=== PATIENT | male | born 1945 | race Caucasian/White ===

== ENCOUNTER → 2019-04-30 | Outpatient (CLI) | payer MEDICARE, OTHER ==
[~2019-04-30] MED LIST: ASPI-586 PO; DICL50TA6 PO; DIVA250T2 PO; HYDR25TA4 PO; MULT-301 PO; MV-M1TAB38 PO; NF-ESOM40C PO; SIMV20TA3 PO
[2019-04-30 09:45] LABS: BASOPHILS # (AUTO) 0.1 10^3/uL (0.0-0.1); BASOPHILS % (AUTO) 1 % (0-10); EOSINOPHILS # (AUTO) 0.2 10^3/uL (0.0-0.3); EOSINOPHILS % (AUTO) 2 % (0-10); HEMATOCRIT 44 % (40-54); HEMOGLOBIN 14.8 G/DL (13.3-17.7); LYMPHOCYTES # (AUTO) 2.3 X 10^3 (1.0-4.0); LYMPHOCYTES % (AUTO) 27 % (12-44); MEAN CORPUSCULAR HEMOGLOBIN 31 PG (25-34); MEAN CORPUSCULAR HGB CONC 34 G/DL (32-36); MEAN CORPUSCULAR VOLUME 91 FL (80-99); MEAN PLATELET VOLUME 9.7 FL (7.4-10.4); MONOCYTES # (AUTO) 0.9 X 10^3 (0.0-1.0); MONOCYTES % (AUTO) 11 % (0-12); NEUTROPHILS % (AUTO) 59 % (42-75); PLATELET COUNT 200 10^3/uL (130-400); RED CELL DISTRIBUTION WIDTH 13.3 % (10.0-14.5); WHITE BLOOD COUNT 8.5 10^3/uL (4.3-11.0)
[2019-04-30 09:51] LABS: BILIRUBIN,URINE NEGATIVE (NEGATIVE); CLARITY,URINE CLEAR; COLOR,URINE YELLOW; GLUCOSE, URINE (UA) NEGATIVE (NEGATIVE); KETONES,URINE NEGATIVE (NEGATIVE); LEUKOCYTE ESTERASE ,URINE NEGATIVE (NEGATIVE); NITRITE,URINE NEGATIVE (NEGATIVE); PH,URINE 7 (5-9); PROTEIN,URINE NEGATIVE (NEGATIVE); UROBILINOGEN,URINE NORMAL (NORMAL)
[2019-04-30 10:03] LABS: BACTERIA,URINE NEGATIVE /HPF
[2019-04-30 10:05] LABS: ALANINE AMINOTRANSFERASE 13 U/L (0-55); ALBUMIN 4.1 GM/DL (3.2-4.5); ALKALINE PHOSPHATASE 66 U/L (40-136); BILIRUBIN,TOTAL 0.3 MG/DL (0.1-1.0); BUN/CREATININE RATIO 19; CARBON DIOXIDE 25 MMOL/L (21-32); CHLORIDE 104 MMOL/L (98-107); CREATININE SERUM 0.96 MG/DL (0.60-1.30); GFR ESTIMATED > 60; GLUCOSE 92 MG/DL (70-105); SODIUM 138 MMOL/L (135-145); TOTAL PROTEIN 7.4 GM/DL (6.4-8.2)
--- NOTE | 2019-04-30 17:37 | Diagnostic Imaging Report ---
EXAMINATION: PA and lateral chest At 10:17 a.m. INDICATION: Preop, atherosclerosis of [place] arteries. COMPARISON: There are no prior studies available for comparison. FINDINGS: The heart size is within normal limits. The lungs are clear. There is no evidence for failure, pneumonia, or for a pleural effusion. The mediastinum is not widened. The osseous structures are intact. IMPRESSION: There is no evidence for active disease. Dictated by: Dictated on workstation # [id number]
== END ==
LOC: CARD 09:28
PROVIDERS: ATTEND Thoracic Surgery (Cardiothoracic Vascular Surgery)
DX: Z01.810 Encounter for preprocedural cardiovascular examination (principal); Z01.812 Encounter for preprocedural laboratory examination; Z01.811 Encounter for preprocedural respiratory examination; I70.209 Unspecified atherosclerosis of native arteries of extremities, unspecified extremity
CPT/HCPCS: 36415; 71046; 80053; 81000; 85025; 93005

== ENCOUNTER 2021-03-21 12:15 | Inpatient (IN) | payer MEDICARE, OTHER ==
[~2021-03-21] VITALS: Ht 182 cm; Wt 78.8 kg
[~2021-03-21 12:15] MED LIST changes: +SIMV20TA26 PO; -SIMV20TA3 PO
[2021-03-21] MEDS ORDERED: DOCUSATE SODIUM 100 MG (COLACE) CAP PO PRN (12:30)
[2021-03-21] MEDS ORDERED: ALPRAZolam 0.25 MG (XANAX) TAB PO PRN (12:30)
[2021-03-21] MEDS ORDERED: diphenhydrAMINE 25 MG TAB (BENADRYL) PO PRN (12:30)
[2021-03-21] MEDS ORDERED: guaiFENesin/CODEINE (ROBITUSSIN AC) 10ML UDC PO PRN (12:30)
[2021-03-21] MEDS ORDERED: HYDROcodone/APAP 5 MG/325 MG (LORTAB) TAB PO PRN (12:30)
[2021-03-21] MEDS ORDERED: LOPERAMIDE 2 MG (IMODIUM) TABLET PO PRN (12:30)
[2021-03-21] MEDS ORDERED: ONDANSETRON 4 MG (ZOFRAN) ORAL DISSOLVE TAB PO PRN (12:30)
[2021-03-21] MEDS ORDERED: BISACODYL 10 MG SUPP (DULCOLAX) PR PRN (12:30)
[2021-03-21] MEDS ORDERED: FLEET ENEMA ADULT 1 EA BTL PR PRN (12:30)
[2021-03-21] MEDS ORDERED: TOLT4CAP13 PO (12:36)
[2021-03-21] MEDS ORDERED: DIVA500T PO (12:36)
[2021-03-21] MEDS ORDERED: CLOP75TA28 PO (12:36)
[2021-03-21] MEDS ORDERED: PANT40TA52 PO (12:36)
[2021-03-21] MEDS ORDERED: SIMV20TA26 PO (12:36)
[2021-03-21] MEDS ORDERED: ASPI-999 PO (12:36)
[2021-03-21] MEDS ORDERED: DICL50TA6 PO (12:36)
[2021-03-21] MEDS ORDERED: MULT-166 PO (12:36)
[2021-03-21] MEDS ORDERED: CARV6.252 PO (12:36)
[2021-03-21] MEDS ORDERED: ACHD5005 PO (12:36)
[2021-03-21] MEDS ORDERED: C,E,1CAP2 PO (12:36)
--- NOTE | 2021-03-21 15:38 | Occupational Therapy Eval ---
OT Evaluation-General/PLF Medical Diagnosis Admission Date Mar 21, 2021 at 14:20 Medical Diagnosis: s/p CABGx4 Onset Date: Mar 15, 2021 Therapy Diagnosis Therapy Diagnosis: Decreased ADL status Height/Weight Height (Feet): 5 Height (Inches): 11.00 Weight (Pounds): 185 Weight (Ounces): 0.0 Precautions Precautions/Isolations: Fall Prevention, Standard Precautions Comments sternal precautions Referral Physician: Roger Referral Reason: Activity Tolerance, Self Care, Evaluation/Treatment, Strengthening/ROM Medical History Pertinent Medical History: Arthritis, CAD, GERD, HTN Additional Medical History HTN, HLD, GERD, arthritis, peripheral neuropathy, CAD, MRSA, lap hiatal hernia repair Current History CABG x4 Reviewed History: Yes Social History Home: Single Level Current Living Status: Children (son) Entry Into Home: Ramp Steps Into Home: 0 ADL-Prior Level of Function SCALE: Activities may be completed with or without assistive devices. 1-Ocziitnmpt-rrpyyhp completes the activity by him/herself with no assistance from a helper. 5-Set-up or Clean-up Assistance-helper sets up or cleans up; patient completes activity. [place] assists only prior to or following the activity. 4-Supervision or Touching Assistance-helper provides verbal cues and/or touching/steadying and/or contact guard assistance as patient completes activity. Assistance may be provided throughout the activity or intermittently. 3-Partial/Moderate Assistance-helper does LESS THAN HALF the effort. [place] lifts, holds or supports trunk or limbs, but provides less than half the effort. 2-Substantial/Maximal Assistance-helper does MORE THAN HALF the effort. [place] lifts or holds trunk or limbs and provides more than half the effort. 6-Vgklrmawn-mtvlke does ALL the effort. Patient does none of the effort to complete the activity. Or, the assistance of 2 or more helpers is required for the patient to complete the activity. If activity was not attempted, code reason: 7-Patient Refused. 9-Not Applicable-not attempted and the patient did not perform the activity before the current illness, exacerbation or injury. 10-Not Attempted due to Environmental Limitations-(lack of equipment, weather restraints, etc.). 88-Not Attempted due to Medical Conditions or Safety Concerns. ADL PLOF Comments Pt expresses IND with use of SPC within/ outside of the home. 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 Drive Self: Yes OT Current Status Subjective Pt states pain in the back, pain in the chest as well. Pt is accompanied by son through most of the start of session. OT individual evaluation: [id number] (10) PT individual evaluation: [id number] (10) not charged by OT. OT/ PT co-treat from [id number] (80) with OT addressing UE strength, ADL status, balance and fx endurance, sternal precautions, etc while PT addresses LE strength, w/c mobility, fx mobility and transfers. Mental Status/Objective Patient Orientation: Person, Place, Situation Current Glasses/Contacts: Yes Hearing Aids: No Dentures/Partials: Yes Hand Dominance: Right Upper Extremity ROM WFL BUE (sternal precautions continued) Upper Extremity Coordination WFL BUE Upper Extremity Sensation WFL BUE Upper Extremity Strength DNT per sternal precautions. Edema: slight pitting LLE ADL-Treatment Eating (QC): 6 Oral Hygiene (QC): 6 (IND in sit per clinical judgment.) Shower/Bathe Self (QC): 7 (desires tomorrow.) Upper Body Dressing (QC): 5 (per clinical judgment. ) Lower Body Dressing (QC): 7 (denies, however, assist to pull down during toileting and CGA to focus puller hips.) On/Off Footwear (QC): 3 (CGA EOB with min A to right while donning slip on shoes.) Toileting Hygiene (QC): 4 (Completes with SBA on toilet.) Other Treatments Pt seen on 1st floor with son, accompanied by OT/ PT to 2nd and is introduced to ARU. Pt completes PT eval/ OT eval. MMT/ ROM screen with precautions maintained. Pt bed mob with CGA into bed, mod A supine to sit to EOB. Completes shoe donning/ doffing with assist for sustained sit (slight leaning back due to pain in back). BP assessed with ~116/58 in supine. Pt educated on sternal precautions. Pt sit to stands with CGA-min A and ambulates with unsteady gait with walker. Pt slightly ATKA and requires increased cues for pronunciation during communication. Pt completes toileting with SBA and CGA sit to stand from standard toilet. Pt expresses slight dizziness/ nausea. Pt's vitals assessed with 115/59. Pt completes stance at // bars, completing higher level balance tasks. Ambulates through halls and back to room with CGA and RB. All needs met, call light in reach, pt remains in bed with bed alarm on. Education OT Patient Education: Correct positioning, Exercise program, Home exercise program, Instructions to caregiver, Modified ADL techniques, Purpose of tx/funct ional activities, Reviewed precautions, Rehab process, Safety issues, Transfer techniques Teaching Recipient: Patient Teaching Methods: Demonstration, Discussion Response to Teaching: Verbalize Understanding, Return Demonstration OT Short Term Goals Short Term Goals Oral hygiene: 6 Toileting hygiene: 6 Shower/bathe self: 3 Upper body dressin Lower body dressin Putting on/taking off footwear: 4 OT Raised Printer Goals Raised Printer Goals Time Frame: Apr 04, 2021 Eating (QC): 6 Oral Hygiene (QC): 6 Toileting Hygiene (QC): 6 Shower/Bathe Self (QC): 6 Upper Body Dressing (QC): 6 Lower Body Dressing (QC): 6 On/Off Footwear (QC): 6 Additional Goals: 1-Demonstrate ADL Tasks, 2-Verbalize Understanding, 3-Imp roveStrength/Myah 1=Demonstrate adherence to instructed precautions during ADL tasks. 2=Patient will verbalize/demonstrate understanding of assistive devices/modifications for ADL. 3=Patient will improve strength/tolerance for activity to enable patient to perform ADL's. OT Education/Plan Problem List/Assessment Assessment: Decreased Activ Tolerance, Decreased Safety Aware, Decreased UE Strength, Dependent Transfers, Edema, Impaired Bed Mobility, Impaired Cognition, Impaired Funct Balance, Impaired I ADL's, Impaired Self-Care Skills Discharge Recommendations Plan/Recommendations: Continue POC Therapy Discharge Recommendati: Home & Family, Post Acute OT Treatment Plan/Plan of Care Treatment,Training & Education: Yes Patient would benefit from OT for education, treatment and training to promote independence in ADL's, mobility, safety and/or upper extremity function for ADL's. Plan of Care: ADL Retraining, Caregiver Training, Functional Mobility, Group Exercise/Act as Ind, UE Funct Exercise/Act, W/C Management Training Treatment Duration: Apr 04, 2021 Frequency: At least 5 of 7 days/Wk (IRF) Estimated Hrs Per Day: 1.5 hours per day Agreement: Yes Rehab Potential: Fair Time/GCodes Start Time: 14:30 Stop Time: 16:00 Total Time Billed (hr/min): 90 Billed Treatment Time OT individual evaluation: [id number] (10) PT individual evaluation: [id number] (10) not charged by OT. OT/ PT co-treat from [id number] (80) with OT addressing UE strength, ADL status, balance and fx endurance, sternal precautions, etc while PT addresses LE strength, w/c mobility, fx mobility and transfers. 1, EVM (10), ADL (20), EX 4 (60)= (90 total) FELIPA LEBRON OTR Mar 21, 2021 15:38
--- NOTE | 2021-03-21 15:47 | Physical Therapy Evaluation ---
PT Evaluation-General Medical Diagnosis Admission Date Mar 21, 2021 at 14:20 Medical Diagnosis: s/p CABGx4 Onset Date: Mar 15, 2021 Therapy Diagnosis Therapy Diagnosis: weakness; abn gait Height/Weight Height (Feet): 5 Height (Inches): 11.00 Weight (Pounds): 185 Weight (Ounces): 0.0 Precautions Precautions/Isolations: Fall Prevention, Standard Precautions Weight Bear Status Sternal precautions Referral Physician: Roger Reason for Referral: Evaluation/Treatment Medical History Pertinent Medical History: CABG (x4), CAD, HTN, PVD Additional Medical History anemia, hypoxemia Current History Post acute hospital stay with a CABG x 4 on 03/14/21. Admitted to this unit for continued medical management and skilled therapy services. Reviewed History: Yes Social History Home: Single Level Current Living Status: Children (son) Entry Into Home: Ramp PT Steps Into Home: 0 Prior Prior Level of Function SCALE: Activities may be completed with or without assistive devices. 4-Fldjvzqdsn-mudnwog completes the activity by him/herself with no assistance from a helper. 5-Set-up or Clean-up Assistance-helper sets up or cleans up; patient completes activity. [place] assists only prior to or following the activity. 4-Supervision or Touching Assistance-helper provides verbal cues and/or touching/steadying and/or contact guard assistance as patient completes activity. Assistance may be provided throughout the activity or intermittently. 3-Partial/Moderate Assistance-helper does LESS THAN HALF the effort. [place] lifts, holds or supports trunk or limbs, but provides less than half the effort. 2-Substantial/Maximal Assistance-helper does MORE THAN HALF the effort. [place] lifts or holds trunk or limbs and provides more than half the effort. 7-Bdrbfdeaf-irkngn does ALL the effort. Patient does none of the effort to complete the activity. Or, the assistance of 2 or more helpers is required for the patient to complete the activity. If activity was not attempted, code reason: 7-Patient Refused. 9-Not Applicable-not attempted and the patient did not perform the activity before the current illness, exacerbation or injury. 10-Not Attempted due to Environmental Limitations-(lack of equipment, weather restraints, etc.). 88-Not Attempted due to Medical Conditions or Safety Concerns. Bed Mobility: 6 Transfers (B,C,W/C): 6 Gait: 6 (uses a cane as needed) Stairs: 6 Wheelchair Mobility: 10 Indoor Mobility (Ambulation): Independent Stairs: Independent Prior Devices Use: None Prior Device Use: Pt has a cane and FWW at home (walker was his mother's) PT Evaluation-Current Subjective Pt agreeable to PT. Reports he has access to a walker but has recently been using a cane for ambulation. Reports he tires easily. Reports he is not supposed to push or pull with his upper extremities. Pain Numeric Pain Scale: 0-No Pain Objective Patient Orientation: Person, Place, Time, Situation ROM/Strength ROM Lower Extremities WNL Strength Lower Extremities B LE strength is grossly 4-/5 throughout Integumentary/Posture Integumentary Refer to nursing notes for full assessment. Bowel Incontinence: No Bladder Incontinence: No Posture Shoulders are symmetrical; shoulders slightly rounded with head slightly forward. Neuromuscular (Tone, Coordination, Reflexes) Intact and without noted functional deficit. Sensory Vision: Wears Glasses Hearing: Functional Hand Dominance: Right Sensation Right Lower Extremit: Intact Sensation Left Lower Extremity: Intact Transfers Roll Left & Right (QC): 4 (skilled cues to initiate and maintain precautions. ) Sit to Lying (QC): 4 Lying to Sitting/Side of Bed(Q: 4 Sit to Stand (QC): 4 Chair/Oep-bc-Bamhe Xfer(QC): 4 Toilet Transfer (QC): 3 (min assist to lower to the toilet) Car Transfer (QC): 3 (min assist with legs; skilled cues to sequence) Cues for task initiation and maintain sternal precautions. Gait Does the Patient Walk?: Yes Mode of Locomotion: Walk Anticipated Mode of Locomotion: Walk Walk 10 feet (QC): 3 Walk 50 ft with 2 Turns(QC): 3 Walk 150 ft (QC): 3 Walking 10ft/uneven surface-QC: 3 Distance: 50 ft x 2; 150 ft x 1 Gait Assistive Device: FWW Comments/Gait Description Decreased step length and decreased step through; with impaired DF and heel strike. Slow gait and tends to lean back at times. Wheelchair Training Does the Pt Use a Wheelchair?: No Wheel 50 ft with 2 turns (QC): 9 Wheel 150 ft (QC): 9 Stairs 1 Step (curb) (QC): 3 (min assist and skilled cues for sequencing. ) 4 Steps (QC): 88 12 Steps (QC): 88 Balance Sitting Static: Fair (retropulsive sitting EOB.) Sitting Dynamic: Fair (retropulsive sitting EOB) Standing Static: Fair Standing Dynamic: Normal Picking up an Object (QC): 3 Treatment functional transfer training with cues to initiate and safety with transfers. Co treat with OT due to the need for heavy cues for task completion. Skill of 2 clinicians indicated for safe completion and effective completion of tasks. Pt performed transfers, bed mobility and toilet transfer; OT addressed use and placement of UE as PT addressed gross motor tasks. Skilled cues provided by each discipline. Assessment/Needs Post CABG x 4 with residual functional weakness, balance impairment and impaired functional activity tolerance; sternal precautions as wll. He is requiring assist with all functional mobility and unable to safely or effectively care for himself. He requires cues and assist with transfers, bed mobility and gait. He will benefit from skilled PT services to progress to a mod indep level of mobility to decrease caregiver burden and increase patient particiaption in self care and environment interaction. Rehab Potential: Good PT Short Term Goals Short Term Goals Time Frame: Mar 28, 2021 Roll Left & Right: 5 Sit to lyin Lying to sitting on side of be: 5 Sit to stand: 5 Chair/fvm-ke-fgafj transfer: 5 Toilet transfer: 4 Walk 10 feet: 4 Walk 50 feet with two turns: 4 Walk 150 feet: 4 PT Stagecraft Teacher Goals Snf Goals PT Snf Goals Time Frame: Apr 06, 2021 Roll Left & Right (QC): 6 Sit to Lying (QC): 6 Lying-Sitting on Side/Bed(QC): 6 Sit to Stand (QC): 6 Chair/Jvk-py-Wwoyz Xfer(QC): 6 Toilet Transfer (QC): 6 Car Transfer (QC): 6 Does the Patient Walk: Yes Walk 10 feet (QC): 6 Walk 50ft with 2 Turns (QC): 6 Walk 150 ft (QC): 6 Walking 10ft on Uneven Surface: 6 1 Step (curb) (QC): 6 4 Steps (QC): 6 12 Steps (QC): 4 Picking up an Object (QC): 5 Does the Pt use WC or Scooter?: No Wheel 50 feet with 2 turns (QC: 9 Wheel 150 feet: 9 PT Plan Problem List Problem List: Activity Tolerance, Functional Strength, Safety, Balance, Gait, Transfer, Bed Mobility Treatment/Plan Treatment Plan: Continue Plan of Care Treatment Plan: Bed Mobility, Education, Functional Activity Myah, Functional Strength, Group Therapy, Gait, Safety, Therapeutic Exercise, Transfers Treatment Duration: Apr 06, 2021 Frequency: At least 5 of 7 days/Wk (IRF) Estimated Hrs Per Day: 1.5 hours per day Patient and/or Family Agrees t: Yes Safety Risks/Education Patient Education: Transfer Techniques, Safety Issues Teaching Recipient: Patient Teaching Methods: Demonstration, Discussion Response to Teaching: Reinforcement Needed Time/GCodes Time In: 1420 Time Out: 1430 ([id number]) Total Billed Treatment Time: 30 Total Billed Treatment visit EVM 10 FA 20 (co treat with OT) ANDRAE SWARTZ PT Mar 21, 2021 15:47
[2021-03-21] MEDS: HYDROcodone/APAP 5 MG/325 MG (LORTAB) TAB PO PRN ×2 (16:02→21:17)
--- NOTE | 2021-03-21 16:09 | Physical Therapy Daily Note ---
PT Daily Note-Current Subjective Patient in room pre tx, agrees to PT, has unrated back and chest pain, will be co-treating with OT due to poor patient mobility, strength, endurance, coordinate UE and LE with activity, safety and reduce risk of falls. Appearance Patient in bed post tx with nurse call, phone, tray, all needs met, bed alarm on. Mental Status Patient Orientation: Person, Confused, Place, Situation Transfers SCALE: Activities may be completed with or without assistive devices. 9-Xgeojthzmx-kvbrkha completes the activity by him/herself with no assistance from a helper. 5-Set-up or Clean-up Assistance-helper sets up or cleans up; patient completes activity. [place] assists only prior to or following the activity. 4-Supervision or Touching Assistance-helper provides verbal cues and/or touching/steadying and/or contact guard assistance as patient completes activity. Assistance may be provided throughout the activity or intermittently. 3-Partial/Moderate Assistance-helper does LESS THAN HALF the effort. [place] lifts, holds or supports trunk or limbs, but provides less than half the effort. 2-Substantial/Maximal Assistance-helper does MORE THAN HALF the effort. [place] lifts or holds trunk or limbs and provides more than half the effort. 5-Rvnlgglwz-kqjzvp does ALL the effort. Patient does none of the effort to complete the activity. Or, the assistance of 2 or more helpers is required for the patient to complete the activity. If activity was not attempted, code reason: 7-Patient Refused. 9-Not Applicable-not attempted and the patient did not perform the activity before the current illness, exacerbation or injury. 10-Not Attempted due to Environmental Limitations-(lack of equipment, weather restraints, etc.). 88-Not Attempted due to Medical Conditions or Safety Concerns. Roll Left & Right (QC): 6 Sit to Lying (QC): 6 Sit to Stand (QC): 4 Chair/Rdi-rt-Vczkg Xfer(QC): 4 occasional reminding to not violate sternal precautions Gait Training Distance: 150'x2 Walk 10 feet (QC): 4 Walk 50 ft with 2 Turns(QC): 4 Walk 150 ft (QC): 4 Gait Assistive Device: FWW WC follow, patient has a shuffling gait, stops every few steps to talk or rest, needs cues for direction, poor foot clearance Exercises standing in parallel bars x2 with cone reaching activity to work on balance and endurance Treatments PT performed bed mobility and transfers, ambulation, standing and balance during cone reaching activity, OT performed UE positioning and safety during activity, cone activity Assessment Current Status: Fair Progress patient needs cues to stay on task, CGA for sit to stand and transfers PT Account Supervisor Goals Alf Goals PT Account Supervisor Goals Time Frame: Apr 06, 2021 Roll Left & Right (QC): 6 Sit to Lying (QC): 6 Lying-Sitting on Side/Bed(QC): 6 Sit to Stand (QC): 6 Chair/Vvn-un-Ckfbb Xfer(QC): 6 Toilet Transfer (QC): 6 Car Transfer (QC): 6 Does the Patient Walk: Yes Walk 10 feet (QC): 6 Walk 50ft with 2 Turns (QC): 6 Walk 150 ft (QC): 6 Walking 10ft on Uneven Surface: 6 1 Step (curb) (QC): 6 4 Steps (QC): 6 12 Steps (QC): 4 Picking up an Object (QC): 5 Wheel 50 feet with 2 turns (QC: 9 Wheel 150 feet: 9 PT Plan Problem List Problem List: Activity Tolerance, Functional Strength, Safety, Balance, Gait, Transfer, Bed Mobility, ROM Treatment/Plan Treatment Plan: Continue Plan of Care Treatment Plan: Bed Mobility, Education, Functional Activity Myah, Functional Strength, Group Therapy, Gait, Safety, Therapeutic Exercise, Transfers Treatment Duration: Apr 06, 2021 Frequency: At least 5 of 7 days/Wk (IRF) Estimated Hrs Per Day: 1.5 hours per day Patient and/or Family Agrees t: Yes Safety Risks/Education Patient Education: Gait Training, Transfer Techniques, Correct Positioning, Safety Issues Teaching Recipient: Patient Teaching Methods: Demonstration, Discussion Response to Teaching: Reinforcement Needed Time/GCodes Time In: 1500 Time Out: 1600 Total Billed Treatment Time: 60 Total Billed Treatment 1 visit EX 30' FA 30' MUSA MADRIGAL PT Mar 21, 2021 16:09
[2021-03-21] MEDS: MULTIVIT W/MINERALS TAB (THERAGRAN M) PO SCH (18:51)
[2021-03-21] MEDS: ETODOLAC 200 MG (LODINE) CAP PO SCH (19:57)
[2021-03-21 20:00] VITALS: BP 124/58
[2021-03-21] MEDS ORDERED: NON-FORMULARY MEDICATION 1 EA EA (Diclofenac Sodium 50 MG) PO SCH (21:00)
[2021-03-21] MEDS: TOLTERODINE LA 4 MG (DETROL) CAP PO SCH (21:16)
[2021-03-21] MEDS: DIVALPROEX 500 MG DELAYED RELEASE (DEPAKOTE) TAB PO SCH (21:16)
[2021-03-21] MEDS: SIMvastatin 20 MG (ZOCOR) TAB PO SCH (21:17)
[2021-03-21] MEDS: SENNA W/DOCUSATE (SENOKOT S) TABLET PO SCH (21:17)
[2021-03-21] MEDS: MELATONIN 3 MG TABLET PO PRN (21:17)
[2021-03-21] MEDS: DOCUSATE SODIUM 100 MG (COLACE) CAP PO SCH (21:17)
[2021-03-21] MEDS: polyethylene glycoL POWDER 17 GM (MIRALAX) PACK PO SCH (21:19)
[2021-03-22 05:58] LABS: BASOPHILS % (AUTO) 0 % (0-10); EOSINOPHILS % (AUTO) 8 % (0-10); HEMATOCRIT 24 % (40-54); HEMOGLOBIN 7.9 g/dL (13.3-17.7); LYMPHOCYTES # (AUTO) 1.6 10^3/uL (1.0-4.0); LYMPHOCYTES % (AUTO) 14 % (12-44); MEAN CORPUSCULAR HEMOGLOBIN 31 pg (25-34); MEAN CORPUSCULAR HGB CONC 33 g/dL (32-36); MEAN CORPUSCULAR VOLUME 95 fL (80-99); MEAN PLATELET VOLUME 9.3 fL (9.0-12.2); MONOCYTES # (AUTO) 1.2 10^3/uL (0.0-1.0); MONOCYTES % (AUTO) 11 % (0-12); NEUTROPHILS # (AUTO) 7.3 10^3/uL (1.8-7.8); NEUTROPHILS % (AUTO) 63 % (42-75); PLATELET COUNT 281 10^3/uL (130-400); WHITE BLOOD COUNT 11.5 10^3/uL (4.3-11.0)
[2021-03-22 06:16] LABS: POTASSIUM 4.1 MMOL/L (3.6-5.0)
[2021-03-22 06:17] LABS: CALCIUM 8.4 MG/DL (8.5-10.1)
[2021-03-22 06:19] LABS: TOTAL PROTEIN 5.7 GM/DL (6.4-8.2)
[2021-03-22 06:20] LABS: BILIRUBIN,TOTAL 0.4 MG/DL (0.1-1.0)
[2021-03-22 06:22] LABS: CREATININE SERUM 1.26 MG/DL (0.60-1.30)
[2021-03-22 07:40] VITALS: BP 154/69
[2021-03-22] MEDS: ETODOLAC 200 MG (LODINE) CAP PO SCH ×2 (08:22→17:38)
[2021-03-22] MEDS: ASPIRIN 81 MG CHEW (CHILDREN'S ASA) PO SCH (08:22)
[2021-03-22] MEDS: HYDROcodone/APAP 5 MG/325 MG (LORTAB) TAB PO PRN ×2 (08:23→17:48)
[2021-03-22] MEDS: SENNA W/DOCUSATE (SENOKOT S) TABLET PO SCH ×2 (08:23→20:40)
[2021-03-22] MEDS: CLOPIDOGREL 75 MG (PLAVIX) TABLET PO SCH (08:23)
[2021-03-22] MEDS: DIVALPROEX 500 MG DELAYED RELEASE (DEPAKOTE) TAB PO SCH ×2 (08:23→20:40)
[2021-03-22] MEDS: PANTOPRAZOLE 40 MG (PROTONIX) TAB PO SCH (08:23)
[2021-03-22] MEDS: DOCUSATE SODIUM 100 MG (COLACE) CAP PO SCH ×2 (08:23→20:40)
[2021-03-22] MEDS: polyethylene glycoL POWDER 17 GM (MIRALAX) PACK PO SCH ×2 (08:24→20:50)
[2021-03-22] MEDS ORDERED: [UNRECOGNIZED DRUG - OTHER] PO SCH (09:00)
--- NOTE | 2021-03-22 09:53 | Physical Therapy Daily Note ---
PT Daily Note-Current Subjective Patient in recliner pre tx, agrees to PT, has 7/10 pain in back and chest (incision pain), nurse notified of pain. Patient has a button up shirt and he needs to button it up, very slow, takes about 10 minutes to do that. Appearance Patient in recliner post tx with nurse call, phone, tray, all needs met, chair alarm on. Mental Status Patient Orientation: Person, Place, Situation Transfers SCALE: Activities may be completed with or without assistive devices. 1-Ldyfmtwuvj-ltwiydi completes the activity by him/herself with no assistance from a helper. 5-Set-up or Clean-up Assistance-helper sets up or cleans up; patient completes activity. [place] assists only prior to or following the activity. 4-Supervision or Touching Assistance-helper provides verbal cues and/or touching/steadying and/or contact guard assistance as patient completes activity. Assistance may be provided throughout the activity or intermittently. 3-Partial/Moderate Assistance-helper does LESS THAN HALF the effort. [place] lifts, holds or supports trunk or limbs, but provides less than half the effort. 2-Substantial/Maximal Assistance-helper does MORE THAN HALF the effort. [place] lifts or holds trunk or limbs and provides more than half the effort. 2-Rtrenvgbl-uafflz does ALL the effort. Patient does none of the effort to complete the activity. Or, the assistance of 2 or more helpers is required for the patient to complete the activity. If activity was not attempted, code reason: 7-Patient Refused. 9-Not Applicable-not attempted and the patient did not perform the activity before the current illness, exacerbation or injury. 10-Not Attempted due to Environmental Limitations-(lack of equipment, weather restraints, etc.). 88-Not Attempted due to Medical Conditions or Safety Concerns. Sit to Stand (QC): 4 Chair/Cmu-xu-Mtxax Xfer(QC): 4 occasional cues for hand placement and sternal precautions Weight Bearing Sternal precautions Gait Training Distance: 200'x2, 120'x2 Walk 10 feet (QC): 4 Walk 50 ft with 2 Turns(QC): 4 Walk 150 ft (QC): 4 Gait Persons Needed: 1 Gait Assistive Device: FWW Patient ambulates very slowly, shuffles, has left hip pain during ambulation, frequently stops for standing rest breaks Exercises NuStep Minutes: 10 NuStep Workload: 4 (patient instructed to not use arms) Treatments transfers, dressing, ambulation, LE strengthening Assessment Current Status: Fair Progress Patient needs frequent cues for direction, shuffles with ambulation, drifts to the left with ambulation and needs cues to come back from the wall PT Short Term Goals Short Term Goals Time Frame: Mar 28, 2021 Roll Left & Right: 5 Sit to lyin Lying to sitting on side of be: 5 Sit to stand: 5 Chair/czm-sa-iuyny transfer: 5 Toilet transfer: 4 Walk 10 feet: 4 Walk 50 feet with two turns: 4 Walk 150 feet: 4 PT Senior Living Goals Senior Living Goals PT Senior Living Goals Time Frame: Apr 06, 2021 Roll Left & Right (QC): 6 Sit to Lying (QC): 6 Lying-Sitting on Side/Bed(QC): 6 Sit to Stand (QC): 6 Chair/Cqq-yn-Hsxwt Xfer(QC): 6 Toilet Transfer (QC): 6 Car Transfer (QC): 6 Does the Patient Walk: Yes Walk 10 feet (QC): 6 Walk 50ft with 2 Turns (QC): 6 Walk 150 ft (QC): 6 Walking 10ft on Uneven Surface: 6 1 Step (curb) (QC): 6 4 Steps (QC): 6 12 Steps (QC): 4 Picking up an Object (QC): 5 Does the Pt use WC or Scooter?: No Wheel 50 feet with 2 turns (QC: 9 Wheel 150 feet: 9 PT Plan Problem List Problem List: Activity Tolerance, Functional Strength, Safety, Balance, Gait, Transfer, Bed Mobility, ROM Treatment/Plan Treatment Plan: Continue Plan of Care Treatment Plan: Bed Mobility, Education, Functional Activity Myah, Functional Strength, Group Therapy, Gait, Safety, Therapeutic Exercise, Transfers Treatment Duration: Apr 06, 2021 Frequency: At least 5 of 7 days/Wk (IRF) Estimated Hrs Per Day: 1.5 hours per day Patient and/or Family Agrees t: Yes Safety Risks/Education Patient Education: Gait Training, Transfer Techniques, Correct Positioning, Safety Issues Teaching Recipient: Patient Teaching Methods: Demonstration, Discussion Response to Teaching: Reinforcement Needed Time/GCodes Time In: 0900 Time Out: 1000 Total Billed Treatment Time: 60 Total Billed Treatment 1 visit EX 10' FA 20' GT 30' MUSA MADRIGAL PT Mar 22, 2021 09:53
--- NOTE | 2021-03-22 10:01 | PM&R Post Admission Assessment ---
GUSTAVO MCKENZIE MD 03/22/21 1001: PM&R HP Date of Visit: Mar 22, 2021 Time of Visit: 09:56 History of Present Illness Pt is a 75yoCM with a PMH of CAD, atrial fibrillation, HTN, PVD who is being admitted to rehab following a 4 vessel CABG at [place] on 03/14/21. He did well postoperative with just minor complications of postoperative anemia and hypoxemia which resolved with IV Lasix and pulmonary toileting. He reports he is feeling much better. He was just scooting around at [place] which is markedly decreased from him baseline functional status. He was sitting up in his chair talking on the phone when I entered the room and had no complaints. He has just finished with PT and was feeling well. He actually asking to go do more with physical therapy. He reports he still has incisional pain but that it is well controlled. Per RN his hemoglobin this morning was 7.9 down from 8.5 2 days ago. Past Ljubpfp-Ufhltf-Buyhrf Hx Past Med/Social Hx: Reviewed Nursing Past Med/Soc Hx Patient Social History Smoking Status: Former Smoker Immunizations Up To Date Date of Pneumonia Vaccine: Mar 20, 2016 Past Medical History Surgeries: CABG Cardiac: Coronary Artery Disease, Hypertension, Peripheral Vascular Family History Reviewed Nursing Family Hx No Pertinent Family Hx Prior Level of Function Bed Mobility: 6 Transfers: 6 Gait: 6 (uses a cane as needed) Stairs: 6 Wheelchair Mobility: 10 Indoor Mobility (Ambulation): Independent Stairs: Independent Prior Devices Use: None Pt has a cane and FWW at home (walker was his mother's) Self Care: Independent Functional Cognition: Independent 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 Drive Self: Yes Current Level of Fuctioning Roll Left to Right: 6 Sit to Lyin Lying to Sitting/Side of Bed: 4 Sit to Stand: 4 Chair/Zkk-xd-Uqjab Xfer: 4 Car Transfer: 3 (min assist with legs; skilled cues to sequence) Does the Patient Walk: Yes Mode of Locomotion: Walk Anticipated Mode of Locomotion: Walk Walk 10 feet: 4 Walk 50 ft with 2 Turns: 4 Walk 150 ft: 4 Walking 10ft on uneven surface: 3 Gait Assistive Device: FWW Does the Pt Use a Wheelchair: No Wheel 50 ft with 2 turns: 9 Wheel 150 ft: 9 1 Step (curb): 3 (min assist and skilled cues for sequencing. ) 4 Steps: 88 12 Steps: 88 Picking up an Object: 3 Eatin Oral Hygiene: 6 (IND in sit per clinical judgment.) Shower/Bathe Self: 7 (desires tomorrow.) Upper Body Dressin (per clinical judgment. ) Lower Body Dressin (denies, however, assist to pull down during toileting and CGA to machine tack puller hips.) On/Off Footwear: 3 (CGA EOB with min A to right while donning slip on shoes.) Toileting Hygiene: 4 (Completes with SBA on toilet.) PM&R Allergy/Meds/Data Review Allergies Coded Allergies: No Known Drug Allergies (Unverified , 04/15/16) Home Medications Scheduled Aspirin (Aspirin), 81 MG PO DAILY, (Reported) C,E,Zinc,Copper 24/Om3/Lut/Jordan (Ocuvite Adult 50 Plus Softgel), 1 EACH PO DAILY, (Reported) Carvedilol (Carvedilol), 6.25 MG PO BID WITH MEALS, (Reported) Clopidogrel Bisulfate (Clopidogrel), 75 MG PO DAILY, (Reported) Diclofenac Sodium (Diclofenac Sodium), 50 MG PO BID, (Reported) Divalproex Sodium (Depakote), 500 MG PO BID, (Reported) Multivitamin with Minerals (Multivitamins with Minerals), 1 EACH PO HS, (Reported) Pantoprazole Sodium (Pantoprazole Sodium), 40 MG PO DAILY, (Reported) Simvastatin (Simvastatin), 20 MG PO HS, (Reported) Tolterodine Tartrate (Tolterodine Tartrate ER), 4 MG PO HS, (Reported) Scheduled PRN Hydrocodone/Acetaminophen (Hydrocodone-Acetamin 5-325 mg), 1 TAB PO Q4H PRN for PAIN-MODERATE (5-7), (Reported) Discontinued Medications Aspirin (Aspir 81), 81 MG PO DAILY, (Reported) Discontinued Reason: No Longer Taking Diclofenac Sodium (Diclofenac Sodium), 100 MG PO DAILY, (Reported) Discontinued Reason: No Longer Taking Divalproex Sodium (Depakote), 250 MG PO BID, (Reported) Discontinued Reason: No Longer Taking Esomeprazole Magnesium (Nexium), 40 MG PO DAILY, (Reported) Discontinued Reason: No Longer Taking Hydrochlorothiazide (Hydrochlorothiazide), 25 MG PO DAILY, (Reported) Discontinued Reason: No Longer Taking Multivitamin (Multi-Day Vitamins), 1 EACH PO DAILY, (Reported) Discontinued Reason: No Longer Taking Mv-Mn/FA/Vit K/Lycop/Lut/Zeaxa (Ocuvite Eye + Multi Tablet), 1 EACH PO DAILY, (Reported) Discontinued Reason: No Longer Taking Simvastatin (Simvastatin), 20 MG PO DAILY, (Reported) Discontinued Reason: No Longer Taking Laboratory Data Laboratory Tests 03/22/21 05:48: White Blood Count 11.5H, Red Blood Count 2.57L, Hemoglobin 7.9L, Hematocrit 24L, Mean Corpuscular Volume 95, Mean Corpuscular Hemoglobin 31, Mean Corpuscular Hemoglobin Concent 33, Red Cell Distribution Width 14.3, Platelet Count 281, Mean Platelet Volume 9.3, Immature Granulocyte % (Auto) 3, Neutrophils (%) (Auto) 63, Lymphocytes (%) (Auto) 14, Monocytes (%) (Auto) 11, Eosinophils (%) (Auto) 8, Basophils (%) (Auto) 0, Neutrophils # (Auto) 7.3, Lymphocytes # (Auto) 1.6, Monocytes # (Auto) 1.2H, Eosinophils # (Auto) 1.0H, Basophils # (Auto) 0.0, Immature Granulocyte # (Auto) 0.4H, Sodium Level 140, Potassium Level 4.1, Chloride Level 105, Carbon Dioxide Level 24, Anion Gap 11, Blood Urea Nitrogen 24H, Creatinine 1.26, Estimat Glomerular Filtration Rate 56, BUN/Creatinine Ratio 19, Glucose Level 114H, Calcium Level 8.4L, Corrected Calcium 9.2, Total Bilirubin 0.4, Aspartate Amino Transf (AST/SGOT) 11, Alanine Aminotransferase (ALT/SGPT) 15, Alkaline Phosphatase 45, Total Protein 5.7L, Albumin 3.0L Review of Systems Constitutional: No chills, No fever Physical Exam Physical Exam Vital Signs Vital Signs - First Documented 03/21/21 03/21/21 15:00 20:00 Temp 36.8 Pulse 75 Resp 20 B/P (MAP) 124/58 (80) Pulse Ox 90 O2 Delivery Room Air Capillary Refill : Height, Weight, BMI Height: 5'11.00" Weight: 185lbs. 0.0oz. 83.794904wq; 24.72 BMI Method: General Appearance: No Apparent Distress, WD/WN, Chronically ill HEENT: PERRL/EOMI, Moist Mucous Membranes; No Scleral Icterus (L), No Scleral Icterus (R) Neck: Normal Inspection, Supple Respiratory: Lungs Clear, No Accessory Muscle Use, No Respiratory Distress Cardiovascular: Regular Rate, Rhythm, No JVD, Systolic Murmur, Other (midline scar, ) Gastrointestinal: Normal Bowel Sounds, Soft Extremity: Normal Inspection, No Pedal Edema Neurologic/Psychiatric: Alert, Oriented x3, Normal Mood/Affect Skin: Normal Color, Warm/Dry PM&R Medical Assessment & Plan REHAB/MEDICAL ASSESSMENT AND PLAN: REHAB IMPAIRMENT GROUP: [ ] ETIOLOGIC DIAGNOSIS: [ (condition that led to rehab admission) ] The comorbidities that impact the patients function and/or functional outcome by: [ ] REHAB PLAN: The patient is being admitted to our comprehensive inpatient rehabilitation facility and can tolerate the intensity of service consisting of at least: 180 minutes of therapy a day, 5 out of 7 days a week Rehab treatment will consist of: [ (write brief focus that includes physician, rehab nursing and therapies/modalitiesIPOC will have more specifics) ] The patient/family has a good understanding of our discharge process and will benefit from an interdisciplinary inpatient rehabilitation program. The patient has potential to make improvement and is in need of at least two of the following multidisciplinary therapies including but not limited to physical, occupational, speech, and prosthetics and orthotics. Additionally the patient will need services from respiratory, nutritional services, wound care, psychology, etc. (Customize this to each patient). Given the patients complex condition and risk of further medical complications, rehabilitation services cannot be safely or effectively provided at a lower level of care such as a alf facility. BARRIERS TO DISCHARGE: [ ] ESTIMATED LOS: [ ] DISPOSITION: [ ] RELEVANT CHANGES SINCE PREADMISSION SCREENING: I have compared the patients medical and functional status at the time of the preadmission screening and there are: [no changes] [changes as follows: (if there is a discrepancy between the IGC/Etiologic stated on the PAS, address/clarify this as well) ] PROGNOSIS: [ ] REHABILITATION GOALS: 1. [ (specific to the patient) ] All the above goals were reviewed with the patient and he/she is in agreement. By signing this document, I acknowledge that I have personally performed a full physical examination on this patient within 24 hours of admission to this inpatient rehabilitation facility and have determined the patient to be able to tolerate the above course of treatment at an intensive level for a reasonable period of time. I will be completing a detailed individualized Plan of Care for this patient by day #4 of the patients stay based upon the Preadmission Screen, the Post-Admission Evaluation, and the therapy evaluations. A/P Critical illness myopathy s/p CABG x4 Postoperative anemia Postoperative hypoxemia and respiratory failure- now resolved pAF HTN Plan Continue with intensive therapies to regain prior level of functional status Continue on CAD meds, resumed yesterday on arrival to the unit BP well controlled Pain controlled Check H&H in AM Admission Dx/Comorbidities: (1) S/P CABG x 4 ICD Codes: Z95.1 - Presence of aortocoronary bypass graft (2) Critical illness myopathy ICD Codes: G72.81 - Critical illness myopathy (3) Atrial fibrillation ICD Codes: I48.91 - Unspecified atrial fibrillation (4) HLD (hyperlipidemia) ICD Codes: E78.5 - Hyperlipidemia, unspecified (5) Essential (primary) hypertension ICD Codes: I10 - Essential (primary) hypertension DAHLIA GAMING DO 03/23/21 1543: PM&R HP Date of Visit: Mar 22, 2021 Time of Visit: 00:00 History of Present Illness See Dr. Mckenzie note Past Amrzrbg-Oksxzg-Ctxhyv Hx Past Med/Social Hx: Reviewed Nursing Past Med/Soc Hx, Reviewed and Corrections made PM&R Allergy/Meds/Data Review Allergies Coded Allergies: No Known Drug Allergies (Unverified , 04/15/16) Home Medications Scheduled Aspirin (Aspirin), 81 MG PO DAILY, (Reported) C,E,Zinc,Copper 24/Om3/Lut/Jordan (Ocuvite Adult 50 Plus Softgel), 1 EACH PO DAILY, (Reported) Carvedilol (Carvedilol), 6.25 MG PO BID WITH MEALS, (Reported) Clopidogrel Bisulfate (Clopidogrel), 75 MG PO DAILY, (Reported) Diclofenac Sodium (Diclofenac Sodium), 50 MG PO BID, (Reported) Divalproex Sodium (Depakote), 500 MG PO BID, (Reported) Multivitamin with Minerals (Multivitamins with Minerals), 1 EACH PO HS, (Reported) Pantoprazole Sodium (Pantoprazole Sodium), 40 MG PO DAILY, (Reported) Simvastatin (Simvastatin), 20 MG PO HS, (Reported) Tolterodine Tartrate (Tolterodine Tartrate ER), 4 MG PO HS, (Reported) Scheduled PRN Hydrocodone/Acetaminophen (Hydrocodone-Acetamin 5-325 mg), 1 TAB PO Q4H PRN for PAIN-MODERATE (5-7), (Reported) Discontinued Medications Aspirin (Aspir 81), 81 MG PO DAILY, (Reported) Discontinued Reason: No Longer Taking Diclofenac Sodium (Diclofenac Sodium), 100 MG PO DAILY, (Reported) Discontinued Reason: No Longer Taking Divalproex Sodium (Depakote), 250 MG PO BID, (Reported) Discontinued Reason: No Longer Taking Esomeprazole Magnesium (Nexium), 40 MG PO DAILY, (Reported) Discontinued Reason: No Longer Taking Hydrochlorothiazide (Hydrochlorothiazide), 25 MG PO DAILY, (Reported) Discontinued Reason: No Longer Taking Multivitamin (Multi-Day Vitamins), 1 EACH PO DAILY, (Reported) Discontinued Reason: No Longer Taking Mv-Mn/FA/Vit K/Lycop/Lut/Zeaxa (Ocuvite Eye + Multi Tablet), 1 EACH PO DAILY, (Reported) Discontinued Reason: No Longer Taking Simvastatin (Simvastatin), 20 MG PO DAILY, (Reported) Discontinued Reason: No Longer Taking Current Medications Current Medications Reviewed Review of Systems Constitutional: see HPI Physical Exam Physical Exam Vital Signs REHAB/MEDICAL ASSESSMENT AND PLAN: REHAB IMPAIRMENT GROUP: Cardiac dysfunction from four-vessel bypass ETIOLOGIC DIAGNOSIS: Cardiac dysfunction from four-vessel bypass The comorbidities that impact the patients function and/or functional outcome by: Advanced age, new subacute strokes confirmed on MRI on 03/23/2021 with visual changes now resolved REHAB PLAN: The patient is being admitted to our comprehensive inpatient rehabilitation facility and can tolerate the intensity of service consisting of at least: 180 minutes of therapy a day, 5 out of 7 days a week Rehab treatment will consist of: PT and OT will focus on regaining strength along with monitoring for any deficits from subacute strokes likely occurred postoperatively but will monitor closely for any recurrence and for stroke deficits The patient/family has a good understanding of our discharge process and will benefit from an interdisciplinary inpatient rehabilitation program. The patient has potential to make improvement and is in need of at least two of the following multidisciplinary therapies including but not limited to physical, occupational, speech, and prosthetics and orthotics. Additionally the patient will need services from respiratory, nutritional services, wound care, psychology, etc. (Customize this to each patient). Given the patients complex condition and risk of further medical complications, rehabilitation services cannot be safely or effectively provided at a lower level of care such as a alf facility. BARRIERS TO DISCHARGE: New strokes on MRI 03/23/2021 ESTIMATED LOS: 7 days DISPOSITION: Home RELEVANT CHANGES SINCE PREADMISSION SCREENING: I have compared the patients medical and functional status at the time of the preadmission screening and there are: no changes PROGNOSIS: Good REHABILITATION GOALS: 1. PT and OT will focus on regaining strength along with monitoring for any deficits from subacute strokes likely occurred postoperatively but will monitor closely for any recurrence and for stroke deficits All the above goals were reviewed with the patient and he/she is in agreement. By signing this document, I acknowledge that I have personally performed a full physical examination on this patient within 24 hours of admission to this inpatient rehabilitation facility and have determined the patient to be able to tolerate the above course of treatment at an intensive level for a reasonable period of time. I will be completing a detailed individualized Plan of Care for this patient by day #4 of the patients stay based upon the Preadmission Screen, the Post-Admission Evaluation, and the therapy evaluations. A/P Critical illness myopathy s/p CABG x4 Postoperative anemia Postoperative hypoxemia and respiratory failure- now resolved pAF HTN Plan Continue with intensive therapies to regain prior level of functional status Continue on CAD meds, resumed yesterday on arrival to the unit BP well controlled Pain controlled Check H&H in AM Admission Dx/Comorbidities: (1) S/P CABG x 4 ICD Codes: Z95.1 - Presence of aortocoronary bypass graft (2) Critical illness myopathy ICD Codes: G72.81 - Critical illness myopathy (3) Atrial fibrillation ICD Codes: I48.91 - Unspecified atrial fibrillation (4) HLD (hyperlipidemia) ICD Codes: E78.5 - Hyperlipidemia, unspecified (5) Essential (primary) hypertension ICD Codes: I10 - Essential (primary) hypertension DAHLIA GAMING DO Mar 23, 2021 15:39 General Appearance: No Apparent Distress, WD/WN, Chronically ill PM&R Medical Assessment & Plan REHAB/MEDICAL ASSESSMENT AND PLAN: REHAB IMPAIRMENT GROUP: Cardiac dysfunction from four-vessel bypass ETIOLOGIC DIAGNOSIS: Cardiac dysfunction from four-vessel bypass The comorbidities that impact the patients function and/or functional outcome by: Advanced age, new subacute strokes confirmed on MRI on 03/23/2021 with visual changes now resolved REHAB PLAN: The patient is being admitted to our comprehensive inpatient rehabilitation facility and can tolerate the intensity of service consisting of at least: 180 minutes of therapy a day, 5 out of 7 days a week Rehab treatment will consist of: PT and OT will focus on regaining strength along with monitoring for any deficits from subacute strokes likely occurred postoperatively but will monitor closely for any recurrence and for stroke deficits The patient/family has a good understanding of our discharge process and will benefit from an interdisciplinary inpatient rehabilitation program. The patient has potential to make improvement and is in need of at least two of the following multidisciplinary therapies including but not limited to physical, occupational, speech, and prosthetics and orthotics. Additionally the patient will need services from respiratory, nutritional services, wound care, psychology, etc. (Customize this to each patient). Given the patients complex condition and risk of further medical complications, rehabilitation services cannot be safely or effectively provided at a lower level of care such as a alf facility. BARRIERS TO DISCHARGE: New strokes on MRI 03/23/2021 ESTIMATED LOS: 7 days DISPOSITION: Home RELEVANT CHANGES SINCE PREADMISSION SCREENING: I have compared the patients medical and functional status at the time of the preadmission screening and there are: no changes PROGNOSIS: Good REHABILITATION GOALS: 1. PT and OT will focus on regaining strength along with monitoring for any deficits from subacute strokes likely occurred postoperatively but will monitor closely for any recurrence and for stroke deficits All the above goals were reviewed with the patient and he/she is in agreement. By signing this document, I acknowledge that I have personally performed a full physical examination on this patient within 24 hours of admission to this inpatient rehabilitation facility and have determined the patient to be able to tolerate the above course of treatment at an intensive level for a reasonable period of time. I will be completing a detailed individualized Plan of Care for this patient by day #4 of the patients stay based upon the Preadmission Screen, the Post-Admission Evaluation, and the therapy evaluations. A/P Critical illness myopathy s/p CABG x4 Postoperative anemia Postoperative hypoxemia and respiratory failure- now resolved pAF HTN Plan Continue with intensive therapies to regain prior level of functional status Continue on CAD meds, resumed yesterday on arrival to the unit BP well controlled Pain controlled Check H&H in AM Admission Dx/Comorbidities: (1) S/P CABG x 4 ICD Codes: Z95.1 - Presence of aortocoronary bypass graft (2) Critical illness myopathy ICD Codes: G72.81 - Critical illness myopathy (3) Atrial fibrillation ICD Codes: I48.91 - Unspecified atrial fibrillation (4) HLD (hyperlipidemia) ICD Codes: E78.5 - Hyperlipidemia, unspecified (5) Essential (primary) hypertension ICD Codes: I10 - Essential (primary) hypertension DAHLIA GAMING DO Mar 23, 2021 15:39 Admission Dx/Comorbidities: (1) Critical illness myopathy ICD Codes: G72.81 - Critical illness myopathy (2) Atrial fibrillation ICD Codes: I48.91 - Unspecified atrial fibrillation (3) Essential (primary) hypertension Assessment & Plan: His blood pressures are intermittently elevated. If this persists, we may need to increase his carvedilol. ICD Codes: I10 - Essential (primary) hypertension (4) HLD (hyperlipidemia) ICD Codes: E78.5 - Hyperlipidemia, unspecified (5) Coronary artery disease without angina pectoris Assessment & Plan: He is now status post coronary artery bypass surgery x4. He is gradually improving. He is on appropriate guideline directed medical therapy with aspirin, beta-cornelio, and statin medication. He has also been taking clopidogrel due to his history of peripheral vascular disease. I recommend continuing the present guideline directed medical therapy. I will request a copy of his cardiac catheterization and echocardiogram reports from [facility]. ICD Codes: I25.10 - Atherosclerotic heart disease of robinson coronary artery without angina pectoris (6) Mixed hyperlipidemia Assessment & Plan: Continue simvastatin. ICD Codes: E78.2 - Mixed hyperlipidemia (7) Atherosclerosis of both carotid arteries Assessment & Plan: He had a previous carotid endarterectomy. If his visual changes persist, he may need a head CT and/or MRI of the brain. In the interim, I recommend he continue the aspirin, clopidogrel, and statin medication. ICD Codes: I65.23 - Occlusion and stenosis of bilateral carotid arteries (8) Peripheral arterial disease Assessment & Plan: He has not been having any claudication. He had previous interventions on the left leg. I recommend he continue on aspirin, clopidogrel, and statin medication. Physical therapy should also help with this condition. ICD Codes: I73.9 - Peripheral vascular disease, unspecified (9) Pleural effusion Assessment & Plan: He has decreased breath sounds at both bases. From his description, it sounds as though he was having a fair amount of fluid that may needed draining but at the last moment, ultrasound did not show any significant fluid. I will obtain a chest x-ray for further evaluation. I suspect this is just a normal postoperative pleural effusion. ICD Codes: J90 - Pleural effusion, not elsewhere classified (10) Cerebrovascular accident (CVA) ICD Codes: I63.9 - Cerebral infarction, unspecified (11) Acute postoperative anemia due to expected blood loss ICD Codes: D62 - Acute posthemorrhagic anemia (12) S/P CABG x 4 ICD Codes: Z95.1 - Presence of aortocoronary bypass graft GUSTAVO MCKENZIE MD Mar 22, 2021 10:01 DAHLIA GAMING DO Mar 23, 2021 15:43
--- NOTE | 2021-03-22 10:14 | Occupational Ther Daily Note ---
OT Current Status-Daily Note Subjective Pt alert/ oriented. Pt agrees to tx. Pt repeats self intermittently. Pt expresses SOB, 02 assessed EOB with 98% 02 reading. Pt expresses desire for shower, orders state cleanse with soap/ water/ pat dry. [id number] (30): OT/ PT co-treat for 15 min to address functional mobility/ safety; OT individual tx from [id number]. OT addresses UE movement, sternal precautions, and safety while PT addresses transfers and ambulation. Pt agrees to tx. Mental Status/Objective Patient Orientation: Person, Place, Situation ADL-Treatment Therapy Code Descriptions/Definitions Functional [place] Measure: 0=Not Assessed/NA 4=Minimal Assistance 1=Total Assistance 5=Supervision or Setup 2=Maximal Assistance 6=Modified [place] 3=Moderate Assistance 7=Complete IndependenceSCALE: Activities may be completed with or without assistive devices. 7-Ssbquwsgge-ckpmyaj completes the activity by him/herself with no assistance from a helper. 5-Set-up or Clean-up Assistance-helper sets up or cleans up; patient completes activity. [place] assists only prior to or following the activity. 4-Supervision or Touching Assistance-helper provides verbal cues and/or touching/steadying and/or contact guard assistance as patient completes activity. Assistance may be provided throughout the activity or intermittently. 3-Partial/Moderate Assistance-helper does LESS THAN HALF the effort. [place] lifts, holds or supports trunk or limbs, but provides less than half the effort. 2-Substantial/Maximal Assistance-helper does MORE THAN HALF the effort. [place] lifts or holds trunk or limbs and provides more than half the effort. 1-Kmysqiuaj-budgsy does ALL the effort. Patient does none of the effort to complete the activity. Or, the assistance of 2 or more helpers is required for the patient to complete the activity. If activity was not attempted, code reason: 7-Patient Refused. 9-Not Applicable-not attempted and the patient did not perform the activity b efore the current illness, exacerbation or injury. 10-Not Attempted due to Environmental Limitations-(lack of equipment, weather restraints, etc.). 88-Not Attempted due to Medical Conditions or Safety Concerns. Eating (QC): 6 Oral Hygiene (QC): 6 (in sit with use of denture pack) Bathing Location: L Arm, R Arm, L Upper Leg, R Upper Leg, L Lower Leg (including foot), R Lower Leg (including foot), Chest, Abdomen, Buttocks, Perineal Area Shower/Bathe Self (QC): 4 (SBA all tasks.) Upper Body Dressing (QC): 3 (education, min A for doffing shirt (completes overhead with 1 UE, then doffing BUEs to complete with sternal precautions), and dons with button up shirt.) Lower Body Dressing (QC): 3 (min A for threading 1 LE, CGA in stance.) On/Off Footwear: 2 (BATSHEVA hose donned max A. Pt dons shoes with min A) Toileting Hygiene (QC): 7 (does not complete BM) Toilet Transfer (QC): 4 (CGA, cues for walker placement and precautions.) Other Treatment Pt completes bed mob SBA and increased time, cues for sternal precautions. Sit to stand SBA, then requires min A for righting while in stance due to slight dizziness/ LOB. Pt regains balance, no dizziness after ~30 sec stance. Ambulates to toilet/ urination. CGA and cues for placement in shower for transfer, CGA throughout. Pt completes showering in sit/ in stance. Dresses as outlined in shower. No SOB noted. Pt ambulates to chair CGA and cues for redirection. Pt requires cream on testicle as pt expresses, "Cut it on my urinal last night," foam tape placed on urinal. Pt remains in sit in recliner, all needs met, call light in reach, and PT present end of session. [id number] (30): OT/ PT co-treat for 15 min to address functional mobility/ safety. OT addresses UE movement, sternal precautions, and safety while PT addresses transfers and ambulation. Pt sit to stands with SBA, ambulates with increased time and cues for attention/ safety. Pt returns to room, no rest break. Sits in chair and expresses need for BM. Pt ambulates and transfers with SBA, use of walker. Pt then completes small BM, wipes self and sit to stand SBA, ambulation SBA. Pt expresses "purple streaks" while ambulating, but no dizziness. Pt sits in chair, chair alarm on, all needs met, call light in reach. States continued "streaks," nursing notified. Educated on continued use of the call light for continued safety and assist in transfers. Pt agrees. Education OT Patient Education: Correct positioning, Modified ADL techniques, Purpose of tx/functional activities, Reviewed precautions, Rehab process, Safety issues, Transfer techniques Teaching Recipient: Patient Teaching Methods: Demonstration, Discussion Response to Teaching: Verbalize Understanding, Return Demonstration, Reinforcement Needed OT Short Term Goals Short Term Goals Oral hygiene: 6 Toileting hygiene: 6 Shower/bathe self: 3 Upper body dressin Lower body dressin Putting on/taking off footwear: 4 OT Usp Goals Record Clerk Goals Time Frame: Apr 04, 2021 Eating (QC): 6 Oral Hygiene (QC): 6 Toileting Hygiene (QC): 6 Shower/Bathe Self (QC): 6 Upper Body Dressing (QC): 6 Lower Body Dressing (QC): 6 On/Off Footwear (QC): 6 Additional Goals: 1-Demonstrate ADL Tasks, 2-Verbalize Understanding, 3- ImproveStrength/Myah 1=Demonstrate adherence to instructed precautions during ADL tasks. 2=Patient will verbalize/demonstrate understanding of assistive devices/modifications for ADL. 3=Patient will improve strength/tolerance for activity to enable patient to perform ADL's. OT Education/Plan Problem List/Assessment Assessment: Decreased Activ Tolerance, Decreased Safety Aware, Decreased UE Strength, Dependent Transfers, Edema, Impaired Bed Mobility, Impaired Cognition, Impaired Funct Balance, Impaired I ADL's, Impaired Self-Care Skills, Restricted Funct UE ROM Discharge Recommendations Plan/Recommendations: Continue POC Therapy Discharge Recommendati: Bath Aide, Home & Family, Post Acute OT Treatment Plan/Plan of Care Treatment,Training & Education: Yes Patient would benefit from OT for education, treatment and training to promote independence in ADL's, mobility, safety and/or upper extremity function for ADL's. Plan of Care: ADL Retraining, Caregiver Training, Functional Mobility, Group Exercise/Act as Ind, UE Funct Exercise/Act, W/C Management Training Treatment Duration: Apr 04, 2021 Frequency: At least 5 of 7 days/Wk (IRF) Estimated Hrs Per Day: 1.5 hours per day Agreement: Yes Rehab Potential: Fair Time/GCodes Start Time: 07:50 (1300) Stop Time: 09:00 (1330) Total Time Billed (hr/min): 100 Billed Treatment Time 1, ADL 5 (70) [id number] (30): OT/ PT co-treat for 15 min to address functional mobility/ safety. OT individual tx from [id number] OT addresses UE movement, sternal precautions, and safety while PT addresses transfers and ambulation. 1, EX, ADL (30) Total: 100 FELIPA LEBRON OTR Mar 22, 2021 10:14
--- NOTE | 2021-03-22 11:21 | ST Cognitive Linguistic Eval ---
Speech Evaluation-General Medical Diagnosis s/p CABGx4 Onset Date: Mar 15, 2021 Therapy Diagnosis Therapy Diagnosis: Cognitive-communication, Oropharyngeal Dysphagia Precautions Precautions: Aspiration Precautions/Isolations: Aspiration, Fall Prevention, Standard Precautions Referral Referring Physician: Dr. Duran Medical History Pertinent Medical History: Arthritis, CAD, GERD, HTN Reviewed History: Yes Social History Current Living Status: Children (son) Speech PLF-Current Status Prior Level of Function Patient lives in his own home with his youngest son. He was independent for most of his daily needs prior to surgery. Subjective Patient was pleasant and cooperative with the cognitive and dysphagia assessments. Language Eval: Auditory Comprehends Simple Yes/No Ques: Functional Indent/Objects Multiple [place]: Functional Ident/Pics in Multiple [place]: Functional Follows 1-Step Commands: Functional Follows Complex Directions: Mild Follows General Conversations: Mild Language Eval: Verbal Language Completes Spontaneous Greeting: Functional Produces Auto, Serial Info: Functional Imitates Simple Words/Phrases: Functional Word Finding: Mild Requests Basic Needs: Functional States Basic Personal Info: Functional Expresses Complex Ideas: Mild Objective Cognitive Domain Attention: WNL Memory: Mild Problem Solving: Functional Executive Functions: Mild Visuospatial Skills: Mild Composite Severity Rating: Mild Objective Formal/Standardized Tests [facility] Mental Status ([facility]), Bedside Dysphagia Evaluation Results 26/30, Mild Neurocognitive Disorder, Mild Oropharyngeal Dysphagia Oral Motor/Speech Production Within Normal Limits Impression Patient is a pleasant 75 y/o male who was admitted to the ARU s/p CABG x4. Patient was given the SLUMS with a score of 26/30 obtained. This score is within the MNCD range of function. Patient was also assessed for dysphagia due to complaint of sore spot on his upper right gum area. Patient also states he tires very easily during mealtimes and isn't able to eat much. Patient is recommended to be downgraded to a Dysphagia II diet level with chopped, moist meats. Patient is agreeable with the change is diet so he can consume more nutrition. Patient will receive skilled ST for cognitive function and safe oral intake. Speech Patient Assess Expression of Ideas/Wants: Exhibits (3) Understanding Verbal Content: Usually Understands (3) Brief Interview-Mental Status: Yes Repetition of Three Words: Three (3) Temporal Orientation: Year: Correct (3) Temporal Orientation: Month: Missed by 6 days-1 month (1) Temporal Orientation: Day: Incorrect or No Answer(0) Recall : Wear to say "Sock": Yes,after cueing (1) Recall : Color: Yes, after cueing (1) Recall : Bed: No, could not recall (0) Memory/Recall Ability: Current season, That he or she is in a hsp/hsp unit Speech Short Term Goals Short Term Goals Short Term Goals 1) Patient will complete word finding tasks at 90% or greater with minimal cues. 2) patient will tolerate least restrictive diet level without s/s of aspiration at 90% or greater. 3) Patient will utilize compensatory strategies for safe oral intake as trained at 90% or greater. Speech Residential Goals Mining Machinery Assembler Goals 1) Patient will maintain adequate nutrition/hydration via safe effective swallow function. 2) Patient will improve cognitive-communication so that he will require less assist to complete daily tasks. Speech-Plan Patient/Family Goals Patient/Family Goals: Patient plans on returning to his home where he lives with his son. Treatment Plan Speech Therapy Treatment Plan: Continue Plan of Care Treatment Duration: Apr 06, 2021 Frequency: 4 times per week (Patient will receive skilled ST 4-5x per week) Estimated Hrs Per Day: .5 hour per day Rehab Potential: Fair Barriers to Learning: Patient's recent heart surgery, decreased cognitive function Pt/Family Agrees to Plan: Yes Safety Risks/Education Teaching Recipient: Patient Teaching Methods: Discussion Response to Teaching: Verbalize Understanding Education Topics Provided: Safety within his room, utilization of call light Time Speech Therapy Time In: 10:30 Speech Therapy Time Out: 11:00 Total Billed Time: 30 Billed Treatment Time 1, DYSEVS, DYST, SPSNDCOMP, SLTS EMILIA Nielsen Mar 22, 2021 11:21
--- NOTE | 2021-03-22 13:45 | Physical Therapy Daily Note ---
PT Daily Note-Current Subjective Patient in recliner pre tx, agrees to PT, has increasing pain in left hip and back with activity. Will be co-treating with OT due to poor patient mobiltiy, strength, endurance, increasing pain with activity, coordinate UE and LE during activity, safety and reduce risk of falls. Appearance Patient in restroom on toilet post tx, OT will continue with him for a bit. Mental Status Patient Orientation: Person, Place, Situation, [place] Transfers SCALE: Activities may be completed with or without assistive devices. 5-Hvvdtmwhjf-ibxtlbe completes the activity by him/herself with no assistance from a helper. 5-Set-up or Clean-up Assistance-helper sets up or cleans up; patient completes activity. [place] assists only prior to or following the activity. 4-Supervision or Touching Assistance-helper provides verbal cues and/or touching/steadying and/or contact guard assistance as patient completes activity. Assistance may be provided throughout the activity or intermittently. 3-Partial/Moderate Assistance-helper does LESS THAN HALF the effort. [place] lifts, holds or supports trunk or limbs, but provides less than half the effort. 2-Substantial/Maximal Assistance-helper does MORE THAN HALF the effort. [place] lifts or holds trunk or limbs and provides more than half the effort. 5-Ptksiamdr-teovmh does ALL the effort. Patient does none of the effort to complete the activity. Or, the assistance of 2 or more helpers is required for the patient to complete the activity. If activity was not attempted, code reason: 7-Patient Refused. 9-Not Applicable-not attempted and the patient did not perform the activity be fore the current illness, exacerbation or injury. 10-Not Attempted due to Environmental Limitations-(lack of equipment, weather restraints, etc.). 88-Not Attempted due to Medical Conditions or Safety Concerns. Sit to Stand (QC): 4 Chair/Fyp-ln-Dkbyu Xfer(QC): 4 Toilet Transfer (QC): 4 Weight Bearing Sternal precautions Gait Training Distance: 300' Walk 10 feet (QC): 4 Walk 50 ft with 2 Turns(QC): 4 Walk 150 ft (QC): 4 Gait Assistive Device: FWW slow, antalgic, shuffles, needs constant cues for direction Treatments transfers, ambulation Assessment Current Status: Poor Progress Patient seemed more confused, needs redirected often, stops every few feet to rest and talk PT Short Term Goals Short Term Goals Time Frame: Mar 28, 2021 Roll Left & Right: 5 Sit to lyin Lying to sitting on side of be: 5 Sit to stand: 5 Chair/kpr-iz-obwup transfer: 5 Toilet transfer: 4 Walk 10 feet: 4 Walk 50 feet with two turns: 4 Walk 150 feet: 4 PT Intermediate Goals Intermediate Goals PT Intermediate Goals Time Frame: Apr 06, 2021 Roll Left & Right (QC): 6 Sit to Lying (QC): 6 Lying-Sitting on Side/Bed(QC): 6 Sit to Stand (QC): 6 Chair/Pyd-qg-Yhaxw Xfer(QC): 6 Toilet Transfer (QC): 6 Car Transfer (QC): 6 Does the Patient Walk: Yes Walk 10 feet (QC): 6 Walk 50ft with 2 Turns (QC): 6 Walk 150 ft (QC): 6 Walking 10ft on Uneven Surface: 6 1 Step (curb) (QC): 6 4 Steps (QC): 6 12 Steps (QC): 4 Picking up an Object (QC): 5 Does the Pt use WC or Scooter?: No Wheel 50 feet with 2 turns (QC: 9 Wheel 150 feet: 9 PT Plan Problem List Problem List: Activity Tolerance, Functional Strength, Safety, Balance, Gait, Transfer, Bed Mobility, ROM Treatment/Plan Treatment Plan: Continue Plan of Care Treatment Plan: Bed Mobility, Education, Functional Activity Myah, Functional Strength, Group Therapy, Gait, Safety, Therapeutic Exercise, Transfers Treatment Duration: Apr 06, 2021 Frequency: At least 5 of 7 days/Wk (IRF) Estimated Hrs Per Day: 1.5 hours per day Patient and/or Family Agrees t: Yes Safety Risks/Education Patient Education: Gait Training, Transfer Techniques, Correct Positioning, Safety Issues Teaching Recipient: Patient Teaching Methods: Demonstration, Discussion Response to Teaching: Reinforcement Needed Time/GCodes Time In: 1300 Time Out: 1317 Total Billed Treatment Time: 17 Total Billed Treatment 1 visit GT 17' JIMMIEAVTAR SENIORIS PT Mar 22, 2021 13:45
[2021-03-22 14:00] VITALS: BP 145/67
--- NOTE | 2021-03-22 14:56 | Consultation-Cardiology ---
HPI-Cardiology Cardiology Consultation: Date of Consultation 03/22/21 Date of Admission Attending Physician Marissa Duran DO Admitting Physician Birgit Bardales MD Consulting Physician GRADY JACQUES JR, MD HPI: Time Seen by a Provider: 14:51 Chief Complaint: Reason for consultation: Status post coronary bypass surgery with a pleural effusion. I had the pleasure of seeing Ovidio on the rehabilitation unit here at [facility] in [place], [place] today. He normally follows with a epic beacon analyst in [place], [place]. Apparently, he underwent a recent cardiac catheterization and was found to have severe three-vessel coronary artery disease. By his description, this was an outpatient elective procedure. He was subsequently seen by cardiothoracic surgery and underwent an elective coronary artery bypass surgery at [facility] in [place], [place] on March 14. Surgery consisted of a left internal mammary artery graft to left anterior descending coronary artery and saphenous vein graft to a diagonal, obtuse marginal and distal right coronary artery. Postoperatively he was treated with amiodarone to prevent atrial fibrillation. I do not find any evidence of him developing any significant prolonged atrial fibrillation in the postoperative course. He progressed as normally expected. He did have a pleural effusion that the surgeon thought might need thoracentesis but on the day of discharge, he had an ultrasound that did not show a significant amount of fluid and therefore, the thoracentesis was canceled. He was admitted to our inpatient rehabilitation unit on March 21, 2021. He has been actively participating in physical therapy today. He did have some shortness of breath during his exercises but denies any significant anginal quality chest discomfort. He denies paroxysmal nocturnal dyspnea, orthopnea, palpitations, lightheadedness, syncope, or lower extremity edema. He did report some unusual visual changes to his nurse after physical therapy. He reported seeing purple lines in his right eye with no change in his left eye. He denies any previous history of stroke. He denies any other neurologic complaints at this time. Because of the pleural effusion, a cardiology consultation was requested. Review of Systems-Cardiology Review of Systems Other comments Review of 10 organ systems is as per the history of present illness, otherwise negative. DRM-Mgiqda-Xtwwjv Hx Patient Social History Employed/Student: retired Smoking Status: Former Smoker Have you traveled recently?: No Alcohol Use?: No Pt feels they are or have been: No Tobacco type used: Cigarettes Immunizations Up To Date Date of Pneumonia Vaccine: Mar 20, 2016 Past Medical History PMH As described under Assessment. Family Medical History Family Medical History: He does not report any family history of premature coronary artery disease. Allergies and Home Medications Allergies Coded Allergies: No Known Drug Allergies (Unverified , 04/15/16) Home Medications Aspirin 81 Mg Tab.chew, 81 MG PO DAILY, (Reported) Last Action: Continued C,E,Zinc,Copper 24/Om3/Lut/Jordan 1 Each Capsule, 1 EACH PO DAILY, (Reported) Last Action: Converted Carvedilol 6.25 Mg Tablet, 6.25 MG PO BID WITH MEALS, (Reported) Last Action: Continued Clopidogrel Bisulfate 75 Mg Tablet, 75 MG PO DAILY, (Reported) Last Action: Continued Diclofenac Sodium 50 Mg Tablet.dr, 50 MG PO BID, (Reported) Last Action: Converted Divalproex Sodium 500 Mg Tablet.dr, 500 MG PO BID, (Reported) Last Action: Continued Hydrocodone/Acetaminophen 1 Each Tablet, 1 TAB PO Q4H PRN for PAIN-MODERATE (5-7), (Reported) Last Action: Continued Multivitamin with Minerals 1 Each Tablet, 1 EACH PO HS, (Reported) Last Action: Continued Pantoprazole Sodium 40 Mg Tablet.dr, 40 MG PO DAILY, (Reported) Last Action: Continued Simvastatin 20 Mg Tablet, 20 MG PO HS, (Reported) Last Action: Continued Tolterodine Tartrate 4 Mg Cap.er.24h, 4 MG PO HS, (Reported) Last Action: Continued Patient Home Medication List Home Medication List Reviewed: Yes Exam Vital Signs Vital Signs Date Time Temp Pulse Resp B/P (MAP) Pulse Ox O2 Delivery O2 Flow Rate FiO2 03/22/21 14:00 76 145/67 (93) 96 Room Air 03/22/21 07:40 36.5 20 Physical Exam General: Alert. No acute distress. Well nourished and appears stated age. Eye: Extraocular movements are intact. Conjunctivae are clear. There are no xanthelasma. HENT: Normocephalic. Atraumatic. Carotid pulsations 2/2 without bruits. Neck: Jugular venous pressure does not appear elevated. No thyromegaly appreciated. Respiratory: Lungs are clear to auscultation but with decreased breath sounds at the bases bilaterally. Respirations are non-labored. Breath sounds are equal. Symmetrical chest wall expansion. Cardiovascular: Normal rate. Regular rhythm. No murmur. No gallop. Point of maximal impulse is not appear displaced. Good pulses equal in all extremities. No edema. Gastrointestinal: Soft. Normal bowel sounds. Skin: Skin turgor is normal. There is no pallor. Sternal incision appears intact. Musculoskeletal: No kyphosis or scoliosis appreciated. Neurologic: Alert and oriented to person, place, time. Cranial nerves 3-12 appear grossly intact. The patient has good motor tone strength in the upper and lower extremities bilaterally. Psychiatric: Cooperative. Appropriate mood & affect. Labs Laboratory Tests Test 03/22/21 05:48 Range/Units White Blood Count 11.5 H 4.3-11.0 10^3/uL Red Blood Count 2.57 L 4.30-5.52 10^6/uL Hemoglobin 7.9 L 13.3-17.7 g/dL Hematocrit 24 L 40-54 % Mean Corpuscular Volume 95 80-99 fL Mean Corpuscular Hemoglobin 31 25-34 pg Mean Corpuscular Hemoglobin Concent 33 32-36 g/dL Red Cell Distribution Width 14.3 10.0-14.5 % Platelet Count 281 130-400 10^3/uL Mean Platelet Volume 9.3 9.0-12.2 fL Immature Granulocyte % (Auto) 3 % Neutrophils (%) (Auto) 63 42-75 % Lymphocytes (%) (Auto) 14 12-44 % Monocytes (%) (Auto) 11 0-12 % Eosinophils (%) (Auto) 8 0-10 % Basophils (%) (Auto) 0 0-10 % Neutrophils # (Auto) 7.3 1.8-7.8 10^3/uL Lymphocytes # (Auto) 1.6 1.0-4.0 10^3/uL Monocytes # (Auto) 1.2 H 0.0-1.0 10^3/uL Eosinophils # (Auto) 1.0 H 0.0-0.3 10^3/uL Basophils # (Auto) 0.0 0.0-0.1 10^3/uL Immature Granulocyte # (Auto) 0.4 H 0.0-0.1 10^3/uL Sodium Level 140 135-145 MMOL/L Potassium Level 4.1 3.6-5.0 MMOL/L Chloride Level 105 98-107 MMOL/L Carbon Dioxide Level 24 21-32 MMOL/L Anion Gap 11 5-14 MMOL/L Blood Urea Nitrogen 24 H 7-18 MG/DL Creatinine 1.26 0.60-1.30 MG/DL Estimat Glomerular Filtration Rate 56 BUN/Creatinine Ratio 19 Glucose Level 114 H 70-105 MG/DL Calcium Level 8.4 L 8.5-10.1 MG/DL Corrected Calcium 9.2 8.5-10.1 MG/DL Total Bilirubin 0.4 0.1-1.0 MG/DL Aspartate Amino Transf (AST/SGOT) 11 5-34 U/L Alanine Aminotransferase (ALT/SGPT) 15 0-55 U/L Alkaline Phosphatase 45 40-136 U/L Total Protein 5.7 L 6.4-8.2 GM/DL Albumin 3.0 L 3.2-4.5 GM/DL Diagnosis/Problems Diagnosis/Problems (1) Coronary artery disease without angina pectoris Assessment & Plan: He is now status post coronary artery bypass surgery x4. He is gradually improving. He is on appropriate guideline directed medical therapy with aspirin, beta-cornelio, and statin medication. He has also been taking clopidogrel due to his history of peripheral vascular disease. I recommend continuing the present guideline directed medical therapy. I will request a copy of [place] cardiac catheter[place] [facility] [place] (2) Pleural effusion Assessment & Plan: He has decreased breath sounds at both bases. From his description, it sounds as though he was having a fair amount of fluid that may needed draining but at the last moment, ultrasound did not show any significant fluid. I will obtain a chest x-ray for further evaluation. I suspect this is just a normal postoperative pleural effusion. (3) Essential (primary) hypertension Assessment & Plan: His blood pressures are intermittently elevated. If this persists, we may need to increase his carvedilol. (4) Mixed hyperlipidemia Assessment & Plan: Continue simvastatin. (5) Atherosclerosis of both carotid arteries Assessment & Plan: He had a previous carotid endarterectomy. If his visual changes persist, he may need a head CT and/or MRI of the brain. In the interim, I recommend he continue the aspirin, clopidogrel, and statin medication. (6) Peripheral arterial disease Assessment & Plan: He has not been having any claudication. He had previous interventions on the left leg. I recommend he continue on aspirin, clopidogrel, and statin medication. Physical therapy should also help with this condition. A/P-Cardiology Assessment/Admission Diagnosis Thank you for the courtesy of this consultation. I will be happy to follow along with you. Copy Copies To 1: MARISSA DURAN DAVID L JR, MD Mar 22, 2021 14:56
--- NOTE | 2021-03-22 16:55 | Diagnostic Imaging Report ---
INDICATION: Pleural effusion, coronary artery disease. COMPARISON: 04/30/2019. FINDINGS: Frontal and lateral views of the chest demonstrate small bilateral pleural effusions, left greater than right. There is dependent atelectasis. The heart is prominent without pulmonary edema. There is no pneumothorax. Sternal wires are midline. Osseous structures are stable. IMPRESSION: Bilateral pleural effusions, left greater than right. Dictated by: Dictated on workstation # [id number]
--- NOTE | 2021-03-22 17:33 | Diagnostic Imaging Report ---
EXAMINATION: CT head without contrast. TECHNIQUE: Multiple contiguous axial images were obtained through the brain without the use of intravenous contrast. All CT scans use one or more of the following dose optimizing techniques: automated exposure control, MA and/or KvP adjustment based on patient size and exam type or iterative reconstruction. HISTORY: Vision loss. COMPARISON: 12/30/2013. FINDINGS: Scattered areas of age-indeterminate ischemia are seen in the bilateral cerebellar hemispheres and bilateral cerebral hemispheres. No associated hemorrhage or mass effect. There is generalized parenchymal volume loss. No acute hydrocephalus. The orbits are normal. Paranasal sinuses are normal. Mastoid air cells are clear. No soft tissue abnormality is seen. No osseous lesions or fractures are seen. IMPRESSION: 1. Multiple areas of age-indeterminate ischemia in the bilateral cerebral and cerebellar hemispheres. If indicated, consider MRI brain to further evaluate. 2. No acute hemorrhage or mass. 3. Mild parenchymal volume loss. Dictated by: Dictated on workstation # [id number]
[2021-03-22] MEDS: MULTIVIT W/MINERALS TAB (THERAGRAN M) PO SCH (17:47)
[2021-03-22 17:51] VITALS: BP 147/68
[2021-03-22 20:00] VITALS: BP 122/59
[2021-03-22] MEDS: SIMvastatin 20 MG (ZOCOR) TAB PO SCH (20:40)
[2021-03-22] MEDS: TOLTERODINE LA 4 MG (DETROL) CAP PO SCH (20:40)
[2021-03-23] MEDS: HYDROcodone/APAP 5 MG/325 MG (LORTAB) TAB PO PRN ×3 (00:13→18:19)
[2021-03-23 05:59] LABS: HEMATOCRIT 25 % (40-54); MEAN CORPUSCULAR HEMOGLOBIN 31 pg (25-34); MEAN CORPUSCULAR HGB CONC 32 g/dL (32-36); MEAN CORPUSCULAR VOLUME 96 fL (80-99); MEAN PLATELET VOLUME 9.2 fL (9.0-12.2); PLATELET COUNT 307 10^3/uL (130-400); WHITE BLOOD COUNT 10.9 10^3/uL (4.3-11.0)
--- NOTE | 2021-03-23 07:47 | PM&R Progress Note ---
Subjective HPI/CC On Admission Date Seen by Provider: Mar 23, 2021 Time Seen by Provider: 12:45 Subjective/Events-last exam 03/23/2021: This visit is via video chat due to Covid related restriction for this provider Extensive review of chart and conferring with Dr. Barnett cardiology and then stroke center neurologist due to MRI findings after CT scan was abnormal yesterday We will obtain carotid ultrasound but it appears that the findings on the brain likely occurred postoperatively and not due to an isolated carotid lesion and if continues will need oral anticoagulants with transesophageal echocardiogram to identify thrombus if it is present. We did review the chart and in cardiac ICU postoperatively he did have an episode of atrial fibrillation but amiodarone has been maintained since that time so we will initiate telemetry and maintain it this weekend. I did update the patient on all of these details and told him if oral anticoagulation was required with aspirin and Plavix it did place him at a bleeding risk and his hemoglobin 8.0 is a concern Very extensive issues requiring extensive research and high complexity medical decision making of [address] Barnett requested n.p.o. after Friday at midnight and may very well need to have transesophageal echocardiogram on Friday morning so I placed that in the orders Patient no longer having visual changes but I did update him on the fact if he does have a recurrence he will notify the nurse and will place him on heparin [facility] agreed no acute issues to prompt TPA or any other aggressive regimen right now Review of Systems General: Fatigue, Malaise HEENT: Visual Changes Neurological: Weakness, Incoordination Objective Exam Vital Signs Vital Signs Date Time Temp Pulse Resp B/P (MAP) Pulse Ox O2 Delivery O2 Flow Rate FiO2 03/23/21 12:42 75 03/23/21 09:00 93 Room Air 03/23/21 07:53 36.4 20 154/71 (98) Capillary Refill : General Appearance: No Apparent Distress, WD/WN, Chronically ill HEENT: PERRL/EOMI, Moist Mucous Membranes; No Scleral Icterus (L), No Scleral Icterus (R) Neck: Normal Inspection, Supple Respiratory: Lungs Clear, No Accessory Muscle Use, No Respiratory Distress Cardiovascular: Regular Rate, Rhythm, No JVD, Systolic Murmur, Other (midline scar, ) Gastrointestinal: Normal Bowel Sounds, Soft Extremity: Normal Inspection, No Pedal Edema Neurologic/Psychiatric: Alert, Oriented x3, Normal Mood/Affect Skin: Normal Color, Warm/Dry Results/Procedures Lab Laboratory Tests 03/23/21 05:50 Patient resulted labs reviewed. FIM Transfers Therapy Code Descriptions/Definitions Functional [place] Measure: 0=Not Assessed/NA 4=Minimal Assistance 1=Total Assistance 5=Supervision or Setup 2=Maximal Assistance 6=Modified [place] 3=Moderate Assistance 7=Complete IndependenceSCALE: Activities may be completed with or without assistive devices. 6-Obklidcdgm-blqwcee completes the activity by him/herself with no assistance from a helper. 5-Set-up or Clean-up Assistance-helper sets up or cleans up; patient completes activity. [place] assists only prior to or following the activity. 4-Supervision or Touching Assistance-helper provides verbal cues and/or touching/steadying and/or contact guard assistance as patient completes activity. Assistance may be provided throughout the activity or intermittently. 3-Partial/Moderate Assistance-helper does LESS THAN HALF the effort. [place] lifts, holds or supports trunk or limbs, but provides less than half the effort. 2-Substantial/Maximal Assistance-helper does MORE THAN HALF the effort. [place] lifts or holds trunk or limbs and provides more than half the effort. 4-Kesiquwgi-guzaxa does ALL the effort. Patient does none of the effort to compl ete the activity. Or, the assistance of 2 or more helpers is required for the patient to complete the activity. If activity was not attempted, code reason: 7-Patient Refused. 9-Not Applicable-not attempted and the patient did not perform the activity before the current illness, exacerbation or injury. 10-Not Attempted due to Environmental Limitations-(lack of equipment, weather restraints, etc.). 88-Not Attempted due to Medical Conditions or Safety Concerns. Roll Left to Right (QC): 6 Sit to Lying (QC): 6 Sit to Stand (QC): 4 Chair/Fnw-mi-Uojks Xfer(QC): 4 Car Transfer (QC): 3 (min assist with legs; skilled cues to sequence) Gait Training Does the Patient Walk?: Yes Distance: 300' Walk 10 feet (QC): 4 Walk 50 ft with 2 Turns(QC): 4 Walk 150 ft (QC): 4 Walking 10ft/uneven surface-QC: 3 Gait Persons Needed: 1 Gait Assistive Device: FWW Wheelchair Training Does the Pt Use a Wheelchair?: No Wheel 50 ft with 2 turns (QC): 9 Wheel 150 ft (QC): 9 Stair Training 1 Step (curb) (QC): 3 (min assist and skilled cues for sequencing. ) 4 Steps (QC): 88 12 Steps (QC): 88 Balance Picking up an Object (QC): 3 ADL-Treatment Eating (QC): 6 Oral Hygiene (QC): 6 (in sit with use of denture pack) Bathing Location: L Arm, R Arm, L Upper Leg, R Upper Leg, L Lower Leg (including foot), R Lower Leg (including foot), Chest, Abdomen, Buttocks, Perineal Area Shower/Bathe Self (QC): 4 (SBA all tasks.) Upper Body Dressing (QC): 3 (education, min A for doffing shirt (completes overhead with 1 UE, then doffing BUEs to complete with sternal precautions), and dons with button up shirt.) Lower Body Dressing (QC): 3 (min A for threading 1 LE, CGA in stance.) On/Off Footwear (QC): 2 (BATSHEVA hose donned max A. 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 He is gradually improving. He is on appropriate guideline directed medical therapy with aspirin, beta-cornelio, and statin medication. He has also been taking clopidogrel due to his history of peripheral vascular disease. I recommend continuing the present guideline directed medical therapy. I will request a copy of his cardiac catheterization and echocardiogram reports from [facility]. (2) Pleural effusion Assessment & Plan: He has decreased breath sounds at both bases. From his description, it sounds as though he was having a fair amount of fluid that may needed draining but at the last moment, ultrasound did not show any significant fluid. I will obtain a chest x-ray for further evaluation. I suspect this is just a normal postoperative pleural effusion. (3) Essential (primary) hypertension Assessment & Plan: His blood pressures are intermittently elevated. If this persists, we may need to increase his carvedilol. (4) Mixed hyperlipidemia Assessment & Plan: Continue simvastatin. (5) Atherosclerosis of both carotid arteries Assessment & Plan: He had a previous carotid endarterectomy. If his visual changes persist, he may need a head CT and/or MRI of the brain. In the interim, I recommend he continue the aspirin, clopidogrel, and statin medication. (6) Peripheral arterial disease Assessment & Plan: He has not been having any claudication. He had previous interventions on the left leg. I recommend he continue on aspirin, clopidogrel, and statin medication. Physical therapy should also help with this condition. DAHLIA GAMING DO Mar 23, 2021 07:47
--- NOTE | 2021-03-23 07:48 | Individualized Plan of Care ---
Individualized Plan of Care Rehab Nursing IPOC Order Admission Date Mar 21, 2021 at 14:20 Current Orders Orders Admission Order(Inpt,Obs,Sdc) (03/21/21 12:16) Vital Signs: Per Unit Policy ( ,00 (03/21/21 12:16) Tony Allison (03/21/21 12:16) Sequential Compression Device .admit (03/21/21 12:16) Field Map Editor-Inpt Rehab Con (03/21/21 12:16) Rehab Nursing Orders-Ipoc (03/21/21 12:16) Physical Therapy Rehab Orders (03/21/21 12:16) Occupational Therapy Rehab Ord (03/21/21 12:16) Speech Therapy Rehab Orders (03/21/21 12:16) Cbc With Automated Diff (03/22/21 06:00) Comprehensive Metabolic Panel (03/22/21 06:00) Precautions (Aru) (03/21/21 12:16) Rehab-Intensity Of Therapy (03/21/21 12:16) Initiate Admission Nursing Pro .admission (03/21/21 12:16) Acetaminophen Tablet/Caplet (Tylenol T (03/21/21 12:30) Alprazolam Tablet (Xanax Tablet) (03/21/21 12:30) Calcium Carbonate Chew Tablet (Antacid C (03/21/21 12:30) Diphenhydramine Tablet (Benadryl Tablet) (03/21/21 12:30) Docusate Sodium Capsule (Colace Capsule) (03/21/21 21:00) Docusate Sodium Capsule (Colace Capsule) (03/21/21 12:30) Bisacodyl Suppository (Dulcolax Supposit (03/21/21 12:30) Lactulose Oral Solution (Enulose Oral So (03/21/21 12:30) Na Phos/Na Biphos Enema (Fleet Enema Edgardo (03/21/21 12:30) Guaifenesin/Codeine Syrup (Robitussin Ac (03/21/21 12:30) Hydrocodone/Apap 5/325 Tablet (Lortab 5 (03/21/21 12:30) Loperamide Tablet (Imodium Tablet) (03/21/21 12:30) Melatonin Tablet (Melatonin Tablet) (03/21/21 12:30) Polyethylene Glycol Powder Pkt (Miralax (03/21/21 21:00) Ondansetron Oral Dissolve Tab (Zofran (03/21/21 12:30) Senna S Tablet (Senokot S Tablet) (03/21/21 21:00) Initiate Admission Nursing Pro .admission (03/21/21 12:16) Admission Arrival Bed Request (03/21/21 14:30) Patient Visit (03/21/21 ) Pt Eval Moderate Complexity (03/21/21 ) Functional Activities, Ea 15 (03/21/21 ) Aspirin Chewable Tablet (Baby Aspirin Ch (03/22/21 09:00) Carvedilol Tablet (Coreg Tablet) (03/21/21 18:00) Clopidogrel Tablet (Plavix Tablet) (03/22/21 09:00) Divalproex Delay Release Tab (Depakote T (03/21/21 21:00) Hydrocodone/Apap 5/325 Tablet (Lortab 5 (03/21/21 16:00) Therapeutic Multivitamin Tab (Vitamins, (03/21/21 17:00) Pantoprazole Tablet (Protonix Tablet) (03/22/21 09:00) Simvastatin Tablet (Zocor Tablet) (03/21/21 21:00) Tolterodine La Capsule (Detrol La Capsul (03/21/21 21:00) (Nf) C,E,Zinc,Copper 24/Om3/Lut/Jordan (Ocu (03/22/21 09:00) (Nf) Diclofenac Sodium (03/21/21 21:00) Etodolac Capsule/Tablet (Lodine Capsule/ (03/21/21 18:00) Patient Visit (03/21/21 ) Exercise Therap, Ea 15 Min (03/21/21 ) Functional Activities, Ea 15 (03/21/21 ) Nursing Communication (Order) DAILY (03/22/21 04:02) Follow-Up Appointment D/C (03/22/21 09:50) Cbc No Diff (03/23/21 06:00) Heart Healthy (03/22/21 Lunch) Patient Visit (03/22/21 ) Speech Sound Lang Comp (03/22/21 ) Treat. Speech/Lang/Voice (03/22/21 ) Dysphagia Evaluation Std (03/22/21 ) Dysphagia Therapy (03/22/21 ) Consult Cardiology (03/22/21 13:07) Incentive Spirometry (Nursing) Q2H (03/22/21 13:15) Patient Visit (03/22/21 ) Exercise Therap, Ea 15 Min (03/22/21 ) Functional Activities, Ea 15 (03/22/21 ) Gait Training, Ea 15 Min (03/22/21 ) Chest Pa/Lat (2 View) (03/22/21 14:47) Ekg Tracing (03/22/21 14:47) Obtain Records From (Order) (03/22/21 14:49) Ct Head Wo (03/22/21 15:24) Iron Test (Fe) (03/23/21 06:59) Ferrous Sulfate Tablet (Feosol Tablet) (03/23/21 09:00) Echo W Doppler/Color Flow (03/23/21 08:23) Telemetry (03/23/21 08:44) Telemetry Nursing Assessment ( (03/23/21 08:44) Patient Visit (03/23/21 ) Self Care/Home Mgmt/Adl 15 Min (03/23/21 ) Exercise Therap, Ea 15 Min (03/23/21 ) Patient Visit (03/23/21 ) Treat. Speech/Lang/Voice (03/23/21 ) Dysphagia Therapy (03/23/21 ) Mri Brain W/O Contrast (03/23/21 08:43) Us Carotid Kwame Complete [id number] (03/23/21 13:44) Patient Visit (03/23/21 ) Therapeutic, Group (03/23/21 ) Npo After Midnight (Nursing Or (03/25/21 00:00) Rehab Nursing Orders: Ongoing Assess. of Cognitive Status, Ongoing Assess. of Function Status, Bladder Management, Bladder Scan, Bladder Training, Bowel Management, Bowel Training, Disease Management & Educaiton, DVT Prophylaxis, Fall Prevention, Fluid/Electrolyte/Nutrition Mgmt, Infection Prevention, Medication Management & Education, Management of Risks & Complications, Manageme nt of Skin Intergrity, Nutrition Management, Pain Management, Patient/Family Support, Safety Management Intensity of Therapy to be met Patient to be seen: Min.3h per day/5 of 7d PT IPOC Problem List: Activity Tolerance, Functional Strength, Safety, Balance, Gait, Transfer, Bed Mobility, ROM Treatment Plan: Continue Plan of Care Bed Mobility, Education, Functional Activity Myah, Functional Strength, Group Therapy, Gait, Safety, Therapeutic Exercise, Transfers Treatment Duration: Apr 06, 2021 Frequency: At least 5 of 7 days/Wk (IRF) Estimated Hrs Per Day: 1.5 hours per day OT IPOC Problems: Decreased Activ Tolerance, Decreased Safety Aware, Decreased UE Strength, Dependent Transfers, Edema, Impaired Bed Mobility, Impaired Cognition, Impaired Funct Balance, Impaired I ADL's, Impaired Self-Care Skills, Restricted Funct UE ROM OT Treatment, Training and Edu: Yes Plan of Care: ADL Retraining, Caregiver Training, Functional Mobility, Group Exercise/Act as Ind, UE Funct Exercise/Act, W/C Management Training Treatment Duration: Apr 04, 2021 Frequency: At least 5 of 7 days/Wk (IRF) Estimated Hrs Per Day: 1.[address] IPOC Speech Therapy Treatment Plan: Continue Plan of Care Treatment Duration: Apr 06, 2021 Frequency: 4 times per week (Patient will receive skilled ST 4-5x per week) Estimated Hrs Per Day: .5 hour per day Field Map Editor/Case Mgmt Field Map Editor/Case Managemen: Discharge Planning Dietitian/Administrative Judge Dietitian/Administrative Judge to monitor nutritional status and make changes and/or recommendations as needed and work with speech pathology on dietary upgrades as the occur. Physician IPOC Medical Issues being managed closely and that require the 24 hour availability of a physician: Patient with recent four-vessel bypass surgery now with subacute strokes bilateral cerebellar hemorrhages will be at high risk for recurrence and given postoperative anemia will be high risk if anticoagulation is required Medical Issues: Bowel/Bladder Function, DVT Prophylaxis, Falls Precautions, Fluid/Electrolyte/Nutrition Balance, Infection Protection, Pain Management Brief Synthesis of Preadmission Screen, Post-Admission Evaluation, and Therapy Evaluations: PT and OT will focus on regaining function with ambulation and ADLs in order to return home to live independently given debility from four-vessel bypass surgery now with subacute strokes with vision changes now resolved Medical Prognosis: Fair Anticipated Length of Stay: 7 days DAHLIA GAMING DO Mar 23, 2021 07:48
[2021-03-23 07:53] VITALS: BP 154/71
[2021-03-23] MEDS: ETODOLAC 200 MG (LODINE) CAP PO SCH ×2 (08:44→17:50)
[2021-03-23] MEDS: PANTOPRAZOLE 40 MG (PROTONIX) TAB PO SCH (08:44)
[2021-03-23] MEDS: ASPIRIN 81 MG CHEW (CHILDREN'S ASA) PO SCH (08:44)
[2021-03-23] MEDS: DIVALPROEX 500 MG DELAYED RELEASE (DEPAKOTE) TAB PO SCH ×2 (08:44→21:28)
[2021-03-23] MEDS: DOCUSATE SODIUM 100 MG (COLACE) CAP PO SCH ×2 (08:44→21:28)
[2021-03-23] MEDS: SENNA W/DOCUSATE (SENOKOT S) TABLET PO SCH ×2 (08:44→21:28)
[2021-03-23] MEDS: CLOPIDOGREL 75 MG (PLAVIX) TABLET PO SCH (08:44)
[2021-03-23] MEDS: polyethylene glycoL POWDER 17 GM (MIRALAX) PACK PO SCH ×2 (08:45→19:37)
--- NOTE | 2021-03-23 08:46 | Cardiology Progress Note ---
Progress Note-Cardiology Events since last exam Date Seen by Provider: Mar 23, 2021 Time Seen by Provider: 08:44 Events since last exam We are seeing him due to recent coronary bypass surgery and pleural effusions. This morning he is up working with physical therapy. He is still having intermittent visual changes in his right eye. He has been seeing purple lines. He denies any other neurologic complaints. His breathing is gradually improving. His postoperative chest pain is under reasonable control. He denies palpitations, syncope, or ankle edema. Vitals Last set of Vitals Signs Vital Signs 03/23/21 07:53 Temp 36.4 Pulse 83 Resp 20 B/P (MAP) 154/71 (98) Pulse Ox 93 O2 Delivery Room Air Labs Labs Laboratory Tests 03/23/21 05:50 Exam Vital Signs Vital Signs Date Time Temp Pulse Resp B/P (MAP) Pulse Ox O2 Delivery O2 Flow Rate FiO2 03/23/21 07:53 36.4 83 20 154/71 (98) 93 Room Air Physical Exam General: Alert. No acute distress. Eye: No xanthelasma. HENT: Normocephalic. Neck: Jugular venous pressure does not appear elevated. Respiratory: Lungs are clear to auscultation. Respirations are non-labored. Breath sounds are equal. Symmetrical chest wall expansion. Cardiovascular: Normal rate. Regular rhythm. No murmur. No gallop. No edema. Gastrointestinal: Soft. Normal bowel sounds. Skin: Warm. Dry. Neurologic: Alert and oriented to person, place, time. Cranial nerves 3-11 grossly intact. Psychiatric: Cooperative. Appropriate mood & affect. Labs Laboratory Tests Test 03/23/21 05:50 Range/Units White Blood Count 10.9 4.3-11.0 10^3/uL Red Blood Count 2.61 L 4.30-5.52 10^6/uL Hemoglobin 8.0 L 13.3-17.7 g/dL Hematocrit 25 L 40-54 % Mean Corpuscular Volume 96 80-99 fL Mean Corpuscular Hemoglobin 31 25-34 pg Mean Corpuscular Hemoglobin Concent 32 32-36 g/dL Red Cell Distribution Width 14.5 10.0-14.5 % Platelet Count 307 130-400 10^3/uL Mean Platelet Volume 9.2 9.0-12.2 fL Radiology 2 VIEW CHEST X-RAY (03/22/2021): 1. Bilateral pleural effusions, left greater than right. HEAD CT WITHOUT CONTRAST (03/22/2021): 1. Multiple areas of age-indeterminate ischemia in the bilateral cerebral and cerebellar hemispheres. If indicated, consider MRI brain to further evaluate. 2. No acute hemorrhage or mass. 3. Mild parenchymal volume loss. Diagnosis/Problems Diagnosis/Problems (1) Coronary artery disease without angina pectoris Assessment & Plan: He is status post recent coronary artery bypass surgery x4 in an outside hospital. He continues to work with physical therapy on our inpatient rehabilitation unit. Continue present guideline directed medical therapy. (2) Pleural effusion Assessment & Plan: The effusions are small and do not require thoracentesis. These should gradually resolve over the next 4-6 weeks. (3) Atherosclerosis of both carotid arteries Assessment & Plan: He had a previous carotid endarterectomy. His head CT shows ischemic changes of unknown age. I have taken the liberty of ordering an MRI. For now, I would continue aspirin and clopidogrel. I will place the patient on telemetry to screen for atrial fibrillation while he is here in the hospital. I did review the records from the outside hospital and he did not have any atrial fibrillation while he was there. Current guidelines do not recommend starting a DOAC unless there is documented atrial fibrillation. (4) Essential (primary) hypertension Assessment & Plan: His blood pressures are intermittently elevated. If this persists, we may need to increase his carvedilol. (5) Mixed hyperlipidemia Assessment & Plan: Continue simvastatin. (6) Peripheral arterial disease Assessment & Plan: He has not been having any claudication. He had previous interventions on the left leg. I recommend he continue on aspirin, clopidogrel, and statin medication. Physical therapy should also help with this condition. GRADY JACQUES JR, MD Mar 23, 2021 08:45
[2021-03-23] MEDS: FERROUS SULF 325 MG (IRON) TAB PO SCH (08:49)
--- NOTE | 2021-03-23 09:00 | Occupational Ther Daily Note ---
OT Current Status-Daily Note Subjective Pt alert, oriented, agrees to tx. Pt expresses pain in the back, intermittently pt expresses pain in the groin (both sharp/ shooting). Upon palpation of L lower back, increased sharp pain. Pt's nurse notified. Pt continues to c/o continuous R eye visual field "purple streaks," DO and nursing aware. This is alleviated by R eye closure, but streaks and blurriness c/o through session. Mental Status/Objective Patient Orientation: Person, Place, Situation ADL-Treatment Therapy Code Descriptions/Definitions Functional [place] Measure: 0=Not Assessed/NA 4=Minimal Assistance 1=Total Assistance 5=Supervision or Setup 2=Maximal Assistance 6=Modified [place] 3=Moderate Assistance 7=Complete IndependenceSCALE: Activities may be completed with or without assistive devices. 2-Wjtbsnswup-mskcbfl completes the activity by him/herself with no assistance from a helper. 5-Set-up or Clean-up Assistance-helper sets up or cleans up; patient completes activity. [place] assists only prior to or following the activity. 4-Supervision or Touching Assistance-helper provides verbal cues and/or touching/steadying and/or contact guard assistance as patient completes activity. Assistance may be provided throughout the activity or intermittently. 3-Partial/Moderate Assistance-helper does LESS THAN HALF the effort. [place] lifts, holds or supports trunk or limbs, but provides less than half the effort. 2-Substantial/Maximal Assistance-helper does MORE THAN HALF the effort. [place] lifts or holds trunk or limbs and provides more than half the effort. 5-Dqrjmaifg-dnsrvn does ALL the effort. Patient does none of the effort to complete the activity. Or, the assistance of 2 or more helpers is required for the patient to complete the activity. If activity was not attempted, code reason: 7-Patient Refused. 9-Not Applicable-not attempted and the patient did not perform the activity before the current illness, exacerbation or injury. 10-Not Attempted due to Environmental Limitations-(lack of equipment, weather restraints, etc.). 88-Not Attempted due to Medical Conditions or Safety Concerns. Eating (QC): 6 Oral Hygiene (QC): 6 (IND at sink) Shower/Bathe Self (QC): 7 Upper Body Dressing (QC): 7 Lower Body Dressing (QC): 7 On/Off Footwear: 7 Toileting Hygiene (QC): 6 Toilet Transfer (QC): 4 Other Treatment Pt ambulates from chair to toilet with CGA. Toilet transfer CGA, good use of walker. Pt sit to stand and sits in front of sink for shaving- fair ability, reaching both sides of face with good ability, decreased lower half shaving. Pt completes ambulation through gunderson, no RB prior to reaching gym. Pt's 02 assessed in sit immediately post activity, with jumping from 82 - 85%. No SOB noted, cold fingers. Pt's finger is warmed with massage. Completes 02 once more at 99%. Continued, no SOB. Pt able to state most precautions within sternal precautions. Pt ambulates 1/2 way to room, continues c/o back/ sharp/ shooting pain, this is palpated with increased pain. Pt's nurse notified. Pt c/o increased blurriness/ dizziness at sit- BP assess with WFL for pt: 156/67, 82 BPM HR. Pt ambulates back to room without LOB. Sits in chair, rests, MHP applied with 6 layers for 10 min prior to PT entry. All needs met, call light in reach, pt left with chair alarm on and nursing present. Education OT Patient Education: Correct positioning, Energy conservation, Modified ADL techniques, Progress toward Goal/Update tx plan, Purpose of tx/functional activities, Reviewed precautions, Safety issues, Transfer techniques Teaching Recipient: Patient Teaching Methods: Demonstration, Discussion Response to Teaching: Verbalize Understanding, Return Demonstration, Reinforcement Needed OT Short Term Goals Short Term Goals Oral hygiene: 6 Toileting hygiene: 6 Shower/bathe self: 3 Upper body dressin Lower body dressin Putting on/taking off footwear: 4 OT Mh Teacher Goals Usp Goals Time Frame: Apr 04, 2021 Eating (QC): 6 Oral Hygiene (QC): 6 Toileting Hygiene (QC): 6 Shower/Bathe Self (QC): 6 Upper Body Dressing (QC): 6 Lower Body Dressing (QC): 6 On/Off Footwear (QC): 6 Additional Goals: 1-Demonstrate ADL Tasks, 2-Verbalize Understanding, 3- ImproveStrength/Myah 1=Demonstrate adherence to instructed precautions during ADL tasks. 2=Patient will verbalize/demonstrate understanding of assistive devices/modifications for ADL. 3=Patient will improve strength/tolerance for activity to enable patient to perform ADL's. OT Education/Plan Problem List/Assessment Assessment: Decreased Activ Tolerance, Decreased Safety Aware, Decreased UE Strength, Dependent Transfers, Impaired Bed Mobility, Impaired Cognition, Impaired Funct Balance, Impaired I ADL's, Impaired Self-Care Skills, Restricted Funct UE ROM Discharge Recommendations Plan/Recommendations: Continue POC Therapy Discharge Recommendati: Home & Family, Post Acute OT Treatment Plan/Plan of Care Treatment,Training & Education: Yes Patient would benefit from OT for education, treatment and training to promote independence in ADL's, mobility, safety and/or upper extremity function for ADL's. Plan of Care: ADL Retraining, Caregiver Training, Functional Mobility, Group Exercise/Act as Ind, UE Funct Exercise/Act, W/C Management Training Treatment Duration: Apr 04, 2021 Frequency: At least 5 of 7 days/Wk (IRF) Estimated Hrs Per Day: 1.5 hours per day Agreement: Yes Rehab Potential: Fair Time/GCodes Start Time: 07:50 Stop Time: 08:55 Total Time Billed (hr/min): 65 Billed Treatment Time 1, ADL 2, EX 2 (65) FELIPA LEBRON OTR Mar 23, 2021 09:00
--- NOTE | 2021-03-23 11:17 | Speech Therapy Daily Note ---
Speech Daily Progress Note Subjective Date Seen by Provider: Mar 23, 2021 Time Seen by Provider: 00:30 Patient resting in his recliner following his PT session. Patient states he is really hurting but reports he had his pain meds approximately 30 minutes prior. Objective Patient completed a series of general information questions at 85% with 10% cues. Patient also trained in safe oral intake strategies at 80% with 20% cues. Assessment Assessment Current Status: Good Progress Treatment Plan Continue Plan of Care Speech Short Term Goals Short Term Goals Short Term Goals 1) Patient will complete word finding tasks at 90% or greater with minimal cues. 2) patient will tolerate least restrictive diet level without s/s of aspiration at 90% or greater. 3) Patient will utilize compensatory strategies for safe oral intake as trained at 90% or greater. Speech Healthcare Facility Administrator Goals Skilled Nursing Goals 1) Patient will maintain adequate nutrition/hydration via safe effective swallow function. 2) Patient will improve cognitive-communication so that he will require less assist to complete daily tasks. Speech-Plan Patient/Family Goals Patient/Family Goals: Patient plans on returning to his home where he lives with his son. Treatment Plan Speech Therapy Treatment Plan: Continue Plan of Care Treatment Duration: Apr 06, 2021 Frequency: 4 times per week (Patient will receive skilled ST 4-5x per week) Estimated Hrs Per Day: .5 hour per day Rehab Potential: Fair Barriers to Learning: Patient's recent CABGx4 and general health decline Pt/Family Agrees to Plan: Yes Safety Risks/Education Teaching Recipient: Patient Teaching Methods: Demonstration, Discussion Response to Teaching: Verbalize Understanding, Return Demonstration Education Topics Provided: Continued safety within his room, chair alarm on and safety of oral intake on modified diet Time Speech Therapy Time In: 10:30 Speech Therapy Time Out: 11:00 Total Billed Time: 30 Billed Treatment Time 1, CORNELL, EMILIA Perrin Mar 23, 2021 11:17
--- NOTE | 2021-03-23 11:54 | Physical Therapy Daily Note ---
PT Daily Note-Current Subjective Patient in recliner pre tx, agrees to PT, has unrated low back pain. Appearance Patient in recliner post tx with nurse call, phone, tray, chair alarm on, MHP to low back. Mental Status Patient Orientation: Person, Place, Situation Transfers SCALE: Activities may be completed with or without assistive devices. 0-Ixhalfzncb-nuypnpx completes the activity by him/herself with no assistance from a helper. 5-Set-up or Clean-up Assistance-helper sets up or cleans up; patient completes a ctivity. [place] assists only prior to or following the activity. 4-Supervision or Touching Assistance-helper provides verbal cues and/or touching/steadying and/or contact guard assistance as patient completes activity. Assistance may be provided throughout the activity or intermittently. 3-Partial/Moderate Assistance-helper does LESS THAN HALF the effort. [place] lifts, holds or supports trunk or limbs, but provides less than half the effort. 2-Substantial/Maximal Assistance-helper does MORE THAN HALF the effort. [place] lifts or holds trunk or limbs and provides more than half the effort. 4-Pfibjjhzg-eaggyi does ALL the effort. Patient does none of the effort to complete the activity. Or, the assistance of 2 or more helpers is required for the patient to complete the activity. If activity was not attempted, code reason: 7-Patient Refused. 9-Not Applicable-not attempted and the patient did not perform the activity before the current illness, exacerbation or injury. 10-Not Attempted due to Environmental Limitations-(lack of equipment, weather restraints, etc.). 88-Not Attempted due to Medical Conditions or Safety Concerns. Sit to Stand (QC): 4 Chair/Ckd-lc-Okbri Xfer(QC): 4 Weight Bearing Sternal precautions Gait Training Distance: 120'x2 Walk 10 feet (QC): 4 Walk 50 ft with 2 Turns(QC): 4 Walk 150 ft (QC): 4 Gait Persons Needed: 1 Gait Assistive Device: FWW very slow ambulation, patient ambulates a few feet and then has to rest, needs cues to stay on task, gets distracted easily Exercises Seated Therapy Exercises: Ankle pumps, Hip flexion, Hip abd/add (with ball and RTB) Seated Reps: 20 LAQ alternating for 5 min NuStep Minutes: 15 NuStep Workload: 4 (use legs only) Treatments transfers, ambulation, LE strengthening Assessment Current Status: Poor Progress Patient has slight stroke-like symptoms. He veers to the left with ambulation and is constantly hitting the wall or other obstacles with his walker unless cued to come back to the right where he has more room. When he sits he never quite turns completely with the chair directly behind him and needs cues to correct this every time. He shuffles with ambulation, seems to be worse on the left side. PT Short Term Goals Short Term Goals Time Frame: Mar 28, 2021 Roll Left & Right: 5 Sit to lyin Lying to sitting on side of be: 5 Sit to stand: 5 Chair/shx-ai-jduot transfer: 5 Toilet transfer: 4 Walk 10 feet: 4 Walk 50 feet with two turns: 4 Walk 150 feet: 4 PT Radio Time Sales Supervisor Goals Detention Goals PT Detention Goals Time Frame: Apr 06, 2021 Roll Left & Right (QC): 6 Sit to Lying (QC): 6 Lying-Sitting on Side/Bed(QC): 6 Sit to Stand (QC): 6 Chair/Itw-lr-Ojisz Xfer(QC): 6 Toilet Transfer (QC): 6 Car Transfer (QC): 6 Does the Patient Walk: Yes Walk 10 feet (QC): 6 Walk 50ft with 2 Turns (QC): 6 Walk 150 ft (QC): 6 Walking 10ft on Uneven Surface: 6 1 Step (curb) (QC): 6 4 Steps (QC): 6 12 Steps (QC): 4 Picking up an Object (QC): 5 Does the Pt use WC or Scooter?: No Wheel 50 feet with 2 turns (QC: 9 Wheel 150 feet: 9 PT Plan Problem List Problem List: Activity Tolerance, Functional Strength, Safety, Balance, Gait, Transfer, Bed Mobility, ROM Treatment/Plan Treatment Plan: Continue Plan of Care Treatment Plan: Bed Mobility, Education, Functional Activity Myah, Functional Strength, Group Therapy, Gait, Safety, Therapeutic Exercise, Transfers Treatment Duration: Apr 06, 2021 Frequency: At least 5 of 7 days/Wk (IRF) Estimated Hrs Per Day: 1.5 hours per day Patient and/or Family Agrees t: Yes Safety Risks/Education Patient Education: Gait Training, Transfer Techniques, Correct Positioning, Safety Issues Teaching Recipient: Patient Teaching Methods: Demonstration, Discussion Response to Teaching: Reinforcement Needed Time/GCodes Time In: 1100 Time Out: 1200 Total Billed Treatment Time: 60 Total Billed Treatment 1 visit GT 30' EX 30' MUSA MADRIGAL PT Mar 23, 2021 11:54
--- NOTE | 2021-03-23 13:44 | Diagnostic Imaging Report ---
PROCEDURE: MR imaging of the brain without contrast. TECHNIQUE: Multiplanar, multisequence MR imaging of the brain was performed without contrast. INDICATION: Recent CABG with right eye issues. COMPARISON: No prior MRI study is available for comparison. FINDINGS: Diffusion-weighted images demonstrate numerous foci of diffusion restriction consistent with acute/subacute infarcts. There are multiple foci of bilateral cerebellar hemispheres. There are also infarcts in bilateral occipital lobes as well as microinfarcts in the right frontal and right posterior parietal lobes. Periventricular white matter changes are noted consistent with chronic microvascular ischemia. There is no midline shift. The normal expected flow-voids within the carotid siphons are seen. Corpus callosum is unremarkable. No acute intra-axial or extra-axial hemorrhage is detected. IMPRESSION: There are numerous acute/subacute infarcts involving bilateral cerebellar hemispheres as well as bilateral occipital lobes with microinfarcts in the right frontal and right parietal lobes. No acute intracranial hemorrhage is detected. Dictated by: Dictated on workstation # [id number]
--- NOTE | 2021-03-23 14:16 | Therapy Group Daily Note ---
Therapy Daily Group Note Patient Education Topic Home Safety, Fall Prevention, Exercises Exercises LE Seated Exercise, ROM, Stretching, UE Exercise Session Ratio (pt:therapist): 4:1 Goal of Session: Education on ARU Expectations, Home Safety Strategies, Memory Strategies, UE/LE Strengthing Goal Met for this Session: Yes Pt Benefit of Group: Contributions to Others, F/U Use of Strategies @Home, Increased Functional Safety, Increased Functional Strength, Improved Cognition, Recognition of Peers, Socialization Other/Notes Patient was transported to the common area of rehab and participated in group therapy with other patients. Each patient had to introduce themselves and answer a question that involved memory and critical thinking. Each patient then participated in home safety bingo and were educated on different home safety topics. Intermittently patients participated in UE and LE exercise and worked on a word finding sheet. Patient was then wheeled back to his room and transferred to a recliner with nurse call, phone, tray accessible, chair alarm on. Start Time: 13:00 Stop Time: 14:00 Total Billed Treatment Time: 60 Total Billed Treatment 1 visit GRP 60MUSA CHAN PT Mar 23, 2021 14:16
--- NOTE | 2021-03-23 15:39 | Progress Note ---
Progress Note REHAB/MEDICAL ASSESSMENT AND PLAN: REHAB IMPAIRMENT GROUP: Cardiac dysfunction from four-vessel bypass ETIOLOGIC DIAGNOSIS: Cardiac dysfunction from four-vessel bypass The comorbidities that impact the patients function and/or functional outcome by: Advanced age, new subacute strokes confirmed on MRI on 03/23/2021 with visual changes now resolved REHAB PLAN: The patient is being admitted to our comprehensive inpatient rehabilitation facility and can tolerate the intensity of service consisting of at least: 180 minutes of therapy a day, 5 out of 7 days a week Rehab treatment will consist of: PT and OT will focus on regaining strength along with monitoring for any deficits from subacute strokes likely occurred postoperatively but will monitor closely for any recurrence and for stroke deficits The patient/family has a good understanding of our discharge process and will benefit from an interdisciplinary inpatient rehabilitation program. The patient has potential to make improvement and is in need of at least two of the following multidisciplinary therapies including but not limited to physical, occupational, speech, and prosthetics and orthotics. Additionally the patient will need services from respiratory, nutritional services, wound care, psychology, etc. (Customize this to each patient). Given the patients complex condition and risk of further medical complications, rehabilitation services cannot be safely or effectively provided at a lower level of care such as a snf facility. BARRIERS TO DISCHARGE: New strokes on MRI 03/23/2021 ESTIMATED LOS: 7 days DISPOSITION: Home RELEVANT CHANGES SINCE PREADMISSION SCREENING: I have compared the patients medical and functional status at the time of the preadmission screening and there are: no changes PROGNOSIS: Good REHABILITATION GOALS: 1. PT and OT will focus on regaining strength along with monitoring for any deficits from subacute strokes likely occurred postoperatively but will monitor closely for any recurrence and for stroke deficits All the above goals were reviewed with the patient and he/she is in agreement. By signing this document, I acknowledge that I have personally performed a full physical examination on this patient within 24 hours of admission to this inpatient rehabilitation facility and have determined the patient to be able to tolerate the above course of treatment at an intensive level for a reasonable period of time. I will be completing a detailed individualized Plan of Care for this patient by day #4 of the patients stay based upon the Preadmission Screen, the Post-Admission Evaluation, and the therapy evaluations. A/P Critical illness myopathy s/p CABG x4 Postoperative anemia Postoperative hypoxemia and respiratory failure- now resolved pAF HTN Plan Continue with intensive therapies to regain prior level of functional status Continue on CAD meds, resumed yesterday on arrival to the unit BP well controlled Pain controlled Check H&H in AM Admission Dx/Comorbidities: (1) S/P CABG x 4 ICD Codes: Z95.1 - Presence of aortocoronary bypass graft (2) Critical illness myopathy ICD Codes: G72.81 - Critical illness myopathy (3) Atrial fibrillation ICD Codes: I48.91 - Unspecified atrial fibrillation (4) HLD (hyperlipidemia) ICD Codes: E78.5 - Hyperlipidemia, unspecified (5) Essential (primary) hypertension ICD Codes: I10 - Essential (primary) hypertension DAHLIA GAMING DO Mar 23, 2021 15:39
--- NOTE | 2021-03-23 16:39 | Diagnostic Imaging Report ---
PROCEDURE: US carotid duplex, bilateral. TECHNIQUE: Multiple real-time grayscale images were obtained over the carotid arteries in various projections, bilaterally. Additional spectral analysis and color Doppler duplex images were also obtained. INDICATION: Stroke. COMPARISON: None available. FINDINGS: Right carotid circulation: There is mild plaque formation in the right carotid bifurcation. Based on grayscale images and flow velocity criteria, there is mild stenosis (<50%) of the right internal carotid artery. Left carotid circulation: There is moderate plaque formation in the left carotid bifurcation. Based on grayscale images and flow velocity criteria, there is moderate stenosis (50-69%) of the left internal carotid artery. Flow in the bilateral vertebral arteries is antegrade. IMPRESSION: 1. Severe (>70% but less than near occlusion) stenosis of the right internal carotid artery. 2. Moderate (50-69%) stenosis of the left internal carotid artery. Society of Radiologist in Ultrasound Consensus: Normal: ICA PSV is <125 cm/sec and no plaque or intimal thickening is visible sonographically ICA/CCA PSV ratio <2.0 ICA EDV <40 cm/sec Mild (<50% ICA stenosis): ICA PSV is <125 cm/sec and plaque or intimal thickening is visible sonographically ICA/CCA PSV ratio <2.0 ICA EDV <40 cm/sec Moderate (50-69% ICA stenosis) ICA PSV is 125-230 cm/sec and plaque is visible sonographically ICA/CCA PSV ratio of 2.0-4.0 ICA EDV of 40-100 cm/sec Severe (?70% ICA stenosis but less than near occlusion): ICA PSV is >230 cm/sec and visible plaque and luminal narrowing are seen at garber-scale and color Doppler ultrasound (the higher the Doppler parameters lie above the threshold of 230 cm/sec, the greater the likelihood of severe disease) ICA/CCA PSV ratio >4 ICA EDV >100 cm/sec Near occlusion of the ICA Velocity parameters may not apply, since velocities may be high, low, or undetectable Markedly narrowed lumen at color or power Doppler ultrasound Total occlusion of the ICA: No detectable patent lumen at garber-scale ultrasound and no flow with spectral, power, and color Doppler ultrasound May be compensatory increased velocity in the contralateral carotid Parameters based on the consensus panel Garber-Scale and Doppler ultrasound criteria published July 2003, Radiology, Volume 229. DOPPLER (peak systolic velocity M/S Right Left CCA 1.06 1.08 ICA Proximal 4.29 1.42 ICA Mid 2.94 1.49 ICA Distal 1.09 0.98 RATIO 4.9 1.1 ECA 2.57 1.49 VERT 0.88 0.82 Dictated by: Dictated on workstation # [id number]
[2021-03-23 17:45] VITALS: BP 163/73
[2021-03-23] MEDS: MULTIVIT W/MINERALS TAB (THERAGRAN M) PO SCH (17:50)
[2021-03-23] MEDS ORDERED: RT-ALBUTEROL/IPRATROPIUM 3 ML (DUONEB) VIAL INH NR (18:45)
[2021-03-23] MEDS: FUROSEMIDE 40 MG/4 ML INJ (LASIX) ONE ×2 (19:02→20:12)
[2021-03-23] MEDS: RT-ALBUTEROL/IPRATROPIUM 3 ML (DUONEB) VIAL INH SCH (19:13)
[2021-03-23 20:00] VITALS: BP 136/63
[2021-03-23] MEDS: TOLTERODINE LA 4 MG (DETROL) CAP PO SCH (21:28)
[2021-03-23] MEDS: MELATONIN 3 MG TABLET PO PRN (21:28)
[2021-03-23] MEDS: SIMvastatin 20 MG (ZOCOR) TAB PO SCH (21:28)
[2021-03-24 06:13] LABS: BASOPHILS # (AUTO) 0.1 10^3/uL (0.0-0.1); BASOPHILS % (AUTO) 1 % (0-10); EOSINOPHILS # (AUTO) 0.9 10^3/uL (0.0-0.3); EOSINOPHILS % (AUTO) 8 % (0-10); HEMATOCRIT 25 % (40-54); HEMOGLOBIN 7.9 g/dL (13.3-17.7); LYMPHOCYTES # (AUTO) 1.5 10^3/uL (1.0-4.0); LYMPHOCYTES % (AUTO) 12 % (12-44); MEAN CORPUSCULAR HEMOGLOBIN 31 pg (25-34); MEAN CORPUSCULAR HGB CONC 32 g/dL (32-36); MEAN CORPUSCULAR VOLUME 97 fL (80-99); MEAN PLATELET VOLUME 9.3 fL (9.0-12.2); MONOCYTES # (AUTO) 1.4 10^3/uL (0.0-1.0); MONOCYTES % (AUTO) 11 % (0-12); NEUTROPHILS # (AUTO) 7.8 10^3/uL (1.8-7.8); NEUTROPHILS % (AUTO) 64 % (42-75); PLATELET COUNT 317 10^3/uL (130-400); WHITE BLOOD COUNT 12.2 10^3/uL (4.3-11.0)
[2021-03-24 06:28] LABS: POTASSIUM 4.3 MMOL/L (3.6-5.0)
[2021-03-24 06:30] LABS: CALCIUM 8.6 MG/DL (8.5-10.1)
[2021-03-24 06:31] LABS: TOTAL PROTEIN 5.8 GM/DL (6.4-8.2)
[2021-03-24 06:32] LABS: BILIRUBIN,TOTAL 0.4 MG/DL (0.1-1.0)
[2021-03-24 06:34] LABS: CREATININE SERUM 1.26 MG/DL (0.60-1.30)
[2021-03-24] MEDS: HYDROcodone/APAP 5 MG/325 MG (LORTAB) TAB PO PRN ×2 (06:46→12:12)
[2021-03-24] MEDS: FUROSEMIDE 40 MG/4 ML INJ (LASIX) IVP SCH ×2 (06:48→17:34)
[2021-03-24] MEDS: RT-ALBUTEROL/IPRATROPIUM 3 ML (DUONEB) VIAL INH SCH ×2 (07:13→20:57)
[2021-03-24 07:21] VITALS: BP 146/63
[2021-03-24] MEDS ORDERED: IRON SUCROSE 200 MG/10 ML (VENOFER) VIAL IV ONE (08:00)
--- NOTE | 2021-03-24 08:01 | PM&R Progress Note ---
Subjective HPI/CC On Admission Date Seen by Provider: Mar 24, 2021 Time Seen by Provider: 12:45 Subjective/Events-last exam 03/24/2021: This visit is via video chat due to Covid related restriction for this provider Patient doing pretty well today IV iron initiated and oral meds given also Lasix 20 mg IV twice daily has been helpful Hemoglobin 7.9 BNP was 924 Former smoker in 2003 after his hernia surgery Left leg pain is chronic Chest x-ray was stable He had a left carotid endarterectomy [place] [address] Smith After he told me yesterday he was no longer having any color or vision problems he reports that it now it really never went away and he was having some blue lines today in his right eye so considering that I will go ahead and start Eliquis 5 mg twice daily hold the aspirin maintain Plavix but he will remain a significant bleeding risk considering his hemoglobin is already low at 7.9 Increasing Protonix to twice a day to protect against gastrointestinal bleeding Patient very complex Patient remained stable and participating in therapy Has had multiple intervention in his legs vascular mcintyre and considering the carotid ultrasound we will monitor patient closely 03/23/2021: This visit is via video chat due to Covid related restriction for this provider Extensive review of chart and conferring with Dr. Barnett cardiology and then stroke center neurologist due to MRI findings after CT scan was abnormal yesterday We will obtain carotid ultrasound but it appears that the findings on the brain likely occurred postoperatively and not due to an isolated carotid lesion and if continues will need oral anticoagulants with transesophageal echocardiogram to identify thrombus if it is present. We did review the chart and in cardiac ICU postoperatively he did have an episode of atrial fibrillation but amiodarone has been maintained since that time so we will initiate telemetry and maintain it this weekend. I did update the patient on all of these details and told him if oral anticoagulation was required with aspirin and Plavix it did place him at a bleeding risk and his hemoglobin 8.0 is a concern Very extensive issues requiring extensive research and high complexity medical decision making of [address] Barnett requested n.p.o. after Friday at midnight and may very well need to have transesophageal echocardiogram on Friday morning so I placed that in the orders Patient no longer having visual changes but I did update him on the fact if he does have a recurrence he will notify the nurse and will place him on heparin [facility] agreed no acute issues to prompt TPA or any other aggressive regimen right now Review of Systems General: Fatigue, Malaise Neurological: Weakness Objective Exam Vital Signs Vital Signs Date Time Temp Pulse Resp B/P (MAP) Pulse Ox O2 Delivery O2 Flow Rate FiO2 03/24/21 12:41 69 03/24/21 09:14 Room Air 03/24/21 07:21 36.6 16 146/63 (90) 90 Capillary Refill : General Appearance: No Apparent Distress, WD/WN, Chronically ill HEENT: PERRL/EOMI, Moist Mucous Membranes; No Scleral Icterus (L), No Scleral Icterus (R) Neck: Normal Inspection, Supple Respiratory: Lungs Clear, No Accessory Muscle Use, No Respiratory Distress Cardiovascular: Regular Rate, Rhythm, No JVD, Systolic Murmur, Other (midline scar, ) Gastrointestinal: Normal Bowel Sounds, Soft Extremity: Normal Inspection, No Pedal Edema Neurologic/Psychiatric: Alert, Oriented x3, Normal Mood/Affect Skin: Normal Color, Warm/Dry Results/Procedures Lab Laboratory Tests 03/24/21 05:17 Patient resulted labs reviewed. FIM Transfers Therapy Code Descriptions/Definitions Functional [place] Measure: 0=Not Assessed/NA 4=Minimal Assistance 1=Total Assistance 5=Supervision or Setup 2=Maximal Assistance 6=Modified [place] 3=Moderate Assistance 7=Complete IndependenceSCALE: Activities may be completed with or without assistive devices. 5-Izxtlijblq-yfcuigx completes the activity by him/herself with no assistance from a helper. 5-Set-up or Clean-up Assistance-helper sets up or cleans up; patient completes activity. [place] assists only prior to or following the activity. 4-Supervision or Touching Assistance-helper provides verbal cues and/or touching/steadying and/or contact guard assistance as patient completes activity. Assistance may be provided throughout the activity or intermittently. 3-Partial/Moderate Assistance-helper does LESS THAN HALF the effort. [place] lifts, holds or supports trunk or limbs, but provides less than half the effort. 2-Substantial/Maximal Assistance-helper does MORE THAN HALF the effort. [place] lifts or holds trunk or limbs and provides more than half the effort. 4-Vmwipjvux-bwsuyl does ALL the effort. Patient does none of the effort to complete the activity. Or, the assistance of 2 or more helpers is required for the patient to complete the activity. If activity was not attempted, code reason: 7-Patient Refused. 9-Not Applicable-not attempted and the patient did not perform the activity before the current illness, exacerbation or injury. 10-Not Attempted due to Environmental Limitations-(lack of equipment, weather restraints, etc.). 88-Not Attempted due to Medical Conditions or Safety Concerns. Roll Left to Right (QC): 6 Sit to Lying (QC): 6 Sit to Stand (QC): 4 Chair/Llx-sr-Bljsn Xfer(QC): 4 Car Transfer (QC): 3 (min assist with legs; skilled cues to sequence) Gait Training Does the Patient Walk?: Yes Distance: 120'x2 Walk 10 feet (QC): 4 Walk 50 ft with 2 Turns(QC): 4 Walk 150 ft (QC): 4 Walking 10ft/uneven surface-QC: 3 Gait Persons Needed: 1 Gait Assistive Device: FWW Wheelchair Training Does the Pt Use a Wheelchair?: No Wheel 50 ft with 2 turns (QC): 9 Wheel 150 ft (QC): 9 Stair Training 1 Step (curb) (QC): 3 (min assist and skilled cues for sequencing. ) 4 Steps (QC): 88 12 Steps (QC): 88 Balance Picking up an Object (QC): 3 ADL-Treatment Eating (QC): 6 Oral Hygiene (QC): 6 (IND at sink) Bathing Location: L Arm, R Arm, L Upper Leg, R Upper Leg, L Lower Leg (including foot), R Lower Leg (including foot), Chest, Abdomen, Buttocks, Per ineal Area Shower/Bathe Self (QC): 7 Upper Body Dressing (QC): 7 Lower Body Dressing (QC): 7 On/Off Footwear (QC): 7 Toileting Hygiene (QC): 6 Toilet Transfer (QC): 4 Assessment/Plan Assessment and Plan Assess & Plan/Chief Complaint Assessment: Debility from CABG of 4 vessels at [facility] [place] Subacute strokes bilateral cerebellar hemispheres consistent with post operative findings with vision changes on 03/22/[address] scan and MRI status post conversation with stroke center neurologist expert and Dr. Matti Barnett cardiology placing on telemetry no indication for OAC or TPA Postoperative anemia asymptomatic recheck today 8.0 placed on oral iron Previous carotid endarterectomy left side in 2014 Episode of atrial fibrillation in cardiac ICU postoperatively now on Coreg after amiodarone discontinued Pleural effusions GERD Overactive bladder Chronic kidney disease stage II Carotid artery endarterectomy history Hypertension Hyperlipidemia Peripheral vascular disease of the leg status post interventions in the past Plan: Plavix and aspirin Cell Feed Department Supervisor for visual changes if that should occur he needs heparin and transesophageal echocardiogram for thrombus Aggressive therapy per protocol 03/24/2021: Hold aspirin and add Eliquis 5 mg twice daily maintain Plavix Increase Protonix to twice a day to minimize gastrointestinal bleeding risk Monitor hemoglobin closely Iron infusion with oral supplement (1) Critical illness myopathy (2) Atrial fibrillation (3) Essential (primary) hypertension Assessment & Plan: His blood pressures are intermittently elevated. If this persists, we may need to increase his carvedilol. (4) HLD (hyperlipidemia) (5) Coronary artery disease without angina pectoris Assessment & Plan: He is now status post coronary artery bypass surgery x4. He is gradually improving. He is on appropriate guideline directed medical therapy with aspirin, beta-cornelio, and statin medication. He has also been taking clopidogrel due to his history of peripheral vascular disease. I recommend continuing the present guideline directed medical therapy. I will request a copy of his cardiac catheterization and echocardiogram reports from [facility]. (6) Mixed hyperlipidemia Assessment & Plan: Continue simvastatin. (7) Atherosclerosis of both carotid arteries Assessment & Plan: He had a previous carotid endarterectomy. If his visual changes persist, he may need a head CT and/or MRI of the brain. In the interim, I recommend he continue the aspirin, clopidogrel, and statin medication. (8) Peripheral arterial disease Assessment & Plan: He has not been having any claudication. He had previous interventions on the left leg. I recommend he continue on aspirin, clopidogrel, and statin medication. Physical therapy should also help with this condition. (9) Pleural effusion Assessment & Plan: He has decreased breath sounds at both bases. From his description, it sounds as though he was having a fair amount of fluid that may needed draining but at the last moment, ultrasound did not show any significant fluid. I will obtain a chest x-ray for further evaluation. I suspect this is just a normal postoperative pleural effusion. (10) Cerebrovascular accident (CVA) (11) Acute postoperative anemia due to expected blood loss (12) S/P CABG x 4 DAHLIA GAMING DO Mar 24, 2021 08:01
--- NOTE | 2021-03-24 08:28 | Diagnostic Imaging Report ---
INDICATION: Shortness of breath Portable chest 8:12 AM There are postoperative changes from a median sternotomy. Heart size and pulmonary vascularity are normal. Lungs are clear. There are no effusions or pneumothoraces. IMPRESSION: Postsurgical changes in the chest. No acute abnormality seen. Dictated by: Dictated on workstation # [id number]
[2021-03-24] MEDS: CLOPIDOGREL 75 MG (PLAVIX) TABLET PO SCH (08:33)
[2021-03-24] MEDS: ASPIRIN 81 MG CHEW (CHILDREN'S ASA) PO SCH (08:33)
[2021-03-24] MEDS: DOCUSATE SODIUM 100 MG (COLACE) CAP PO SCH ×2 (08:34→20:17)
[2021-03-24] MEDS: ETODOLAC 200 MG (LODINE) CAP PO SCH ×2 (08:34→17:33)
[2021-03-24] MEDS: PANTOPRAZOLE 40 MG (PROTONIX) TAB PO SCH ×2 (08:34→20:17)
[2021-03-24] MEDS: DIVALPROEX 500 MG DELAYED RELEASE (DEPAKOTE) TAB PO SCH ×2 (08:34→20:17)
[2021-03-24] MEDS: polyethylene glycoL POWDER 17 GM (MIRALAX) PACK PO SCH ×2 (08:35→20:18)
[2021-03-24] MEDS: SENNA W/DOCUSATE (SENOKOT S) TABLET PO SCH ×2 (08:35→20:17)
--- NOTE | 2021-03-24 10:23 | Physical Therapy Daily Note ---
PT Daily Note-Current Subjective Pt reclined in chair upon arrival. Pt agrees to PT but asks to use BR. Mental Status Patient Orientation: Person, Confused, Place Transfers SCALE: Activities may be completed with or without assistive devices. 0-Bkcgrvunke-kncppew completes the activity by him/herself with no assistance from a helper. 5-Set-up or Clean-up Assistance-helper sets up or cleans up; patient completes activity. [place] assists only prior to or following the activity. 4-Supervision or Touching Assistance-helper provides verbal cues and/or touching/steadying and/or contact guard assistance as patient completes activity. Assistance may be provided throughout the activity or intermittently. 3-Partial/Moderate Assistance-helper does LESS THAN HALF the effort. [place] lifts, holds or supports trunk or limbs, but provides less than half the effort. 2-Substantial/Maximal Assistance-helper does MORE THAN HALF the effort. [place] lifts or holds trunk or limbs and provides more than half the effort. 4-Dodaapmiy-uxalnm does ALL the effort. Patient does none of the effort to complete the activity. Or, the assistance of 2 or more helpers is required for the patient to complete the activity. If activity was not attempted, code reason: 7-Patient Refused. 9-Not Applicable-not attempted and the patient did not perform the activity before the current illness, exacerbation or injury. 10-Not Attempted due to Environmental Limitations-(lack of equipment, weather restraints, etc.). 88-Not Attempted due to Medical Conditions or Safety Concerns. Sit to Stand (QC): 4 Toilet Transfer (QC): 4 Weight Bearing Full Weight Bearing Full Weight Bearing Sternal precautions Gait Training Does the Patient Walk?: Yes Distance: 30' Walk 10 feet (QC): 4 Gait Persons Needed: 1 Gait Assistive Device: FWW Wheelchair Training Does the Pt Use a Wheelchair?: No Exercises Seated Therapy Exercises: Ankle pumps, Long arc quads, Hip flexion, Glut set Seated Reps: 15 Treatments TF to standing and uses BR. MECHANICAL STRIPER assists with changing brief. Pt returns to recliner to rest. Pt completes Seated Ex. Pt orders lunch, dinner & breakfast with MECHANICAL STRIPER assist. Pt has all needs met, call light in hand. Assessment Current Status: Fair Progress Pt needs VC for staying on tasks and needs directions repeated as pt doesn't understand task at times. PT Short Term Goals Short Term Goals Time Frame: Mar 28, 2021 Roll Left & Right: 5 Sit to lyin Lying to sitting on side of be: 5 Sit to stand: 5 Chair/tqn-lx-isvpl transfer: 5 Toilet transfer: 4 Walk 10 feet: 4 Walk 50 feet with two turns: 4 Walk 150 feet: 4 PT Mcfp Goals Mcfp Goals PT Mcfp Goals Time Frame: Apr 06, 2021 Roll Left & Right (QC): 6 Sit to Lying (QC): 6 Lying-Sitting on Side/Bed(QC): 6 Sit to Stand (QC): 6 Chair/Wlj-uf-Piqfn Xfer(QC): 6 Toilet Transfer (QC): 6 Car Transfer (QC): 6 Does the Patient Walk: Yes Walk 10 feet (QC): 6 Walk 50ft with 2 Turns (QC): 6 Walk 150 ft (QC): 6 Walking 10ft on Uneven Surface: 6 1 Step (curb) (QC): 6 4 Steps (QC): 6 12 Steps (QC): 4 Picking up an Object (QC): 5 Does the Pt use WC or Scooter?: No Wheel 50 feet with 2 turns (QC: 9 Wheel 150 feet: 9 PT Plan Problem List Problem List: Activity Tolerance, Safety Treatment/Plan Treatment Plan: Continue Plan of Care Treatment Plan: Bed Mobility, Education, Functional Activity Myah, Functional Strength, Group Therapy, Gait, Safety, Therapeutic Exercise, Transfers Treatment Duration: Apr 06, 2021 Frequency: At least 5 of 7 days/Wk (IRF) Estimated Hrs Per Day: 1.5 hours per day Patient and/or Family Agrees t: Yes Safety Risks/Education Patient Education: Transfer Techniques, Correct Positioning, Safety Issues Teaching Recipient: Patient Teaching Methods: Discussion Response to Teaching: Reinforcement Needed Time/GCodes Time In: 925 Time Out: 1000 Total Billed Treatment Time: 35 Total Billed Treatment 1, FA (20m) & EX (15m) PRASANTH BOLAND PTA Mar 24, 2021 10:23
[2021-03-24] MEDS: CALCIUM CARBONATE 500 MG (TUMS) TAB.CHEW PO PRN (10:50)
[2021-03-24] MEDS: APIXABAN 5 MG (ELIQUIS) TABLET PO SCH ×2 (13:57→20:17)
[2021-03-24] MEDS: MULTIVIT W/MINERALS TAB (THERAGRAN M) PO SCH (17:33)
[2021-03-24 17:37] VITALS: BP 130/60
[2021-03-24 20:00] VITALS: BP 96/52
[2021-03-24] MEDS: SIMvastatin 20 MG (ZOCOR) TAB PO SCH (20:17)
[2021-03-24] MEDS: TOLTERODINE LA 4 MG (DETROL) CAP PO SCH (20:17)
[2021-03-25] MEDS: FUROSEMIDE 40 MG/4 ML INJ (LASIX) IVP SCH ×2 (06:19→17:30)
[2021-03-25 07:18] VITALS: BP 155/71
--- NOTE | 2021-03-25 07:43 | PM&R Progress Note ---
Subjective HPI/CC On Admission Date Seen by Provider: Mar 25, 2021 Time Seen by Provider: 12:45 Subjective/Events-last exam 03/25/2021: This visit is via video chat due to Covid related restriction for this provider Patient doing pretty well Tolerating Eliquis with Plavix IV iron infusions tolerated next dose tomorrow Dr. Lau is his eye doctor seen 1 year ago Oxygen at 88% placed on oxygen and he feels better Has dry eye syndrome Proton pump inhibitor twice a day maintained Bowels moved 3 days ago we will continue giving laxatives 03/24/2021: This visit is via video chat due to Covid related restriction for this provider Patient doing pretty well today IV iron initiated and oral meds given also Lasix 20 mg IV twice daily has been helpful Hemoglobin 7.9 BNP was 924 Former smoker in 2003 after his hernia surgery Left leg pain is chronic Chest x-ray was stable He had a left carotid endarterectomy [place] [address] Smith After he told me yesterday he was no longer having any color or vision problems he reports that it now it really never went away and he was having some blue lines today in his right eye so considering that I will go ahead and start Eliquis 5 mg twice daily hold the aspirin maintain Plavix but he will remain a significant bleeding risk considering his hemoglobin is already low at 7.9 Increasing Protonix to twice a day to protect against gastrointestinal bleeding Patient very complex Patient remained stable and participating in therapy Has had multiple intervention in his legs vascular mcintyre and considering the carotid ultrasound we will monitor patient closely 03/23/2021: This visit is via video chat due to Covid related restriction for this provider Extensive review of chart and conferring with Dr. Barnett cardiology and then stroke center neurologist due to MRI findings after CT scan was abnormal yesterday We will obtain carotid ultrasound but it appears that the findings on the brain likely occurred postoperatively and not due to an isolated carotid lesion and if continues will need oral anticoagulants with transesophageal echocardiogram to identify thrombus if it is present. We did review the chart and in cardiac ICU postoperatively he did have an episode of atrial fibrillation but amiodarone has been maintained since that time so we will initiate telemetry and maintain it this weekend. I did update the patient on all of these details and told him if oral anticoagulation was required with aspirin and Plavix it did place him at a bleeding risk and his hemoglobin 8.0 is a concern Very extensive issues requiring extensive research and high complexity medical decision making of [address] Barnett requested n.p.o. after Friday at midnight and may very well need to have transesophageal echocardiogram on Friday so I placed that in the orders Patient no longer having visual changes but I did update him on the fact if he does have a recurrence he will notify the nurse and will place him on heparin [facility] agreed no acute issues to prompt TPA or any other aggressive regimen right now Review of Systems General: Fatigue, Malaise HEENT: Visual Changes Neurological: Weakness Objective Exam Vital Signs Vital Signs Date Time Temp Pulse Resp B/P (MAP) Pulse Ox O2 Delivery O2 Flow Rate FiO2 03/25/21 20:06 95 Nasal Cannula 2.00 03/25/21 19:00 79 03/25/21 17:29 18 129/60 (83) 03/25/21 07:18 36.2 Capillary Refill : General Appearance: No Apparent Distress, WD/WN, Chronically ill HEENT: PERRL/EOMI, Moist Mucous Membranes; No Scleral Icterus (L), No Scleral Icterus (R) Neck: Normal Inspection, Supple Respiratory: Lungs Clear, No Accessory Muscle Use, No Respiratory Distress Cardiovascular: Regular Rate, Rhythm, No JVD, Systolic Murmur, Other (midline scar, ) Gastrointestinal: Normal Bowel Sounds, Soft Extremity: Normal Inspection, No Pedal Edema Neurologic/Psychiatric: Alert, Oriented x3, Normal Mood/Affect Skin: Normal Color, Warm/Dry Results/Procedures Lab Patient resulted labs reviewed. FIM Transfers Therapy Code Descriptions/Definitions Functional [place] Measure: 0=Not Assessed/NA 4=Minimal Assistance 1=Total Assistance 5=Supervision or Setup 2=Maximal Assistance 6=Modified [place] 3=Moderate Assistance 7=Complete IndependenceSCALE: Activities may be completed with or without assistive devices. 8-Ttymjooflg-hggyfib completes the activity by him/herself with no assistance from a helper. 5-Set-up or Clean-up Assistance-helper sets up or cleans up; patient completes activity. [place] assists only prior to or following the activity. 4-Supervision or Touching Assistance-helper provides verbal cues and/or touching/steadying and/or contact guard assistance as patient completes activity. Assistance may be provided throughout the activity or intermittently. 3-Partial/Moderate Assistance-helper does LESS THAN HALF the effort. [place] lifts, holds or supports trunk or limbs, but provides less than half the effort. 2-Substantial/Maximal Assistance-helper does MORE THAN HALF the effort. [place] lifts or holds trunk or limbs and provides more than half the effort. 2-Gwasdrcfu-qxnaqu does ALL the effort. Patient does none of the effort to complete the activity. Or, the assistance of 2 or more helpers is required for the patient to complete the activity. If activity was not attempted, code reason: 7-Patient Refused. 9-Not Applicable-not attempted and the patient did not perform the activity before the current illness, exacerbation or injury. 10-Not Attempted due to Environmental Limitations-(lack of equipment, weather restraints, etc.). 88-Not Attempted due to Medical Conditions or Safety Concerns. Roll Left to Right (QC): 6 Sit to Lying (QC): 6 Sit to Stand (QC): 4 Chair/Zab-cv-Esixd Xfer(QC): 4 Car Transfer (QC): 3 (min assist with legs; skilled cues to sequence) Gait Training Does the Patient Walk?: Yes Distance: 30' Walk 10 feet (QC): 4 Walk 50 ft with 2 Turns(QC): 4 Walk 150 ft (QC): 4 Walking 10ft/uneven surface-QC: 3 Gait Persons Needed: 1 Gait Assistive Device: FWW Wheelchair Training Does the Pt Use a Wheelchair?: No Wheel 50 ft with 2 turns (QC): 9 Wheel 150 ft (QC): 9 Stair Training 1 Step (curb) (QC): 3 (min assist and skilled cues for sequencing. ) 4 Steps (QC): 88 12 Steps (QC): 88 Balance Picking up an Object (QC): 3 ADL-Treatment Eating (QC): 6 Oral Hygiene (QC): 6 (IND at sink) Bathing Location: L Arm, R Arm, L Upper Leg, R Upper Leg, L Lower Leg (including foot), R Lower Leg (including foot), Chest, Abdomen, Buttocks, Perineal Area Shower/Bathe Self (QC): 7 Upper Body Dressing (QC): 7 Lower Body Dressing (QC): 7 On/Off Footwear (QC): 7 Toileting Hygiene (QC): 6 Toilet Transfer (QC): 4 Assessment/Plan Assessment and Plan Assess & Plan/Chief Complaint Assessment: Debility from CABG of 4 vessels at [facility] Subacute strokes bilateral cerebellar hemispheres consistent with post operative findings with vision changes on 03/22/[address] scan and MRI status post conversation with stroke center neurologist expert and Dr. Matti Barnett cardiology placing on telemetry no indication for OAC or TPA Postoperative anemia asymptomatic recheck today 8.0 placed on oral iron Previous carotid endarterectomy left side in 2013 Episode of atrial fibrillation in cardiac ICU postoperatively now on Coreg after amiodarone discontinued Pleural effusions GERD Overactive bladder Chronic kidney disease stage II Carotid artery endarterectomy history Hypertension Hyperlipidemia Peripheral vascular disease of the leg status post interventions in the past Plan: Plavix and aspirin Clinical Practice Consultant for visual changes if that should occur he needs heparin and transesophageal echocardiogram for thrombus Aggressive therapy per protocol 03/24/2021: Hold aspirin and add Eliquis 5 mg twice daily maintain Plavix Increase Protonix to twice a day to minimize gastrointestinal bleeding risk Monitor hemoglobin closely Iron infusion with oral supplement 03/25/2021: Maintain Eliquis and Plavix Supportive care Continue monitoring vision changes (1) Critical illness myopathy (2) Atrial fibrillation (3) Essential (primary) hypertension Assessment & Plan: His blood pressures are intermittently elevated. If this persists, we may need to increase his carvedilol. (4) HLD (hyperlipidemia) (5) Coronary artery disease without angina pectoris Assessment & Plan: He is now status post coronary artery bypass surgery x4. He is gradually improving. He is on appropriate guideline directed medical therapy with aspirin, beta-cornelio, and statin medication. He has also been taking clopidogrel due to his history of peripheral vascular disease. I recommend continuing the present guideline directed medical therapy. I will request a copy of his cardiac catheterization and echocardiogram reports from [facility]. (6) Mixed hyperlipidemia Assessment & Plan: Continue simvastatin. (7) Atherosclerosis of both carotid arteries Assessment & Plan: He had a previous carotid endarterectomy. If his visual changes persist, he may need a head CT and/or MRI of the brain. In the interim, I recommend he continue the aspirin, clopidogrel, and statin medication. (8) Peripheral arterial disease Assessment & Plan: He has not been having any claudication. He had previous interventions on the left leg. I recommend he continue on aspirin, clopidogrel, and statin medication. Physical therapy should also help with this condition. (9) Pleural effusion Assessment & Plan: He has decreased breath sounds at both bases. From his description, it sounds as though he was having a fair amount of fluid that may needed draining but at the last moment, ultrasound did not show any significant fluid. I will obtain a chest x-ray for further evaluation. I suspect this is just a normal postoperative pleural effusion. (10) Cerebrovascular accident (CVA) (11) Acute postoperative anemia due to expected blood loss (12) S/P CABG x 4 DAHLIA GAMING DO Mar 25, 2021 07:43
[2021-03-25] MEDS: DIVALPROEX 500 MG DELAYED RELEASE (DEPAKOTE) TAB PO SCH ×2 (09:01→21:34)
[2021-03-25] MEDS: SENNA W/DOCUSATE (SENOKOT S) TABLET PO SCH ×2 (09:01→22:13)
[2021-03-25] MEDS: ETODOLAC 200 MG (LODINE) CAP PO SCH ×2 (09:02→17:29)
[2021-03-25] MEDS: APIXABAN 5 MG (ELIQUIS) TABLET PO SCH ×2 (09:02→21:40)
[2021-03-25] MEDS: PANTOPRAZOLE 40 MG (PROTONIX) TAB PO SCH ×2 (09:02→21:35)
[2021-03-25] MEDS: DOCUSATE SODIUM 100 MG (COLACE) CAP PO SCH ×2 (09:02→22:06)
[2021-03-25] MEDS: CLOPIDOGREL 75 MG (PLAVIX) TABLET PO SCH (09:02)
[2021-03-25] MEDS: polyethylene glycoL POWDER 17 GM (MIRALAX) PACK PO SCH ×2 (09:03→22:06)
[2021-03-25] MEDS: FERROUS SULF 325 MG (IRON) TAB PO SCH (09:17)
[2021-03-25] MEDS: HYDROcodone/APAP 5 MG/325 MG (LORTAB) TAB PO PRN ×2 (09:17→21:39)
[2021-03-25] MEDS: RT-ALBUTEROL/IPRATROPIUM 3 ML (DUONEB) VIAL INH SCH ×2 (09:50→20:06)
[2021-03-25 17:29] VITALS: BP 129/60
[2021-03-25] MEDS: MULTIVIT W/MINERALS TAB (THERAGRAN M) PO SCH (17:29)
[2021-03-25] MEDS: LACTULOSE SYRUP 10GM/15ML (ENULOSE) 30ML UDC PO PRN (17:32)
[2021-03-25 20:00] VITALS: BP 128/60
[2021-03-25] MEDS: MELATONIN 3 MG TABLET PO PRN (21:35)
[2021-03-25] MEDS: SIMvastatin 20 MG (ZOCOR) TAB PO SCH (21:39)
[2021-03-25] MEDS: TOLTERODINE LA 4 MG (DETROL) CAP PO SCH (21:39)
[2021-03-26 06:03] LABS: BASOPHILS # (AUTO) 0.1 10^3/uL (0.0-0.1); BASOPHILS % (AUTO) 1 % (0-10); EOSINOPHILS # (AUTO) 0.8 10^3/uL (0.0-0.3); EOSINOPHILS % (AUTO) 6 % (0-10); HEMATOCRIT 27 % (40-54); HEMOGLOBIN 8.5 g/dL (13.3-17.7); LYMPHOCYTES # (AUTO) 2.1 10^3/uL (1.0-4.0); LYMPHOCYTES % (AUTO) 16 % (12-44); MEAN CORPUSCULAR HEMOGLOBIN 30 pg (25-34); MEAN CORPUSCULAR HGB CONC 32 g/dL (32-36); MEAN CORPUSCULAR VOLUME 96 fL (80-99); MEAN PLATELET VOLUME 9.1 fL (9.0-12.2); MONOCYTES # (AUTO) 1.2 10^3/uL (0.0-1.0); MONOCYTES % (AUTO) 10 % (0-12); NEUTROPHILS # (AUTO) 8.4 10^3/uL (1.8-7.8); NEUTROPHILS % (AUTO) 64 % (42-75); PLATELET COUNT 361 10^3/uL (130-400); WHITE BLOOD COUNT 13.1 10^3/uL (4.3-11.0)
[2021-03-26 06:12] LABS: POTASSIUM 4.1 MMOL/L (3.6-5.0)
[2021-03-26 06:13] LABS: CALCIUM 8.4 MG/DL (8.5-10.1)
[2021-03-26 06:16] LABS: BILIRUBIN,TOTAL 0.4 MG/DL (0.1-1.0)
[2021-03-26 06:18] LABS: CREATININE SERUM 1.33 MG/DL (0.60-1.30)
[2021-03-26] MEDS: FUROSEMIDE 40 MG/4 ML INJ (LASIX) IVP SCH ×2 (06:36→17:55)
[2021-03-26] MEDS: RT-ALBUTEROL/IPRATROPIUM 3 ML (DUONEB) VIAL INH SCH ×2 (06:57→21:38)
--- NOTE | 2021-03-26 07:05 | PM&R Progress Note ---
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 Lau is his eye doctor seen 1 year ago Oxygen at 88% placed on oxygen and he feels better Has dry eye syndrome Proton pump inhibitor twice a day maintained Bowels moved 3 days ago we will continue giving laxatives 03/24/2021: This visit is via video chat due to Covid related restriction for this provider Patient doing pretty well today IV iron initiated and oral meds given also Lasix 20 mg IV twice daily has been helpful Hemoglobin 7.9 BNP was 924 Former smoker in 2003 after his hernia surgery Left leg pain is chronic Chest x-ray was stable He had a left carotid endarterectomy [place] [address] Smith After he told me yesterday he was no longer having any color or vision problems he reports that it now it really never went away and he was having some blue li magdy today in his right eye so considering that I will go ahead and start Eliquis 5 mg twice daily hold the aspirin maintain Plavix but he will remain a significant bleeding risk considering his hemoglobin is already low at 7.9 Increasing Protonix to twice a day to protect against gastrointestinal bleeding Patient very complex Patient remained stable and participating in therapy Has had multiple intervention in his legs vascular mcintyre and considering the carotid ultrasound we will monitor patient closely 03/23/2021: This visit is via video chat due to Covid related restriction for this provider Extensive review of chart and conferring with Dr. Barnett cardiology and then stroke center neurologist due to MRI findings after CT scan was abnormal yesterday We will obtain carotid ultrasound but it appears that the findings on the brain likely occurred postoperatively and not due to an isolated carotid lesion and if continues will need oral anticoagulants with transesophageal echocardiogram to identify thrombus if it is present. We did review the chart and in cardiac ICU postoperatively he did have an episode of atrial fibrillation but amiodarone has been maintained since that time so we will initiate telemetry and maintain it this weekend. I did update the patient on all of these details and told him if oral anticoagulation was required with aspirin and Plavix it did place him at a bleeding risk and his hemoglobin 8.0 is a concern Very extensive issues requiring extensive research and high complexity medical decision making of [address] Barnett requested n.p.o. after Friday at midnight and may very well need to have transesophageal echocardiogram on Friday so I placed that in the orders Patient no longer having visual changes but I did update him on the fact if he does have a recurrence he will notify the nurse and will place him on heparin [facility] agreed no acute issues to prompt TPA or any other aggressive regimen right now Review of Systems General: Fatigue, Malaise Neurological: Weakness Objective Exam Vital Signs Vital Signs Date Time Temp Pulse Resp B/P (MAP) Pulse Ox O2 Delivery O2 Flow Rate FiO2 03/26/21 18:58 80 03/26/21 11:07 36.3 20 133/61 (85) 94 Nasal Cannula 2.00 Capillary Refill : General Appearance: No Apparent Distress, WD/WN, Chronically ill HEENT: PERRL/EOMI, Moist Mucous Membranes; No Scleral Icterus (L), No Scleral Icterus (R) Neck: Normal Inspection, Supple Respiratory: Lungs Clear, No Accessory Muscle Use, No Respiratory Distress Cardiovascular: Regular Rate, Rhythm, No JVD, Systolic Murmur, Other (midline scar, ) Gastrointestinal: Normal Bowel Sounds, Soft Extremity: Normal Inspection, No Pedal Edema Neurologic/Psychiatric: Alert, Oriented x3, Normal Mood/Affect Skin: Normal Color, Warm/Dry Results/Procedures Lab Laboratory Tests 03/26/21 05:36 Patient resulted labs reviewed. FIM Transfers Therapy Code Descriptions/Definitions Functional [place] Measure: 0=Not Assessed/NA 4=Minimal Assistance 1=Total Assistance 5=Supervision or Setup 2=Maximal Assistance 6=Modified [place] 3=Moderate Assistance 7=Complete IndependenceSCALE: Activities may be completed with or without assistive devices. 4-Bfxlydilrt-pcoxgen completes the activity by him/herself with no assistance from a helper. 5-Set-up or Clean-up Assistance-helper sets up or cleans up; patient completes activity. [place] assists only prior to or following the activity. 4-Supervision or Touching Assistance-helper provides verbal cues and/or touching/steadying and/or contact guard assistance as patient completes activity. Assistance may be provided throughout the activity or intermittently. 3-Partial/Moderate Assistance-helper does LESS THAN HALF the effort. [place] lifts, holds or supports trunk or limbs, but provides less than half the effort. 2-Substantial/Maximal Assistance-helper does MORE THAN HALF the effort. [place] lifts or holds trunk or limbs and provides more than half the effort. 9-Ovgjqdztp-uzzbkk does ALL the effort. Patient does none of the effort to complete the activity. Or, the assistance of 2 or more helpers is required for the patient to complete the activity. If activity was not attempted, code reason: 7-Patient Refused. 9-Not Applicable-not attempted and the patient did not perform the activity before the current illness, exacerbation or injury. 10-Not Attempted due to Environmental Limitations-(lack of equipment, weather restraints, etc.). 88-Not Attempted due to Medical Conditions or Safety Concerns. Roll Left to Right (QC): 6 Sit to Lying (QC): 6 Sit to Stand (QC): 4 Chair/Mec-ij-Xgyhj Xfer(QC): 4 Car Transfer (QC): 3 (min assist with legs; skilled cues to sequence) Gait Training Does the Patient Walk?: Yes Distance: 30' Walk 10 feet (QC): 4 Walk 50 ft with 2 Turns(QC): 4 Walk 150 ft (QC): 4 Walking 10ft/uneven surface-QC: 3 Gait Persons Needed: 1 Gait Assistive Device: FWW Wheelchair Training Does the Pt Use a Wheelchair?: No Wheel 50 ft with 2 turns (QC): 9 Wheel 150 ft (QC): 9 Stair Training 1 Step (curb) (QC): 3 (min assist and skilled cues for sequencing. ) 4 Steps (QC): 88 12 Steps (QC): 88 Balance Picking up an Object (QC): 3 ADL-Treatment Eating (QC): 6 Oral Hygiene (QC): 6 (IND at sink) Bathing Location: L Arm, R Arm, L Upper Leg, R Upper Leg, L Lower Leg (including foot), R Lower Leg (including foot), Chest, Abdomen, Buttocks, Perineal Area Shower/Bathe Self (QC): 7 Upper Body Dressing (QC): 7 Lower Body Dressing (QC): 7 On/Off Footwear (QC): 7 Toileting Hygiene (QC): 6 Toilet Transfer (QC): 4 Assessment/Plan Assessment and Plan Assess & Plan/Chief Complaint Assessment: Debility from CABG of 4 vessels at [facility] Subacute strokes bilateral cerebellar hemispheres consistent with post operative findings with vision changes on 03/22/[address] scan and MRI status post conversation with stroke center neurologist expert and Dr. Matti Barnett cardiology placing on telemetry no indication for OAC or TPA Postoperative anemia asymptomatic recheck today 8.0 placed on oral iron Previous carotid endarterectomy left side in 2013 Episode of atrial fibrillation in cardiac ICU postoperatively now on Coreg after amiodarone discontinued Pleural effusions GERD Overactive bladder Chronic kidney disease stage II Carotid artery endarterectomy history Hypertension Hyperlipidemia Peripheral vascular disease of the leg status post interventions in the past Plan: Plavix and aspirin Child Care Coordinator for visual changes if that should occur he needs heparin and transesophageal echocardiogram for thrombus Aggressive therapy per protocol 03/24/2021: Hold aspirin and add Eliquis 5 mg twice daily maintain Plavix Increase Protonix to twice a day to minimize gastrointestinal bleeding risk Monitor hemoglobin closely Iron infusion with oral supplement 03/25/2021: Maintain Eliquis and Plavix Supportive care Continue monitoring vision changes 03/26/21: OAC per Dr Barnett Monitor closely Dr Maggie Marie? (1) Critical illness myopathy (2) Essential (primary) hypertension Assessment & Plan: His blood pressures are intermittently elevated. If this persists, we may need to increase his carvedilol. (3) HLD (hyperlipidemia) (4) Coronary artery disease without angina pectoris Assessment & Plan: He is now status post coronary artery bypass surgery x4. He is gradually improving. He is on appropriate guideline directed medical therapy with aspirin, beta-cornelio, and statin medication. He has also been taking clopidogrel due to his history of peripheral vascular disease. I recommend continuing the present guideline directed medical therapy. I will request a copy of his cardiac catheterization and echocardiogram reports from [facility]. (5) Mixed hyperlipidemia Assessment & Plan: Continue simvastatin. (6) Atherosclerosis of both carotid arteries Assessment & Plan: He had a previous carotid endarterectomy. If his visual changes persist, he may need a head CT and/or MRI of the brain. In the interim, I recommend he continue the aspirin, clopidogrel, and statin medication. (7) Peripheral arterial disease Assessment & Plan: He has not been having any claudication. He had previous interventions on the left leg. I recommend he continue on aspirin, clopidogrel, and statin medication. Physical therapy should also help with this condition. (8) Pleural effusion Assessment & Plan: He has decreased breath sounds at both bases. From his ninfa cription, it sounds as though he was having a fair amount of fluid that may needed draining but at the last moment, ultrasound did not show any significant fluid. I will obtain a chest x-ray for further evaluation. I suspect this is just a normal postoperative pleural effusion. (9) Cerebrovascular accident (CVA) (10) Acute postoperative anemia due to expected blood loss (11) S/P CABG x 4 DAHLIA GAMING DO Mar 26, 2021 07:05
[2021-03-26 07:27] VITALS: BP 130/61
--- NOTE | 2021-03-26 08:14 | Cardiology Progress Note ---
Progress Note-Cardiology Events since last exam Date Seen by Provider: Mar 26, 2021 Time Seen by Provider: 08:11 Events since last exam We are seeing him due to coronary artery disease and recent cerebrovascular accident. He continues to have visual changes in his right eye. He denies any recurrent neurologic complaints. His postoperative pain is under good control. His breathing is gradually improving. He denies palpitations, syncope, or ankle edema. Vitals Last set of Vitals Signs Vital Signs 03/26/21 07:27 Temp 36.4 Pulse 83 Resp 16 B/P (MAP) 130/61 (84) Pulse Ox 92 O2 Delivery Nasal Cannula O2 Flow Rate 2.00 Labs Labs Laboratory Tests 03/26/21 05:36 Exam Vital Signs Vital Signs Date Time Temp Pulse Resp B/P (MAP) Pulse Ox O2 Delivery O2 Flow Rate FiO2 03/26/21 07:27 36.4 83 16 130/61 (84) 92 Nasal Cannula 2.00 Physical Exam General: Alert. No acute distress. Eye: No xanthelasma. HENT: Normocephalic. Neck: Jugular venous pressure does not appear elevated. Respiratory: Lungs are clear to auscultationBut with decreased breath sounds at the bases, left greater than right. Respirations are non-labored. Breath sounds are equal. Symmetrical chest wall expansion. Cardiovascular: Normal rate. Regular rhythm. No murmur. No gallop. No edema. Gastrointestinal: Soft. Normal bowel sounds. Skin: Warm. Dry. Neurologic: Alert and oriented to person, place, time. Cranial nerves 3-11 grossly intact. Psychiatric: Cooperative. Appropriate mood & affect. Labs Laboratory Tests Test 03/26/21 05:36 Range/Units White Blood Count 13.1 H 4.3-11.0 10^3/uL Red Blood Count 2.81 L 4.30-5.52 10^6/uL Hemoglobin 8.5 L 13.3-17.7 g/dL Hematocrit 27 L 40-54 % Mean Corpuscular Volume 96 80-99 fL Mean Corpuscular Hemoglobin 30 25-34 pg Mean Corpuscular Hemoglobin Concent 32 32-36 g/dL Red Cell Distribution Width 14.7 H 10.0-14.5 % Platelet Count 361 130-400 10^3/uL Mean Platelet Volume 9.1 9.0-12.2 fL Immature Granulocyte % (Auto) 4 % Neutrophils (%) (Auto) 64 42-75 % Lymphocytes (%) (Auto) 16 12-44 % Monocytes (%) (Auto) 10 0-12 % Eosinophils (%) (Auto) 6 0-10 % Basophils (%) (Auto) 1 0-10 % Neutrophils # (Auto) 8.4 H 1.8-7.8 10^3/uL Lymphocytes # (Auto) 2.1 1.0-4.0 10^3/uL Monocytes # (Auto) 1.2 H 0.0-1.0 10^3/uL Eosinophils # (Auto) 0.8 H 0.0-0.3 10^3/uL Basophils # (Auto) 0.1 0.0-0.1 10^3/uL Immature Granulocyte # (Auto) 0.6 H 0.0-0.1 10^3/uL Sodium Level 138 135-145 MMOL/L Potassium Level 4.1 3.6-5.0 MMOL/L Chloride Level 99 98-107 MMOL/L Carbon Dioxide Level 29 21-32 MMOL/L Anion Gap 10 5-14 MMOL/L Blood Urea Nitrogen 18 7-18 MG/DL Creatinine 1.33 H 0.60-1.30 MG/DL Estimat Glomerular Filtration Rate 53 BUN/Creatinine Ratio 14 Glucose Level 96 70-105 MG/DL Calcium Level 8.4 L 8.5-10.1 MG/DL Corrected Calcium 9.2 8.5-10.1 MG/DL Total Bilirubin 0.4 0.1-1.0 MG/DL Aspartate Amino Transf (AST/SGOT) 18 5-34 U/L Alanine Aminotransferase (ALT/SGPT) 12 0-55 U/L Alkaline Phosphatase 47 40-136 U/L Total Protein 6.0 L 6.4-8.2 GM/DL Albumin 3.0 L 3.2-4.5 GM/DL Diagnosis/Problems Diagnosis/Problems (1) Cerebrovascular accident (CVA) Assessment & Plan: No recurrent neurologic complaints. I reviewed his telemetry and there has been no evidence of atrial fibrillation. I suspect this may have been atheroembolic due to crossclamping the aorta during coronary bypass surgery. He did not have any atrial fibrillation documented at [facility] nor here. As such, at this time, oral anticoagulation is not indicated. I would recommend he continue on aspirin and clopidogrel. I also recommend a transesophageal echocardiogram. If he has any evidence of thrombus in his left atrium, then I would change him over to oral anticoagulation and stop his aspirin and clopidogrel. (2) Coronary artery disease without angina pectoris Assessment & Plan: He is status post recent coronary artery bypass surgery x4 in an outside hospital. He continues to work with physical therapy on our inpatient rehabilitation unit. Continue present guideline directed medical therapy. As above, continue aspirin and clopidogrel for the time being. If we need to change him over to an oral anticoagulant, then I would consider stopping the aspirin and clopidogrel. (3) Pleural effusion Assessment & Plan: The effusions are small and do not require thoracentesis. These should gradually resolve over the next 4-6 weeks. Primary hospitalist placed him on IV Lasix once a day which should help clear the effusions. He has a normal ejection fraction and as such, I suspect he will not need to be discharged with diuretics. (4) Essential (primary) hypertension Assessment & Plan: Blood pressures have been improving. Continue present medication. (5) Atherosclerosis of both carotid arteries Assessment & Plan: He had a previous carotid endarterectomy. I suspect the carotid disease had anything to do with his recent cerebrovascular accident since there were multiple ischemic changes in several vascular territories. (6) Mixed hyperlipidemia Assessment & Plan: Continue simvastatin. (7) Peripheral arterial disease Assessment & Plan: He has not been having any claudication. He had previous interventions on the left leg. I recommend he continue on aspirin, clopidogrel, and statin medication. Physical therapy should also help with this condition. As above, if we decide to place him on oral anticoagulants, we should consider stopping aspirin and clopidogrel. GRADY JACQUES JR, MD Mar 26, 2021 08:14
[2021-03-26] MEDS: HYDROcodone/APAP 5 MG/325 MG (LORTAB) TAB PO PRN ×2 (08:34→21:01)
[2021-03-26] MEDS: IRON SUCROSE 200 MG/10 ML (VENOFER) VIAL IV SCH (08:34)
--- NOTE | 2021-03-26 09:33 | Occupational Ther Daily Note ---
OT Current Status-Daily Note Subjective Pt AxO, upright in chair. Pt expresses has not had anything to eat/ drink since 10pm yesterday. Pt's nurse states pt is NPO at this time pending heart scans. Pt is educated on this, pt agrees to tx. Mental Status/Objective Patient Orientation: Person, Place, Situation Attachments: Oxygen (2L) ADL-Treatment Therapy Code Descriptions/Definitions Functional Cass Measure: 0=Not Assessed/NA 4=Minimal Assistance 1=Total Assistance 5=Supervision or Setup 2=Maximal Assistance 6=Modified Cass 3=Moderate Assistance 7=Complete IndependenceSCALE: Activities may be completed with or without assistive devices. 4-Pgmhsokhfd-wkdmbxw completes the activity by him/herself with no assistance from a helper. 5-Set-up or Clean-up Assistance-helper sets up or cleans up; patient completes activity. [place] assists only prior to or following the activity. 4-Supervision or Touching Assistance-helper provides verbal cues and/or touching/steadying and/or contact guard assistance as patient completes activity. Assistance may be provided throughout the activity or intermittently. 3-Partial/Moderate Assistance-helper does LESS THAN HALF the effort. [place] lifts, holds or supports trunk or limbs, but provides less than half the effort. 2-Substantial/Maximal Assistance-helper does MORE THAN HALF the effort. [place] lifts or holds trunk or limbs and provides more than half the effort. 5-Dxfnhlyhn-kgxjvx does ALL the effort. Patient does none of the effort to complete the activity. Or, the assistance of 2 or more helpers is required for the patient to complete the activity. If activity was not attempted, code reason: 7-Patient Refused. 9-Not Applicable-not attempted and the patient did not perform the activity before the current illness, exacerbation or injury. 10-Not Attempted due to Environmental Limitations-(lack of equipment, weather restraints, etc.). 88-Not Attempted due to Medical Conditions or Safety Concerns. Eating (QC): 6 Oral Hygiene (QC): 7 Bathing Location: L Arm, R Arm, L Upper Leg, R Upper Leg, L Lower Leg (including foot), R Lower Leg (including foot), Chest, Abdomen, Buttocks, Perineal Area Shower/Bathe Self (QC): 4 (SBA in stance, SUP in sit.) Upper Body Dressing (QC): 5 (s/u, completes with good ability with precautions in mind.) Lower Body Dressing (QC): 3 (min A threading RLE due to catching on pants, completes with increased time) On/Off Footwear: 6 (IND, increased time.) Toileting Hygiene (QC): 4 (SBA) Toilet Transfer (QC): 4 (SBA, use of walker) Other Treatment Sit to stands with SBA, ambulates to shower chair. Completes showering/ dressing in shower as outlined. One instance of dizziness and increased cues for sit/ safety. Pt dresses in sit (requiring cues for safety). Pt returns to recliner, all needs met, call light in reach, chair alarm on, nursing present end of session. Education OT Patient Education: Correct positioning, Modified ADL techniques, Progress toward Goal/Update tx plan, Purpose of tx/functional activities, Reviewed precautions, Safety issues, Transfer techniques Teaching Recipient: Patient Teaching Methods: Demonstration, Discussion Response to Teaching: Verbalize Understanding, Return Demonstration, Reinforcement Needed OT Short Term Goals Short Term Goals Oral hygiene: 6 Toileting hygiene: 6 Shower/bathe self: 3 Upper body dressin Lower body dressin Putting on/taking off footwear: 4 OT Printing Press Operator Apprentice Goals Custodial Goals Time Frame: Apr 04, 2021 Eating (QC): 6 Oral Hygiene (QC): 6 Toileting Hygiene (QC): 6 Shower/Bathe Self (QC): 6 Upper Body Dressing (QC): 6 Lower Body Dressing (QC): 6 On/Off Footwear (QC): 6 Additional Goals: 1-Demonstrate ADL Tasks, 2-Verbalize Understanding, 3- ImproveStrength/Myah 1=Demonstrate adherence to instructed precautions during ADL tasks. 2=Patient will verbalize/demonstrate understanding of assistive devices/modifications for ADL. 3=Patient will improve strength/tolerance for activity to enable patient to perform ADL's. OT Education/Plan Problem List/Assessment Assessment: Decreased Activ Tolerance, Decreased Safety Aware, Decreased UE Strength, Dependent Transfers, Impaired Funct Balance, Impaired I ADL's, Impaired Self-Care Skills, Restricted Funct UE ROM Discharge Recommendations Plan/Recommendations: Continue POC Therapy Discharge Recommendati: Home & Family, Post Acute OT Treatment Plan/Plan of Care Treatment,Training & Education: Yes Patient would benefit from OT for education, treatment and training to promote independence in ADL's, mobility, safety and/or upper extremity function for AD L's. Plan of Care: ADL Retraining, Caregiver Training, Functional Mobility, Group Exercise/Act as Ind, UE Funct Exercise/Act, W/C Management Training Treatment Duration: Apr 04, 2021 Frequency: At least 5 of 7 days/Wk (IRF) Estimated Hrs Per Day: 1.5 hours per day Agreement: Yes Rehab Potential: Fair Time/GCodes Start Time: 07:40 Stop Time: 08:40 Total Time Billed (hr/min): 60 Billed Treatment Time 1, ADL 4 (60) FELIPA LEBRON OTR Mar 26, 2021 09:33
--- NOTE | 2021-03-26 10:15 | Physical Therapy Progress Note ---
Therapy Progress Note Pt off unit for procedure upon arrival. Pt has been gone for a while this morning so ADMINISTRATOR OF HOME HEALTH will check back to see pt for tx later. No tx rendered. PRASANTH BOLAND ADMINISTRATOR OF HOME HEALTH Mar 26, 2021 10:15
[2021-03-26 11:07] VITALS: BP 133/61
--- NOTE | 2021-03-26 13:28 | Speech Therapy Daily Note ---
Speech Daily Progress Note Subjective Date Seen by Provider: Mar 26, 2021 Time Seen by Provider: 00:30 Patient resting in his bed, waiting on his lunch following his procedure. He states he is really hungry due to not having anything to eat or drink since last evening. Nursing was asked about his lunch to which she replied "his gag reflex isn't back yet". Nurse did not state how long it had been since she had checked his gag reflex. Objective Patient completed a series of questions related to his current health issues with 95% accuracy. No cues needed. Assessment Assessment Current Status: Good Progress Treatment Plan Continue Plan of Care Speech Short Term Goals Short Term Goals Short Term Goals 1) Patient will complete word finding tasks at 90% or greater with minimal cues. 2) patient will tolerate least restrictive diet level without s/s of aspiration at 90% or greater. 3) Patient will utilize compensatory strategies for safe oral intake as trained at 90% or greater. Speech Monument Setter Goals Monument Setter Goals 1) Patient will maintain adequate nutrition/hydration via safe effective swallow function. 2) Patient will improve cognitive-communication so that he will require less assist to complete daily tasks. Speech-Plan Patient/Family Goals Patient/Family Goals: Patient plans on returning to his home upon discharge. Treatment Plan Speech Therapy Treatment Plan: Continue Plan of Care Treatment Duration: Apr 06, 2021 Frequency: 4 times per week (Patient will receive skilled ST 4-5x per week) Estimated Hrs Per Day: .5 hour per day Rehab Potential: Fair Barriers to Learning: Patient's recent CABG x4 and other health issues Pt/Family Agrees to Plan: Yes Safety Risks/Education Teaching Recipient: Patient Teaching Methods: Demonstration, Discussion Response to Teaching: Verbalize Understanding, Return Demonstration Education Topics Provided: Continued safety and communication, Continued safety of oral intake Time Speech Therapy Time In: 12:20 Speech Therapy Time Out: 12:50 Total Billed Time: 30 Billed Treatment Time 1, BRITTANY, EMILIA Vicente Mar 26, 2021 13:28
[2021-03-26] MEDS: DIVALPROEX 500 MG DELAYED RELEASE (DEPAKOTE) TAB PO SCH ×2 (14:17→20:59)
[2021-03-26] MEDS: ETODOLAC 200 MG (LODINE) CAP PO SCH ×2 (14:17→17:55)
[2021-03-26] MEDS: DOCUSATE SODIUM 100 MG (COLACE) CAP PO SCH ×2 (14:17→21:12)
[2021-03-26] MEDS: SENNA W/DOCUSATE (SENOKOT S) TABLET PO SCH ×2 (14:17→21:12)
[2021-03-26] MEDS: CLOPIDOGREL 75 MG (PLAVIX) TABLET PO SCH (14:17)
[2021-03-26] MEDS: PANTOPRAZOLE 40 MG (PROTONIX) TAB PO SCH ×2 (14:18→20:59)
[2021-03-26] MEDS: polyethylene glycoL POWDER 17 GM (MIRALAX) PACK PO SCH ×2 (14:18→21:12)
--- NOTE | 2021-03-26 14:47 | Therapy Group Daily Note ---
Therapy Daily Group Note Patient Education Topic Other List Below (Transfers, Hospital Bed Education & Mobility) Exercises LE Seated Exercise, UE Exercise Session Ratio (pt:therapist): 4:1 Goal of Session: UE/LE Strengthing, Use of Adaptive Equipment Goal Met for this Session: Yes Pt Benefit of Group: Contributions to Others, F/U Use of Strategies @Home, Increased Functional Safety, Increased Functional Strength, Improved Cognition, Recognition of Peers, Socialization Other/Notes PRESSFITTER assists pt to use restroom before ambulating to Group. Pt ambulated using [facility]/PT group. Group consisted of introductions (name, place born, favorite restaurant), socialization, B LE/UE seated exercises , education on hospital bed and mobility. Pt able to introduce self appropriately and actively listening to peers. Pt acknowledged understanding by verbalizing own experience. Pt was able to complete B LE/UE seated exercises well. After session, pt sitting in recliner with call light/phone in reach. All needs met in room. Start Time: 13:00 Stop Time: 14:00 Total Billed Treatment Time: 60 Total Billed Treatment 1, GRP (60m) PRASANTH BOLAND PRESSFITTER Mar 26, 2021 14:47
--- NOTE | 2021-03-26 15:00 | Physical Therapy Progress Note ---
Therapy Progress Note [employer] OFF[employer] checks back on pt and pt is eating lunch and doesn't want to work with Therapy at this time. Pt had been NPO for morning procedure and missed morning Therapy. Nurse tested for gag reflex again after Group session and pt was allowed to order lunch. Pt sitting in recliner with call light in hand as [employer] OFFIC[employer] departs. No tx rendered PRASANTH BOLAND PTA Mar 26, 2021 15:00
[2021-03-26] MEDS ORDERED: ISOS30TA82 PO (15:27)
[2021-03-26] MEDS ORDERED: CARV3.122 PO (15:27)
[2021-03-26] MEDS ORDERED: LISI20TA26 PO (15:29)
[2021-03-26] MEDS ORDERED: DIVA-74 PO (15:29)
[2021-03-26] MEDS: MULTIVIT W/MINERALS TAB (THERAGRAN M) PO SCH (17:55)
[2021-03-26 20:00] VITALS: BP 135/62
[2021-03-26] MEDS: SIMvastatin 20 MG (ZOCOR) TAB PO SCH (20:59)
[2021-03-26] MEDS: APIXABAN 5 MG (ELIQUIS) TABLET PO SCH (21:00)
[2021-03-26] MEDS: TOLTERODINE LA 4 MG (DETROL) CAP PO SCH (21:00)
[2021-03-26] MEDS: MELATONIN 3 MG TABLET PO PRN (21:00)
[2021-03-27] MEDS: HYDROcodone/APAP 5 MG/325 MG (LORTAB) TAB PO PRN ×4 (05:32→21:06)
[2021-03-27] MEDS: FUROSEMIDE 40 MG/4 ML INJ (LASIX) IVP SCH ×2 (06:51→17:45)
[2021-03-27] MEDS: RT-ALBUTEROL/IPRATROPIUM 3 ML (DUONEB) VIAL INH SCH ×2 (06:55→21:10)
[2021-03-27 07:51] VITALS: BP 138/64
[2021-03-27] MEDS: DOCUSATE SODIUM 100 MG (COLACE) CAP PO SCH ×2 (07:53→21:06)
[2021-03-27] MEDS: SENNA W/DOCUSATE (SENOKOT S) TABLET PO SCH ×2 (07:53→21:05)
[2021-03-27] MEDS: DIVALPROEX 500 MG DELAYED RELEASE (DEPAKOTE) TAB PO SCH ×2 (07:54→21:06)
[2021-03-27] MEDS: APIXABAN 5 MG (ELIQUIS) TABLET PO SCH (07:54)
[2021-03-27] MEDS: polyethylene glycoL POWDER 17 GM (MIRALAX) PACK PO SCH ×2 (07:54→21:13)
[2021-03-27] MEDS: ETODOLAC 200 MG (LODINE) CAP PO SCH ×2 (07:54→17:44)
[2021-03-27] MEDS: PANTOPRAZOLE 40 MG (PROTONIX) TAB PO SCH ×2 (07:54→21:06)
--- NOTE | 2021-03-27 08:34 | Cardiology Progress Note ---
Progress Note-Cardiology Events since last exam Date Seen by Provider: Mar 27, 2021 Time Seen by Provider: 08:29 Events since last exam We are seeing him due to coronary artery disease and recent cerebrovascular accident. His right eye vision continues to improve. He denies any other new neurologic complaints. His breathing is improving with rehab. He denies palpitations, syncope, or ankle edema. Vitals Last set of Vitals Signs Vital Signs 03/27/21 07:51 Temp 36.7 Pulse 84 Resp 14 B/P (MAP) 138/64 (88) Pulse Ox 96 O2 Delivery Nasal Cannula O2 Flow Rate 2.00 Exam Vital Signs Vital Signs Date Time Temp Pulse Resp B/P (MAP) Pulse Ox O2 Delivery O2 Flow Rate FiO2 03/27/21 07:51 36.7 84 14 138/64 (88) 96 Nasal Cannula 2.00 Physical Exam General: Alert. No acute distress. Eye: No xanthelasma. HENT: Normocephalic. Neck: Jugular venous pressure does not appear elevated. Respiratory: Lungs are clear to auscultation but decreased at the bases. Respirations are non-labored. Breath sounds are equal. Symmetrical chest wall expansion. Cardiovascular: Normal rate. Regular rhythm. 2/6 holosystolic murmur. No gallop. No edema. Gastrointestinal: Soft. Normal bowel sounds. Skin: Warm. Dry. Neurologic: Alert and oriented to person, place, time. Cranial nerves 3-11 grossly intact. Psychiatric: Cooperative. Appropriate mood & affect. Diagnosis/Problems Diagnosis/Problems (1) Left atrial mass Assessment & Plan: He underwent a transesophageal echocardiogram on 03/26/2021 that showed an ill-defined mass in the left atrium. This appeared somewhat pedunculated. I spoke to his stress analyst at [facility] and he states that the patient had 2 surface echocardiograms and a transesophageal echocardiogram during surgery and from what he could gather, none of these identified an atrial mass. 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 As such, I have started him on oral anticoagulation. I initially started him on Eliquis. This can be somewhat costly. I will change him over to Xarelto which he can obtain from [facility] for $12 for 90 days through the 430B plan. He had an appointment to see his stress analyst in [place] tomorrow. I will place a nursing order to change this to next week. (2) Cerebrovascular accident (CVA) Assessment & Plan: No recurrent neurologic complaints. I reviewed his telemetry and there has been no evidence of atrial fibrillation. Based upon the findings from the transesophageal echocardiogram, it is quite possible that he had left atrial thrombus that may have caused this embolic appearing stroke. I will change his anticoagulation from aspirin and clopidogrel over to aspirin and rivaroxaban. 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 He continues to work with physical therapy on our inpatient rehabilitation unit. Continue present guideline directed medical therapy. As above, I have changed his aspirin and clopidogrel over to rivaroxa ban and aspirin. (4) Pleural effusion Assessment & Plan: The effusions are small and do not require thoracentesis. These should gradually resolve over the next 4-6 weeks. Primary hospitalist placed him on IV Lasix once a day which should help clear the effusions. He has a normal ejection fraction and as such, I suspect he will not need to be discharged with diuretics. (5) Essential (primary) hypertension Assessment & Plan: Blood pressures have been improving. Continue present medication. (6) Atherosclerosis of both carotid arteries Assessment & Plan: He had a previous carotid endarterectomy. I suspect the carotid disease had anything to do with his recent cerebrovascular accident since there were multiple ischemic changes in several vascular territories. (7) Mixed hyperlipidemia Assessment & Plan: Continue simvastatin. (8) Peripheral arterial disease Assessment & Plan: He has not been having any claudication. He had previous interventions on the left leg. I will be adjusting his antiplatelet/antithrombotic regimen as above. There is actually some good data showing that rivaroxaban can help reduce peripheral vascular events albeit at a lower dose than he will be prescribed. Physical therapy should also help with this condition. GRADY JACQUES JR, MD Mar 27, 2021 08:34
--- NOTE | 2021-03-27 08:59 | Speech Therapy Daily Note ---
Speech Daily Progress Note Subjective Date Seen by Provider: Mar 27, 2021 Time Seen by Provider: 00:30 Patient was sitting up in his recliner following OT and breakfast. He states he is feeling better today. Objective Patient completed a series of safety awareness cards with 90% given minimal c ues. Patient utilizes compensatory strategies as trained for safe oral intake. Assessment Assessment Current Status: Good Progress Treatment Plan Continue Plan of Care Speech Short Term Goals Short Term Goals Short Term Goals 1) Patient will complete word finding tasks at 90% or greater with minimal cues. 2) patient will tolerate least restrictive diet level without s/s of aspiration at 90% or greater. 3) Patient will utilize compensatory strategies for safe oral intake as trained at 90% or greater. Speech Care Home Goals Care Home Goals 1) Patient will maintain adequate nutrition/hydration via safe effective swallow function. 2) Patient will improve cognitive-communication so that he will require less assist to complete daily tasks. Speech-Plan Patient/Family Goals Patient/Family Goals: Patient plans on returning to his home where he lives alone. Treatment Plan Speech Therapy Treatment Plan: Continue Plan of Care Treatment Duration: Apr 06, 2021 Frequency: 4 times per week (Patient will receive skilled ST 4-5x per week) Estimated Hrs Per Day: .5 hour per day Rehab Potential: Fair Barriers to Learning: Patient's recent CABG x4, mild cognitive deficits Pt/Family Agrees to Plan: Yes Safety Risks/Education Teaching Recipient: Patient Teaching Methods: Demonstration, Discussion Response to Teaching: Verbalize Understanding, Return Demonstration Education Topics Provided: Safety within his room, safety with oral intake Time Speech Therapy Time In: 08:30 Speech Therapy Time Out: 09:00 Total Billed Time: 30 Billed Treatment Time 1, SLCARMEN, EMILIA Vicente Mar 27, 2021 08:59
--- NOTE | 2021-03-27 09:05 | PM&R Progress Note ---
Subjective HPI/CC On Admission Date Seen by Provider: Mar 27, 2021 Time Seen by Provider: 12:45 Subjective/Events-last exam 03/27/2021: This visit is via video chat due to Covid related restriction for this provider Patient doing really well today Has no complaints Oxygen at 2 L continuous is really helped him Dr. Barnett changed Eliquis to Xarelto for lombardi Restarted aspirin and stop Plavix Has an appointment with Dr. 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 Lau is his eye doctor seen 1 year ago Oxygen at 88% placed on oxygen and he feels better Has dry eye syndrome Proton pump inhibitor twice a day maintained Bowels moved 3 days ago we will continue giving laxatives 03/24/2021: This visit is via video chat due to Covid related restriction for this provider Patient doing pretty well today IV iron initiated and oral meds given also Lasix 20 mg IV twice daily has been helpful Hemoglobin 7.9 BNP was 924 Former smoker in 2003 after his hernia surgery Left leg pain is chronic Chest x-ray was stable He had a left carotid endarterectomy [place] [address] Smith After he told me yesterday he was no longer having any color or vision problems he reports that it now it really never went away and he was having some blue lines today in his right eye so considering that I will go ahead and start Eliquis 5 mg twice daily hold the aspirin maintain Plavix but he will remain a significant bleeding risk considering his hemoglobin is already low at 7.9 Increasing Protonix to twice a day to protect against gastrointestinal bleeding Patient very complex Patient remained stable and participating in therapy Has had multiple intervention in his legs vascular mcintyre and considering the carotid ultrasound we will monitor patient closely 03/23/2021: This visit is via video chat due to Covid related restriction for this provider Extensive review of chart and conferring with Dr. Barnett cardiology and then stroke center neurologist due to MRI findings after CT scan was abnormal yesterday We will obtain carotid ultrasound but it appears that the findings on the brain likely occurred postoperatively and not due to an isolated carotid lesion and if continues will need oral anticoagulants with transesophageal echocardiogram to identify thrombus if it is present. We did review the chart and in cardiac ICU postoperatively he did have an episode of atrial fibrillation but amiodarone has been maintained since that time so we will initiate telemetry and maintain it this weekend. I did update the patient on all of these details and told him if oral a nticoagulation was required with aspirin and Plavix it did place him at a bleeding risk and his hemoglobin 8.0 is a concern Very extensive issues requiring extensive research and high complexity medical decision making of [address] Barnett requested n.p.o. after Friday at midnight and may very well need to have transesophageal echocardiogram on Friday so I placed that in the orders Patient no longer having visual changes but I did update him on the fact if he does have a recurrence he will notify the nurse and will place him on heparin [facility] agreed no acute issues to prompt TPA or any other aggressive regimen right now Review of Systems General: Fatigue, Malaise Pulmonary: Dyspnea Neurological: Weakness Objective Exam Vital Signs Vital Signs Date Time Temp Pulse Resp B/P (MAP) Pulse Ox O2 Delivery O2 Flow Rate FiO2 03/28/21 07:56 36.5 92 16 148/68 (94) 95 Nasal Cannula 2.00 03/28/21 06:57 2 Capillary Refill : General Appearance: No Apparent Distress, WD/WN, Chronically ill HEENT: PERRL/EOMI, Moist Mucous Membranes; No Scleral Icterus (L), No Scleral Icterus (R) Neck: Normal Inspection, Supple Respiratory: Lungs Clear, No Accessory Muscle Use, No Respiratory Distress Cardiovascular: Regular Rate, Rhythm, No JVD, Systolic Murmur, Other (midline scar, ) Gastrointestinal: Normal Bowel Sounds, Soft Extremity: Normal Inspection, No Pedal Edema Neurologic/Psychiatric: Alert, Oriented x3, Normal Mood/Affect Skin: Normal Color, Warm/Dry Results/Procedures Lab Patient resulted labs reviewed. FIM Transfers Therapy Code Descriptions/Definitions Functional [place] Measure: 0=Not Assessed/NA 4=Minimal Assistance 1=Total Assistance 5=Supervision or Setup 2=Maximal Assistance 6=Modified Sac 3=Moderate Assistance 7=Complete IndependenceSCALE: Activities may be completed with or without assistive devices. 9-Wfoqyyeckb-gaknses completes the activity by him/herself with no assistance from a helper. 5-Set-up or Clean-up Assistance-helper sets up or cleans up; patient completes activity. [place] assists only prior to or following the activity. 4-Supervision or Touching Assistance-helper provides verbal cues and/or touching/steadying and/or contact guard assistance as patient completes activity. Assistance may be provided throughout the activity or intermittently. 3-Partial/Moderate Assistance-helper does LESS THAN HALF the effort. [place] lifts, holds or supports trunk or limbs, but provides less than half the effort. 2-Substantial/Maximal Assistance-helper does MORE THAN HALF the effort. [place] lifts or holds trunk or limbs and provides more than half the effort. 7-Olitzzsws-cxgzph does ALL the effort. Patient does none of the effort to complete the activity. Or, the assistance of 2 or more helpers is required for the patient to complete the activity. If activity was not attempted, code reason: 7-Patient Refused. 9-Not Applicable-not attempted and the patient did not perform the activity before the current illness, exacerbation or injury. 10-Not Attempted due to Environmental Limitations-(lack of equipment, weather restraints, etc.). 88-Not Attempted due to Medical Conditions or Safety Concerns. Roll Left to Right (QC): 6 Sit to Lying (QC): 6 Sit to Stand (QC): 4 Chair/Ewq-aa-Evmmf Xfer(QC): 4 Car Transfer (QC): 3 (min assist with legs; skilled cues to sequence) Gait Training Does the Patient Walk?: Yes Distance: 30' Walk 10 feet (QC): 4 Walk 50 ft with 2 Turns(QC): 4 Walk 150 ft (QC): 4 Walking 10ft/uneven surface-QC: 3 Gait Persons Needed: 1 Gait Assistive Device: FWW Wheelchair Training Does the Pt Use a Wheelchair?: No Wheel 50 ft with 2 turns (QC): 9 Wheel 150 ft (QC): 9 Stair Training 1 Step (curb) (QC): 3 (min assist and skilled cues for sequencing. ) 4 Steps (QC): 88 12 Steps (QC): 88 Balance Picking up an Object (QC): 3 ADL-Treatment Eating (QC): 6 Oral Hygiene (QC): 7 Bathing Location: L Arm, R Arm, L Upper Leg, R Upper Leg, L Lower Leg (including foot), R Lower Leg (including foot), Chest, Abdomen, Buttocks, Perineal Area Shower/Bathe Self (QC): 4 (SBA in stance, SUP in sit.) Upper Body Dressing (QC): 5 (s/u, completes with good ability with precautions in mind.) Lower Body Dressing (QC): 3 (min A threading RLE due to catching on pants, completes with increased time) On/Off Footwear (QC): 6 (IND, increased time.) Toileting Hygiene (QC): 4 (SBA) Toilet Transfer (QC): 4 (SBA, use of walker) Assessment/Plan Assessment and Plan Assess & Plan/Chief Complaint Assessment: Debility from CABG of 4 vessels at [facility] Subacute strokes bilateral cerebellar hemispheres consistent with post operative findings with vision changes on 03/22/[address] scan and MRI status post conversation with stroke center neurologist expert and Dr. Matti gutierrez ardiology placing on telemetry no indication for OAC or TPA Postoperative anemia asymptomatic recheck today 8.0 placed on oral iron Previous carotid endarterectomy left side in 2013 Episode of atrial fibrillation in cardiac ICU postoperatively now on Coreg after amiodarone discontinued Pleural effusions GERD Overactive bladder Chronic kidney disease stage II Carotid artery endarterectomy history Hypertension Hyperlipidemia Peripheral vascular disease of the leg status post interventions in the past Plan: Plavix and aspirin [employer]vest [employer]er [employer] for visual changes if that should occur he needs heparin and transesophageal echocardiogram for thrombus Aggressive therapy per protocol 03/24/2021: Hold aspirin and add Eliquis 5 mg twice daily maintain Plavix Increase Protonix to twice a day to minimize gastrointestinal bleeding risk Monitor hemoglobin closely Iron infusion with oral supplement 03/25/2021: Maintain Eliquis and Plavix Supportive care Continue monitoring vision changes 03/26/21: OAC per Dr Barnett Monitor closely Dr Serrano appt Fri? 03/27/2021: Xarelto and DC Eliquis DC Plavix restart aspirin Dr. Serrano cardiology appointment next week (1) Left atrial mass Assessment & Plan: He underwent a transesophageal echocardiogram on 03/26/2021 that showed an ill-defined mass in the left atrium. This appeared somewhat pedunculated. I spoke to his cyber defense incident responder at [facility] and he states that the patient had 2 surface echocardiograms and a transesophageal echocardiogram during surgery and from what he could gather, none of these identified an atrial mass. 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 As such, I have started him on oral anticoagulation. I initially started him on Eliquis. This can be somewhat costly. I will change him over to Xarelto which he can obtain from [facility] for $12 for 90 days through the 430B plan. He had an appointment to see his cyber defense incident responder in [place] tomorrow. I will place a nursing order to change this to next week. (2) Cerebrovascular accident (CVA) Assessment & Plan: No recurrent neurologic complaints. I reviewed his telemetry and there has been no evidence of atrial fibrillation. Based upon the findings from the transesophageal echocardiogram, it is quite possible that he had left atrial thrombus that may have caused this embolic appearing stroke. I will change his anticoagulation from aspirin and clopidogrel over to aspirin and rivaroxaban. 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 He continues to work with physical therapy on our inpatient rehabilitation unit. Continue present guideline directed medical therapy. As above, I have changed his aspirin and clopidogrel over to rivaroxaban and aspirin. (4) Pleural effusion Assessment & Plan: The effusions are small and do not require thoracentesis. These should gradually resolve over the next 4-6 weeks. Primary hospitalist placed him on IV Lasix once a day which should help clear the effusions. He has a normal ejection fraction and as such, I suspect he will not need to be discharged with diuretics. (5) Essential (primary) hypertension Assessment & Plan: Blood pressures have been improving. Continue present medication. (6) Atherosclerosis of both carotid arteries Assessment & Plan: He had a previous carotid endarterectomy. I suspect the carotid disease had anything to do with his recent cerebrovascular accident since there were multiple ischemic changes in several vascular territories. (7) Mixed hyperlipidemia Assessment & Plan: Continue simvastatin. (8) Peripheral arterial disease Assessment & Plan: He has not been having any claudication. He had previous interventions on the left leg. I will be adjusting his antiplatelet/antithrombo tic regimen as above. There is actually some good data showing that rivaroxaban can help reduce peripheral vascular events albeit at a lower dose than he will be prescribed. Physical therapy should also help with this condition. DAHLIA GAMING DO Mar 27, 2021 09:05
[2021-03-27] MEDS: ASPIRIN 81 MG CHEW (CHILDREN'S ASA) PO SCH (09:15)
[2021-03-27] MEDS ORDERED: RIVA20TA2 PO (09:41)
--- NOTE | 2021-03-27 12:28 | Physical Therapy Daily Note ---
PT Daily Note-Current Subjective Pt sitting recliner upon arrival. Pt agrees to PT. Mental Status Patient Orientation: Person, Confused, Place Attachments: Other-See Comments (Telemetry) Transfers SCALE: Activities may be completed with or without assistive devices. 2-Vyhcxkaxus-dtgjmgu completes the activity by him/herself with no assistance from a helper. 5-Set-up or Clean-up Assistance-helper sets up or cleans up; patient completes activity. [place] assists only prior to or following the activity. 4-Supervision or Touching Assistance-helper provides verbal cues and/or touching/steadying and/or contact guard assistance as patient completes activity. Assistance may be provided throughout the activity or intermittently. 3-Partial/Moderate Assistance-helper does LESS THAN HALF the effort. [place] lifts, holds or supports trunk or limbs, but provides less than half the effort. 2-Substantial/Maximal Assistance-helper does MORE THAN HALF the effort. [place] lifts or holds trunk or limbs and provides more than half the effort. 0-Ehgutosot-qlqvxj does ALL the effort. Patient does none of the effort to complete the activity. Or, the assistance of 2 or more helpers is required for the patient to complete the activity. If activity was not attempted, code reason: 7-Patient Refused. 9-Not Applicable-not attempted and the patient did not perform the activity before the current illness, exacerbation or injury. 10-Not Attempted due to Environmental Limitations-(lack of equipment, weather restraints, etc.). 88-Not Attempted due to Medical Conditions or Safety Concerns. Sit to Stand (QC): 4 Toilet Transfer (QC): 4 Weight Bearing Full Weight Bearing Full Weight Bearing Sternal precautions Gait Training Does the Patient Walk?: Yes Distance: 150' x2 Walk 10 feet (QC): 4 Walk 50 ft with 2 Turns(QC): 4 Walk 150 ft (QC): 4 Gait Persons Needed: 1 Gait Assistive Device: FWW Exercises Seated Therapy Exercises: Ankle pumps, Long arc quads, Hip flexion, Hip abd/add, Glut set Seated Reps: 15 NuStep Minutes: 15 NuStep Workload: 3 (LE only, no UE) Treatments 7650-6301: TF to standing and uses BR. Pt amb. in hallway, taking RB as needed. Pt uses NuStep for 15m at [facility] 3 rkiyatk6r by Seated Ex. Pt takes short RB then amb in hallway, returning to room. All needs met, call light in hand and pt resting in recliner. [id number]: Dr Duran visiting with pt upon arrival but finishes shortly. Pt declines need for BR. Pt and VISITOR SERVICES SPECIALIST discuss anything to report for Weekly Mtg. tomorrow. Pt wants to gain strength. All needs met, call light in hand and OT arrives at end of tx. Assessment Current Status: Good Progress Pt fatigues and needs occasional RB as needed. PT Short Term Goals Short Term Goals Time Frame: Mar 28, 2021 Roll Left & Right: 5 Sit to lyin Lying to sitting on side of be: 5 Sit to stand: 5 Chair/mri-ao-wzmou transfer: 5 Toilet transfer: 4 Walk 10 feet: 4 Walk 50 feet with two turns: 4 Walk 150 feet: 4 PT Curb Setter Goals Curb Setter Goals PT Curb Setter Goals Time Frame: Apr 06, 2021 Roll Left & Right (QC): 6 Sit to Lying (QC): 6 Lying-Sitting on Side/Bed(QC): 6 Sit to Stand (QC): 6 Chair/Azm-al-Hvukb Xfer(QC): 6 Toilet Transfer (QC): 6 Car Transfer (QC): 6 Does the Patient Walk: Yes Walk 10 feet (QC): 6 Walk 50ft with 2 Turns (QC): 6 Walk 150 ft (QC): 6 Walking 10ft on Uneven Surface: 6 1 Step (curb) (QC): 6 4 Steps (QC): 6 12 Steps (QC): 4 Picking up an Object (QC): 5 Does the Pt use WC or Scooter?: No Wheel 50 feet with 2 turns (QC: 9 Wheel 150 feet: 9 PT Plan Problem List Problem List: Activity Tolerance, Safety, Balance Treatment/Plan Treatment Plan: Continue Plan of Care Treatment Plan: Bed Mobility, Education, Functional Activity Myah, Functional Strength, Group Therapy, Gait, Safety, Therapeutic Exercise, Transfers Treatment Duration: Apr 06, 2021 Frequency: At least 5 of 7 days/Wk (IRF) Estimated Hrs Per Day: 1.5 hours per day Patient and/or Family Agrees t: Yes Safety Risks/Education Patient Education: Gait Training, Safety Issues Teaching Recipient: Patient Teaching Methods: Discussion Response to Teaching: Verbalize Understanding Time/GCodes Time In: 1000 Time Out: 1315 Total Billed Treatment Time: 75 Total Billed Treatment 1058-4244: 1, GT (15m), EX x2 (30m) & FA (15m) [id number]: 1, FA (15m) PRASANTH BOLAND VISITOR SERVICES SPECIALIST Mar 27, 2021 12:28
--- NOTE | 2021-03-27 13:19 | Occupational Ther Daily Note ---
OT Current Status-Daily Note Subjective No pain reported. Appearance Pt. up in chair. Agrees to work with OT. Mental Status/Objective Patient Orientation: Person, Place ADL-Treatment Therapy Code Descriptions/Definitions Functional [place] Measure: 0=Not Assessed/NA 4=Minimal Assistance 1=Total Assistance 5=Supervision or Setup 2=Maximal Assistance 6=Modified [place] 3=Moderate Assistance 7=Complete IndependenceSCALE: Activities may be completed with or without assistive devices. 3-Cattioqhbf-mnjarau completes the activity by him/herself with no assistance from a helper. 5-Set-up or Clean-up Assistance-helper sets up or cleans up; patient completes activity. [place] assists only prior to or following the activity. 4-Supervision or Touching Assistance-helper provides verbal cues and/or touching/steadying and/or contact guard assistance as patient completes activity. Assistance may be provided throughout the activity or intermittently. 3-Partial/Moderate Assistance-helper does LESS THAN HALF the effort. [place] lifts, holds or supports trunk or limbs, but provides less than half the effort. 2-Substantial/Maximal Assistance-helper does MORE THAN HALF the effort. [place] lifts or holds trunk or limbs and provides more than half the effort. 8-Odlqcompi-gpvend does ALL the effort. Patient does none of the effort to complete the activity. Or, the assistance of 2 or more helpers is required for the patient to complete the activity. If activity was not attempted, code reason: 7-Patient Refused. 9-Not Applicable-not attempted and the patient did not perform the activity before the current illness, exacerbation or injury. 10-Not Attempted due to Environmental Limitations-(lack of equipment, weather restraints, etc.). 88-Not Attempted due to Medical Conditions or Safety Concerns. On/Off Footwear: 3 (Min assist and cues with adaptive equipment to doff/don slipper socks.) Other Treatment Pt. up in chair. Pt. states that he was incontinent with urine in bed last night, and was assisted to cleanse self and dress in clean clothing by nursing this a.m. Pt. states that he does not need to shower or change clothing at this time. Does agree to ambulate to bathroom and shave face/comb hair. Pt. stands with CGA, and ambulates with CGA/min assist for balance and safety to bathroom. Increased time needed to shave face. When pt. is done, he is able to stand from chair, and ambulate back to chair in room with increased assist, as he is more wobbly on walker. OT brought in adaptive equipment such as sock aide, dressing stick and stonemason supervisor. Pt. educated on equipment and then practiced completing LE dressing tasks. Tolerated well with cues for sequencing. Pt. up in chair with all needs met at end of session. Education OT Patient Education: Correct positioning, Modified ADL techniques, Progress toward Goal/Update tx plan, Purpose of tx/functional activities, Reviewed precautions, Rehab process, Transfer techniques Teaching Recipient: Patient Teaching Methods: Demonstration, Discussion Response to Teaching: Verbalize Understanding, Return Demonstration, Reinforcement Needed OT Short Term Goals Short Term Goals Oral hygiene: 6 Toileting hygiene: 6 Shower/bathe self: 3 Upper body dressin Lower body dressin Putting on/taking off footwear: 4 OT Skilled Nursing Goals Skilled Nursing Goals Time Frame: Apr 04, 2021 Eating (QC): 6 Oral Hygiene (QC): 6 Toileting Hygiene (QC): 6 Shower/Bathe Self (QC): 6 Upper Body Dressing (QC): 6 Lower Body Dressing (QC): 6 On/Off Footwear (QC): 6 Additional Goals: 1-Demonstrate ADL Tasks, 2-Verbalize Understanding, 3-ImproveStrength/Myah 1=Demonstrate adherence to instructed precautions during ADL tasks. 2=Patient will verbalize/demonstrate understanding of assistive devices/modifications for ADL. 3=Patient will improve strength/tolerance for activity to enable patient to perform ADL's. OT Education/Plan Problem List/Assessment Assessment: Decreased Activ Tolerance, Impaired I ADL's Discharge Recommendations Plan/Recommendations: Continue POC Therapy Discharge Recommendati: Post Acute OT Equpiment Recommendations-D/C: Hip Kit Treatment Plan/Plan of Care Treatment,Training & Education: Yes Patient would benefit from OT for education, treatment and training to promote independence in ADL's, mobility, safety and/or upper extremity function for ADL's. Plan of Care: ADL Retraining, Caregiver Training, Functional Mobility, Group Exercise/Act as Ind, UE Funct Exercise/Act, W/C Management Training Treatment Duration: Apr 04, 2021 Frequency: At least 5 of 7 days/Wk (IRF) Estimated Hrs Per Day: 1.5 hours per day Agreement: Yes Rehab Potential: Fair Time/GCodes Start Time: 09:00 Stop Time: 10:00 Total Time Billed (hr/min): 60 Billed Treatment Time 1, ADL x 4 MAGGY DAVILA OT Mar 27, 2021 13:18
--- NOTE | 2021-03-27 13:52 | Occupational Ther Daily Note ---
OT Current Status-Daily Note Subjective No pain reported. Mental Status/Objective Patient Orientation: Person ADL-Treatment Therapy Code Descriptions/Definitions Functional [place] Measure: 0=Not Assessed/NA 4=Minimal Assistance 1=Total Assistance 5=Supervision or Setup 2=Maximal Assistance 6=Modified [place] 3=Moderate Assistance 7=Complete IndependenceSCALE: Activities may be completed with or without assistive devices. 4-Ohsdixduhs-zskenoe completes the activity by him/herself with no assistance from a helper. 5-Set-up or Clean-up Assistance-helper sets up or cleans up; patient completes activity. [place] assists only prior to or following the activity. 4-Supervision or Touching Assistance-helper provides verbal cues and/or touching/steadying and/or contact guard assistance as patient completes activity. Assistance may be provided throughout the activity or intermittently. 3-Partial/Moderate Assistance-helper does LESS THAN HALF the effort. [place] lifts, holds or supports trunk or limbs, but provides less than half the effort. 2-Substantial/Maximal Assistance-helper does MORE THAN HALF the effort. [place] lifts or holds trunk or limbs and provides more than half the effort. 5-Wlnplehlr-ngradm does ALL the effort. Patient does none of the effort to complete the activity. Or, the assistance of 2 or more helpers is required for the patient to complete the activity. If activity was not attempted, code reason: 7-Patient Refused. 9-Not Applicable-not attempted and the patient did not perform the activity before the current illness, exacerbation or injury. 10-Not Attempted due to Environmental Limitations-(lack of equipment, weather restraints, etc.). 88-Not Attempted due to Medical Conditions or Safety Concerns. Other Treatment Pt. up in chair. Has just finished with PT. Pt. requests to ambulate with OT. Pt. stands at walker with CGA. Agrees to ambulate approximately 200 feet. Pt. takes slow small steps. Will stop ambulating while talking, and requires cues to continue during conversation. Constant CGA/min assist for balance and safety. Pt. transfers back to bed with CGA. All needs met in bed at end of session. Education OT Patient Education: Correct positioning, Modified ADL techniques, Progress toward Goal/Update tx plan, Purpose of tx/functional activities, Reviewed precautions, Rehab process, Transfer techniques Teaching Recipient: Patient Teaching Methods: Demonstration, Discussion Response to Teaching: Verbalize Understanding, Return Demonstration OT Short Term Goals Short Term Goals Oral hygiene: 6 Toileting hygiene: 6 Shower/bathe self: 3 Upper body dressin Lower body dressin Putting on/taking off footwear: 4 OT [place] Setter Goals Detention Goals Time Frame: Apr 04, 2021 Eating (QC): 6 Oral Hygiene (QC): 6 Toileting Hygiene (QC): 6 Shower/Bathe Self (QC): 6 Upper Body Dressing (QC): 6 Lower Body Dressing (QC): 6 On/Off Footwear (QC): 6 Additional Goals: 1-Demonstrate ADL Tasks, 2-Verbalize Understanding, 3- ImproveStrength/Myah 1=Demonstrate adherence to instructed precautions during ADL tasks. 2=Patient will verbalize/demonstrate understanding of assistive d evices/modifications for ADL. 3=Patient will improve strength/tolerance for activity to enable patient to perform ADL's. OT Education/Plan Problem List/Assessment Assessment: Decreased Activ Tolerance, Impaired I ADL's Discharge Recommendations Plan/Recommendations: Continue POC Therapy Discharge Recommendati: Post Acute OT Equpiment Recommendations-D/C: Hip Kit Treatment Plan/Plan of Care Treatment,Training & Education: Yes Patient would benefit from OT for education, treatment and training to promote independence in ADL's, mobility, safety and/or upper extremity function for ADL's. Plan of Care: ADL Retraining, Caregiver Training, Functional Mobility, Group Exercise/Act as Ind, UE Funct Exercise/Act, W/C Management Training Treatment Duration: Apr 04, 2021 Frequency: At least 5 of 7 days/Wk (IRF) Estimated Hrs Per Day: 1.5 hours per day Agreement: Yes Rehab Potential: Fair Time/GCodes Start Time: 13:20 Stop Time: 13:40 Total Time Billed (hr/min): 20 Billed Treatment Time 1, JOY MAGGY DAVILA OT Mar 27, 2021 13:52
[2021-03-27] MEDS: RIVAROXABAN 20 MG TABLET (XARELTO) PO SCH (17:45)
[2021-03-27] MEDS: MULTIVIT W/MINERALS TAB (THERAGRAN M) PO SCH (17:45)
[2021-03-27 20:13] VITALS: BP 121/58
[2021-03-27] MEDS: MELATONIN 3 MG TABLET PO PRN (21:06)
[2021-03-27] MEDS: SIMvastatin 20 MG (ZOCOR) TAB PO SCH (21:06)
[2021-03-27] MEDS: TOLTERODINE LA 4 MG (DETROL) CAP PO SCH (21:06)
[2021-03-28] MEDS: FUROSEMIDE 40 MG/4 ML INJ (LASIX) IVP SCH (06:14)
[2021-03-28] MEDS: RT-ALBUTEROL/IPRATROPIUM 3 ML (DUONEB) VIAL INH SCH ×2 (06:56→20:20)
[2021-03-28 07:56] VITALS: BP 148/68
--- NOTE | 2021-03-28 08:24 | PM&R Progress Note ---
Subjective HPI/CC On Admission Date Seen by Provider: Mar 28, 2021 Time Seen by Provider: 13:00 Subjective/Events-last exam 03/28/2021: This visit is via video chat due to Covid related restriction for this provider Patient doing well No pain reported O2 weaned most of the time but needs it during therapy and afterwards DC Telemetry Ink blot like issue right eye No BM yet so will increase laxatives and enemas if needed 03/27/2021: This visit is via video chat due to Covid related restriction for this provider Patient doing really well today Has no complaints Oxygen at 2 L continuous is really helped him Dr. Barnett changed Eliquis to Xarelto for lombardi Restarted aspirin and stop Plavix Has an appointment with Dr. 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 Lau is his eye doctor seen 1 year ago Oxygen at 88% placed on oxygen and he feels better Has dry eye syndrome Proton pump inhibitor twice a day maintained Bowels moved 3 days ago we will continue giving laxatives 03/24/2021: This visit is via video chat due to Covid related restriction for this provider Patient doing pretty well today IV iron initiated and oral meds given also Lasix 20 mg IV twice daily has been helpful Hemoglobin 7.9 BNP was 924 Former smoker in 2003 after his hernia surgery Left leg pain is chronic Chest x-ray was stable He had a left carotid endarterectomy [place] [address] Smith After he told me yesterday he was no longer having any color or vision problems he reports that it now it really never went away and he was having some blue lines today in his right eye so considering that I will go ahead and start Eliquis 5 mg twice daily hold the aspirin maintain Plavix but he will remain a significant bleeding risk considering his hemoglobin is already low at 7.9 Increasing Protonix to twice a day to protect against gastrointestinal bleeding Patient very complex Patient remained stable and participating in therapy Has had multiple intervention in his legs vascular mcintyre and considering the carotid ultrasound we will monitor patient closely 03/23/2021: This visit is via video chat due to Covid related restriction for this provider Extensive review of chart and conferring with Dr. Barnett cardiology and then stroke center neurologist due to MRI findings after CT scan was abnormal yesterday We will obtain carotid ultrasound but it appears that the findings on the brain likely occurred postoperatively and not due to an isolated carotid lesion and if continues will need oral anticoagulants with transesophageal echocardiogram to identify thrombus if it is present. We did review the chart and in cardiac ICU postoperatively he did have an episode of atrial fibrillation but amiodarone has been maintained since that time so we will initiate telemetry and maintain it this weekend. I did update the patient on all of these details and told him if oral anticoagulation was required with aspirin and Plavix it did place him at a bleeding risk and his hemoglobin 8.0 is a concern Very extensive issues requiring extensive research and high complexity medical decision making of [address] Barnett requested n.p.o. after Friday at midnight and may very well need to have transesophageal echocardiogram on Friday morning so I placed that in the orders Patient no longer having visual changes but I did update him on the fact if he does have a recurrence he will notify the nurse and will place him on heparin [facility] agreed no acute issues to prompt TPA or any other aggressive regimen right now Review of Systems HEENT: Visual Changes Pulmonary: Dyspnea Objective Exam Vital Signs Vital Signs Date Time Temp Pulse Resp B/P (MAP) Pulse Ox O2 Delivery O2 Flow Rate FiO2 03/28/21 20:21 94 Nasal Cannula 2.00 03/28/21 07:56 36.5 92 16 148/68 (94) 03/28/21 06:57 2 Capillary Refill : General Appearance: No Apparent Distress, WD/WN, Chronically ill HEENT: PERRL/EOMI, Moist Mucous Membranes; No Scleral Icterus (L), No Scleral Icterus (R) Neck: Normal Inspection, Supple Respiratory: Lungs Clear, No Accessory Muscle Use, No Respiratory Distress Cardiovascular: Regular Rate, Rhythm, No JVD, Systolic Murmur, Other (midline scar, ) Gastrointestinal: Normal Bowel Sounds, Soft Extremity: Normal Inspection, No Pedal Edema Neurologic/Psychiatric: Alert, Oriented x3, Normal Mood/Affect Skin: Normal Color, Warm/Dry Results/Procedures Lab Patient resulted labs reviewed. FIM Transfers Therapy Code Descriptions/Definitions Functional [place] Measure: 0=Not Assessed/NA 4=Minimal Assistance 1=Total Assistance 5=Supervision or Setup 2=Maximal Assistance 6=Modified [place] 3=Moderate Assistance 7=Complete IndependenceSCALE: Activities may be completed with or without assistive devices. 8-Kfsxlcxxux-uednuwo completes the activity by him/herself with no assistance from a helper. 5-Set-up or Clean-up Assistance-helper sets up or cleans up; patient completes activity. [place] assists only prior to or following the activity. 4-Supervision or Touching Assistance-helper provides verbal cues and/or touch ing/steadying and/or contact guard assistance as patient completes activity. Assistance may be provided throughout the activity or intermittently. 3-Partial/Moderate Assistance-helper does LESS THAN HALF the effort. [place] lifts, holds or supports trunk or limbs, but provides less than half the effort. 2-Substantial/Maximal Assistance-helper does MORE THAN HALF the effort. [place] lifts or holds trunk or limbs and provides more than half the effort. 9-Mnnmzkscr-xzyuwl does ALL the effort. Patient does none of the effort to complete the activity. Or, the assistance of 2 or more helpers is required for the patient to complete the activity. If activity was not attempted, code reason: 7-Patient Refused. 9-Not Applicable-not attempted and the patient did not perform the activity before the current illness, exacerbation or injury. 10-Not Attempted due to Environmental Limitations-(lack of equipment, weather restraints, etc.). 88-Not Attempted due to Medical Conditions or Safety Concerns. Roll Left to Right (QC): 6 Sit to Lying (QC): 6 Sit to Stand (QC): 4 Chair/Xsl-sq-Yegui Xfer(QC): 4 Car Transfer (QC): 3 (min assist with legs; skilled cues to sequence) Gait Training Does the Patient Walk?: Yes Distance: 150' x2 Walk 10 feet (QC): 4 Walk 50 ft with 2 Turns(QC): 4 Walk 150 ft (QC): 4 Walking 10ft/uneven surface-QC: 3 Gait Persons Needed: 1 Gait Assistive Device: FWW Wheelchair Training Does the Pt Use a Wheelchair?: No Wheel 50 ft with 2 turns (QC): 9 Wheel 150 ft (QC): 9 Stair Training 1 Step (curb) (QC): 3 (min assist and skilled cues for sequencing. ) 4 Steps (QC): 88 12 Steps (QC): 88 Balance Picking up an Object (QC): 3 ADL-Treatment Eating (QC): 6 Oral Hygiene (QC): 7 Bathing Location: L Arm, R Arm, L Upper Leg, R Upper Leg, L Lower Leg (including foot), R Lower Leg (including foot), Chest, Abdomen, Buttocks, Perineal Area Shower/Bathe Self (QC): 4 (SBA in stance, SUP in sit.) Upper Body Dressing (QC): 5 (s/u, completes with good ability with precautions in mind.) Lower Body Dressing (QC): 3 (min A threading RLE due to catching on pants, completes with increased time) On/Off Footwear (QC): 3 (Min assist and cues with adaptive equipment to doff/don slipper socks.) Toileting Hygiene (QC): 4 (SBA) Toilet Transfer (QC): 4 (SBA, use of walker) Assessment/Plan Assessment and Plan Assess & Plan/Chief Complaint Assessment: Debility from CABG of 4 vessels at [facility] Subacute strokes bilateral cerebellar hemispheres consistent with post operative findings with vision changes on 03/22/[address] scan and MRI status post conversation with stroke center neurologist expert and Dr. Matti Barnett cardiology placing on telemetry no indication for OAC or TPA Postoperative anemia asymptomatic recheck today 8.0 placed on oral iron Previous carotid endarterectomy left side in 2013 Episode of atrial fibrillation in cardiac ICU postoperatively now on Coreg after amiodarone discontinued Pleural effusions GERD Overactive bladder Chronic kidney disease stage II Carotid artery endarterectomy history Hypertension Hyperlipidemia Peripheral vascular disease of the leg status post interventions in the past Plan: Plavix and aspirin Photography Teacher for visual changes if that should occur he needs heparin and transesophageal echocardiogram for thrombus Aggressive therapy per protocol 03/24/2021: Hold aspirin and add Eliquis 5 mg twice daily maintain Plavix Increase Protonix to twice a day to minimize gastrointestinal bleeding risk Monitor hemoglobin closely Iron infusion with oral supplement 03/25/2021: Maintain Eliquis and Plavix Supportive care Continue monitoring vision changes 03/26/21: OAC per Dr Barnett Monitor closely Dr Serrano appt Wed? 03/27/2021: Xarelto and DC Eliquis DC Plavix restart aspirin Dr. Serrano cardiology appointment next week 03/28/21: DC early next week Monitor vision changes OAC with ASA (1) Left atrial mass Assessment & Plan: He underwent a transesophageal echocardiogram on 03/26/2021 that showed an ill-defined mass in the left atrium. This appeared somewhat pedunculated. I spoke to his retail pharmacy technician at [facility] and he states that the patient had 2 surface echocardiograms and a transesophageal echocar diogram during surgery and from what he could gather, none of these identified an atrial mass. 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 As such, I have started him on oral anticoagulation. I initially started him on Eliquis. This can be somewhat costly. I will change him over to Xarelto which he can obtain from [facility]s pharmacy for $12 for 90 days through the 430B plan. He had an appointment to see his retail pharmacy technician in [place] tomorrow. I will place a nursing order to change this to next week. (2) Cerebrovascular accident (CVA) Assessment & Plan: No recurrent neurologic complaints. I reviewed his telemetry and there has been no evidence of atrial fibrillation. Based upon the findings from the transesophageal echocardiogram, it is quite possible that he had left atrial thrombus that may have caused this embolic appearing stroke. I will change his anticoagulation from aspirin and clopidogrel over to aspirin and rivaroxaban. 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 He continues to work with physical therapy on our inpatient rehabilitation unit. Continue present guideline directed medical therapy. As above, I have changed his aspirin and clopidogrel over to rivaroxaban and aspirin. (4) Pleural effusion Assessment & Plan: The effusions are small and do not require thoracentesis. These should gradually resolve over the next 4-6 weeks. Primary hospitalist placed him on IV Lasix once a day which should help clear the effusions. He has a normal ejection fraction and as such, I suspect he will not need to be discharged with diuretics. (5) Essential (primary) hypertension Assessment & Plan: Blood pressures have been improving. Continue present medication. (6) Atherosclerosis of both carotid arteries Assessment & Plan: He had a previous carotid endarterectomy. I suspect the carotid disease had anything to do with his recent cerebrovascular accident since there were multiple ischemic changes in several vascular territories. (7) Mixed hyperlipidemia Assessment & Plan: Continue simvastatin. (8) Peripheral arterial disease Assessment & Plan: He has not been having any claudication. He had previous interventions on the left leg. I will be adjusting his antiplatelet/a ntithrombotic regimen as above. There is actually some good data showing that rivaroxaban can help reduce peripheral vascular events albeit at a lower dose than he will be prescribed. Physical therapy should also help with this condition. DAHLIA GAMING DO Mar 28, 2021 08:24
[2021-03-28] MEDS: DOCUSATE SODIUM 100 MG (COLACE) CAP PO SCH ×2 (09:45→21:05)
[2021-03-28] MEDS: DIVALPROEX 500 MG DELAYED RELEASE (DEPAKOTE) TAB PO SCH ×2 (09:45→21:04)
[2021-03-28] MEDS: ASPIRIN 81 MG CHEW (CHILDREN'S ASA) PO SCH (09:45)
[2021-03-28] MEDS: ETODOLAC 200 MG (LODINE) CAP PO SCH ×2 (09:45→17:36)
[2021-03-28] MEDS: SENNA W/DOCUSATE (SENOKOT S) TABLET PO SCH ×2 (09:45→21:05)
[2021-03-28] MEDS: PANTOPRAZOLE 40 MG (PROTONIX) TAB PO SCH ×2 (09:45→21:05)
[2021-03-28] MEDS: LACTULOSE SYRUP 10GM/15ML (ENULOSE) 30ML UDC PO PRN (09:46)
[2021-03-28] MEDS: IRON SUCROSE 200 MG/10 ML (VENOFER) VIAL IV SCH (09:46)
[2021-03-28] MEDS: HYDROcodone/APAP 5 MG/325 MG (LORTAB) TAB PO PRN ×2 (09:47→18:08)
--- NOTE | 2021-03-28 10:04 | Speech Therapy Daily Note ---
Speech Daily Progress Note Subjective Date Seen by Provider: Mar 28, 2021 Time Seen by Provider: 00:30 Patient was resting in his recliner with O2 off as a trial. Objective Patient completed sequencing cards at 100% with minimal cues. Assessment Assessment Current Status: Good Progress Treatment Plan Continue Plan of Care Speech Short Term Goals Short Term Goals Short Term Goals 1) Patient will complete word finding tasks at 90% or greater with minimal cues. 2) patient will tolerate least restrictive diet level without s/s of aspiration at 90% or greater. 3) Patient will utilize compensatory strategies for safe oral intake as trained at 90% or greater. Speech Lining Finisher Goals Mcfp Goals 1) Patient will maintain adequate nutrition/hydration via safe effective swallow function. 2) Patient will improve cognitive-communication so that he will require less assist to complete daily tasks. Speech-Plan Patient/Family Goals Patient/Family Goals: Patient will return home where he lives alone. He will have home health services for continued nursing and therapy. Treatment Plan Speech Therapy Treatment Plan: Continue Plan of Care Treatment Duration: Apr 06, 2021 Frequency: 4 times per week (Patient will receive skilled ST 4-5x per week) Estimated Hrs Per Day: .5 hour per day Rehab Potential: Fair Barriers to Learning: Recent CABG x4 with debility, mild cognitive deficits Pt/Family Agrees to Plan: Yes Safety Risks/Education Teaching Recipient: Patient Teaching Methods: Demonstration, Discussion Response to Teaching: Verbalize Understanding, Return Demonstration Education Topics Provided: Continued safety within his room, continued safety of oral intake Time Speech Therapy Time In: 10:00 Speech Therapy Time Out: 10:30 Total Billed Time: 30 Billed Treatment Time 1, SLTS, DYST EMILIA Nielsen Mar 28, 2021 10:04
--- NOTE | 2021-03-28 11:23 | Physical Therapy Daily Note ---
PT Daily Note-Current Subjective Pt agreeable. Pt rates pain 4.5/10 in (L) ribs. Mental Status Patient Orientation: Person, Place, Situation Transfers SCALE: Activities may be completed with or without assistive devices. 5-Mfaakmwkap-plwguga completes the activity by him/herself with no assistance from a helper. 5-Set-up or Clean-up Assistance-helper sets up or cleans up; patient completes activity. [place] assists only prior to or following the activity. 4-Supervision or Touching Assistance-helper provides verbal cues and/or t ouching/steadying and/or contact guard assistance as patient completes activity. Assistance may be provided throughout the activity or intermittently. 3-Partial/Moderate Assistance-helper does LESS THAN HALF the effort. [place] lifts, holds or supports trunk or limbs, but provides less than half the effort. 2-Substantial/Maximal Assistance-helper does MORE THAN HALF the effort. [place] lifts or holds trunk or limbs and provides more than half the effort. 4-Asrfvwwfo-hfazeh does ALL the effort. Patient does none of the effort to complete the activity. Or, the assistance of 2 or more helpers is required for the patient to complete the activity. If activity was not attempted, code reason: 7-Patient Refused. 9-Not Applicable-not attempted and the patient did not perform the activity before the current illness, exacerbation or injury. 10-Not Attempted due to Environmental Limitations-(lack of equipment, weather restraints, etc.). 88-Not Attempted due to Medical Conditions or Safety Concerns. Pt mod (I) for sit-stand transfers Weight Bearing Full Weight Bearing Full Weight Bearing Sternal precautions Gait Training Gait Assistive Device: FWW Pt amb with FWW and CGA 2 x 120ft, Vc's for (L) LE advancement. Rest breaks as needed. Exercises Seated Therapy Exercises: Ankle pumps, Long arc quads, Hip flexion, Hip abd/add Seated Reps: 20 NuStep Minutes: 11 NuStep Workload: 1 Treatments Pt O2 sats monitored throughout treatment. O2 remained > 96% throughout treatment. Pt toileted with SBA. Assessment Current Status: Good Progress Pt maintained O2 sats >96% throughout treatment. Pt bobby well with rest breaks. Pt requires cueing to stay on task. Pt bobby above well without complaint. Pt back to recliner with call light and all needs met. Ambu alarm activated. PT Short Term Goals Short Term Goals Time Frame: Mar 28, 2021 Roll Left & Right: 5 Sit to lyin Lying to sitting on side of be: 5 Sit to stand: 5 Chair/qaa-lo-huddk transfer: 5 Toilet transfer: 4 Walk 10 feet: 4 Walk 50 feet with two turns: 4 Walk 150 feet: 4 PT Field Support Representative Goals Group Home Goals PT Field Support Representative Goals Time Frame: Apr 06, 2021 Roll Left & Right (QC): 6 Sit to Lying (QC): 6 Lying-Sitting on Side/Bed(QC): 6 Sit to Stand (QC): 6 Chair/Ika-rv-Ngrsc Xfer(QC): 6 Toilet Transfer (QC): 6 Car Transfer (QC): 6 Does the Patient Walk: Yes Walk 10 feet (QC): 6 Walk 50ft with 2 Turns (QC): 6 Walk 150 ft (QC): 6 Walking 10ft on Uneven Surface: 6 1 Step (curb) (QC): 6 4 Steps (QC): 6 12 Steps (QC): 4 Picking up an Object (QC): 5 Does the Pt use WC or Scooter?: No Wheel 50 feet with 2 turns (QC: 9 Wheel 150 feet: 9 PT Plan Treatment/Plan Treatment Plan: Continue Plan of Care Treatment Plan: Bed Mobility, Education, Functional Activity Myah, Functional Strength, Group Therapy, Gait, Safety, Therapeutic Exercise, Transfers Treatment Duration: Apr 06, 2021 Frequency: At least 5 of 7 days/Wk (IRF) Estimated Hrs Per Day: 1.5 hours per day Patient and/or Family Agrees t: Yes Time/GCodes Time In: 1030 Time Out: 1130 Total Billed Treatment Time: 60 Total Billed Treatment 1, ther ex 30', gait 15'. FA 15' MARY RICH CPTA Mar 28, 2021 11:23
--- NOTE | 2021-03-28 12:02 | Occupational Ther Daily Note ---
OT Current Status-Daily Note Subjective No pain reported. Appearance Pt. up in chair. Agrees to work with OT. Mental Status/Objective Patient Orientation: Person, Place ADL-Treatment Therapy Code Descriptions/Definitions Functional [place] Measure: 0=Not Assessed/NA 4=Minimal Assistance 1=Total Assistance 5=Supervision or Setup 2=Maximal Assistance 6=Modified [place] 3=Moderate Assistance 7=Complete IndependenceSCALE: Activities may be completed with or without assistive devices. 8-Manerrkazm-vaoyizy completes the activity by him/herself with no assistance from a helper. 5-Set-up or Clean-up Assistance-helper sets up or cleans up; patient completes activity. [place] assists only prior to or following the activity. 4-Supervision or Touching Assistance-helper provides verbal cues and/or touching/steadying and/or contact guard assistance as patient completes activity. Assistance may be provided throughout the activity or intermittently. 3-Partial/Moderate Assistance-helper does LESS THAN HALF the effort. [place] lifts, holds or supports trunk or limbs, but provides less than half the effort. 2-Substantial/Maximal Assistance-helper does MORE THAN HALF the effort. [place] lifts or holds trunk or limbs and provides more than half the effort. 8-Txrtcakzz-sextvr does ALL the effort. Patient does none of the effort to complete the activity. Or, the assistance of 2 or more helpers is required for the patient to complete the activity. If activity was not attempted, code reason: 7-Patient Refused. 9-Not Applicable-not attempted and the patient did not perform the activity before the current illness, exacerbation or injury. 10-Not Attempted due to Environmental Limitations-(lack of equipment, weather restraints, etc.). 88-Not Attempted due to Medical Conditions or Safety Concerns. Shower/Bathe Self (QC): 3 (Min assist to wash feet. Pt. declines showering, but agrees to sponge bath.) Upper Body Dressing (QC): 3 (Min assist for button up shirt.) Lower Body Dressing (QC): 3 (Min assist for balance to don pants over hips.) On/Off Footwear: 3 (Min assist with sock aide.) CGA sit-stand Education OT Patient Education: Correct positioning, Modified ADL techniques, Progress toward Goal/Update tx plan, Purpose of tx/functional activities, Reviewed precautions, Rehab process, Transfer techniques, Use of adapted equipment Teaching Recipient: Patient Teaching Methods: Demonstration, Discussion Response to Teaching: Verbalize Understanding, Return Demonstration OT Short Term Goals Short Term Goals Oral hygiene: 6 Toileting hygiene: 6 Shower/bathe self: 3 Upper body dressin Lower body dressin Putting on/taking off footwear: 4 OT [employer] Director Goals [employer] Director Goals Time Frame: Apr 04, 2021 Eating (QC): 6 Oral Hygiene (QC): 6 Toileting Hygiene (QC): 6 Shower/Bathe Self (QC): 6 Upper Body Dressing (QC): 6 Lower Body Dressing (QC): 6 On/Off Footwear (QC): 6 Additional Goals: 1-Demonstrate ADL Tasks, 2-Verbalize Understanding, 3- ImproveStrength/Myah 1=Demonstrate adherence to instructed precautions during ADL tasks. 2=Patient will verbalize/demonstrate understanding of assistive devices/modifications for ADL. 3=Patient will improve strength/tolerance for activity to enable patient to perform ADL's. OT Education/Plan Problem List/Assessment Assessment: Decreased Activ Tolerance, Impaired I ADL's, Impaired Self-Care Skills Discharge Recommendations Plan/Recommendations: Continue POC Therapy Discharge Recommendati: Post Acute OT Treatment Plan/Plan of Care Treatment,Training & Education: Yes Patient would benefit from OT for education, treatment and training to promote independence in ADL's, mobility, safety and/or upper extremity function for ADL's. Plan of Care: ADL Retraining, Caregiver Training, Functional Mobility, Group Exercise/Act as Ind, UE Funct Exercise/Act, W/C Management Training Treatment Duration: Apr 04, 2021 Frequency: At least 5 of 7 days/Wk (IRF) Estimated Hrs Per Day: 1.5 hours per day Agreement: Yes Rehab Potential: Fair Time/GCodes Start Time: 08:15 Stop Time: 09:15 Total Time Billed (hr/min): 60 Billed Treatment Time 1, ADL x 4 MAGGY DAVILA OT Mar 28, 2021 12:02
[2021-03-28] MEDS: polyethylene glycoL POWDER 17 GM (MIRALAX) PACK PO SCH ×2 (13:36→21:03)
--- NOTE | 2021-03-28 14:30 | Therapy Group Daily Note ---
Therapy Daily Group Note Patient Education Topic Other List Below (memory) Exercises LE Seated Exercise, Fine Motor Session Ratio (pt:therapist): 4:1 Goal of Session: Memory Strategies, UE/LE Strengthing Goal Met for this Session: Yes Pt Benefit of Group: Contributions to Others, F/U Use of Strategies @Home, Increased Functional Safety, Increased Functional Strength, Improved Cognition, Recognition of Peers, Socialization Other/Notes Pt ambulated using [facility]WW to [facility] for OT/PT group. Group consisted of introductions (name, fun activity as child), socialization, B UE/LE exercises, memory strategies and memory tasks. Pt able to introduce self appropriately and actively listened to peers. Pt able to complete B UE/LE exercises with minimal modifications due to pain and weakness. Pt acknowledged understanding of memory strategies and verbalized own strategies for memory. Pt able to match 2 of 12 during memory activity. After group, pt sitting in recliner with call light/phone in reach. All needs met in room. Start Time: 13:00 Stop Time: 14:00 Total Billed Treatment Time: 60 Total Billed Treatment 1-ANDRAE RIVAS Mar 28, 2021 14:30
[2021-03-28] MEDS: MULTIVIT W/MINERALS TAB (THERAGRAN M) PO SCH (17:35)
[2021-03-28] MEDS: RIVAROXABAN 20 MG TABLET (XARELTO) PO SCH (17:36)
[2021-03-28 20:00] VITALS: BP 124/58
[2021-03-28] MEDS: TOLTERODINE LA 4 MG (DETROL) CAP PO SCH (21:05)
[2021-03-28] MEDS: SIMvastatin 20 MG (ZOCOR) TAB PO SCH (21:05)
[2021-03-28] MEDS: MELATONIN 3 MG TABLET PO PRN (21:06)
[2021-03-29 05:46] LABS: BILIRUBIN,URINE 2+ (NEGATIVE); CLARITY,URINE CLEAR; COLOR,URINE YELLOW; GLUCOSE, URINE (UA) NEGATIVE (NEGATIVE); KETONES,URINE NEGATIVE (NEGATIVE); LEUKOCYTE ESTERASE ,URINE NEGATIVE (NEGATIVE); NITRITE,URINE NEGATIVE (NEGATIVE); PROTEIN,URINE NEGATIVE (NEGATIVE)
[2021-03-29 05:50] LABS: BACTERIA,URINE NEGATIVE /HPF; SQUAMOUS EPITHELIAL CELL,UR 0-2 /HPF; WBC,URINE 0-2 /HPF
[2021-03-29] MEDS: FUROSEMIDE 40 MG/4 ML INJ (LASIX) IVP SCH (06:32)
[2021-03-29] MEDS: HYDROcodone/APAP 5 MG/325 MG (LORTAB) TAB PO PRN ×2 (06:40→18:28)
[2021-03-29] MEDS: RT-ALBUTEROL/IPRATROPIUM 3 ML (DUONEB) VIAL INH SCH ×2 (06:49→20:39)
[2021-03-29 07:58] VITALS: BP 143/65
--- NOTE | 2021-03-29 08:36 | PM&R Progress Note ---
Subjective HPI/CC On Admission Date Seen by Provider: Mar 29, 2021 Time Seen by Provider: 12:45 Subjective/Events-last exam 03/29/2021: This visit is via video chat due to Covid related restriction for this provider Patient having a good day Bowels moving after suppository and fleets enema Dr. Salomon will see him and he reports that he has seen him every 6 months for years No hematuria noted on urinalysis Xarelto restarted Oxygen needed on exertion 03/28/2021: This visit is via video chat due to Covid related restriction for this provider Patient doing well No pain reported O2 weaned most of the time but needs it during therapy and afterwards DC Telemetry Ink blot like issue right eye No BM yet so will increase laxatives and enemas if needed 03/27/2021: This visit is via video chat due to Covid related restriction for this provider Patient doing really well today Has no complaints Oxygen at 2 L continuous is really helped him Dr. Barnett changed Eliquis to Xarelto for lombardi Restarted aspirin and stop Plavix Has an appointment with Dr. 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 Lau is his eye doctor seen 1 year ago Oxygen at 88% placed on oxygen and he feels better Has dry eye syndrome Proton pump inhibitor twice a day maintained Bowels moved 3 days ago we will continue giving laxatives 03/24/2021: This visit is via video chat due to Covid related restriction for this provider Patient doing pretty well today IV iron initiated and oral meds given also Lasix 20 mg IV twice daily has been helpful Hemoglobin 7.9 BNP was 924 Former smoker in 2003 after his hernia surgery Left leg pain is chronic Chest x-ray was stable He had a left carotid endarte[place] [address] Smith After he told me yesterday he was no longer having any color or vision problems he reports that it now it really never went away and he was having some blue lines today in his right eye so considering that I will go ahead and start Eliquis 5 mg twice daily hold the aspirin maintain Plavix but he will remain a significant bleeding risk considering his hemoglobin is already low at 7.9 Increasing Protonix to twice a day to protect against gastrointestinal bleeding Patient very complex Patient remained stable and participating in therapy Has had multiple intervention in his legs vascular mcintyre and considering the carotid ultrasound we will monitor patient closely 03/23/2021: This visit is via video chat due to Covid related restriction for this provider Extensive review of chart and conferring with Dr. Barnett cardiology and then stroke center neurologist due to MRI findings after CT scan was abnormal yesterday We will obtain carotid ultrasound but it appears that the findings on the brain likely occurred postoperatively and not due to an isolated carotid lesion and if continues will need oral anticoagulants with transesophageal echocardiogram to identify thrombus if it is present. We did review the chart and in cardiac ICU postoperatively he did have an episode of atrial fibrillation but amiodarone has been maintained since that time so we will initiate telemetry and maintain it this weekend. I did update the patient on all of these details and told him if oral anticoagulation was required with aspirin and Plavix it did place him at a bleeding risk and his hemoglobin 8.0 is a concern Very extensive issues requiring extensive research and high complexity medical decision making of [address] Barnett requested n.p.o. after Friday at midnight and may very well need to have transesophageal echocardiogram on Friday morning so I placed that in the orders Patient no longer having visual changes but I did update him on the fact if he does have a recurrence he will notify the nurse and will place him on heparin JOHNATHON agreed no acute issues to prompt TPA or any other aggressive regimen right now Review of Systems General: Fatigue, Malaise Neurological: Weakness Objective Exam Vital Signs Vital Signs Date Time Temp Pulse Resp B/P (MAP) Pulse Ox O2 Delivery O2 Flow Rate FiO2 03/29/21 20:55 95 Room Air 03/29/21 20:39 2.00 03/29/21 20:00 36.6 76 18 105/51 (69) 03/28/21 06:57 2 Capillary Refill : General Appearance: No Apparent Distress, WD/WN, Chronically ill HEENT: PERRL/EOMI, Moist Mucous Membranes; No Scleral Icterus (L), No Scleral Icterus (R) Neck: Normal Inspection, Supple Respiratory: Lungs Clear, No Accessory Muscle Use, No Respiratory Distress Cardiovascular: Regular Rate, Rhythm, No JVD, Systolic Murmur, Other (midline scar, ) Gastrointestinal: Normal Bowel Sounds, Soft Extremity: Normal Inspection, No Pedal Edema Neurologic/Psychiatric: Alert, Oriented x3, Normal Mood/Affect Skin: Normal Color, Warm/Dry Results/Procedures Lab Laboratory Tests 03/29/21 08:56 Patient resulted labs reviewed. FIM Transfers Therapy Code Descriptions/Definitions Functional [place] Measure: 0=Not Assessed/NA 4=Minimal Assistance 1=Total Assistance 5=Supervision or Setup 2=Maximal Assistance 6=Modified [place] 3=Moderate Assistance 7=Complete IndependenceSCALE: Activities may be completed with or without assistive devices. 1-Csjgysxzir-hxgnfki completes the activity by him/herself with no assistance from a helper. 5-Set-up or Clean-up Assistance-helper sets up or cleans up; patient completes activity. [place] assists only prior to or following the activity. 4-Supervision or Touching Assistance-helper provides verbal cues and/or touching/steadying and/or contact guard assistance as patient completes activity. Assistance may be provided throughout the activity or intermittently. 3-Partial/Moderate Assistance-helper does LESS THAN HALF the effort. [place] lifts, holds or supports trunk or limbs, but provides less than half the effort. 2-Substantial/Maximal Assistance-helper does MORE THAN HALF the effort. [place] lifts or holds trunk or limbs and provides more than half the effort. 4-Jqnwrvnjv-izhuqx does ALL the effort. Patient does none of the effort to complete the activity. Or, the assistance of 2 or more helpers is required for the patient to complete the activity. If activity was not attempted, code reason: 7-Patient Refused. 9-Not Applicable-not attempted and the patient did not perform the activity before the current illness, exacerbation or injury. 10-Not Attempted due to Environmental Limitations-(lack of equipment, weather restraints, etc.). 88-Not Attempted due to Medical Conditions or Safety Concerns. Roll Left to Right (QC): 6 Sit to Lying (QC): 6 Sit to Stand (QC): 4 Chair/Nou-yr-Gaplu Xfer(QC): 4 Car Transfer (QC): 3 (min assist with legs; skilled cues to sequence) Gait Training Does the Patient Walk?: Yes Distance: 150' x2 Walk 10 feet (QC): 4 Walk 50 ft with 2 Turns(QC): 4 Walk 150 ft (QC): 4 Walking 10ft/uneven surface-QC: 3 Gait Persons Needed: 1 Gait Assistive Device: FWW Wheelchair Training Does the Pt Use a Wheelchair?: No Wheel 50 ft with 2 turns (QC): 9 Wheel 150 ft (QC): 9 Stair Training 1 Step (curb) (QC): 3 (min assist and skilled cues for sequencing. ) 4 Steps (QC): 88 12 Steps (QC): 88 Balance Picking up an Object (QC): 3 ADL-Treatment Eating (QC): 6 Oral Hygiene (QC): 7 Bathing Location: L Arm, R Arm, L Upper Leg, R Upper Leg, L Lower Leg (including foot), R Lower Leg (including foot), Chest, Abdomen, Buttocks, Perineal Area Shower/Bathe Self (QC): 3 (Min assist to wash feet. Pt. declines showering, but agrees to sponge bath.) Upper Body Dressing (QC): 3 (Min assist for button up shirt.) Lower Body Dressing (QC): 3 (Min assist for balance to don pants over hips.) On/Off Footwear (QC): 3 (Min assist with sock aide.) Toileting Hygiene (QC): 4 (SBA) Toilet Transfer (QC): 4 (SBA, use of walker) Assessment/Plan Assessment and Plan Assess & Plan/Chief Complaint Assessment: Debility from CABG of 4 vessels at [facility] Subacute strokes bilateral cerebellar hemispheres consistent with post operative findings with vision changes on 03/22/[address] scan and MRI status post conversation with stroke center neurologist expert and Dr. Matti Barnett cardiology placing on telemetry no indication for OAC or TPA Postoperative anemia asymptomatic recheck today 8.0 placed on oral iron Previous carotid endarterectomy left side in 2013 Episode of atrial fibrillation in cardiac ICU postoperatively now on Coreg after amiodarone discontinued Pleural effusions GERD Overactive bladder Chronic kidney disease stage II Carotid artery endarterectomy history Hypertension Hyperlipidemia Peripheral vascular disease of the leg status post interventions in the past Plan: Plavix and aspirin Photo Editor for visual changes if that should occur he needs heparin and transesophageal echocardiogram for thrombus Aggressive therapy per protocol 03/24/2021: Hold aspirin and add Eliquis 5 mg twice daily maintain Plavix Increase Protonix to twice a day to minimize gastrointestinal bleeding risk Monitor hemoglobin closely Iron infusion with oral supplement 03/25/2021: Maintain Eliquis and Plavix Supportive care Continue monitoring vision changes 03/26/21: OAC per Dr Barnett Monitor closely Dr Serrano appt Wed? 03/27/2021: Xarelto and DC Eliquis DC Plavix restart aspirin Dr. Serrano cardiology appointment next week 03/28/21: DC early next week Monitor vision changes OAC with ASA 03/29/2021: Monitor for hematuria Restart oral anticoagulation (1) Left atrial mass Assessment & Plan: He underwent a transesophageal echocardiogram on 03/26/2021 that showed an ill-defined mass in the left atrium. This appeared somewhat pedunculated. I spoke to his location worker at [facility] and he states that the patient had 2 surface echocardiograms and a transesophageal echocardiogram during surgery and from what he could gather, none of these identified an atrial mass. 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 As such, I have started him on oral anticoagulation. I initially started him on Eliquis. This can be somewhat costly. I will change him over to Xarelto which he can obtain from [facility] pharmacy for $12 for 90 days through the 430B plan. He had an appointment to see his location worker in [place] tomorrow. I will place a nursing order to change this to next week. (2) Cerebrovascular accident (CVA) Assessment & Plan: No recurrent neurologic complaints. I reviewed his telemetry and there has been no evidence of atrial fibrillation. Based upon the findings from the transesophageal echocardiogram, it is quite possible that he had left atrial thrombus that may have caused this embolic appearing stroke. I will change his anticoagulation from aspirin and clopidogrel over to aspirin and rivaroxaban. 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 He continues to work with physical therapy on our inpatient rehabilitation unit. Continue present guideline directed medical therapy. As above, I have changed his aspirin and clopidogrel over to rivaroxaban and aspirin. (4) Pleural effusion Assessment & Plan: The effusions are small and do not require thoracentesis. These should gradually resolve over the next 4-6 weeks. Primary hospitalist placed him on IV Lasix once a day which should help clear the effusions. He has a normal ejection fraction and as such, I suspect he will not need to be discharged with diuretics. (5) Essential (primary) hypertension Assessment & Plan: Blood pressures have been improving. Continue present medication. (6) Atherosclerosis of both carotid arteries Assessment & Plan: He had a previous carotid endarterectomy. I suspect the carotid disease had anything to do with his recent cerebrovascular accident since there were multiple ischemic changes in several vascular territories. (7) Mixed hyperlipidemia Assessment & Plan: Continue simvastatin. (8) Peripheral arterial disease Assessment & Plan: He has not been having any claudication. He had previous interventions on the left leg. I will be adjusting his antiplatelet/ant ithrombotic regimen as above. There is actually some good data showing that rivaroxaban can help reduce peripheral vascular events albeit at a lower dose than he will be prescribed. Physical therapy should also help with this condition. DAHLIA GAMING DO Mar 29, 2021 08:36
[2021-03-29 09:06] LABS: BASOPHILS # (AUTO) 0.1 10^3/uL (0.0-0.1); BASOPHILS % (AUTO) 1 % (0-10); EOSINOPHILS # (AUTO) 0.4 10^3/uL (0.0-0.3); EOSINOPHILS % (AUTO) 3 % (0-10); HEMATOCRIT 32 % (40-54); HEMOGLOBIN 9.8 g/dL (13.3-17.7); LYMPHOCYTES # (AUTO) 1.3 10^3/uL (1.0-4.0); LYMPHOCYTES % (AUTO) 10 % (12-44); MEAN CORPUSCULAR HEMOGLOBIN 30 pg (25-34); MEAN CORPUSCULAR HGB CONC 31 g/dL (32-36); MEAN CORPUSCULAR VOLUME 98 fL (80-99); MEAN PLATELET VOLUME 8.9 fL (9.0-12.2); MONOCYTES # (AUTO) 1.4 10^3/uL (0.0-1.0); MONOCYTES % (AUTO) 10 % (0-12); NEUTROPHILS # (AUTO) 10.4 10^3/uL (1.8-7.8); NEUTROPHILS % (AUTO) 75 % (42-75); PLATELET COUNT 400 10^3/uL (130-400); WHITE BLOOD COUNT 13.9 10^3/uL (4.3-11.0)
[2021-03-29] MEDS: SENNA W/DOCUSATE (SENOKOT S) TABLET PO SCH ×2 (09:36→21:04)
[2021-03-29] MEDS: DOCUSATE SODIUM 100 MG (COLACE) CAP PO SCH ×2 (09:36→20:59)
[2021-03-29] MEDS: ASPIRIN 81 MG CHEW (CHILDREN'S ASA) PO SCH (09:36)
[2021-03-29] MEDS: DIVALPROEX 500 MG DELAYED RELEASE (DEPAKOTE) TAB PO SCH ×2 (09:36→20:58)
[2021-03-29] MEDS: PANTOPRAZOLE 40 MG (PROTONIX) TAB PO SCH ×2 (09:36→20:58)
[2021-03-29] MEDS: polyethylene glycoL POWDER 17 GM (MIRALAX) PACK PO SCH ×2 (09:37→20:58)
[2021-03-29] MEDS: ETODOLAC 200 MG (LODINE) CAP PO SCH ×2 (09:55→17:48)
[2021-03-29 09:56] LABS: ALBUMIN 3.5 GM/DL (3.2-4.5); BILIRUBIN,TOTAL 0.4 MG/DL (0.1-1.0); CALCIUM 9.3 MG/DL (8.5-10.1); CREATININE SERUM 1.45 MG/DL (0.60-1.30); POTASSIUM 3.9 MMOL/L (3.6-5.0); TOTAL PROTEIN 7.2 GM/DL (6.4-8.2)
--- NOTE | 2021-03-29 10:19 | Speech Therapy Daily Note ---
Speech Daily Progress Note Subjective Date Seen by Provider: Mar 29, 2021 Time Seen by Provider: 00:30 Patient was resting in his recliner following his other therapies. Patient states he is feeling much better than yesterday. Objective Patient completed recall of information tasks at 85% with minimal cues. Assessment Assessment Current Status: Good Progress Treatment Plan Continue Plan of Care Speech Short Term Goals Short Term Goals Short Term Goals 1) Patient will complete word finding tasks at 90% or greater with minimal cues. 2) patient will tolerate least restrictive diet level without s/s of aspiration at 90% or greater. 3) Patient will utilize compensatory strategies for safe oral intake as trained at 90% or greater. Speech Mammal Control Agent Goals Mammal Control Agent Goals 1) Patient will maintain adequate nutrition/hydration via safe effective swallow function. 2) Patient will improve cognitive-communication so that he will require less assist to complete daily tasks. Speech-Plan Patient/Family Goals Patient/Family Goals: Patient will return to his home where he lives with his son. He will also receive home health services for medical and therapy. Treatment Plan Speech Therapy Treatment Plan: Continue Plan of Care Treatment Duration: Apr 06, 2021 Frequency: 4 times per week (Patient will receive skilled ST 4-5x per week) Estimated Hrs Per Day: .5 hour per day Rehab Potential: Fair Barriers to Learning: Recent CABG x4, other medical issues, mild cognitive deficits Pt/Family Agrees to Plan: Yes Safety Risks/Education Teaching Recipient: Patient Teaching Methods: Demonstration, Discussion Response to Teaching: Verbalize Understanding, Return Demonstration Education Topics Provided: Continued safety and communication, Continued safety of oral intake of modifed diet level Time Speech Therapy Time In: 10:00 Speech Therapy Time Out: 10:30 Total Billed Time: 30 Billed Treatment Time 1, SLCARMEN, DYST EMILIA Nielsen Mar 29, 2021 10:19
--- NOTE | 2021-03-29 11:39 | Physical Therapy Daily Note ---
PT Daily Note-Current Subjective Pt reports he is doing well today. Pt denies pain intially, reports pain is "stirred up" during coughing episodes. Pt rates this pain 4.5/10. Mental Status Patient Orientation: Person, Place, Situation Attachments: Oxygen O2 2L/min per portable O2. O2 in situ post therapy session. Transfers SCALE: Activities may be completed with or without assistive devices. 3-Vcumasxxqo-aeuujjj completes the activity by him/herself with no assistance from a helper. 5-Set-up or Clean-up Assistance-helper sets up or cleans up; patient completes activity. [place] assists only prior to or following the activity. 4-Supervision or Touching Assistance-helper provides verbal cues and/or touching/steadying and/or contact guard assistance as patient completes activity. Assistance may be provided throughout the activity or intermittently. 3-Partial/Moderate Assistance-helper does LESS THAN HALF the effort. [place] lifts, holds or supports trunk or limbs, but provides less than half the effort. 2-Substantial/Maximal Assistance-helper does MORE THAN HALF the effort. [place] lifts or holds trunk or limbs and provides more than half the effort. 0-Ltylvrlgy-kboyys does ALL the effort. Patient does none of the effort to complete the activity. Or, the assistance of 2 or more helpers is required for the patient to complete the activity. If activity was not attempted, code reason: 7-Patient Refused. 9-Not Applicable-not attempted and the patient did not perform the activity before the current illness, exacerbation or injury. 10-Not Attempted due to Environmental Limitations-(lack of equipment, weather restraints, etc.). 88-Not Attempted due to Medical Conditions or Safety Concerns. Pt requires CGA -min A in/out bed. CGA for sit-stand Weight Bearing Full Weight Bearing Full Weight Bearing Sternal precautions Gait Training Gait Assistive Device: FWW 4 x 120ft with CGA and f/u O2 2L/min. Pt requires consistent vc's for increasing stride length(L) LE. Exercises NuStep Minutes: 10 NuStep Workload: 2 Treatments Pt requested BR while on Nu-step. Back to room for toileting SBA. Pt returned to gym to complete ther ex in supine: PROM (B) LE all planes, AP, QS, heel slide, SA[facility] each. Transfers on/off plinth min A. O2 2L/min. Assessment Current Status: Good Progress Pt bobby above well. Pt back to recliner with call light and all needs met. Pt O2 insitu. Pt continues to require vc's for (L) LE advancement. Pt unsteady at times but no emily LOB. PT Short Term Goals Short Term Goals Time Frame: Mar 28, 2021 Roll Left & Right: 5 Sit to lyin Lying to sitting on side of be: 5 Sit to stand: 5 Chair/swo-xx-vqjkr transfer: 5 Toilet transfer: 4 Walk 10 feet: 4 Walk 50 feet with two turns: 4 Walk 150 feet: 4 PT Fish Icer Goals Fish Icer Goals PT Fish Icer Goals Time Frame: Apr 06, 2021 Roll Left & Right (QC): 6 Sit to Lying (QC): 6 Lying-Sitting on Side/Bed(QC): 6 Sit to Stand (QC): 6 Chair/Adq-gs-Rrkyk Xfer(QC): 6 Toilet Transfer (QC): 6 Car Transfer (QC): 6 Does the Patient Walk: Yes Walk 10 feet (QC): 6 Walk 50ft with 2 Turns (QC): 6 Walk 150 ft (QC): 6 Walking 10ft on Uneven Surface: 6 1 Step (curb) (QC): 6 4 Steps (QC): 6 12 Steps (QC): 4 Picking up an Object (QC): 5 Does the Pt use WC or Scooter?: No Wheel 50 feet with 2 turns (QC: 9 Wheel 150 feet: 9 PT Plan Treatment/Plan Treatment Plan: Continue Plan of Care Treatment Plan: Bed Mobility, Education, Functional Activity Myah, Functional Strength, Group Therapy, Gait, Safety, Therapeutic Exercise, Transfers Treatment Duration: Apr 06, 2021 Frequency: At least 5 of 7 days/Wk (IRF) Estimated Hrs Per Day: 1.5 hours per day Patient and/or Family Agrees t: Yes Time/GCodes Time In: 1030 Time Out: 1145 Total Billed Treatment Time: 75 Total Billed Treatment 1, Ther ex 45', Gait 30', FA 15' MARY RICH CPTA Mar 29, 2021 11:39
--- NOTE | 2021-03-29 14:05 | CONSULTATION REPORT ---
DATE OF SERVICE: 03/29/2021 ATTENDING PHYSICIAN: Dr. Duran. SUMMARY: A 75-year-old white man was consulted for possible hematuria. Nurse noticed his urine was kind of tea-colored last night and called Dr. Duran, who consulted me. His urinalysis is completely negative. IMPRESSION: Urine discoloration, possible hematuria. PLAN: We will see him p.man Job ID: [id number] DocumentID: [id number] Dictated Date: 03/29/2021 11:48:59 Real Estate Sales Agent Date: 03/29/2021 14:04:40 Dictated By: RUPINDER MCDANIEL MD
--- NOTE | 2021-03-29 14:26 | Occupational Ther Daily Note ---
OT Current Status-Daily Note Subjective No pain reported. Mental Status/Objective Patient Orientation: Person, Place ADL-Treatment Therapy Code Descriptions/Definitions Functional [place] Measure: 0=Not Assessed/NA 4=Minimal Assistance 1=Total Assistance 5=Supervision or Setup 2=Maximal Assistance 6=Modified [place] 3=Moderate Assistance 7=Complete IndependenceSCALE: Activities may be completed with or without assistive devices. 4-Jipvmygrht-awaiwcf completes the activity by him/herself with no assistance from a helper. 5-Set-up or Clean-up Assistance-helper sets up or cleans up; patient completes activity. [place] assists only prior to or following the activity. 4-Supervision or Touching Assistance-helper provides verbal cues and/or touching/steadying and/or contact guard assistance as patient completes activity. Assistance may be provided throughout the activity or intermittently. 3-Partial/Moderate Assistance-helper does LESS THAN HALF the effort. [place] lifts, holds or supports trunk or limbs, but provides less than half the effort. 2-Substantial/Maximal Assistance-helper does MORE THAN HALF the effort. [place] lifts or holds trunk or limbs and provides more than half the effort. 1-Przaootzn-nqcnlp does ALL the effort. Patient does none of the effort to complete the activity. Or, the assistance of 2 or more helpers is required for the patient to complete the activity. If activity was not attempted, code reason: 7-Patient Refused. 9-Not Applicable-not attempted and the patient did not perform the activity before the current illness, exacerbation or injury. 10-Not Attempted due to Environmental Limitations-(lack of equipment, weather restraints, etc.). 88-Not Attempted due to Medical Conditions or Safety Concerns. Upper Body Dressing (QC): 5 Lower Body Dressing (QC): 4 (SBA) On/Off Footwear: 3 (Min assist without using adaptive equipment.) Other Treatment Pt. up in chair. Declines showering but agrees to get dressed. Pt. able to bring feet up to him this date, and does not need to use AE. Ambulates to therapy gym after session in room, with CGA and cues for safety. Uses walker. Pt. completes several trials on arm bike x 2 minutes, at min resistance and slow pace. OT takes sats at end of each trial, and pt. HR 80-88, oxygen sats at 95- 97% on room air. Pt. states that he does not feel short of air. Completes 10 minutes total. Ambulated back to room with walker and CGA for slow and steady pace. All needs met back in room. Education OT Patient Education: Correct positioning, Exercise program, Modified ADL techniques, Progress toward Goal/Update tx plan, Purpose of tx/functional activities, Reviewed precautions, Rehab process, Transfer techniques Teaching Recipient: Patient Teaching Methods: Demonstration, Discussion Response to Teaching: Verbalize Understanding, Return Demonstration OT Short Term Goals Short Term Goals Oral hygiene: 6 Toileting hygiene: 6 Shower/bathe self: 3 Upper body dressin Lower body dressin Putting on/taking off footwear: 4 OT Button Decorating Machine Operator Goals Button Decorating Machine Operator Goals Time Frame: Apr 04, 2021 Eating (QC): 6 Oral Hygiene (QC): 6 Toileting Hygiene (QC): 6 Shower/Bathe Self (QC): 6 Upper Body Dressing (QC): 6 Lower Body Dressing (QC): 6 On/Off Footwear (QC): 6 Additional Goals: 1-Demonstrate ADL Tasks, 2-Verbalize Understanding, 3-Improve Strength/Myah 1=Demonstrate adherence to instructed precautions during ADL tasks. 2=Patient will verbalize/demonstrate understanding of assistive devices/modifications for ADL. 3=Patient will improve strength/tolerance for activity to enable patient to pe rform ADL's. OT Education/Plan Problem List/Assessment Assessment: Decreased Activ Tolerance, Impaired I ADL's, Impaired Self-Care Skills Discharge Recommendations Plan/Recommendations: Continue POC Therapy Discharge Recommendati: Post Acute OT Treatment Plan/Plan of Care Treatment,Training & Education: Yes Patient would benefit from OT for education, treatment and training to promote independence in ADL's, mobility, safety and/or upper extremity function for ADL's. Plan of Care: ADL Retraining, Caregiver Training, Functional Mobility, Group Exercise/Act as Ind, UE Funct Exercise/Act, W/C Management Training Treatment Duration: Apr 04, 2021 Frequency: At least 5 of 7 days/Wk (IRF) Estimated Hrs Per Day: 1.5 hours per day Agreement: Yes Rehab Potential: Fair Time/GCodes Start Time: 08:15 Stop Time: 09:30 Total Time Billed (hr/min): 75 Billed Treatment Time 1, ADL x 45minutes, FA x 30minutes MAGGY DAVILA OT Mar 29, 2021 14:26
[2021-03-29] MEDS: MULTIVIT W/MINERALS TAB (THERAGRAN M) PO SCH (17:48)
[2021-03-29] MEDS: RIVAROXABAN 20 MG TABLET (XARELTO) PO SCH (18:23)
[2021-03-29 20:00] VITALS: BP 105/51
[2021-03-29] MEDS: TOLTERODINE LA 4 MG (DETROL) CAP PO SCH (20:58)
[2021-03-29] MEDS: SIMvastatin 20 MG (ZOCOR) TAB PO SCH (20:59)
[2021-03-29] MEDS: MELATONIN 3 MG TABLET PO PRN (20:59)
[2021-03-30] MEDS: HYDROcodone/APAP 5 MG/325 MG (LORTAB) TAB PO PRN ×4 (05:48→20:45)
[2021-03-30 07:51] VITALS: BP 155/70
[2021-03-30] MEDS: SENNA W/DOCUSATE (SENOKOT S) TABLET PO SCH ×2 (08:01→20:52)
[2021-03-30] MEDS: DOCUSATE SODIUM 100 MG (COLACE) CAP PO SCH ×2 (08:01→20:52)
[2021-03-30] MEDS: IRON SUCROSE 200 MG/10 ML (VENOFER) VIAL IV SCH (08:02)
[2021-03-30] MEDS: PANTOPRAZOLE 40 MG (PROTONIX) TAB PO SCH ×2 (08:02→20:44)
[2021-03-30] MEDS: DIVALPROEX 500 MG DELAYED RELEASE (DEPAKOTE) TAB PO SCH ×2 (08:02→20:44)
[2021-03-30] MEDS: ASPIRIN 81 MG CHEW (CHILDREN'S ASA) PO SCH (08:02)
[2021-03-30] MEDS: FUROSEMIDE 20 MG (LASIX) TAB PO SCH (08:02)
[2021-03-30] MEDS: polyethylene glycoL POWDER 17 GM (MIRALAX) PACK PO SCH ×2 (08:02→20:52)
[2021-03-30] MEDS: ETODOLAC 200 MG (LODINE) CAP PO SCH ×2 (08:02→17:26)
--- NOTE | 2021-03-30 08:04 | PM&R Progress Note ---
Subjective HPI/CC On Admission Date Seen by Provider: Mar 30, 2021 Time Seen by Provider: 12:45 Subjective/Events-last exam 03/30/2021: This visit is via video chat due to Covid related restriction for this provider Patient having no new major issues IV iron infusion today Bowels moving well No falls Oxygen maintained 03/29/2021: This visit is via video chat due to Covid related restriction for this provider Patient having a good day Bowels moving after suppository and fleets enema Dr. Salomon will see him and he reports that he has seen him every 6 months for years No hematuria noted on urinalysis Xarelto restarted Oxygen needed on exertion 03/28/2021: This visit is via video chat due to Covid related restriction for this provider Patient doing well No pain reported O2 weaned most of the time but needs it during therapy and afterwards DC Telemetry Ink blot like issue right eye No BM yet so will increase laxatives and enemas if needed 03/27/2021: This visit is via video chat due to Covid related restriction for this provider Patient doing really well today Has no complaints Oxygen at 2 L continuous is really helped him Dr. Barnett changed Eliquis to Xarelto for lombardi Restarted aspirin and stop Plavix Has an appointment with Dr. 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 Lau is his eye doctor seen 1 year ago Oxygen at 88% placed on oxygen and he feels better Has dry eye syndrome Proton pump inhibitor twice a day maintained Bowels moved 3 days ago we will continue giving laxatives 03/24/2021: This visit is via video chat due to Covid related restriction for this provider Patient doing pretty well today IV iron initiated and oral meds given also Lasix 20 mg IV twice daily has been helpful Hemoglobin 7.9 BNP was 924 Former smoker in 2003 after his hernia surgery Left leg pain is chronic Chest x-ray was stable He had a left carotid endarterectomy [place] [address] Smith After he told me yesterday he was no longer having any color or vision problems he reports that it now it really never went away and he was having some blue lines today in his right eye so considering that I will go ahead and start Eliquis 5 mg twice daily hold the aspirin maintain Plavix but he will remain a significant bleeding risk considering his hemoglobin is already low at 7.9 Increasing Protonix to twice a day to protect against gastrointestinal bleeding Patient very complex Patient remained stable and participating in therapy Has had multiple intervention in his legs vascular mcintyre and considering the carotid ultrasound we will monitor patient closely 03/23/2021: This visit is via video chat due to Covid related restriction for this provider Extensive review of chart and conferring with Dr. Barnett cardiology and then stroke center neurologist due to MRI findings after CT scan was abnormal yest erday We will obtain carotid ultrasound but it appears that the findings on the brain likely occurred postoperatively and not due to an isolated carotid lesion and if continues will need oral anticoagulants with transesophageal echocardiogram to identify thrombus if it is present. We did review the chart and in cardiac ICU postoperatively he did have an episode of atrial fibrillation but amiodarone has been maintained since that time so we will initiate telemetry and maintain it this weekend. I did update the patient on all of these details and told him if oral anticoagulation was required with aspirin and Plavix it did place him at a bleeding risk and his hemoglobin 8.0 is a concern Very extensive issues requiring extensive research and high complexity medical decision making of [address] Barnett requested n.p.o. after Friday at midnight and may very well need to have transesophageal echocardiogram on Friday morning so I placed that in the orders Patient no longer having visual changes but I did update him on the fact if he does have a recurrence he will notify the nurse and will place him on heparin JOHNATHON agreed no acute issues to prompt TPA or any other aggressive regimen right now Review of Systems General: Fatigue, Malaise Neurological: Weakness Objective Exam Vital Signs Vital Signs Date Time Temp Pulse Resp B/P (MAP) Pulse Ox O2 Delivery O2 Flow Rate FiO2 03/31/21 08:14 Nasal Cannula 2.00 03/31/21 07:30 36.5 73 22 145/74 (97) 98 03/28/21 06:57 2 Capillary Refill : General Appearance: No Apparent Distress, WD/WN, Chronically ill HEENT: PERRL/EOMI, Moist Mucous Membranes; No Scleral Icterus (L), No Scleral Icterus (R) Neck: Normal Inspection, Supple Respiratory: Lungs Clear, No Accessory Muscle Use, No Respiratory Distress Cardiovascular: Regular Rate, Rhythm, No JVD, Systolic Murmur, Other (midline scar, ) Gastrointestinal: Normal Bowel Sounds, Soft Extremity: Normal Inspection, No Pedal Edema Neurologic/Psychiatric: Alert, Oriented x3, Normal Mood/Affect Skin: Normal Color, Warm/Dry Results/Procedures Lab Patient resulted labs reviewed. FIM Transfers Therapy Code Descriptions/Definitions Functional [place] Measure: 0=Not Assessed/NA 4=Minimal Assistance 1=Total Assistance 5=Supervision or Setup 2=Maximal Assistance 6=Modified [place] 3=Moderate Assistance 7=Complete IndependenceSCALE: Activities may be completed with or without assistive devices. 2-Hcfvrzltip-awywjjv completes the activity by him/herself with no assistance from a helper. 5-Set-up or Clean-up Assistance-helper sets up or cleans up; patient completes activity. [place] assists only prior to or following the activity. 4-Supervision or Touching Assistance-helper provides verbal cues and/or touching/steadying and/or contact guard assistance as patient completes activity. Assistance may be provided throughout the activity or intermittently. 3-Partial/Moderate Assistance-helper does LESS THAN HALF the effort. [place] lift s, holds or supports trunk or limbs, but provides less than half the effort. 2-Substantial/Maximal Assistance-helper does MORE THAN HALF the effort. [place] lifts or holds trunk or limbs and provides more than half the effort. 6-Nspzkppls-grhsvi does ALL the effort. Patient does none of the effort to complete the activity. Or, the assistance of 2 or more helpers is required for the patient to complete the activity. If activity was not attempted, code reason: 7-Patient Refused. 9-Not Applicable-not attempted and the patient did not perform the activity before the current illness, exacerbation or injury. 10-Not Attempted due to Environmental Limitations-(lack of equipment, weather restraints, etc.). 88-Not Attempted due to Medical Conditions or Safety Concerns. Roll Left to Right (QC): 6 Sit to Lying (QC): 6 Sit to Stand (QC): 4 Chair/Naf-hr-Nmbnm Xfer(QC): 4 Car Transfer (QC): 3 (min assist with legs; skilled cues to sequence) Gait Training Does the Patient Walk?: Yes Distance: 150' x2 Walk 10 feet (QC): 4 Walk 50 ft with 2 Turns(QC): 4 Walk 150 ft (QC): 4 Walking 10ft/uneven surface-QC: 3 Gait Persons Needed: 1 Gait Assistive Device: FWW Wheelchair Training Does the Pt Use a Wheelchair?: No Wheel 50 ft with 2 turns (QC): 9 Wheel 150 ft (QC): 9 Stair Training 1 Step (curb) (QC): 3 (min assist and skilled cues for sequencing. ) 4 Steps (QC): 88 12 Steps (QC): 88 Balance Picking up an Object (QC): 3 ADL-Treatment Eating (QC): 6 Oral Hygiene (QC): 7 Bathing Location: L Arm, R Arm, L Upper Leg, R Upper Leg, L Lower Leg (including foot), R Lower Leg (including foot), Chest, Abdomen, Buttocks, Perineal Area Shower/Bathe Self (QC): 3 (Min assist to wash feet. Pt. declines showering, but agrees to sponge bath.) Upper Body Dressing (QC): 5 Lower Body Dressing (QC): 4 (SBA) On/Off Footwear (QC): 3 (Min assist without using adaptive equipment.) Toileting Hygiene (QC): 4 (SBA) Toilet Transfer (QC): 4 (SBA, use of walker) Assessment/Plan Assessment and Plan Assess & Plan/Chief Complaint Assessment: Debility from CABG of 4 vessels at [facility] Subacute strokes bilateral cerebellar hemispheres consistent with post operative findings with vision changes on 03/22/[address] scan and MRI status post conversation with stroke center neurologist expert and Dr. Matti Barnett cardiology placing on telemetry no indication for OAC or TPA Postoperative anemia asymptomatic recheck today 8.0 placed on oral iron Previous carotid endarterectomy left side in 2013 Episode of atrial fibrillation in cardiac ICU postoperatively now on Coreg after amiodarone discontinued Pleural effusions GERD Overactive bladder Chronic kidney disease stage II Carotid artery endarterectomy history Hypertension Hyperlipidemia Peripheral vascular disease of the leg status post interventions in the past Plan: Plavix and aspirin Solar Resource Assessor for visual changes if that should occur he needs heparin and transesophageal echocardiogram for thrombus Aggressive therapy per protocol 03/24/2021: Hold aspirin and add Eliquis 5 mg twice daily maintain Plavix Increase Protonix to twice a day to minimize gastrointestinal bleeding risk Monitor hemoglobin closely Iron infusion with oral supplement 03/25/2021: Maintain Eliquis and Plavix Supportive care Continue monitoring vision changes 03/26/21: OAC per Dr Barnett Monitor closely Dr Serrano appt Wed? 03/27/2021: Xarelto and DC Eliquis DC Plavix restart aspirin Dr. Serrano cardiology appointment next week 03/28/21: DC early next week Monitor vision changes OAC with ASA 03/29/2021: Monitor for hematuria Restart oral anticoagulation 03/30/2021: Monitor blood pressure Monitor vision loss Oral anticoagulant with aspirin (1) Left atrial mass Assessment & Plan: He underwent a transesophageal echocardiogram on 03/26/2021 that showed an ill-defined mass in the left atrium. This appeared somewhat pedunculated. I spoke to his teasel setter at [facility] and he states that the patient had 2 surface echocardiograms and a transesophageal echocardiogram during surgery and from what he could gather, none of these identified an atrial mass. 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 As such, I have started him on oral anticoagulation. I initially started him on Eliquis. This can be somewhat costly. I will change him over to Xarelto which he can obtain from [facility] for $12 for 90 days through the 430B plan. He had an appointment to see his teasel setter in [place] tomorrow. I will place a nursing order to change this to next week. (2) Cerebrovascular accident (CVA) Assessment & Plan: No recurrent neurologic complaints. I reviewed his telemetry and there has been no evidence of atrial fibrillation. Based upon the findings from the transesophageal echocardiogram, it is quite possible that he had left atrial thrombus that may have caused this embolic appearing stroke. I will change his anticoagulation from aspirin and clopidogrel over to aspirin and rivaroxaban. 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 He continues to work with physical therapy on our inpatient rehabilitation unit. Continue present guideline directed medical therapy. As above, I have changed his aspirin and clopidogrel over to rivaroxaban and aspirin. (4) Pleural effusion Assessment & Plan: The effusions are small and do not require thoracentesis. These should gradually resolve over the next 4-6 weeks. Primary hospitalist placed him on IV Lasix once a day which should help clear the effusions. He has a normal ejection fraction and as such, I suspect he will not need to be discharged with diuretics. (5) Essential (primary) hypertension Assessment & Plan: Blood pressures have been improving. Continue present medication. (6) Atherosclerosis of both carotid arteries Assessment & Plan: He had a previous carotid endarterectomy. I suspect the carotid disease had anything to do with his recent cerebrovascular accident since there were multiple ischemic changes in several vascular territories. (7) Mixed hyperlipidemia Assessment & Plan: Continue simvastatin. (8) Peripheral arterial disease Assessment & Plan: He has not been having any claudication. He had previous interventions on the left leg. I will be adjusting his antiplatelet/antithrombotic regimen as above. There is actually some good data showing that rivaroxaban can help reduce peripheral vascular events albeit at a lower dose than he will be prescribed. Physical therapy should also help with this condition. DAHLIA GAMING DO Mar 30, 2021 08:04
[2021-03-30] MEDS: RT-ALBUTEROL/IPRATROPIUM 3 ML (DUONEB) VIAL INH SCH ×2 (08:40→21:12)
--- NOTE | 2021-03-30 11:20 | Occupational Ther Daily Note ---
OT Current Status-Daily Note Subjective Pt alert in chair, Ox3. Pt expresses discomfort in ribs due to increased UE activity yesterday as he states. Pt is reminded of UE precautions. Pt denies "seeing spots" or dizziness this tx. Mental Status/Objective Patient Orientation: Person, Place, Situation ADL-Treatment Therapy Code Descriptions/Definitions Functional [place] Measure: 0=Not Assessed/NA 4=Minimal Assistance 1=Total Assistance 5=Supervision or Setup 2=Maximal Assistance 6=Modified [place] 3=Moderate Assistance 7=Complete IndependenceSCALE: Activities may be completed with or without assistive devices. 4-Nlpayvwyzl-dalcfrg completes the activity by him/herself with no assistance from a helper. 5-Set-up or Clean-up Assistance-helper sets up or cleans up; patient completes activity. [place] assists only prior to or following the activity. 4-Supervision or Touching Assistance-helper provides verbal cues and/or touching/steadying and/or contact guard assistance as patient completes activity. Assistance may be provided throughout the activity or intermittently. 3-Partial/Moderate Assistance-helper does LESS THAN HALF the effort. [place] lifts, holds or supports trunk or limbs, but provides less than half the effort. 2-Substantial/Maximal Assistance-helper does MORE THAN HALF the effort. [place] lifts or holds trunk or limbs and provides more than half the effort. 6-Eemokteti-mkntud does ALL the effort. Patient does none of the effort to com plete the activity. Or, the assistance of 2 or more helpers is required for the patient to complete the activity. If activity was not attempted, code reason: 7-Patient Refused. 9-Not Applicable-not attempted and the patient did not perform the activity before the current illness, exacerbation or injury. 10-Not Attempted due to Environmental Limitations-(lack of equipment, weather restraints, etc.). 88-Not Attempted due to Medical Conditions or Safety Concerns. Eating (QC): 6 Oral Hygiene (QC): 7 Shower/Bathe Self (QC): 7 Upper Body Dressing (QC): 4 (SBA and cues, pt attempts to place shirt on backwards.) Lower Body Dressing (QC): 4 (SBA, increased time, cues for positioning (continues to place BLE in one hole of pants, places breifs on backward)) On/Off Footwear: 6 Toileting Hygiene (QC): 4 (SBA) Toilet Transfer (QC): 4 (CGA) Other Treatment Pt sit to stands with CGA. Pt denies dizziness at stance. Pt ambulates to bathroom, completing toileting/ LB dressing tasks. Pt completes hand hygiene, denying oral care at sink. Decreased balance in stance at sink, reaching/ grabbing for sink and requires min A for righting 2x. Pt denies dizziness, unable to be redirected to attend to body position as he continues to converse through stance. Pt ambulates back to chair CGA only. Completes footwear/ UE dressing in sit as outlined. Pt denies 02 use. Ambulates through gunderson, gathers coffee at kitchen counter. Pt requires cues for walker placement at tabletop and positioning for safety. Pt demo's decreased safety awareness in stance consistently, continues to require cues for safety during stance without UEs supported. Pt sits in chair, 02 assessed at 94-95%. Rest break, then ambulates back to room with fair safety/ CGA throughout. Pt sits, all needs met, call light in reach, pt's chair alarm on. Education OT Patient Education: Correct positioning, Progress toward Goal/Update tx plan, Purpose of tx/functional activities, Reviewed precautions, Safety issues, Transfer techniques Teaching Recipient: Patient Teaching Methods: Demonstration, Discussion Response to Teaching: Verbalize Understanding, Return Demonstration, Reinforcement Needed OT Short Term Goals Short Term Goals Oral hygiene: 6 Toileting hygiene: 6 Shower/bathe self: 3 Upper body dressin Lower body dressin Putting on/taking off footwear: 4 OT Small Products I Assembler Goals Detention Goals Time Frame: Apr 04, 2021 Eating (QC): 6 Oral Hygiene (QC): 6 Toileting Hygiene (QC): 6 Shower/Bathe Self (QC): 6 Upper Body Dressing (QC): 6 Lower Body Dressing (QC): 6 On/Off Footwear (QC): 6 Additional Goals: 1-Demonstrate ADL Tasks, 2-Verbalize Understanding, 3-ImproveStrength/Myah 1=Demonstrate adherence to instructed precautions during ADL tasks. 2=Patient will verbalize/demonstrate understanding of assistive devices/modifications for ADL. 3=Patient will improve strength/tolerance for activity to enable patient to perform ADL's. OT Education/Plan Problem List/Assessment Assessment: Decreased Activ Tolerance, Decreased Safety Aware, Decreased UE Strength, Dependent Transfers, Edema (dorsum of feet), Impaired Cognition, Impaired Funct Balance, Impaired I ADL's, Impaired Self-Care Skills Discharge Recommendations Plan/Recommendations: Continue POC Therapy Discharge Recommendati: Assisted Living, Post Acute OT Treatment Plan/Plan of Care Treatment,Training & Education: Yes Patient would benefit from OT for education, treatment and training to promote independence in ADL's, mobility, safety and/or upper extremity function for ADL's. Plan of Care: ADL Retraining, Caregiver Training, Functional Mobility, Group Exercise/Act as Ind, UE Funct Exercise/Act, W/C Management Training Treatment Duration: Apr 04, 2021 Frequency: At least 5 of 7 days/Wk (IRF) Estimated Hrs Per Day: 1.5 hours per day Agreement: Yes Rehab Potential: Fair Time/GCodes Start Time: 08:00 Stop Time: 09:00 Total Time Billed (hr/min): 60 Billed Treatment Time 1, ADL 3, FA (60) FELIPA LEBRON OTR Mar 30, 2021 11:20
--- NOTE | 2021-03-30 11:43 | Speech Therapy Daily Note ---
Speech Daily Progress Note Subjective Date Seen by Provider: Mar 30, 2021 Time Seen by Provider: 00:30 Patient was resting in his bed when I entered his room. Objective Patient completed memory tasks related to recent events at 90% with minimal cuing. Assessment Assessment Current Status: Good Progress Treatment Plan Continue Plan of Care Speech Short Term Goals Short Term Goals Short Term Goals 1) Patient will complete word finding tasks at 90% or greater with minimal cues. 2) patient will tolerate least restrictive diet level without s/s of aspiration at 90% or greater. 3) Patient will utilize compensatory strategies for safe oral intake as trained at 90% or greater. Speech Frozen Foods Manager Goals Frozen Foods Manager Goals 1) Patient will maintain adequate nutrition/hydration via safe effective swallow function. 2) Patient will improve cognitive-communication so that he will require less assist to complete daily tasks. Speech-Plan Patient/Family Goals Patient/Family Goals: Patient plans on returning to his home where he lives with his son. 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
--- NOTE | 2021-03-30 13:02 | Physical Therapy Daily Note ---
PT Daily Note-Current Subjective Pt agreeable. Pain rated 4/10 across anterior/lower ribs (B). Mental Status Patient Orientation: Person, Place, Situation Attachments: Oxygen O2 2 L/min portable O2. O2 in situ post therapy session per nasal canula. Transfers SCALE: Activities may be completed with or without assistive devices. 7-Qvkcpjkejz-driojan completes the activity by him/herself with no assistance from a helper. 5-Set-up or Clean-up Assistance-helper sets up or cleans up; patient completes activity. [place] assists only prior to or following the activity. 4-Supervision or Touching Assistance-helper provides verbal cues and/or touching/steadying and/or contact guard assistance as patient completes activity. Assistance may be provided throughout the activity or intermittently. 3-Partial/Moderate Assistance-helper does LESS THAN HALF the effort. [place] lifts, holds or supports trunk or limbs, but provides less than half the effort. 2-Substantial/Maximal Assistance-helper does MORE THAN HALF the effort. [place] lifts or holds trunk or limbs and provides more than half the effort. 6-Nogmjsazy-remqqu does ALL the effort. Patient does none of the effort to complete the activity. Or, the assistance of 2 or more helpers is required for the patient to complete the activity. If activity was not attempted, code reason: 7-Patient Refused. 9-Not Applicable-not attempted and the patient did not perform the activity before the current illness, exacerbation or injury. 10-Not Attempted due to Environmental Limitations-(lack of equipment, weather restraints, etc.). 88-Not Attempted due to Medical Conditions or Safety Concerns. Mod (I) with all transfers all levels. Weight Bearing Full Weight Bearing Full Weight Bearing Sternal precautions Gait Training Gait Assistive Device: FWW Pt amb with FWW and CGA, O2 at 2L/min 1 x 120', 1 x 250'. Pt requires consistent vc's to increase stride length (L) LE and maintain close proximity to walker. Exercises Supine Ex: Ankle pumps, Quad Set, Heel Slides, Short Arc Quads, Hip abd/add Supine Reps: 20 Seated Therapy Exercises: Ankle pumps, Long arc quads Seated Reps: 20 NuStep Minutes: 10 NuStep Workload: 1 Treatments Pt supine for ther ex: PROM (B) LE all planes. Pt toileted in BR mod (I) Assessment Current Status: Good Progress Pt bobby above well. Pt responds well to PROM (B) LE as he is (+) tightness in hamstrings and calves. Pt sometimes unsteady during gait and functional mobility, no emily LOB. Pt resting in bed post therapy session with call light and all needs met. PT Short Term Goals Short Term Goals Time Frame: Mar 28, 2021 Roll Left & Right: 5 Sit to lyin Lying to sitting on side of be: 5 Sit to stand: 5 Chair/lfz-qp-uhqnw transfer: 5 Toilet transfer: 4 Walk 10 feet: 4 Walk 50 feet with two turns: 4 Walk 150 feet: 4 PT Jail Goals Psychology Technician Goals PT Jail Goals Time Frame: Apr 06, 2021 Roll Left & Right (QC): 6 Sit to Lying (QC): 6 Lying-Sitting on Side/Bed(QC): 6 Sit to Stand (QC): 6 Chair/Kih-nq-Mlyzq Xfer(QC): 6 Toilet Transfer (QC): 6 Car Transfer (QC): 6 Does the Patient Walk: Yes Walk 10 feet (QC): 6 Walk 50ft with 2 Turns (QC): 6 Walk 150 ft (QC): 6 Walking 10ft on Uneven Surface: 6 1 Step (curb) (QC): 6 4 Steps (QC): 6 12 Steps (QC): 4 Picking up an Object (QC): 5 Does the Pt use WC or Scooter?: No Wheel 50 feet with 2 turns (QC: 9 Wheel 150 feet: 9 PT Plan Treatment/Plan Treatment Plan: Continue Plan of Care Treatment Plan: Bed Mobility, Education, Functional Activity Myah, Functional Strength, Group Therapy, Gait, Safety, Therapeutic Exercise, Transfers Treatment Duration: Apr 06, 2021 Frequency: At least 5 of 7 days/Wk (IRF) Estimated Hrs Per Day: 1.5 hours per day Patient and/or Family Agrees t: Yes Time/GCodes Time In: 900 Time Out: 1000 Total Billed Treatment Time: 60 Total Billed Treatment 1, ther ex 30', Gait 15', FA 15' MARY RICH CPTA Mar 30, 2021 13:02
--- NOTE | 2021-03-30 14:46 | Therapy Group Daily Note ---
Therapy Daily Group Note Patient Education Topic Home Safety, Other List Below (pain management) Exercises LE Seated Exercise, UE Exercise Session Ratio (pt:therapist): 8:2 Goal of Session: Education on ARU Expectations, Home Safety Strategies, Other (list) (pain management) Goal Met for this Session: Yes Pt Benefit of Group: Contributions to Others, F/U Use of Strategies @Home, Increased Functional Safety, Increased Functional Strength, Improved Cognition, Recognition of Peers, Socialization Other/Notes Pt ambulated using FWW to therapy gym for OT/PT group. Group consisted of introductions (name, place living, childhood memory), socialization, B UE/LE seated exercises, education of pain management and home safety activity. Pt introduced self appropriately and actively listened to peers. Pt was able to complete B UE/LE seated exercises, tolerated well. Pt acknowledged understanding of pain management education by giving personal story and strategies. Pt attended to home safety activity and answered questions appropriately. After therapy, pt lying in bed with call light/phone in reach. All needs met in room. Start Time: 13:00 Stop Time: 14:00 Total Billed Treatment Time: 60 Total Billed Treatment 1-GRP ANDRAE TAVERAS Mar 30, 2021 14:45
[2021-03-30] MEDS: RIVAROXABAN 20 MG TABLET (XARELTO) PO SCH (17:26)
[2021-03-30] MEDS: MULTIVIT W/MINERALS TAB (THERAGRAN M) PO SCH (17:26)
[2021-03-30 20:34] VITALS: BP 133/75
[2021-03-30] MEDS: TOLTERODINE LA 4 MG (DETROL) CAP PO SCH (20:44)
[2021-03-30] MEDS: MELATONIN 3 MG TABLET PO PRN (20:44)
[2021-03-30] MEDS: SIMvastatin 20 MG (ZOCOR) TAB PO SCH (20:45)
[2021-03-31] MEDS: HYDROcodone/APAP 5 MG/325 MG (LORTAB) TAB PO PRN ×2 (06:05→15:08)
[2021-03-31 07:30] VITALS: BP 145/74
[2021-03-31] MEDS: RT-ALBUTEROL/IPRATROPIUM 3 ML (DUONEB) VIAL INH SCH ×2 (08:36→18:48)
--- NOTE | 2021-03-31 08:36 | PM&R Progress Note ---
Subjective HPI/CC On Admission Date Seen by Provider: Mar 31, 2021 Time Seen by Provider: 12:45 Subjective/Events-last exam 03/31/2021: This visit is via video chat due to Covid related restriction for this provider Patient much improved today Diarrhea is prompting holding of laxatives Reports ankle pain but no edema currently Oxygen is worn on and off Dr. Serrano appointment next week 03/30/2021: This visit is via video chat due to Covid related restriction for this provider Patient having no new major issues IV iron infusion today Bowels moving well No falls Oxygen maintained 03/29/2021: This visit is via video chat due to Covid related restriction for this provider Patient having a good day Bowels moving after suppository and fleets enema Dr. Salomon will see him and he reports that he has seen him every 6 months for years No hematuria noted on urinalysis Xarelto restarted Oxygen needed on exertion 03/28/2021: This visit is via video chat due to Covid related restriction for this provider Patient doing well No pain reported O2 weaned most of the time but needs it during therapy and afterwards DC Telemetry Ink blot like issue right eye No BM yet so will increase laxatives and enemas if needed 03/27/2021: This visit is via video chat due to Covid related restriction for this provider Patient doing really well today Has no complaints Oxygen at 2 L continuous is really helped him Dr. Barnett changed Eliquis to Xarelto for lombardi Restarted aspirin and stop Plavix Has an appointment with Dr. 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 Lau is his eye doctor seen 1 year ago Oxygen at 88% placed on oxygen and he feels better Has dry eye syndrome Proton pump inhibitor twice a day maintained Bowels moved 3 days ago we will continue giving laxatives 03/24/2021: This visit is via video chat due to Covid related restriction for this provider Patient doing pretty well today IV iron initiated and oral meds given also Lasix 20 mg IV twice daily has been helpful Hemoglobin 7.9 BNP was 924 Former smoker in 2003 after his hernia surgery Left leg pain is chronic Chest x-ray was stable He had a left carotid endarterectomy [place] [address] Smith After he told me yesterday he was no longer having any color or vision problems he reports that it now it really never went away and he was having some blue lines today in his right eye so considering that I will go ahead and start Eliquis 5 mg twice daily hold the aspirin maintain Plavix but he will remain a significant bleeding risk considering his hemoglobin is already low at 7.9 Increasing Protonix to twice a day to protect against gastrointestinal bleeding Patient very complex Patient remained stable and participating in therapy Has had multiple intervention in his legs vascular mcintyre and considering the carotid ultrasound we will monitor patient closely 03/23/2021: This visit is via video chat due to Covid related restriction for this provider Extensive review of chart and conferring with Dr. Barnett cardiology and then stroke center neurologist due to MRI findings after CT scan was abnormal yesterday We will obtain carotid ultrasound but it appears that the findings on the brain likely occurred postoperatively and not due to an isolated carotid lesion and if continues will need oral anticoagulants with transesophageal echocardiogram to identify thrombus if it is present. We did review the chart and in cardiac ICU postoperatively he did have an episode of atrial fibrillation but amiodarone has been maintained since that time so we will initiate telemetry and maintain it this weekend. I did update the patient on all of these details and told him if oral anticoagulation was required with aspirin and Plavix it did place him at a bleeding risk and his hemoglobin 8.0 is a concern Very extensive issues requiring extensive research and high complexity medical decision making of [address] Barnett requested n.p.o. after Friday at midnight and may very well need to have transesophageal echocardiogram on Friday morning so I placed that in the orders Patient no longer having visual changes but I did update him on the fact if he does have a recurrence he will notify the nurse and will place him on heparin [facility] agreed no acute issues to prompt TPA or any other aggressive regimen right now Review of Systems General: Fatigue, Malaise HEENT: Visual Changes Neurological: Weakness Objective Exam Vital Signs Vital Signs Date Time Temp Pulse Resp B/P (MAP) Pulse Ox O2 Delivery O2 Flow Rate FiO2 03/31/21 08:48 Nasal Cannula 2.00 03/31/21 08:36 98 03/31/21 07:30 36.5 73 22 145/74 (97) 03/28/21 06:57 2 Capillary Refill : General Appearance: No Apparent Distress, WD/WN, Chronically ill HEENT: PERRL/EOMI, Moist Mucous Membranes; No Scleral Icterus (L), No Scleral Icterus (R) Neck: Normal Inspection, Supple Respiratory: Lungs Clear, No Accessory Muscle Use, No Respiratory Distress Cardiovascular: Regular Rate, Rhythm, No JVD, Systolic Murmur, Other (midline scar, ) Gastrointestinal: Normal Bowel Sounds, Soft Extremity: Normal Inspection, No Pedal Edema Neurologic/Psychiatric: Alert, Oriented x3, Normal Mood/Affect Skin: Normal Color, Warm/Dry Results/Procedures Lab Patient resulted labs reviewed. FIM Transfers Therapy Code Descriptions/Definitions Functional [place] Measure: 0=Not Assessed/NA 4=Minimal Assistance 1=Total Assistance 5=Supervision or Setup 2=Maximal Assistance 6=Modified [place] 3=Moderate Assistance 7=Complete IndependenceSCALE: Activities may be completed with or without assistive devices. 1-Yhernoifse-gvfeaag completes the activity by him/herself with no assistance from a helper. 5-Set-up or Clean-up Assistance-helper sets up or cleans up; patient completes activity. [place] assists only prior to or following the activity. 4-Supervision or Touching Assistance-helper provides verbal cues and/or touching/steadying and/or contact guard assistance as patient completes activity. Assistance may be provided throughout the activity or intermittently. 3-Partial/Moderate Assistance-helper does LESS THAN HALF the effort. [place] lifts, holds or supports trunk or limbs, but provides less than half the effort. 2-Substantial/Maximal Assistance-helper does MORE THAN HALF the effort. [place] lifts or holds trunk or limbs and provides more than half the effort. 4-Rdaqxnfwv-rwefzi does ALL the effort. Patient does none of the effort to complete the activity. Or, the assistance of 2 or more helpers is required for the patient to complete the activity. If activity was not attempted, code reason: 7-Patient Refused. 9-Not Applicable-not attempted and the patient did not perform the activity bef ore the current illness, exacerbation or injury. 10-Not Attempted due to Environmental Limitations-(lack of equipment, weather r estraints, etc.). 88-Not Attempted due to Medical Conditions or Safety Concerns. Roll Left to Right (QC): 6 Sit to Lying (QC): 6 Sit to Stand (QC): 4 Chair/Drj-im-Qyajb Xfer(QC): 4 Car Transfer (QC): 3 (min assist with legs; skilled cues to sequence) Gait Training Does the Patient Walk?: Yes Distance: 150' x2 Walk 10 feet (QC): 4 Walk 50 ft with 2 Turns(QC): 4 Walk 150 ft (QC): 4 Walking 10ft/uneven surface-QC: 3 Gait Persons Needed: 1 Gait Assistive Device: FWW Wheelchair Training Does the Pt Use a Wheelchair?: No Wheel 50 ft with 2 turns (QC): 9 Wheel 150 ft (QC): 9 Stair Training 1 Step (curb) (QC): 3 (min assist and skilled cues for sequencing. ) 4 Steps (QC): 88 12 Steps (QC): 88 Balance Picking up an Object (QC): 3 ADL-Treatment Eating (QC): 6 Oral Hygiene (QC): 7 Bathing Location: L Arm, R Arm, L Upper Leg, R Upper Leg, L Lower Leg (including foot), R Lower Leg (including foot), Chest, Abdomen, Buttocks, Perineal Area Shower/Bathe Self (QC): 7 Upper Body Dressing (QC): 4 (SBA and cues, pt attempts to place shirt on backwards.) Lower Body Dressing (QC): 4 (SBA, increased time, cues for positioning (continues to place BLE in one hole of pants, places breifs on backward)) On/Off Footwear (QC): 6 Toileting Hygiene (QC): 4 (SBA) Toilet Transfer (QC): 4 (CGA) Assessment/Plan Assessment and Plan Assess & Plan/Chief Complaint Assessment: Debility from CABG of 4 vessels at [facility] Subacute strokes bilateral cerebellar hemispheres consistent with post operative findings with vision changes on 03/22/[address] scan and MRI status post conversation with stroke center neurologist expert and Dr. Matti Barnett cardiology placing on telemetry no indication for OAC or TPA Postoperative anemia asymptomatic recheck today 8.0 placed on oral iron Previous carotid endarterectomy left side in 2014 Episode of atrial fibrillation in cardiac ICU postoperatively now on Coreg after amiodarone discontinued Pleural effusions GERD Overactive bladder Chronic kidney disease stage II Carotid artery endarterectomy history Hypertension Hyperlipidemia Peripheral vascular disease of the leg status post interventions in the past Plan: Plavix and aspirin Press Operator [place] for visual changes if that should occur he needs heparin and transesophageal echocardiogram for thrombus Aggressive therapy per protocol 03/24/2021: Hold aspirin and add Eliquis 5 mg twice daily maintain Plavix Increase Protonix to twice a day to minimize gastrointestinal bleeding risk Monitor hemoglobin closely Iron infusion with oral supplement 03/25/2021: Maintain Eliquis and Plavix Supportive care Continue monitoring vision changes 03/26/21: OAC per Dr Barnett Monitor closely Dr Serrano appt Wed? 03/27/2021: Xarelto and DC Eliquis DC Plavix restart aspirin Dr. Serrano cardiology appointment next week 03/28/21: DC early next week Monitor vision changes OAC with ASA 03/29/2021: Monitor for hematuria Restart oral anticoagulation 03/30/2021: Monitor blood pressure Monitor vision loss Oral anticoagulant with aspirin 03/31/2021: Monitor closely Maintain Xarelto and aspirin Fall risk Oxygen maintained (1) Left atrial mass Assessment & Plan: He underwent a transesophageal echocardiogram on 03/26/2021 that showed an ill-defined mass in the left atrium. This appeared somewhat pedunculated. I spoke to his direct care professional at [facility] and he states that the patient had 2 surface echocardiograms and a transesophageal echocardiogram during surgery and from what he could gather, none of these identified an atrial mass. 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 As such, I have started him on oral anticoagulation. I initially started him on Eliquis. This can be somewhat costly. I will change him over to Xarelto which he can obtain from [facility] pharmacy for $12 for 90 days through the 430B plan. He had an appointment to see his direct care professional in [place] tomorrow. I will place a nursing order to change this to next week. (2) Cerebrovascular accident (CVA) Assessment & Plan: No recurrent neurologic complaints. I reviewed his telemetry and there has been no evidence of atrial fibrillation. Based upon the findings from the transesophageal echocardiogram, it is quite possible that he had left atrial thrombus that may have caused this embolic appearing stroke. I will change his anticoagulation from aspirin and clopidogrel over to aspirin and rivaroxaban. 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 He continues to work with physical therapy on our inpatient rehabilitation unit. Continue present guideline directed medical therapy. As above, I have changed his aspirin and clopidogrel over to rivaroxaban and aspirin. (4) Pleural effusion Assessment & Plan: The effusions are small and do not require thoracentesis. These should gradually resolve over the next 4-6 weeks. Primary hospitalist placed him on IV Lasix once a day which should help clear the effusions. He has a normal ejection fraction and as such, I suspect he will not need to be discharged with diuretics. (5) Essential (primary) hypertension Assessment & Plan: Blood pressures have been improving. Continue present medication. (6) Atherosclerosis of both carotid arteries Assessment & Plan: He had a previous carotid endarterectomy. I suspect the carotid disease had anything to do with his recent cerebrovascular accident since there were multiple ischemic changes in several vascular territories. (7) Mixed hyperlipidemia Assessment & Plan: Continue simvastatin. (8) Peripheral arterial disease Assessment & Plan: He has not been having any claudication. He had previous interventions on the left leg. I will be adjusting his antiplatelet/antithro mbotic regimen as above. There is actually some good data showing that rivaroxaban can help reduce peripheral vascular events albeit at a lower dose than he will be prescribed. Physical therapy should also help with this condition. DAHLIA GAMING DO Mar 31, 2021 08:36
[2021-03-31] MEDS: DIVALPROEX 500 MG DELAYED RELEASE (DEPAKOTE) TAB PO SCH ×2 (09:07→21:05)
[2021-03-31] MEDS: ASPIRIN 81 MG CHEW (CHILDREN'S ASA) PO SCH (09:08)
[2021-03-31] MEDS: ETODOLAC 200 MG (LODINE) CAP PO SCH ×2 (09:08→17:54)
[2021-03-31] MEDS: FUROSEMIDE 20 MG (LASIX) TAB PO SCH (09:08)
[2021-03-31] MEDS: DOCUSATE SODIUM 100 MG (COLACE) CAP PO SCH (09:09)
[2021-03-31] MEDS: PANTOPRAZOLE 40 MG (PROTONIX) TAB PO SCH ×2 (09:09→21:05)
[2021-03-31] MEDS: polyethylene glycoL POWDER 17 GM (MIRALAX) PACK PO SCH (09:09)
[2021-03-31] MEDS: SENNA W/DOCUSATE (SENOKOT S) TABLET PO SCH (09:09)
--- NOTE | 2021-03-31 13:16 | Physical Therapy Daily Note ---
PT Daily Note-Current Subjective Pt up in chair, agreeable. Reports (L) hip "is grinding"; pain not rated but notified nursing of request for pain meds. Mental Status Patient Orientation: Person, Place, Time, Situation Attachments: Oxygen Transfers SCALE: Activities may be completed with or without assistive devices. 4-Jjzwwrwsnw-hepbmvn completes the activity by him/herself with no assistance from a helper. 5-Set-up or Clean-up Assistance-helper sets up or cleans up; patient completes activity. [place] assists only prior to or following the activity. 4-Supervision or Touching Assistance-helper provides verbal cues and/or touching/steadying and/or contact guard assistance as patient completes activity. Assistance may be provided throughout the activity or intermittently. 3-Partial/Moderate Assistance-helper does LESS THAN HALF the effort. [place] lifts, holds or supports trunk or limbs, but provides less than half the effort. 2-Substantial/Maximal Assistance-helper does MORE THAN HALF the effort. [place] lifts or holds trunk or limbs and provides more than half the effort. 9-Bzflvyakw-qfxifd does ALL the effort. Patient does none of the effort to complete the activity. Or, the assistance of 2 or more helpers is required for the patient to complete the activity. If activity was not attempted, code reason: 7-Patient Refused. 9-Not Applicable-not attempted and the patient did not perform the activity before the current illness, exacerbation or injury. 10-Not Attempted due to Environmental Limitations-(lack of equipment, weather restraints, etc.). 88-Not Attempted due to Medical Conditions or Safety Concerns. Sit to Stand (QC): 5 Weight Bearing Right Lower Extremity: Right Full Weight Bearing Left Lower Extremity: Left Full Weight Bearing Sternal precautions Gait Training Does the Patient Walk?: Yes Distance: 250 Walk 10 feet (QC): 5 Walk 50 ft with 2 Turns(QC): 5 Walk 150 ft (QC): 5 Gait Persons Needed: 1 Gait Assistive Device: FWW Pt ambulates with slow, shuffling gait with narrow [place] but no emily LOB. VCS for posture, attention to task. Wheelchair Training Does the Pt Use a Wheelchair?: No Treatments Gait training with FWW. Returned to up in chair with alarm activated, O2 in situ Assessment Current Status: Good Progress Pt tolerated well. Good functional activity tolerance, SBA for safety PT Short Term Goals Short Term Goals Time Frame: Mar 28, 2021 Roll Left & Right: 5 Sit to lyin Lying to sitting on side of be: 5 Sit to stand: 5 Chair/fld-ga-nvggi transfer: 5 Toilet transfer: 4 Walk 10 feet: 4 Walk 50 feet with two turns: 4 Walk 150 feet: 4 PT Mcc Goals Mcc Goals PT International Account Manager Goals Time Frame: Apr 06, 2021 Roll Left & Right (QC): 6 Sit to Lying (QC): 6 Lying-Sitting on Side/Bed(QC): 6 Sit to Stand (QC): 6 Chair/Bha-ef-Dmzkl Xfer(QC): 6 Toilet Transfer (QC): 6 Car Transfer (QC): 6 Does the Patient Walk: Yes Walk 10 feet (QC): 6 Walk 50ft with 2 Turns (QC): 6 Walk 150 ft (QC): 6 Walking 10ft on Uneven Surface: 6 1 Step (curb) (QC): 6 4 Steps (QC): 6 12 Steps (QC): 4 Picking up an Object (QC): 5 Does the Pt use WC or Scooter?: No Wheel 50 feet with 2 turns (QC: 9 Wheel 150 feet: 9 PT Plan Problem List Problem List: Activity Tolerance, Functional Strength, Safety, Balance, Gait, T jorge, Bed Mobility Treatment/Plan Treatment Plan: Continue Plan of Care Treatment Plan: Bed Mobility, Education, Functional Activity Myah, Functional Strength, Group Therapy, Gait, Safety, Therapeutic Exercise, Transfers Treatment Duration: Apr 06, 2021 Frequency: At least 5 of 7 days/Wk (IRF) Estimated Hrs Per Day: 1.5 hours per day Patient and/or Family Agrees t: Yes Time/GCodes Time In: 1228 Time Out: 1251 Total Billed Treatment Time: 23 Total Billed Treatment 1, GT x 23' SAUL GRANDA DPEdwige Mar 31, 2021 13:16
[2021-03-31] MEDS ORDERED: SENNA W/DOCUSATE (SENOKOT S) TABLET PO PRN (16:30)
[2021-03-31] MEDS ORDERED: polyethylene glycoL POWDER 17 GM (MIRALAX) PACK PO PRN (16:30)
[2021-03-31] MEDS: ACETAMINOPHEN 325 MG TABLET PO PRN (16:38)
[2021-03-31] MEDS: MULTIVIT W/MINERALS TAB (THERAGRAN M) PO SCH (17:54)
[2021-03-31] MEDS: RIVAROXABAN 20 MG TABLET (XARELTO) PO SCH (17:54)
[2021-03-31] MEDS: CALCIUM CARBONATE 500 MG (TUMS) TAB.CHEW PO PRN (19:52)
[2021-03-31 20:00] VITALS: BP 139/66
[2021-03-31] MEDS: SIMvastatin 20 MG (ZOCOR) TAB PO SCH (21:05)
[2021-03-31] MEDS: MELATONIN 3 MG TABLET PO PRN (21:05)
[2021-03-31] MEDS: TOLTERODINE LA 4 MG (DETROL) CAP PO SCH (21:05)
--- NOTE | 2021-04-01 07:00 | PM&R Progress Note ---
Subjective HPI/CC On Admission Date Seen by Provider: Apr 01, 2021 Time Seen by Provider: 10:00 Subjective/Events-last exam 04/01/2021: Patient doing pretty well Down to 1 L of oxygen currently Edema much improved with BATSHEVA hose IV iron infusion fourth dose today 3 bowel movements today and holding laxatives 03/31/2021: This visit is via video chat due to Covid related restriction for this provider Patient much improved today Diarrhea is prompting holding of laxatives Reports ankle pain but no edema currently Oxygen is worn on and off Dr. Serrano appointment next week 03/30/2021: This visit is via video chat due to Covid related restriction for this provider Patient having no new major issues IV iron infusion today Bowels moving well No falls Oxygen maintained 03/29/2021: This visit is via video chat due to Covid related restriction for this provider Patient having a good day Bowels moving after suppository and fleets enema Dr. Salomon will see him and he reports that he has seen him every 6 months for years No hematuria noted on urinalysis Xarelto restarted Oxygen needed on exertion 03/28/2021: This visit is via video chat due to Covid related restriction for this provider Patient doing well No pain reported O2 weaned most of the time but needs it during therapy and afterwards DC Telemetry Ink blot like issue right eye No BM yet so will increase laxatives and enemas if needed 03/27/2021: This visit is via video chat due to Covid related restriction for this provider Patient doing really well today Has no complaints Oxygen at 2 L continuous is really helped him Dr. Barnett changed Eliquis to Xarelto for lombardi Restarted aspirin and stop Plavix Has an appointment with Dr. 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 Lau is his eye doctor seen 1 year ago Oxygen at 88% placed on oxygen and he feels better Has dry eye syndrome Proton pump inhibitor twice a day maintained Bowels moved 3 days ago we will continue giving laxatives 03/24/2021: This visit is via video chat due to Covid related restriction for this provider Patient doing pretty well today IV iron initiated and oral meds given also Lasix 20 mg IV twice daily has been helpful Hemoglobin 7.9 BNP was 924 Former smoker in 2003 after his hernia surgery Left leg pain is chronic Chest x-ray was stable He had a left carotid endarterectomy [place] [address] Smith After he told me yesterday he was no longer having any color or vision problems he reports that it now it really never went away and he was having some blue lines today in his right eye so considering that I will go ahead and start Eliquis 5 mg twice daily hold the aspirin maintain Plavix but he will remain a significant bleeding risk considering his hemoglobin is already low at 7.9 Increasing Protonix to twice a day to protect against gastrointestinal bleeding Patient very complex Patient remained stable and participating in therapy Has had multiple intervention in his legs vascular mcintyre and considering the carotid ultrasound we will monitor patient closely 03/23/2021: This visit is via video chat due to Covid related restriction for this provider Extensive review of chart and conferring with Dr. Barnett cardiology and then stroke center neurologist due to MRI findings after CT scan was abnormal yesterday We will obtain carotid ultrasound but it appears that the findings on the brain likely occurred postoperatively and not due to an isolated carotid lesion and if continues will need oral anticoagulants with transesophageal echocardiogram to identify thrombus if it is present. We did review the chart and in cardiac ICU postoperatively he did have an episode of atrial fibrillation but amiodarone has been maintained since that time so we will initiate telemetry and maintain it this weekend. I did update the patient on all of these details and told him if oral anticoa gulation was required with aspirin and Plavix it did place him at a bleeding risk and his hemoglobin 8.0 is a concern Very extensive issues requiring extensive research and high complexity medical decision making of [address] Barnett requested n.p.o. after Friday at midnight and may very well need to have transesophageal echocardiogram on Friday morning so I placed that in the orders Patient no longer having visual changes but I did update him on the fact if he does have a recurrence he will notify the nurse and will place him on heparin [facility] agreed no acute issues to prompt TPA or any other aggressive regimen right now Review of Systems General: Fatigue Gastrointestinal: Diarrhea Objective Exam Vital Signs Vital Signs Date Time Temp Pulse Resp B/P (MAP) Pulse Ox O2 Delivery O2 Flow Rate FiO2 04/01/21 20:35 93 Nasal Cannula 2.00 04/01/21 20:15 36.4 74 14 140/63 (88) 03/28/21 06:57 2 Capillary Refill : General Appearance: No Apparent Distress, WD/WN, Chronically ill HEENT: PERRL/EOMI, Moist Mucous Membranes; No Scleral Icterus (L), No Scleral Icterus (R) Neck: Normal Inspection, Supple Respiratory: Lungs Clear, No Accessory Muscle Use, No Respiratory Distress Cardiovascular: Regular Rate, Rhythm, No JVD, Systolic Murmur, Other (midline scar, ) Gastrointestinal: Normal Bowel Sounds, Soft Extremity: Normal Inspection, No Pedal Edema Neurologic/Psychiatric: Alert, Oriented x3, Normal 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 FIM Transfers Therapy Code Descriptions/Definitions Functional Boomer Measure: 0=Not Assessed/NA 4=Minimal Assistance 1=Total Assistance 5=Supervision or Setup 2=Maximal Assistance 6=Modified Boomer 3=Moderate Assistance 7=Complete IndependenceSCALE: Activities may be completed with or without assistive devices. 9-Wdtxvmlejm-suvrnfr completes the activity by him/herself with no assistance from a helper. 5-Set-up or Clean-up Assistance-helper sets up or cleans up; patient completes activity. [place] assists only prior to or following the activity. 4-Supervision or Touching Assistance-helper provides verbal cues and/or touching/steadying and/or contact guard assistance as patient completes activity. Assistance may be provided throughout the activity or intermittently. 3-Partial/Moderate Assistance-helper does LESS THAN HALF the effort. [place] lifts, holds or supports trunk or limbs, but provides less than half the effort. 2-Substantial/Maximal Assistance-helper does MORE THAN HALF the effort. [place] lifts or holds trunk or limbs and provides more than half the effort. 1-Arriuevkh-iqjyjm does ALL the effort. Patient does none of the effort to complete the activity. Or, the assistance of 2 or more helpers is required for the patient to complete the activity. If activity was not attempted, code reason: 7-Patient Refused. 9-Not Applicable-not attempted and the patient did not perform the activity before the current illness, exacerbation or injury. 10-Not Attempted due to Environmental Limitations-(lack of equipment, weather restraints, etc.). 88-Not Attempted due to Medical Conditions or Safety Concerns. Roll Left to Right (QC): 6 Sit to Lying (QC): 6 Sit to Stand (QC): 5 Chair/Bef-wh-Vyqes Xfer(QC): 4 Car Transfer (QC): 3 (min assist with legs; skilled cues to sequence) Gait Training Does the Patient Walk?: Yes Distance: 250 Walk 10 feet (QC): 5 Walk 50 ft with 2 Turns(QC): 5 Walk 150 ft (QC): 5 Walking 10ft/uneven surface-QC: 3 Gait Persons Needed: 1 Gait Assistive Device: FWW Wheelchair Training Does the Pt Use a Wheelchair?: No Wheel 50 ft with 2 turns (QC): 9 Wheel 150 ft (QC): 9 Stair Training 1 Step (curb) (QC): 3 (min assist and skilled cues for sequencing. ) 4 Steps (QC): 88 12 Steps (QC): 88 Balance Picking up an Object (QC): 3 ADL-Treatment Eating (QC): 6 Oral Hygiene (QC): 7 Bathing Location: L Arm, R Arm, L Upper Leg, R Upper Leg, L Lower Leg (including foot), R Lower Leg (including foot), Chest, Abdomen, Buttocks, Perineal Area Shower/Bathe Self (QC): 7 Upper Body Dressing (QC): 4 (SBA and cues, pt attempts to place shirt on backwards.) Lower Body Dressing (QC): 4 (SBA, increased time, cues for positioning (continues to place BLE in one hole of pants, places breifs on backward)) On/Off Footwear (QC): 6 Toileting Hygiene (QC): 4 (SBA) Toilet Transfer (QC): 4 (CGA) Assessment/Plan Assessment and Plan Assess & Plan/Chief Complaint Assessment: Debility from CABG of 4 vessels at [facility] Subacute strokes bilateral cerebellar hemispheres consistent with post operative findings with vision changes on 03/22/[address] scan and MRI status post conversation with stroke center neurologist expert and Dr. 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 03/27/2021: Xarelto and DC Eliquis DC Plavix restart aspirin Dr. Serrano cardiology appointment next week 03/28/21: DC early next week Monitor vision changes OAC with ASA 03/29/2021: Monitor for hematuria Restart oral anticoagulation 03/30/2021: Monitor blood pressure Monitor vision loss Oral anticoagulant with aspirin 03/31/2021: Monitor closely Maintain Xarelto and aspirin Fall risk Oxygen maintained 04/01/2021: Wean oxygen Monitor closely (1) Left atrial mass Assessment & Plan: He underwent a transesophageal echocardiogram on 03/26/2021 that showed an ill-defined mass in the left atrium. This appeared somewhat pedunculated. I spoke to his fishing reel assembler at [facility] and he states that the patient had 2 surface echocardiograms and a transesophageal echocardiogram during surgery and from what he could gather, none of these identified an atrial mass. 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 As such, I have started him on oral anticoagulation. I initially started him on Eliquis. This can be somewhat costly. I will change him over to Xarelto which he can obtain from [facility]'s pharmacy for $12 for 90 days through the 430B plan. He had an appointment to see his fishing reel assembler in [place] tomorrow. I will place a nursing order to change this to next week. (2) Cerebrovascular accident (CVA) Assessment & Plan: No recurrent neurologic complaints. I reviewed his telemetry and there has been no evidence of atrial fibrillation. Based upon the findings from the transesophageal echocardiogram, it is quite possible that he had left atrial thrombus that may have caused this embolic appearing stroke. I will change his anticoagulation from aspirin and clopidogrel over to aspirin and rivaroxaban. 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 He continues to work with physical therapy on our inpatient rehabilitation unit. Continue present guideline directed medical therapy. As above, I have changed his aspirin and clopidogrel over to rivaroxaban and aspirin. (4) Pleural effusion Assessment & Plan: The effusions are small and do not require thoracentesis. These should gradually resolve over the next 4-6 weeks. Primary hospitalist placed him on IV Lasix once a day which should help clear the effusions. He has a normal ejection fraction and as such, I suspect he will not need to be discharged with diuretics. (5) Essential (primary) hypertension Assessment & Plan: Blood pressures have been improving. Continue present medication. (6) Atherosclerosis of both carotid arteries Assessment & Plan: He had a previous carotid endarterectomy. I suspect the carotid disease had anything to do with his recent cerebrovascular accident since there were multiple ischemic changes in several vascular territories. (7) Mixed hyperlipidemia Assessment & Plan: Continue simvastatin. (8) Peripheral arterial disease Assessment & Plan: He has not been having any claudication. He had previous interventions on the left leg. I will be adjusting his antiplatelet/antithrombotic regimen as above. There is actually some good data showing that rivaroxaban can help reduce peripheral vascular events albeit at a lower dose than he will be prescribed. Physical therapy should also help with this condition. DAHLIA GAMING DO Apr 01, 2021 07:00
[2021-04-01 07:30] VITALS: BP 140/75
[2021-04-01] MEDS: DIVALPROEX 500 MG DELAYED RELEASE (DEPAKOTE) TAB PO SCH ×2 (08:41→20:32)
[2021-04-01] MEDS: ETODOLAC 200 MG (LODINE) CAP PO SCH ×2 (08:41→17:34)
[2021-04-01] MEDS: PANTOPRAZOLE 40 MG (PROTONIX) TAB PO SCH ×2 (08:42→20:32)
[2021-04-01] MEDS: ASPIRIN 81 MG CHEW (CHILDREN'S ASA) PO SCH (08:42)
[2021-04-01] MEDS: FUROSEMIDE 20 MG (LASIX) TAB PO SCH (08:42)
[2021-04-01] MEDS: IRON SUCROSE 200 MG/10 ML (VENOFER) VIAL IV SCH (08:46)
[2021-04-01] MEDS: RT-ALBUTEROL/IPRATROPIUM 3 ML (DUONEB) VIAL INH SCH ×2 (09:29→19:02)
[2021-04-01] MEDS: HYDROcodone/APAP 5 MG/325 MG (LORTAB) TAB PO PRN ×2 (12:18→20:32)
[2021-04-01] MEDS: MULTIVIT W/MINERALS TAB (THERAGRAN M) PO SCH (17:34)
[2021-04-01] MEDS: RIVAROXABAN 20 MG TABLET (XARELTO) PO SCH (17:34)
[2021-04-01 20:15] VITALS: BP 140/63
[2021-04-01] MEDS: TOLTERODINE LA 4 MG (DETROL) CAP PO SCH (20:32)
[2021-04-01] MEDS: MELATONIN 3 MG TABLET PO PRN (20:32)
[2021-04-01] MEDS: SIMvastatin 20 MG (ZOCOR) TAB PO SCH (20:33)
--- NOTE | 2021-04-02 06:00 | PM&R Progress Note ---
Subjective HPI/CC On Admission Date Seen by Provider: Apr 02, 2021 Time Seen by Provider: 09:00 Subjective/Events-last exam 04/02/2021: Pt doing pretty well Room air with out oxygen now except for at night Bowels moved yesterday Hgb good at 9.3 04/01/2021: Patient doing pretty well Down to 1 L of oxygen currently Edema much improved with BATSHEVA hose IV iron infusion fourth dose today 3 bowel movements today and holding laxatives 03/31/2021: This visit is via video chat due to Covid related restriction for this provider Patient much improved today Diarrhea is prompting holding of laxatives Reports ankle pain but no edema currently Oxygen is worn on and off Dr. Serrano appointment next week 03/30/2021: This visit is via video chat due to Covid related restriction for this provider Patient having no new major issues IV iron infusion today Bowels moving well No falls Oxygen maintained 03/29/2021: This visit is via video chat due to Covid related restriction for this provider Patient having a good day Bowels moving after suppository and fleets enema Dr. Salomon will see him and he reports that he has seen him every 6 months for years No hematuria noted on urinalysis Xarelto restarted Oxygen needed on exertion 03/28/2021: This visit is via video chat due to Covid related restriction for this provider Patient doing well No pain reported O2 weaned most of the time but needs it during therapy and afterwards DC Telemetry Ink blot like issue right eye No BM yet so will increase laxatives and enemas if needed 03/27/2021: This visit is via video chat due to Covid related restriction for this provider Patient doing really well today Has no complaints Oxygen at 2 L continuous is really helped him Dr. Barnett changed Eliquis to Xarelto for lombardi Restarted aspirin and stop Plavix Has an appointment with Dr. 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 Lau is his eye doctor seen 1 year ago Oxygen at 88% placed on oxygen and he feels better Has dry eye syndrome Proton pump inhibitor twice a day maintained Bowels moved 3 days ago we will continue giving laxatives 03/24/2021: This visit is via video chat due to Covid related restriction for this provider Patient doing pretty well today IV iron initiated and oral meds given also Lasix 20 mg IV twice daily has been helpful Hemoglobin 7.9 BNP was 924 Former smoker in 2003 after his hernia surgery Left leg pain is chronic Chest x-ray was stable He had a left carotid endarterectomy [place] [address] Smith After he told me yesterday he was no longer having any color or vision problems he reports that it now it really never went away and he was having some blue lines today in his right eye so considering that I will go ahead and start Eliquis 5 mg twice daily hold the aspirin maintain Plavix but he will remain a significant bleeding risk considering his hemoglobin is already low at 7.9 Increasing Protonix to twice a day to protect against gastrointestinal bleeding Patient very complex Patient remained stable and participating in therapy Has had multiple intervention in his legs vascular mcintyre and considering the carotid ultrasound we will monitor patient closely 03/23/2021: This visit is via video chat due to Covid related restriction for this provider Extensive review of chart and conferring with Dr. Barnett cardiology and then stroke center neurologist due to MRI findings after CT scan was abnormal yes terday We will obtain carotid ultrasound but it appears that the findings on the brain likely occurred postoperatively and not due to an isolated carotid lesion and if continues will need oral anticoagulants with transesophageal echocardiogram to identify thrombus if it is present. We did review the chart and in cardiac ICU postoperatively he did have an episode of atrial fibrillation but amiodarone has been maintained since that time so we will initiate telemetry and maintain it this weekend. I did update the patient on all of these details and told him if oral anticoagulation was required with aspirin and Plavix it did place him at a bleeding risk and his hemoglobin 8.0 is a concern Very extensive issues requiring extensive research and high complexity medical decision making of [address] Barnett requested n.p.o. after Friday at midnight and may very well need to have transesophageal echocardiogram on Friday morning so I placed that in the orders Patient no longer having visual changes but I did update him on the fact if he does have a recurrence he will notify the nurse and will place him on heparin [facility] agreed no acute issues to prompt TPA or any other aggressive regimen right now Review of Systems General: Fatigue, Malaise Neurological: Weakness Objective Exam Vital Signs Vital Signs Date Time Temp Pulse Resp B/P (MAP) Pulse Ox O2 Delivery O2 Flow Rate FiO2 04/02/21 21:00 Nasal Cannula 2.00 04/02/21 20:00 36.4 76 16 119/58 (78) 97 03/28/21 06:57 2 Capillary Refill : General Appearance: No Apparent Distress, WD/WN, Chronically ill HEENT: PERRL/EOMI, Moist Mucous Membranes; No Scleral Icterus (L), No Scleral Icterus (R) Neck: Normal Inspection, Supple Respiratory: Lungs Clear, No Accessory Muscle Use, No Respiratory Distress Cardiovascular: Regular Rate, Rhythm, No JVD, Systolic Murmur, Other (midline scar, ) Gastrointestinal: Normal Bowel Sounds, Soft Extremity: Normal Inspection, No Pedal Edema Neurologic/Psychiatric: Alert, Oriented x3, Normal 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 FIM Transfers Therapy Code Descriptions/Definitions Functional [place] Measure: 0=Not Assessed/NA 4=Minimal Assistance 1=Total Assistance 5=Supervision or Setup 2=Maximal Assistance 6=Modified [place] 3=Moderate Assistance 7=Complete IndependenceSCALE: Activities may be completed with or without assistive devices. 4-Dfoyzeykdl-uzofnbb completes the activity by him/herself with no assistance from a helper. 5-Set-up or Clean-up Assistance-helper sets up or cleans up; patient completes activity. [place] assists only prior to or following the activity. 4-Supervision or Touching Assistance-helper provides verbal cues and/or touching/steadying and/or contact guard assistance as patient completes activity. Assistance may be provided throughout the activity or intermittently. 3-Partial/Moderate Assistance-helper does LESS THAN HALF the effort. [place] lifts, holds or supports trunk or limbs, but provides less than half the effort. 2-Substantial/Maximal Assistance-helper does MORE THAN HALF the effort. [place] lifts or holds trunk or limbs and provides more than half the effort. 6-Jaysgiacm-ykuidh does ALL the effort. Patient does none of the effort to complete the activity. Or, the assistance of 2 or more helpers is required for the patient to complete the activity. If activity was not attempted, code reason: 7-Patient Refused. 9-Not Applicable-not attempted and the patient did not perform the activity before the current illness, exacerbation or injury. 10-Not Attempted due to Environmental Limitations-(lack of equipment, weather restraints, etc.). 88-Not Attempted due to Medical Conditions or Safety Concerns. Roll Left to Right (QC): 6 Sit to Lying (QC): 6 Sit to Stand (QC): 5 Chair/Epg-fh-Dqsiu Xfer(QC): 4 Car Transfer (QC): 3 (min assist with legs; skilled cues to sequence) Gait Training Does the Patient Walk?: Yes Distance: 250 Walk 10 feet (QC): 5 Walk 50 ft with 2 Turns(QC): 5 Walk 150 ft (QC): 5 Walking 10ft/uneven surface-QC: 3 Gait Persons Needed: 1 Gait Assistive Device: FWW Wheelchair Training Does the Pt Use a Wheelchair?: No Wheel 50 ft with 2 turns (QC): 9 Wheel 150 ft (QC): 9 Stair Training 1 Step (curb) (QC): 3 (min assist and skilled cues for sequencing. ) 4 Steps (QC): 88 12 Steps (QC): 88 Balance Picking up an Object (QC): 3 ADL-Treatment Eating (QC): 6 Oral Hygiene (QC): 7 Bathing Location: L Arm, R Arm, L Upper Leg, R Upper Leg, L Lower Leg (including foot), R Lower Leg (including foot), Chest, Abdomen, Buttocks, Pe rineal Area Shower/Bathe Self (QC): 7 Upper Body Dressing (QC): 4 (SBA and cues, pt attempts to place shirt on backwards.) Lower Body Dressing (QC): 4 (SBA, increased time, cues for positioning (continues to place BLE in one hole of pants, places breifs on backward)) On/Off Footwear (QC): 6 Toileting Hygiene (QC): 4 (SBA) Toilet Transfer (QC): 4 (CGA) Assessment/Plan Assessment and Plan Assess & Plan/Chief Complaint Assessment: Debility from CABG of 4 vessels at [facility] Subacute strokes bilateral cerebellar hemispheres consistent with post operative findings with vision changes on 03/22/[address] scan and MRI status post conversation with stroke center neurologist expert and Dr. Matti Barnett car diology placing on telemetry no indication for OAC or TPA Postoperative anemia asymptomatic recheck today 8.0 placed on oral iron Previous carotid endarterectomy left side in 2014 Episode of atrial fibrillation in cardiac ICU postoperatively now on Coreg after amiodarone discontinued Pleural effusions GERD Overactive bladder Chronic kidney disease stage II Carotid artery endarterectomy history Hypertension Hyperlipidemia Peripheral vascular disease of the leg status post interventions in the past Plan: Plavix and aspirin Emg Technician for visual changes if that should occur he needs heparin and transesophageal echocardiogram for thrombus Aggressive therapy per protocol 03/24/2021: Hold aspirin and add Eliquis 5 mg twice daily maintain Plavix Increase Protonix to twice a day to minimize gastrointestinal bleeding risk Monitor hemoglobin closely Iron infusion with oral supplement 03/25/2021: Maintain Eliquis and Plavix Supportive care Continue monitoring vision changes 03/26/21: OAC per Dr Barnett Monitor closely Dr Serrano appt Wed? 03/27/2021: Xarelto and DC Eliquis DC Plavix restart aspirin Dr. Serrano cardiology appointment next week 03/28/21: DC early next week Monitor vision changes OAC with ASA 03/29/2021: Monitor for hematuria Restart oral anticoagulation 03/30/2021: Monitor blood pressure Monitor vision loss Oral anticoagulant with aspirin 03/31/2021: Monitor closely Maintain Xarelto and aspirin Fall risk Oxygen maintained 04/01/2021: Wean oxygen Monitor closely 04/02/2021: Supportive care Oxygen wean (1) Left atrial mass Assessment & Plan: He underwent a transesophageal echocardiogram on 03/26/2021 that showed an ill-defined mass in the left atrium. This appeared somewhat pedunculated. I spoke to his natural science manager at [facility] and he states that the patient had 2 surface echocardiograms and a transesophageal ech ocardiogram during surgery and from what he could gather, none of these identified an atrial mass. 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 As such, I have started him on oral anticoagulation. I initially started him on Eliquis. This can be somewhat costly. I will change him over to Xarelto which he can obtain from [facility] for $12 for 90 days through the 430B plan. He had an appointment to see his natural science manager in [place] tomorrow. I will place a nursing order to change this to next week. (2) Cerebrovascular accident (CVA) Assessment & Plan: No recurrent neurologic complaints. I reviewed his telemetry and there has been no evidence of atrial fibrillation. Based upon the findings from the transesophageal echocardiogram, it is quite possible that he had left atrial thrombus that may have caused this embolic appearing stroke. I will change his anticoagulation from aspirin and clopidogrel over to aspirin and rivaroxaban. 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 He continues to work with physical therapy on our inpatient rehabilitation unit. Continue present guideline directed medical therapy. As above, I have changed his aspirin and clopidogrel over to rivaroxaban and aspirin. (4) Pleural effusion Assessment & Plan: The effusions are small and do not require thoracentesis. These should gradually resolve over the next 4-6 weeks. Primary hospitalist placed him on IV Lasix once a day which should help clear the effusions. He has a normal ejection fraction and as such, I suspect he will not need to be discharged with diuretics. (5) Essential (primary) hypertension Assessment & Plan: Blood pressures have been improving. Continue present medication. (6) Atherosclerosis of both carotid arteries Assessment & Plan: He had a previous carotid endarterectomy. I suspect the carotid disease had anything to do with his recent cerebrovascular accident since there were multiple ischemic changes in several vascular territories. (7) Mixed hyperlipidemia Assessment & Plan: Continue simvastatin. (8) Peripheral arterial disease Assessment & Plan: He has not been having any claudication. He had previous interventions on the left leg. I will be adjusting his antiplatelet/antithrom botic regimen as above. There is actually some good data showing that rivaroxaban can help reduce peripheral vascular events albeit at a lower dose than he will be prescribed. Physical therapy should also help with this condition. DAHLIA GAMING DO Apr 02, 2021 06:00
[2021-04-02] MEDS: HYDROcodone/APAP 5 MG/325 MG (LORTAB) TAB PO PRN ×3 (06:17→21:03)
[2021-04-02 06:34] LABS: BASOPHILS # (AUTO) 0.1 10^3/uL (0.0-0.1); BASOPHILS % (AUTO) 1 % (0-10); EOSINOPHILS # (AUTO) 0.6 10^3/uL (0.0-0.3); EOSINOPHILS % (AUTO) 6 % (0-10); HEMATOCRIT 30 % (40-54); HEMOGLOBIN 9.3 g/dL (13.3-17.7); LYMPHOCYTES # (AUTO) 1.8 10^3/uL (1.0-4.0); LYMPHOCYTES % (AUTO) 20 % (12-44); MEAN CORPUSCULAR HEMOGLOBIN 30 pg (25-34); MEAN CORPUSCULAR HGB CONC 31 g/dL (32-36); MEAN CORPUSCULAR VOLUME 97 fL (80-99); MEAN PLATELET VOLUME 9.4 fL (9.0-12.2); MONOCYTES # (AUTO) 1.3 10^3/uL (0.0-1.0); MONOCYTES % (AUTO) 14 % (0-12); NEUTROPHILS # (AUTO) 5.1 10^3/uL (1.8-7.8); NEUTROPHILS % (AUTO) 55 % (42-75); PLATELET COUNT 289 10^3/uL (130-400); WHITE BLOOD COUNT 9.3 10^3/uL (4.3-11.0)
[2021-04-02 06:56] LABS: BILIRUBIN,TOTAL 0.3 MG/DL (0.1-1.0); CALCIUM 8.7 MG/DL (8.5-10.1); CREATININE SERUM 1.29 MG/DL (0.60-1.30); POTASSIUM 4.5 MMOL/L (3.6-5.0); TOTAL PROTEIN 6.3 GM/DL (6.4-8.2)
[2021-04-02] MEDS: RT-ALBUTEROL/IPRATROPIUM 3 ML (DUONEB) VIAL INH SCH ×2 (07:05→18:50)
[2021-04-02 07:51] VITALS: BP 138/67
[2021-04-02] MEDS: ETODOLAC 200 MG (LODINE) CAP PO SCH ×2 (08:17→17:05)
[2021-04-02] MEDS: DIVALPROEX 500 MG DELAYED RELEASE (DEPAKOTE) TAB PO SCH ×2 (08:17→21:02)
[2021-04-02] MEDS: PANTOPRAZOLE 40 MG (PROTONIX) TAB PO SCH ×2 (08:17→21:02)
[2021-04-02] MEDS: ASPIRIN 81 MG CHEW (CHILDREN'S ASA) PO SCH (08:17)
[2021-04-02] MEDS: FUROSEMIDE 20 MG (LASIX) TAB PO SCH (08:17)
--- NOTE | 2021-04-02 09:38 | Physical Therapy Daily Note ---
PT Daily Note-Current Subjective Pt denies pain. Pt reports "I got in trouble Friday. I decided to take a walk and they didn't like that." Mental Status Patient Orientation: Person, Place, Situation Transfers SCALE: Activities may be completed with or without assistive devices. 8-Tlhifombks-yiccmbi completes the activity by him/herself with no assistance from a helper. 5-Set-up or Clean-up Assistance-helper sets up or cleans up; patient completes activity. [place] assists only prior to or following the activity. 4-Supervision or Touching Assistance-helper provides verbal cues and/or touching/steadying and/or contact guard assistance as patient completes activity. Assistance may be provided throughout the activity or intermittently. 3-Partial/Moderate Assistance-helper does LESS THAN HALF the effort. [place] lifts, holds or supports trunk or limbs, but provides less than half the effort. 2-Substantial/Maximal Assistance-helper does MORE THAN HALF the effort. [place] lifts or holds trunk or limbs and provides more than half the effort. 6-Tzotnaopg-khekox does ALL the effort. Patient does none of the effort to complete the activity. Or, the assistance of 2 or more helpers is required for the patient to complete the activity. If activity was not attempted, code reason: 7-Patient Refused. 9-Not Applicable-not attempted and the patient did not perform the activity before the current illness, exacerbation or injury. 10-Not Attempted due to Environmental Limitations-(lack of equipment, weather restraints, etc.). 88-Not Attempted due to Medical Conditions or Safety Concerns. Pt transfers SBA. Weight Bearing Right Lower Extremity: Right Full Weight Bearing Left Lower Extremity: Left Full Weight Bearing Sternal precautions Gait Training Gait Assistive Device: FWW Pt amb with FWW and CGA-SBA 1 x 100ft, 1 x 350ft at slow steady speed. Pt requires vc's to increase stride (L) LE as he tends to step to (L) LE. Exercises Seated Therapy Exercises: Ankle pumps, Long arc quads, Hip abd/add Seated Reps: 20 NuStep Minutes: 17 NuStep Workload: 1 Assessment Current Status: Good Progress Pt progressing appropriately toward goals. Pt showing improved endurance and improved functional mobility. Pt requires continual vc's to maintain good proximity to walker and increase stride length. Pt easily distracted requiring vc's to stay on task. Balance unsteady at times but no emily LOB. Pt back to recliner with call light and all needs met. Ambu alarm activated and in care of speech therapist. PT Short Term Goals Short Term Goals Time Frame: Mar 28, 2021 Roll Left & Right: 5 Sit to lyin Lying to sitting on side of be: 5 Sit to stand: 5 Chair/hgg-pz-varzs transfer: 5 Toilet transfer: 4 Walk 10 feet: 4 Walk 50 feet with two turns: 4 Walk 150 feet: 4 PT Care Home Goals Care Home Goals PT Quality Supervisor Goals Time Frame: Apr 06, 2021 Roll Left & Right (QC): 6 Sit to Lying (QC): 6 Lying-Sitting on Side/Bed(QC): 6 Sit to Stand (QC): 6 Chair/Rin-jg-Efiut Xfer(QC): 6 Toilet Transfer (QC): 6 Car Transfer (QC): 6 Does the Patient Walk: Yes Walk 10 feet (QC): 6 Walk 50ft with 2 Turns (QC): 6 Walk 150 ft (QC): 6 Walking 10ft on Uneven Surface: 6 1 Step (curb) (QC): 6 4 Steps (QC): 6 12 Steps (QC): 4 Picking up an Object (QC): 5 Does the Pt use WC or Scooter?: No Wheel 50 feet with 2 turns (QC: 9 Wheel 150 feet: 9 PT Plan Treatment/Plan Treatment Plan: Continue Plan of Care Treatment Plan: Bed Mobility, Education, Functional Activity Myah, Functional Strength, Group Therapy, Gait, Safety, Therapeutic Exercise, Transfers Treatment Duration: Apr 06, 2021 Frequency: At least 5 of 7 days/Wk (IRF) Estimated Hrs Per Day: 1.5 hours per day Patient and/or Family Agrees t: Yes Time/GCodes Time In: 900 Time Out: 1000 Total Billed Treatment Time: 60 Total Billed Treatment 1, ther ex 30', gait 30' MARY RICH CPTA Apr 02, 2021 09:38
--- NOTE | 2021-04-02 10:11 | Speech Therapy Daily Note ---
Speech Daily Progress Note Subjective Date Seen by Provider: Apr 02, 2021 Time Seen by Provider: 00:30 Patient was sitting in his recliner following his PT session. Patient was eating some crackers and stated he had eaten something at breakfast that didn't agree with him. Objective Patient completed a series of safety scenario cards he may encounter upon his return home with 95% accuracy. Assessment Assessment Current Status: Good Progress Treatment Plan Continue Plan of Care Speech Short Term Goals Short Term Goals Short Term Goals 1) Patient will complete word finding tasks at 90% or greater with minimal cues. 2) patient will tolerate least restrictive diet level without s/s of aspiration at 90% or greater. 3) Patient will utilize compensatory strategies for safe oral intake as trained at 90% or greater. Speech Senior Living Goals Senior Living Goals 1) Patient will maintain adequate nutrition/hydration via safe effective swallow function. 2) Patient will improve cognitive-communication so that he will require less assist to complete daily tasks. Speech-Plan Patient/Family Goals Patient/Family Goals: Patient plans on returning to his home where he lives with his son and son's girlfriend. Patient is scheduled to return home on 04/04/2021. Treatment Plan Speech Therapy Treatment Plan: Continue Plan of Care Treatment Duration: Apr 06, 2021 Frequency: 4 times per week (Patient will receive skilled ST 4-5x per week) Estimated Hrs Per Day: .5 hour per day Rehab Potential: Fair Barriers to Learning: Patient's mild cognitive deficit, recent CABG x4 Pt/Family Agrees to Plan: Yes Safety Risks/Education Teaching Recipient: Patient Teaching Methods: Demonstration, Discussion Response to Teaching: Verbalize Understanding, Return Demonstration Education Topics Provided: Patient's continued safety within his room, communication of wants/needs Continued safety of oral intake Time Speech Therapy Time In: 10:00 Speech Therapy Time Out: 10:30 Total Billed Time: 30 Billed Treatment Time 1, SLTS, DYST EMILIA Nielsen Apr 02, 2021 10:11
--- NOTE | 2021-04-02 14:41 | Therapy Group Daily Note ---
Therapy Daily Group Note Patient Education Topic Fall Prevention, Exercises Exercises LE Seated Exercise, UE Exercise Session Ratio (pt:therapist): 4:1 Goal of Session: UE/LE Strengthing, Other (list) (fall prevention) Goal Met for this Session: Yes Pt Benefit of Group: Contributions to Others, F/U Use of Strategies @Home, Increased Functional Safety, Increased Functional Strength, Improved Cognition, Recognition of Peers, Socialization Other/Notes Pt ambulated using FWW to [facility] for OT/PT group. Group consisted of introductions (name, place living, rolling dice for random question), socialization, pt led B UE/LE seated exercises and fall prevention. Pt introduced self appropriately and actively listen to peers introduce themselves. Pt able to lead one exercise using exercise card then was able to complete other exercises lead by peers. Pt then acknowledged understanding of fall prevention by nodding head affirmatively. After group, pt lying in bed with call light/phone in reach. All needs met in room. Start Time: 13:00 Stop Time: 14:00 Total Billed Treatment Time: 60 Total Billed Treatment 1-GRP ANDRAE TAVERAS Apr 02, 2021 14:41
--- NOTE | 2021-04-02 14:43 | Occupational Ther Daily Note ---
OT Current Status-Daily Note Subjective No pain reported. Mental Status/Objective Patient Orientation: Person, Place ADL-Treatment Therapy Code Descriptions/Definitions Functional [place] Measure: 0=Not Assessed/NA 4=Minimal Assistance 1=Total Assistance 5=Supervision or Setup 2=Maximal Assistance 6=Modified [place] 3=Moderate Assistance 7=Complete IndependenceSCALE: Activities may be completed with or without assistive devices. 2-Gflrubpjoe-cfapywb completes the activity by him/herself with no assistance from a helper. 5-Set-up or Clean-up Assistance-helper sets up or cleans up; patient completes activity. [place] assists only prior to or following the activity. 4-Supervision or Touching Assistance-helper provides verbal cues and/or touching/steadying and/or contact guard assistance as patient completes activity. Assistance may be provided throughout the activity or intermittently. 3-Partial/Moderate Assistance-helper does LESS THAN HALF the effort. [place] lifts, holds or supports trunk or limbs, but provides less than half the effort. 2-Substantial/Maximal Assistance-helper does MORE THAN HALF the effort. [place] lifts or holds trunk or limbs and provides more than half the effort. 2-Dpfemuozo-eavpak does ALL the effort. Patient does none of the effort to complete the activity. Or, the assistance of 2 or more helpers is required for the patient to complete the activity. If activity was not attempted, code reason: 7-Patient Refused. 9-Not Applicable-not attempted and the patient did not perform the activity before the current illness, exacerbation or injury. 10-Not Attempted due to Environmental Limitations-(lack of equipment, weather restraints, etc.). 88-Not Attempted due to Medical Conditions or Safety Concerns. Oral Hygiene (QC): 7 Shower/Bathe Self (QC): 7 (Pt. states that he already cleaned up with nursing early this a.m.) Upper Body Dressing (QC): 5 Lower Body Dressing (QC): 4 (SBA to don brief and pajama pants.) On/Off Footwear: 5 Other Treatment After dressing tasks in room, pt. agreed to ambulate to therapy dining area with walker and SBA. Pt. educated on walker basket for use in home, to make tasks easier such as taking food items in kitchen from place to place. Pt. verbalized understanding. Pt. and OT talk about what he eats at home, and how he eats simple foods such as sandwiches and uses the microwave. Pt. verbalizes that he is not sure if he has a walker or not, as his mother had one and he isn't sure if it is in his home. Pt. will need front wheeled walker before return home. Pt. ambulated back to room with walker and SBA. All needs met. Education OT Patient Education: Correct positioning, Modified ADL techniques, Progress toward Goal/Update tx plan, Purpose of tx/functional activities, Reviewed precautions, Rehab process, Transfer techniques Teaching Recipient: Patient Teaching Methods: Demonstration, Discussion Response to Teaching: Verbalize Understanding, Return Demonstration OT Short Term Goals Short Term Goals Oral hygiene: 6 Toileting hygiene: 6 Shower/bathe self: 3 Upper body dressin Lower body dressin Putting on/taking off footwear: 4 OT Alf Goals Air Duct Mechanic Goals Time Frame: Apr 04, 2021 Eating (QC): 6 Oral Hygiene (QC): 6 Toileting Hygiene (QC): 6 Shower/Bathe Self (QC): 6 Upper Body Dressing (QC): 6 Lower Body Dressing (QC): 6 On/Off Footwear (QC): 6 Additional Goals: 1-Demonstrate ADL Tasks, 2-Verbalize Understanding, 3- ImproveStrength/Myah 1=Demonstrate adherence to instructed precautions during ADL tasks. 2=Patient will verbalize/demonstrate understanding of assistive devices/modifications for ADL. 3=Patient will improve strength/tolerance for activity to enable patient to perform ADL's. OT Education/Plan Problem List/Assessment Assessment: Decreased Activ Tolerance, Impaired I ADL's Discharge Recommendations Plan/Recommendations: Continue POC Therapy Discharge Recommendati: Post Acute OT Treatment Plan/Plan of Care Treatment,Training & Education: Yes Patient would benefit from OT for education, treatment and training to promote independence in ADL's, mobility, safety and/or upper extremity function for ADL's. Plan of Care: ADL Retraining, Caregiver Training, Functional Mobility, Group Exercise/Act as Ind, UE Funct Exercise/Act, W/C Management Training Treatment Duration: Apr 04, 2021 Frequency: At least 5 of 7 days/Wk (IRF) Estimated Hrs Per Day: 1.5 hours per day Agreement: Yes Rehab Potential: Fair Time/GCodes Start Time: 08:15 Stop Time: 09:00 Total Time Billed (hr/min): 45 Billed Treatment Time 1, ADL x 45minutes MAGGY DAVILA OT Apr 02, 2021 14:43
[2021-04-02] MEDS: MULTIVIT W/MINERALS TAB (THERAGRAN M) PO SCH (17:05)
[2021-04-02] MEDS: RIVAROXABAN 20 MG TABLET (XARELTO) PO SCH (17:05)
[2021-04-02 17:07] VITALS: BP 139/69
[2021-04-02 20:00] VITALS: BP 119/58
[2021-04-02] MEDS: TOLTERODINE LA 4 MG (DETROL) CAP PO SCH (21:02)
[2021-04-02] MEDS: MELATONIN 3 MG TABLET PO PRN (21:02)
[2021-04-02] MEDS: SIMvastatin 20 MG (ZOCOR) TAB PO SCH (21:03)
--- NOTE | 2021-04-03 05:25 | PM&R Progress Note ---
Subjective HPI/CC On Admission Date Seen by Provider: Apr 03, 2021 Time Seen by Provider: 09:00 Subjective/Events-last exam 04/03/2021: Pt doing pretty well Discharge planned for tomorrow Overnight oxygen study will be performed Needs four wheeled walker 04/02/2021: Pt doing pretty well Room air with out oxygen now except for at night Bowels moved yesterday Hgb good at 9.3 04/01/2021: Patient doing pretty well Down to 1 L of oxygen currently Edema much improved with BATSHEVA hose IV iron infusion fourth dose today 3 bowel movements today and holding laxatives 03/31/2021: This visit is via video chat due to Covid related restriction for this provider Patient much improved today Diarrhea is prompting holding of laxatives Reports ankle pain but no edema currently Oxygen is worn on and off Dr. Serrano appointment next week 03/30/2021: This visit is via video chat due to Covid related restriction for this provider Patient having no new major issues IV iron infusion today Bowels moving well No falls Oxygen maintained 03/29/2021: This visit is via video chat due to Covid related restriction for this provider Patient having a good day Bowels moving after suppository and fleets enema Dr. Salomon will see him and he reports that he has seen him every 6 months for years No hematuria noted on urinalysis Xarelto restarted Oxygen needed on exertion 03/28/2021: This visit is via video chat due to Covid related restriction for this provider Patient doing well No pain reported O2 weaned most of the time but needs it during therapy and afterwards DC Telemetry Ink blot like issue right eye No BM yet so will increase laxatives and enemas if needed 03/27/2021: This visit is via video chat due to Covid related restriction for this provider Patient doing really well today Has no complaints Oxygen at 2 L continuous is really helped him Dr. Barnett changed Eliquis to Xarelto for lombardi Restarted aspirin and stop Plavix Has an appointment with Dr. 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 Lau is his eye doctor seen 1 year ago Oxygen at 88% placed on oxygen and he feels better Has dry eye syndrome Proton pump inhibitor twice a day maintained Bowels moved 3 days ago we will continue giving laxatives 03/24/2021: This visit is via video chat due to Covid related restriction for this provider Patient doing pretty well today IV iron initiated and oral meds given also Lasix 20 mg IV twice daily has been helpful Hemoglobin 7.9 BNP was 924 Former smoker in 2003 after his hernia surgery Left leg pain is chronic Chest x-ray was stable He had a left carotid endarte[place] [address] Smith After he told me yesterday he was no longer having any color or vision problems he reports that it now it really never went away and he was having some blue lines today in his right eye so considering that I will go ahead and start Eliquis 5 mg twice daily hold the aspirin maintain Plavix but he will remain a significant bleeding risk considering his hemoglobin is already low at 7.9 Increasing Protonix to twice a day to protect against gastrointestinal bleeding Patient very complex Patient remained stable and participating in therapy Has had multiple intervention in his legs vascular mcintyre and considering the carotid ultrasound we will monitor patient closely 03/23/2021: This visit is via video chat due to Covid related restriction for this provider Extensive review of chart and conferring with Dr. Barnett cardiology and then stroke center neurologist due to MRI findings after CT scan was abnormal yesterday We will obtain carotid ultrasound but it appears that the findings on the brain likely occurred postoperatively and not due to an isolated carotid lesion and if continues will need oral anticoagulants with transesophageal echocardiogram to identify thrombus if it is present. We did review the chart and in cardiac ICU postoperatively he did have an episode of atrial fibrillation but amiodarone has been maintained since that time so we will initiate telemetry and maintain it this weekend. I did update the patient on all of these details and told him if oral an ticoagulation was required with aspirin and Plavix it did place him at a bleeding risk and his hemoglobin 8.0 is a concern Very extensive issues requiring extensive research and high complexity medical decision making of [address] Barnett requested n.p.o. after Friday at midnight and may very well need to have transesophageal echocardiogram on Friday so I placed that in the orders Patient no longer having visual changes but I did update him on the fact if he does have a recurrence he will notify the nurse and will place him on heparin [facility] agreed no acute issues to prompt TPA or any other aggressive regimen right now Review of Systems General: Fatigue, Malaise Objective Exam Vital Signs Vital Signs Date Time Temp Pulse Resp B/P (MAP) Pulse Ox O2 Delivery O2 Flow Rate FiO2 04/03/21 21:00 Room Air 04/03/21 20:25 36.6 82 12 124/58 (80) 91 04/03/21 06:24 0.00 Capillary Refill : General Appearance: No Apparent Distress, WD/WN, Chronically ill HEENT: PERRL/EOMI, Moist Mucous Membranes; No Scleral Icterus (L), No Scleral Icterus (R) Neck: Normal Inspection, Supple Respiratory: Lungs Clear, No Accessory Muscle Use, No Respiratory Distress Cardiovascular: Regular Rate, Rhythm, No JVD, Systolic Murmur, Other (midline scar, ) Gastrointestinal: Normal Bowel Sounds, Soft Extremity: Normal Inspection, No Pedal Edema Neurologic/Psychiatric: Alert, Oriented x3, Normal Mood/Affect, dioramist II-XII Norm as Tested Skin: Normal Color, Warm/Dry Results/Procedures Lab Patient resulted labs reviewed. FIM Transfers Therapy Code Descriptions/Definitions Functional [place] Measure: 0=Not Assessed/NA 4=Minimal Assistance 1=Total Assistance 5=Supervision or Setup 2=Maximal Assistance 6=Modified [place] 3=Moderate Assistance 7=Complete IndependenceSCALE: Activities may be completed with or without assistive devices. 6-Xijlbafnji-xrejyio completes the activity by him/herself with no assistance from a helper. 5-Set-up or Clean-up Assistance-helper sets up or cleans up; patient completes activity. [place] assists only prior to or following the activity. 4-Supervision or Touching Assistance-helper provides verbal cues and/or touching/steadying and/or contact guard assistance as patient completes activity. Assistance may be provided throughout the activity or intermittently. 3-Partial/Moderate Assistance-helper does LESS THAN HALF the effort. [place] lifts, holds or supports trunk or limbs, but provides less than half the effort. 2-Substantial/Maximal Assistance-helper does MORE THAN HALF the effort. [place] lifts or holds trunk or limbs and provides more than half the effort. 1-Sdyjxisbr-zuhqzw does ALL the effort. Patient does none of the effort to complete the activity. Or, the assistance of 2 or more helpers is required for the patient to complete the activity. If activity was not attempted, code reason: 7-Patient Refused. 9-Not Applicable-not attempted and the patient did not perform the activity before the current illness, exacerbation or injury. 10-Not Attempted due to Environmental Limitations-(lack of equipment, weather restraints, etc.). 88-Not Attempted due to Medical Conditions or Safety Concerns. Roll Left to Right (QC): 6 Sit to Lying (QC): 6 Sit to Stand (QC): 5 Chair/Zjx-nt-Henbg Xfer(QC): 4 Car Transfer (QC): 3 (min assist with legs; skilled cues to sequence) Gait Training Does the Patient Walk?: Yes Distance: 250 Walk 10 feet (QC): 5 Walk 50 ft with 2 Turns(QC): 5 Walk 150 ft (QC): 5 Walking 10ft/uneven surface-QC: 3 Gait Persons Needed: 1 Gait Assistive Device: FWW Wheelchair Training Does the Pt Use a Wheelchair?: No Wheel 50 ft with 2 turns (QC): 9 Wheel 150 ft (QC): 9 Stair Training 1 Step (curb) (QC): 3 (min assist and skilled cues for sequencing. ) 4 Steps (QC): 88 12 Steps (QC): 88 Balance Picking up an Object (QC): 3 ADL-Treatment Eating (QC): 6 Oral Hygiene (QC): 7 Bathing Location: L Arm, R Arm, L Upper Leg, R Upper Leg, L Lower Leg (including foot), R Lower Leg (including foot), Chest, Abdomen, Buttocks, Perineal Area Shower/Bathe Self (QC): 7 (Pt. states that he already cleaned up with nursing early this a.m.) Upper Body Dressing (QC): 5 Lower Body Dressing (QC): 4 (SBA to don brief and pajama pants.) On/Off Footwear (QC): 5 Toileting Hygiene (QC): 4 (SBA) Toilet Transfer (QC): 4 (CGA) Assessment/Plan Assessment and Plan Assess & Plan/Chief Complaint Assessment: Debility from CABG of 4 vessels at [facility] [place] Subacute strokes bilateral cerebellar hemispheres consistent with post operative findings with vision changes on 03/22/[address] scan and MRI status post conversation with stroke center neurologist expert and Dr. Matti Barnett cardiology placing on telemetry no indication for OAC or TPA Postoperative anemia asymptomatic recheck today 8.0 placed on oral iron Previous carotid endarterectomy left side in 2014 Episode of atrial fibrillation in cardiac ICU postoperatively now on Coreg after amiodarone discontinued Pleural effusions GERD Overactive bladder Chronic kidney disease stage II Carotid artery endarterectomy history Hypertension Hyperlipidemia Peripheral vascular disease of the leg status post interventions in the past Plan: Plavix and aspirin Police Commanding Officer for visual changes if that should occur he needs heparin and transesophageal echocardiogram for thrombus Aggressive therapy per protocol 03/24/2021: Hold aspirin and add Eliquis 5 mg twice daily maintain Plavix Increase Protonix to twice a day to minimize gastrointestinal bleeding risk Monitor hemoglobin closely Iron infusion with oral supplement 03/25/2021: Maintain Eliquis and Plavix Supportive care Continue monitoring vision changes 03/26/21: OAC per Dr Barnett Monitor closely Dr Serrano appt Wed? 03/27/2021: Xarelto and DC Eliquis DC Plavix restart aspirin Dr. Serrano cardiology appointment next week 03/28/21: DC early next week Monitor vision changes OAC with ASA 03/29/2021: Monitor for hematuria Restart oral anticoagulation 03/30/2021: Monitor blood pressure Monitor vision loss Oral anticoagulant with aspirin 03/31/2021: Monitor closely Maintain Xarelto and aspirin Fall risk Oxygen maintained 04/01/2021: Wean oxygen Monitor closely 04/02/2021: Supportive care Oxygen wean 04/03/2021: Discharge plan for tomorrow (1) Left atrial mass Assessment & Plan: He underwent a transesophageal echocardiogram on 03/26/2021 that showed an ill-defined mass in the left atrium. This appeared somewhat pedunculated. I spoke to his senior stock plan administrator at [facility] [place] and he states that the patient had 2 surface echocardiograms and a transesophageal echocardiogram during surgery and from what he could gather, none of these identified an atrial mass. 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 As such, I have started him on oral anticoagulation. I initially started him on Eliquis. This can be somewhat costly. I will change him over to Xarelto which he can obtain from [facility] for $12 for 90 days through the 430B plan. He had an appointment to see his senior stock plan administrator in [place] tomorrow. I will place a nursing order to change this to next week. (2) Cerebrovascular accident (CVA) Assessment & Plan: No recurrent neurologic complaints. I reviewed his telemetry and there has been no evidence of atrial fibrillation. Based upon the findings from the transesophageal echocardiogram, it is quite possible that he had left atrial thrombus that may have caused this embolic appearing stroke. I will change his anticoagulation from aspirin and clopidogrel over to aspirin and rivaroxaban. 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 He continues to work with physical therapy on our inpatient rehabilitation unit. Continue present guideline directed medical therapy. As above, I have changed his aspirin and clopidogrel over to rivaroxaban and aspirin. (4) Pleural effusion Assessment & Plan: The effusions are small and do not require thoracentesis. These should gradually resolve over the next 4-6 weeks. Primary hospitalist placed him on IV Lasix once a day which should help clear the effusions. He has a normal ejection fraction and as such, I suspect he will not need to be discharged with diuretics. (5) Essential (primary) hypertension Assessment & Plan: Blood pressures have been improving. Continue present medication. (6) Atherosclerosis of both carotid arteries Assessment & Plan: He had a previous carotid endarterectomy. I suspect the carotid disease had anything to do with his recent cerebrovascular accident since there were multiple ischemic changes in several vascular territories. (7) Mixed hyperlipidemia Assessment & Plan: Continue simvastatin. (8) Peripheral arterial disease Assessment & Plan: He has not been having any claudication. He had previous interventions on the left leg. I will be adjusting his a ntiplatelet/antithrombotic regimen as above. There is actually some good data showing that rivaroxaban can help reduce peripheral vascular events albeit at a lower dose than he will be prescribed. Physical therapy should also help with this condition. DAHLIA GAMING DO Apr 03, 2021 05:25
[2021-04-03] MEDS: RT-ALBUTEROL/IPRATROPIUM 3 ML (DUONEB) VIAL INH SCH ×2 (06:24→18:44)
[2021-04-03 07:35] VITALS: BP 160/75
[2021-04-03] MEDS: ETODOLAC 200 MG (LODINE) CAP PO SCH ×2 (08:19→17:22)
[2021-04-03] MEDS: ASPIRIN 81 MG CHEW (CHILDREN'S ASA) PO SCH (08:19)
[2021-04-03] MEDS: DIVALPROEX 500 MG DELAYED RELEASE (DEPAKOTE) TAB PO SCH ×2 (08:19→20:03)
[2021-04-03] MEDS: FUROSEMIDE 20 MG (LASIX) TAB PO SCH (08:20)
[2021-04-03] MEDS: HYDROcodone/APAP 5 MG/325 MG (LORTAB) TAB PO PRN (08:21)
[2021-04-03] MEDS: PANTOPRAZOLE 40 MG (PROTONIX) TAB PO SCH ×2 (08:21→20:03)
[2021-04-03] MEDS: IRON SUCROSE 200 MG/10 ML (VENOFER) VIAL IV SCH (08:22)
--- NOTE | 2021-04-03 08:27 | Speech Therapy Daily Note ---
Speech Short Term Goals Short Term Goals Short Term Goals 1) Patient will complete word finding tasks at 90% or greater with minimal cues. 2) patient will tolerate least restrictive diet level without s/s of aspiration at 90% or greater. 3) Patient will utilize compensatory strategies for safe oral intake as trained at 90% or greater. Speech Cushion Gum Applicator Goals Cushion Gum Applicator Goals 1) Patient will maintain adequate nutrition/hydration via safe effective swallow function. 2) Patient will improve cognitive-communication so that he will require less assist to complete daily tasks. Speech-Plan Treatment Plan Treatment Duration: Apr 06, 2021 Frequency: 4 times per week (Patient will receive skilled ST 4-5x per week) Estimated Hrs Per Day: .5 hour per day Rehab Potential: Fair QUALITY CODES: EXPRESSION OF IDEAS/WANTS: 4 UNDERSTANDING VERBAL CONTENT: 4 BRIEF INTERVIEW OF MENTAL STATUS: YES REPETITION OF 3 WORDS: 3 TEMPORAL ORIENTATION: YEAR: CORRECT, MONTH: CORRECT, DAY: CORRECT RECALL SOCK: YES, COLOR: YES, BED: YES MEMORY/RECALL ABILITY: SEASON, LOCATION OF ROOM, [facility] KRISTIEEMILIA Apr 03, 2021 08:27
--- NOTE | 2021-04-03 10:22 | Speech Therapy Daily Note ---
Speech Daily Progress Note Subjective Date Seen by Provider: Apr 03, 2021 Time Seen by Provider: 00:30 Patient states he is ready to go back home. Objective Patient completed cognitive tasks at the 100% accuracy range.without cues. Assessment Assessment Current Status: Good Progress Treatment Plan Discontinue ST, Goals Met Speech Short Term Goals Short Term Goals Short Term Goals 1) Patient will complete word finding tasks at 90% or greater with minimal cues. 2) patient will tolerate least restrictive diet level without s/s of aspiration at 90% or greater. 3) Patient will utilize compensatory strategies for safe oral intake as trained at 90% or greater. Speech Laser Machine Operator Goals Laser Machine Operator Goals 1) Patient will maintain adequate nutrition/hydration via safe effective swallow function. 2) Patient will improve cognitive-communication so that he will require less assist to complete daily tasks. Speech-Plan Patient/Family Goals Patient/Family Goals: Patient is returning to his home where he lives with his son and the son's girlfriend on Friday. Treatment Plan Speech Therapy Treatment Plan: Discontinue ST, Goals Met Treatment Duration: Apr 06, 2021 Frequency: 4 times per week (Patient will receive skilled ST 4-5x per week) Estimated Hrs Per Day: .5 hour per day Rehab Potential: Fair Barriers to Learning: Mild cognitive deficits which have resolved Pt/Family Agrees to Plan: Yes Safety Risks/Education Teaching Recipient: Patient Teaching Methods: Demonstration, Discussion Response to Teaching: Verbalize Understanding, Return Demonstration Education Topics Provided: Continued safety upon his return home, continued safety of oral intake Time Speech Therapy Time In: 10:00 Speech Therapy Time Out: 10:30 Total Billed Time: 30 Billed Treatment Time 1, CORNELL, SLEMILIA Lugo Apr 03, 2021 10:22
--- NOTE | 2021-04-03 10:27 | Therapy Team Discharge Summary ---
Therapy Discharge Summary Discharge Recommendations Date of Discharge Occupational Therapy Decreased Activ Tolerance, Impaired I ADL's Speech-Language Pathology Patient was admitted to the ARU s/p CABG x4. Patient was evaluated with the SLUMS which indicated a MNCD range of function. The patient received skilled ST services with focus on safety awareness and independence. Patient has made good progress and met all ST goals. Patient is discharging to his home where he lives with his son and son's girlfriend. PT Usp Goals Chainsaw Mechanic Goals PT Usp Goals Time Frame: Apr 06, 2021 Roll Left to Right (QC): 6 Sit to Lying (QC): 6 Lying-Sitting on Side/Bed(QC): 6 Sit to Stand (QC): 6 Chair/Sty-jd-Rpdro Xfer(QC): 6 Car Transfer (QC): 6 Does the Patient Walk: Yes Walk 10 feet (QC): 6 Walk 10ft-Uneven Surface(QC): 6 Walk 50ft with 2 Turns (QC): 6 Walk 150 ft (QC): 6 Does the Pt use WC or Scooter?: No Wheel 50 feet with 2 turns (QC: 9 1 Step (curb) (QC): 6 4 Steps (QC): 6 12 Steps (QC): 4 Picking up an Object (QC): 5 OT Chainsaw Mechanic Goals Usp Goals Time Frame: Apr 04, 2021 Eating (QC): 6 Oral Hygiene (QC): 6 Shower/Bathe Self (QC): 6 Upper Body Dressing (QC): 6 Lower Body Dressing (QC): 6 On/Off Footwear (QC): 6 Toileting Hygiene (QC): 6 Toilet/Commode Transfer (QC): 6 Additional Goals: 1-Demonstrate ADL Tasks, 2-Verbalize Understanding, 3- ImproveStrength/Myah 1=Demonstrate adherence to instructed precautions during ADL tasks. 2=Patient will verbalize/demonstrate understanding of assistive devices/modifications for ADL. 3=Patient will improve strength/tolerance for activity to enable patient to perform ADL's. Speech Chainsaw Mechanic Goals Usp Goals 1) Patient will maintain adequate nutrition/hydration via safe effective swallow function. 2) Patient will improve cognitive-communication so that he will require less assist to complete daily tasks. EMILIA FLOWERS Apr 03, 2021 10:27
--- NOTE | 2021-04-03 10:49 | Physical Therapy Daily Note ---
PT Daily Note-Current Subjective Pt. up in bedside chair and agrees to therapy. He has no complaints, states he plans to go home tomorrow with his son. Mental Status Patient Orientation: Person, Place, Time, Situation Transfers SCALE: Activities may be completed with or without assistive devices. 0-Utcrddlawd-utnxtkc completes the activity by him/herself with no assistance from a helper. 5-Set-up or Clean-up Assistance-helper sets up or cleans up; patient completes activity. [place] assists only prior to or following the activity. 4-Supervision or Touching Assistance-helper provides verbal cues and/or touching/steadying and/or contact guard assistance as patient completes activity. Assistance may be provided throughout the activity or intermittently. 3-Partial/Moderate Assistance-helper does LESS THAN HALF the effort. [place] lifts, holds or supports trunk or limbs, but provides less than half the effort. 2-Substantial/Maximal Assistance-helper does MORE THAN HALF the effort. [place] lifts or holds trunk or limbs and provides more than half the effort. 1-Esejerret-bggibc does ALL the effort. Patient does none of the effort to complete the activity. Or, the assistance of 2 or more helpers is required for the patient to complete the activity. If activity was not attempted, code reason: 7-Patient Refused. 9-Not Applicable-not attempted and the patient did not perform the activity before the current illness, exacerbation or injury. 10-Not Attempted due to Environmental Limitations-(lack of equipment, weather restraints, etc.). 88-Not Attempted due to Medical Conditions or Safety Concerns. Roll Left & Right (QC): 6 Sit to Lying (QC): 6 Lying to Sitting/Side of Bed(Q: 6 Sit to Stand (QC): 4 Chair/Suj-kh-Zbfru Xfer(QC): 4 Toilet Transfer (QC): 4 Car Transfer (QC): 4 Weight Bearing Right Lower Extremity: Right Full Weight Bearing Left Lower Extremity: Left Full Weight Bearing Sternal precautions Gait Training Does the Patient Walk?: Yes Distance: x 100 ft, x 300 ft, x 100 ft Walk 10 feet (QC): 4 Walk 50 ft with 2 Turns(QC): 4 Walk 150 ft (QC): 4 Walking 10ft/uneven surface-QC: 4 Gait Persons Needed: 1 Gait Assistive Device: FWW no losses of balance during ambulation but is occasionally impulsive with movements and requires cuing to stay close to walker Wheelchair Training Does the Pt Use a Wheelchair?: No Wheel 50 ft with 2 turns (QC): 9 Wheel 150 ft (QC): 9 Stair Training Stair Training: Handrails/: 2 handrails #of Steps: 8 1 Step (curb) (QC): 4 4 Steps (QC): 4 12 Steps (QC): 88 Stairs: Pattern: Step to Pt. unsafe to complete 12 steps due to fatigue. Balance Picking up an Object (QC): 4 Exercises NuStep Minutes: 15 NuStep Workload: 7 Treatments gait training, nustep, transfers, steps Assessment Current Status: Good Progress Pt. continues to be CGA/SBA with most transfers and ambulation. He is occasionally impulsive with movements and needs cues for safety during transfers and gait. Pt. fatigued with stairs but utilizes a ramp at home. Pt. returned to bedside chair post session with call light, chair alarm in place and all needs met. O2 sats on RA post ambulation at 98-99%. PT Short Term Goals Short Term Goals Time Frame: Mar 28, 2021 Roll Left & Right: 5 Sit to lyin Lying to sitting on side of be: 5 Sit to stand: 5 Chair/fae-fd-kozgj transfer: 5 Toilet transfer: 4 Walk 10 feet: 4 Walk 50 feet with two turns: 4 Walk 150 feet: 4 PT Training And Development Officer Goals Group Home Goals PT Group Home Goals Time Frame: Apr 06, 2021 Roll Left & Right (QC): 6 Sit to Lying (QC): 6 Lying-Sitting on Side/Bed(QC): 6 Sit to Stand (QC): 6 Chair/Mun-vr-Dupaa Xfer(QC): 6 Toilet Transfer (QC): 6 Car Transfer (QC): 6 Does the Patient Walk: Yes Walk 10 feet (QC): 6 Walk 50ft with 2 Turns (QC): 6 Walk 150 ft (QC): 6 Walking 10ft on Uneven Surface: 6 1 Step (curb) (QC): 6 4 Steps (QC): 6 12 Steps (QC): 4 Picking up an Object (QC): 5 Does the Pt use WC or Scooter?: No Wheel 50 feet with 2 turns (QC: 9 Wheel 150 feet: 9 PT Plan Treatment/Plan Treatment Plan: Continue Plan of Care Treatment Plan: Bed Mobility, Education, Functional Activity Myah, Functional Strength, Group Therapy, Gait, Safety, Therapeutic Exercise, Transfers Treatment Duration: Apr 06, 2021 Frequency: At least 5 of 7 days/Wk (IRF) Estimated Hrs Per Day: 1.5 hours per day Patient and/or Family Agrees t: Yes Time/GCodes Time In: 1030 Time Out: 1130 Total Billed Treatment Time: 60 Total Billed Treatment 1, GT 25', Ex 15', FA 20' JOEY BRITO PT Apr 03, 2021 10:49
--- NOTE | 2021-04-03 14:37 | Occupational Ther Daily Note ---
OT Current Status-Daily Note Subjective No pain reported. Appearance Pt. up in chair. Agrees to work with OT. Mental Status/Objective Patient Orientation: Person, Place ADL-Treatment Therapy Code Descriptions/Definitions Functional [place] Measure: 0=Not Assessed/NA 4=Minimal Assistance 1=Total Assistance 5=Supervision or Setup 2=Maximal Assistance 6=Modified [place] 3=Moderate Assistance 7=Complete IndependenceSCALE: Activities may be completed with or without assistive devices. 1-Yhmqgrwdac-csczpuh completes the activity by him/herself with no assistance from a helper. 5-Set-up or Clean-up Assistance-helper sets up or cleans up; patient completes activity. [place] assists only prior to or following the activity. 4-Supervision or Touching Assistance-helper provides verbal cues and/or touching/steadying and/or contact guard assistance as patient completes activity. Assistance may be provided throughout the activity or intermittently. 3-Partial/Moderate Assistance-helper does LESS THAN HALF the effort. [place] lifts, holds or supports trunk or limbs, but provides less than half the effort. 2-Substantial/Maximal Assistance-helper does MORE THAN HALF the effort. [place] lifts or holds trunk or limbs and provides more than half the effort. 7-Merlplrpv-mlubbr does ALL the effort. Patient does none of the effort to complete the activity. Or, the assistance of 2 or more helpers is required for the patient to complete the activity. If activity was not attempted, code reason: 7-Patient Refused. 9-Not Applicable-not attempted and the patient did not perform the activity before the current illness, exacerbation or injury. 10-Not Attempted due to Environmental Limitations-(lack of equipment, weather restraints, etc.). 88-Not Attempted due to Medical Conditions or Safety Concerns. Eating (QC): 6 Oral Hygiene (QC): 5 (Per pt.) Shower/Bathe Self (QC): 5 (Per pt, he cleansed self this a.m. with bath wipes seated at chair.) Upper Body Dressing (QC): 5 Lower Body Dressing (QC): 5 (per pt.) On/Off Footwear: 6 Toileting Hygiene (QC): 4 (Pt. requires SBA at toilet while cleansing due to balance. At times, while using urinal, spills on self if not careful. Requires cues.) Other Treatment Pt. up in chair. Pt. dressed. States that he already cleansed self early this a.m. with bath wipes, and dressed self into pajama bottoms and button up shirt that he wore yesterday after set up. He adamantly declines showering or taking another sponge bath with OT present. Pt. agrees to ambulate to therapy gym. Ambulates with walker with SBA. Completes arm bike x 10minutes at min resistance on arm bike to increase overall strength and independence. Pt. also completed simple fine motor task with therapy pegs for increased strength. However, this was difficult for pt. as he had difficulty staying on task, putting in correct space on board. Pt. cued throughout to continue with session. Ambulated back to room with walker and SBA. All needs met up in chair. Education OT Patient Education: Correct positioning, Modified ADL techniques, Progress toward Goal/Update tx plan, Purpose of tx/functional activities, Reviewed preca utions, Rehab process, Transfer techniques Teaching Recipient: Patient Teaching Methods: Demonstration, Discussion Response to Teaching: Verbalize Understanding, Return Demonstration, Reinfo rcement Needed OT Short Term Goals Short Term Goals Oral hygiene: 6 Toileting hygiene: 6 Shower/bathe self: 3 Upper body dressin Lower body dressin Putting on/taking off footwear: 4 OT Residential Goals Residential Goals Time Frame: Apr 04, 2021 Eating (QC): 6 Oral Hygiene (QC): 6 Toileting Hygiene (QC): 6 Shower/Bathe Self (QC): 6 Upper Body Dressing (QC): 6 Lower Body Dressing (QC): 6 On/Off Footwear (QC): 6 Additional Goals: 1-Demonstrate ADL Tasks, 2-Verbalize Understanding, 3- ImproveStrength/Myah 1=Demonstrate adherence to instructed precautions during ADL tasks. 2=Patient will verbalize/demonstrate understanding of assistive de vices/modifications for ADL. 3=Patient will improve strength/tolerance for activity to enable patient to perform ADL's. OT Education/Plan Problem List/Assessment Assessment: Decreased Activ Tolerance Discharge Recommendations Plan/Recommendations: Continue POC Treatment Plan/Plan of Care Treatment,Training & Education: Yes Patient would benefit from OT for education, treatment and training to promote independence in ADL's, mobility, safety and/or upper extremity function for ADL's. Plan of Care: ADL Retraining, Functional Mobility, Group Exercise/Act as Ind, UE Funct Exercise/Act Treatment Duration: Apr 04, 2021 Frequency: At least 5 of 7 days/Wk (IRF) Estimated Hrs Per Day: 1.5 hours per day Agreement: Yes Rehab Potential: Fair Time/GCodes Start Time: 08:15 Stop Time: 09:30 Total Time Billed (hr/min): 75 Billed Treatment Time 1, Ex x 30minutes, FA x 45minutes MAGGY DAVILA OT Apr 03, 2021 14:37
--- NOTE | 2021-04-03 15:39 | Physical Therapy Daily Note ---
PT Daily Note-Current Subjective Pt sitting in recliner upon arrival. Pt agrees to PT. Pt excited about d/c tomorrow (04/03). Pain Location: No Pain Reported Mental Status Patient Orientation: Person, Place, Time, Situation Transfers SCALE: Activities may be completed with or without assistive devices. 6-Lrbbexsqae-tqhmhnh completes the activity by him/herself with no assistance from a helper. 5-Set-up or Clean-up Assistance-helper sets up or cleans up; patient completes activity. [place] assists only prior to or following the activity. 4-Supervision or Touching Assistance-helper provides verbal cues and/or touching/steadying and/or contact guard assistance as patient completes activity. Assistance may be provided throughout the activity or intermittently. 3-Partial/Moderate Assistance-helper does LESS THAN HALF the effort. [place] lifts, holds or supports trunk or limbs, but provides less than half the effort. 2-Substantial/Maximal Assistance-helper does MORE THAN HALF the effort. [place] lifts or holds trunk or limbs and provides more than half the effort. 9-Uslcympuq-uvcrud does ALL the effort. Patient does none of the effort to complete the activity. Or, the assistance of 2 or more helpers is required for the patient to complete the activity. If activity was not attempted, code reason: 7-Patient Refused. 9-Not Applicable-not attempted and the patient did not perform the activity before the current illness, exacerbation or injury. 10-Not Attempted due to Environmental Limitations-(lack of equipment, weather restraints, etc.). 88-Not Attempted due to Medical Conditions or Safety Concerns. Weight Bearing Right Lower Extremity: Right Full Weight Bearing Left Lower Extremity: Left Full Weight Bearing Sternal precautions Treatments Pt sitting in recliner and asks questions about tomorrow's d/c. Pt advised of no scheduled Therapy on d/c day as well as making sure pt had Therapy as HH &/or OP and equipment needed. Pt worried about afternoon Dr Maggie kenney for after d/c. Pt is reassured and questions answered. All needs met, call light in hand. Assessment Current Status: Good Progress Pt has gained strength and mobility but still needs assistance with transfers. PT Short Term Goals Short Term Goals Time Frame: Mar 28, 2021 Roll Left & Right: 5 Sit to lyin Lying to sitting on side of be: 5 Sit to stand: 5 Chair/ocr-uz-bovza transfer: 5 Toilet transfer: 4 Walk 10 feet: 4 Walk 50 feet with two turns: 4 Walk 150 feet: 4 PT Mcc Goals Kitchen Utility Associate Goals PT Mcc Goals Time Frame: Apr 06, 2021 Roll Left & Right (QC): 6 Sit to Lying (QC): 6 Lying-Sitting on Side/Bed(QC): 6 Sit to Stand (QC): 6 Chair/Tya-qr-Ebgqg Xfer(QC): 6 Toilet Transfer (QC): 6 Car Transfer (QC): 6 Does the Patient Walk: Yes Walk 10 feet (QC): 6 Walk 50ft with 2 Turns (QC): 6 Walk 150 ft (QC): 6 Walking 10ft on Uneven Surface: 6 1 Step (curb) (QC): 6 4 Steps (QC): 6 12 Steps (QC): 4 Picking up an Object (QC): 5 Does the Pt use WC or Scooter?: No Wheel 50 feet with 2 turns (QC: 9 Wheel 150 feet: 9 PT Plan Problem List Problem List: Activity Tolerance Treatment/Plan Treatment Plan: Continue Plan of Care Treatment Plan: Bed Mobility, Education, Functional Activity Myah, Functional Strength, Group Therapy, Gait, Safety, Therapeutic Exercise, Transfers Treatment Duration: Apr 06, 2021 Frequency: At least 5 of 7 days/Wk (IRF) Estimated Hrs Per Day: 1.5 hours per day Patient and/or Family Agrees t: Yes Time/GCodes Time In: 1400 Time Out: 1425 Total Billed Treatment Time: 25 Total Billed Treatment 1, FA x2 (25m) PRASANTH BOLAND PTA Apr 03, 2021 15:39
[2021-04-03] MEDS: MULTIVIT W/MINERALS TAB (THERAGRAN M) PO SCH (17:21)
[2021-04-03] MEDS: RIVAROXABAN 20 MG TABLET (XARELTO) PO SCH (17:22)
[2021-04-03] MEDS: SIMvastatin 20 MG (ZOCOR) TAB PO SCH (20:03)
[2021-04-03] MEDS: TOLTERODINE LA 4 MG (DETROL) CAP PO SCH (20:03)
[2021-04-03] MEDS: MELATONIN 3 MG TABLET PO PRN (20:03)
[2021-04-03] MEDS: ACETAMINOPHEN 325 MG TABLET PO PRN (20:03)
[2021-04-03 20:25] VITALS: BP 124/58
[2021-04-04] MEDS ORDERED: FURO20TA4 PO (06:14)
[2021-04-04] MEDS ORDERED: ACHD5005 PO (06:14)
[2021-04-04] MEDS ORDERED: ASPI-1238 PO (06:14)
[2021-04-04] MEDS ORDERED: PANT40TA52 PO (06:14)
[2021-04-04] MEDS ORDERED: CARV6.252 PO (06:14)
--- NOTE | 2021-04-04 06:15 | D/C HH Face to Face Order ---
D/C Face to Face Orders Reconcile Patient Problems Problems Reviewed?: Yes [place]ructions for [place] [facility] [place] [facility] Patient Instructions/FollowUp: Dr Bardales in 1 week Physician to follow Patient: Jeffy Discharge Diet for Home: Cardiac Diet Patient Problems: s/p CABG Debility New stroke Patient Data-Allergies,Ht & Wt Patient Allergies: Coded Allergies: No Known Drug Allergies (Unverified , 04/15/16) Height (Feet): 5 Height (Inches): 11.00 Weight (Pounds): 185 Weight (Ounces): 0.0 Home Health Need/Face to Face Date of Face to Face: Apr 04, 2021 Clinical Findings: Generalized weakness and fatigue, Instability, Muscle weakness I have seen Pt dhxg-hj-bmzy: Yes Discharged To: Home Diagnosis/Conditions: s/p CABG Debility New stroke Patient is Homebound due to: Aline fall risk due to instabilty, Muscle weakness Homebound Status Due to the above stated illness, injury or surgical procedure (medical condition or diagnosis) and associated clinical findings, the patient is homebound because of his/her inability to leave home except with aid of a supp ortive device and/or person AND leaving the home requires a considerable and taxing effort or is medically contraindicated. Pt req the following assistanc: Walker Home Health Nursing Orders Home Health Services Order: Nursing Services, Emt I/99-Evaluate & Treat, Physical Therapy-Evaluate & Treat Certify Stmt I certify that this patient is under my care and that I, a nurse practitioner or a physician; a obstetric assistant working with me, had a face to face encounter that - meets the physician face to face encounter requirements with this patient as dated. DAHLIA GAMING DO Apr 04, 2021 06:15
--- NOTE | 2021-04-04 06:16 | Discharge Summary ---
Diagnosis/Chief Complaint Date of Admission Mar 21, 2021 at 14:20 Date of Discharge Discharge Date: Apr 04, 2021 Discharge Diagnosis Assessment: Debility from CABG of 4 vessels at [facility] Subacute strokes bilateral cerebellar hemispheres consistent with post operative findings with vision changes on 03/22/[address] scan and MRI status post conversation with stroke center neurologist expert and Dr. Matti Barnett cardiology placing on telemetry no indication for OAC or TPA Postoperative anemia asymptomatic recheck today 8.0 placed on oral iron Previous carotid endarterectomy left side in 2014 Episode of atrial fibrillation in cardiac ICU postoperatively now on Coreg after amiodarone discontinued Pleural effusions GERD Overactive bladder Chronic kidney disease stage II Carotid artery endarterectomy history Hypertension Hyperlipidemia Peripheral vascular disease of the leg status post interventions in the past Plan: Plavix and aspirin Broach Operator for visual changes if that should occur he needs heparin and transesopha geal echocardiogram for thrombus Aggressive therapy per protocol 03/24/2021: Hold aspirin and add Eliquis 5 mg twice daily maintain Plavix Increase Protonix to twice a day to minimize gastrointestinal bleeding risk Monitor hemoglobin closely Iron infusion with oral supplement 03/25/2021: Maintain Eliquis and Plavix Supportive care Continue monitoring vision changes 03/26/21: OAC per Dr Barnett Monitor closely Dr Serrano appt Wed? 03/27/2021: Xarelto and DC Eliquis DC Plavix restart aspirin Dr. Serrano cardiology appointment next week 03/28/21: DC early next week Monitor vision changes OAC with ASA 03/29/2021: Monitor for hematuria Restart oral anticoagulation 03/30/2021: Monitor blood pressure Monitor vision loss Oral anticoagulant with aspirin 03/31/2021: Monitor closely Maintain Xarelto and aspirin Fall risk Oxygen maintained 04/01/2021: Wean oxygen Monitor closely 04/02/2021: Supportive care Oxygen wean 04/03/2021: Discharge plan for tomorrow (1) Left atrial mass Assessment & Plan: He underwent a transesophageal echocardiogram on 03/26/2021 that showed an ill-defined mass in the left atrium. This appeared somewhat pedunculated. I spoke to his bench lathe operator at [facility] and he states that the patient had 2 surface echocardiograms and a transesophageal echocardiogram during surgery and from what he could gather, none of these identified an atrial mass. 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 As such, I have started him on oral anticoagulation. I initially started him on Eliquis. This can be somewhat costly. I will change him over to Xarelto which he can obtain from [facility] for $12 for 90 days through the 430B plan. He had an appointment to see his bench lathe operator in [place] tomorrow. I will place a nursing order to change this to next week. (2) Cerebrovascular accident (CVA) Assessment & Plan: No recurrent neurologic complaints. I reviewed his telem etry and there has been no evidence of atrial fibrillation. Based upon the findings from the transesophageal echocardiogram, it is quite possible that he had left atrial thrombus that may have caused this embolic appearing stroke. I will change his anticoagulation from aspirin and clopidogrel over to aspirin and rivaroxaban. 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 He continues to work with physical therapy on our inpatient rehabilitation unit. Continue present guideline directed medical therapy. As above, I have changed his aspirin and clopidogrel over to rivaroxaban and aspirin. (4) Pleural effusion Assessment & Plan: The effusions are small and do not require thoracentesis. These should gradually resolve over the next 4-6 weeks. Primary hospitalist placed him on IV Lasix once a day which should help clear the effusions. He has a normal ejection fraction and as such, I suspect he will not need to be discharged with diuretics. (5) Essential (primary) hypertension Assessment & Plan: Blood pressures have been improving. Continue present medication. (6) Atherosclerosis of both carotid arteries Assessment & Plan: He had a previous carotid endarterectomy. I suspect the carotid disease had anything to do with his recent cerebrovascular accident since there were multiple ischemic changes in several vascular territories. (7) Mixed hyperlipidemia Assessment & Plan: Continue simvastatin. (8) Peripheral arterial disease Assessment & Plan: He has not been having any claudication. He had previous interventions on the left leg. I will be adjusting his antiplatelet/antithrombotic regimen as above. There is actually some good data showing that rivaroxaban can help reduce peripheral vascular events albeit at a lower dose than he will be prescribed. Physical therapy should also help with this condition. DAHLIA GAMING DO Discharge Summary Discharge Physical Examination Allergies: Coded Allergies: No Known Drug Allergies (Unverified , 04/15/16) Vitals & I&Os Vital Signs Date Time Temp Pulse Resp B/P (MAP) Pulse Ox O2 Delivery O2 Flow Rate FiO2 04/04/21 12:14 36.2 93 18 155/81 96 Room Air 04/03/21 06:24 0.00 General Appearance: Alert, Oriented X3, Cooperative Respiratory: Clear to Auscultation Cardiovascular: Regular Rate Neuro: Normal Gait, Normal Speech, Strength at 5/5 X4 Ext Psych/Mental Status: Mental Status NL Hospital Course Was the Problem List Reviewed?: Yes Hospital course: Pt had an uneventful hospital course for fourteen days although we diagnosed stroke on MRI during his stay. Pt was placed on Xarelto and Aspirin, discontinued the Plavix. Dr. Barnett was helpful in consultation services. Labs remain stable, bowels returned back to normal. He did require two liters of oxygen at night at discharge. Pt was deemed stable for discharge with close follow-up with Dr. Miranda his cardiology on Friday of next week. Labs (last 24 hrs) Laboratory Tests 03/22/21 05:48: White Blood Count 11.5H, Red Blood Count 2.57L, Hemoglobin 7.9L, Hematocrit 24L, Mean Corpuscular Volume 95, Mean Corpuscular Hemoglobin 31, Mean Corpuscular Hemoglobin Concent 33, Red Cell Distribution Width 14.3, Platelet Count 281, Mean Platelet Volume 9.3, Immature Granulocyte % (Auto) 3, Neutrophils (%) (Auto) 63, Lymphocytes (%) (Auto) 14, Monocytes (%) (Auto) 11, Eosinophils (%) (Auto) 8, Basophils (%) (Auto) 0, Neutrophils # (Auto) 7.3, Lymphocytes # (Auto) 1.6, Monocytes # (Auto) 1.2H, Eosinophils # (Auto) 1.0H, Basophils # (Auto) 0.0, Immature Granulocyte # (Auto) 0.4H, Sodium Level 140, Potassium Level 4.1, Chloride Level 105, Carbon Dioxide Level 24, Anion Gap 11, Blood Urea Nitrogen 24H, Creatinine 1.26, Estimat Glomerular Filtration Rate 56, BUN/Creatinine Ratio 19, Glucose Level 114H, Calcium Level 8.4L, Corrected Calcium 9.2, Total Bilirubin 0.4, Aspartate Amino Transf (AST/SGOT) 11, Alanine Aminotransferase (ALT/SGPT) 15, Alkaline Phosphatase 45, Total Protein 5.7L, Albumin 3.0L 03/23/21 05:50: White Blood Count 10.9, Red Blood Count 2.61L, Hemoglobin 8.0L, Hematocrit 25L, Mean Corpuscular Volume 96, Mean Corpuscular Hemoglobin 31, Mean Corpuscular Hemoglobin Concent 32, Red Cell Distribution Width 14.5, Platelet Count 307, Mean Platelet Volume 9.2, Iron Level 25L 03/23/21 16:35: Glucometer 100 03/24/21 05:17: White Blood Count 12.2H, Red Blood Count 2.58L, Hemoglobin 7.9L, Hematocrit 25L, Mean Corpuscular Volume 97, Mean Corpuscular Hemoglobin 31, Mean Corpuscular Hemoglobin Concent 32, Red Cell Distribution Width 14.7H, Platelet Count 317, Mean Platelet Volume 9.3, Immature Granulocyte % (Auto) 5, Neutrophils (%) (Auto) 64, Lymphocytes (%) (Auto) 12, Monocytes (%) (Auto) 11, Eosinophils (%) (Auto) 8, Basophils (%) (Auto) 1, Neutrophils # (Auto) 7.8, Lymphocytes # (Auto) 1.5, Monocytes # (Auto) 1.4H, Eosinophils # (Auto) 0.9H, Basophils # (Auto) 0.1, Immature Granulocyte # (Auto) 0.6H, Sodium Level 139, Potassium Level 4.3, Chloride Level 103, Carbon Dioxide Level 26, Anion Gap 10, Blood Urea Nitrogen 20H, Creatinine 1.26, Estimat Glomerular Filtration Rate 56, BUN/Creatinine Ratio 16, Glucose Level 111H, Calcium Level 8.6, Corrected Calcium 9.4, Total Bilirubin 0.4, Aspartate Amino Transf (AST/SGOT) 14, Alanine Aminotransferase (ALT/SGPT) 13, Alkaline Phosphatase 46, Total Protein 5.8L, Albumin 3.0L, B-Type Natriuretic Peptide 947.0H 03/26/21 05:36: White Blood Count 13.1H, Red Blood Count 2.81L, Hemoglobin 8.5L, Hematocrit 27L, Mean Corpuscular Volume 96, Mean Corpuscular Hemoglobin 30, Mean Corpuscular Hemoglobin Concent 32, Red Cell Distribution Width 14.7H, Platelet Count 361, Mean Platelet Volume 9.1, Immature Granulocyte % (Auto) 4, Neutrophils (%) (Auto) 64, Lymphocytes (%) (Auto) 16, Monocytes (%) (Auto) 10, Eosinophils (%) (Auto) 6, Basophils (%) (Auto) 1, Neutrophils # (Auto) 8.4H, Lymphocytes # (Auto) 2.1, Monocytes # (Auto) 1.2H, Eosinophils # (Auto) 0.8H, Basophils # (Auto) 0.1, Immature Granulocyte # (Auto) 0.6H, Sodium Level 138, Potassium Level 4.1, Chloride Level 99, Carbon Dioxide Level 29, Anion Gap 10, Blood Urea Nitrogen 18, Creatinine 1.33H, Estimat Glomerular Filtration Rate 53, BUN/Creatinine Ratio 14, Glucose Level 96, Calcium Level 8.4L, Corrected Calcium 9.2, Total Bilirubin 0.4, Aspartate Amino Transf (AST/SGOT) 18, Alanine Aminotransferase (ALT/SGPT) 12, Alkaline Phosphatase 47, Total Protein 6.0L, Albumin 3.0L 03/29/21 05:30: Urine Color YELLOW, Urine Clarity CLEAR, Urine pH 8.0, Urine Specific Export 1.010L, Urine Protein NEGATIVE, Urine Glucose (UA) NEGATIVE, Urine Ketones NEGATIVE, Urine Nitrite NEGATIVE, Urine Bilirubin 2+H, Urine Urobilinogen 1.0, Urine Leukocyte Esterase NEGATIVE, Urine RBC (Auto) NEGATIVE, Urine RBC NONE, Urine WBC 0-2, Urine Squamous Epithelial Cells 0-2, Urine Renal Epithelial Cells NONE, Urine Crystals NONE, Urine Bacteria NEGATIVE, Urine Casts NONE, Urine Mucus NEGATIVE, Urine Culture Indicated NO 03/29/21 08:56: White Blood Count 13.9H, Red Blood Count 3.26L, Hemoglobin 9.8L, Hematocrit 32L, Mean Corpuscular Volume 98, Mean Corpuscular Hemoglobin 30, Mean Corpuscular Hemoglobin Concent 31L, Red Cell Distribution Width 14.9H, Platelet Count 400, Mean Platelet Volume 8.9L, Immature Granulocyte % (Auto) 2, Neutrophils (%) (Auto) 75, Lymphocytes (%) (Auto) 10L, Monocytes (%) (Auto) 10, Eosinophils (%) (Auto) 3, Basophils (%) (Auto) 1, Neutrophils # (Auto) 10.4H, Lymphocytes # (Auto) 1.3, Monocytes # (Auto) 1.4H, Eosinophils # (Auto) 0.4H, Basophils # (Auto) 0.1, Immature Granulocyte # (Auto) 0.3H, Sodium Level 139, Potassium Level 3.9, Chloride Level 99, Carbon Dioxide Level 28, Anion Gap 12, Blood Urea Nitrogen 18, Creatinine 1.45H, Estimat Glomerular Filtration Rate 48, BUN/C reatinine Ratio 12, Glucose Level 106H, Calcium Level 9.3, Corrected Calcium 9.7, Total Bilirubin 0.4, Aspartate Amino Transf (AST/SGOT) 18, Alanine Aminotransferase (ALT/SGPT) 13, Alkaline Phosphatase 70, Total Protein 7.2, Albumin 3.5 04/02/21 05:57: White Blood Count 9.3, Red Blood Count 3.09L, Hemoglobin 9.3L, Hematocrit 30L, Mean Corpuscular Volume 97, Mean Corpuscular Hemoglobin 30, Mean Corpuscular Hemoglobin Concent 31L, Red Cell Distribution Width 14.8H, Platelet Count 289, Mean Platelet Volume 9.4, Immature Granulocyte % (Auto) 4, Neutrophils (%) (Auto) 55, Lymphocytes (%) (Auto) 20, Monocytes (%) (Auto) 14H, Eosinophils (%) (Auto) 6, Basophils (%) (Auto) 1, Neutrophils # (Auto) 5.1, Lymphocytes # (Auto) 1.8, Monocytes # (Auto) 1.3H, Eosinophils # (Auto) 0.6H, Basophils # (Auto) 0.1, Immature Granulocyte # (Auto) 0.4H, Sodium Level 136, Potassium Level 4.5, Chloride Level 100, Carbon Dioxide Level 29, Anion Gap 7, Blood Urea Nitrogen 17, Creatinine 1.29, Estimat Glomerular Filtration Rate 54, BUN/Creatinine Ratio 13, Glucose Level 97, Calcium Level 8.7, Corrected Calcium 9.5, Total Bilirubin 0.3, Aspartate Amino Transf (AST/SGOT) 16, Alanine Aminotransferase (ALT/SGPT) 13, Alkaline Phosphatase 66, Total Protein 6.3L, Albumin 3.0L Pending Labs Laboratory Tests 03/22/21 05:48: White Blood Count 11.5, Red Blood Count 2.57, Hemoglobin 7.9, Hematocrit 24, Mean Corpuscular Volume 95, Mean Corpuscular Hemoglobin 31, Mean Corpuscular Hemoglobin Concent 33, Red Cell Distribution Width 14.3, Platelet Count 281, Mean Platelet Volume 9.3, Immature Granulocyte % (Auto) 3, Neutrophils (%) (Auto) 63, Lymphocytes (%) (Auto) 14, Monocytes (%) (Auto) 11, Eosinophils (%) (Auto) 8, Basophils (%) (Auto) 0, Neutrophils # (Auto) 7.3, Lymphocytes # (Auto) 1.6, Monocytes # (Auto) 1.2, Eosinophils # (Auto) 1.0, Basophils # (Auto) 0.0, Immature Granulocyte # (Auto) 0.4, Sodium Level 140, Potassium Level 4.1, Chloride Level 105, Carbon Dioxide Level 24, Anion Gap 11, Blood Urea Nitrogen 24, Creatinine 1.26, Estimat Glomerular Filtration Rate 56, BUN/Creatinine Ratio 19, Glucose Level 114, Calcium Level 8.4, Corrected Calcium 9.2, Total Bilirubin 0.4, Aspartate Amino Transf (AST/SGOT) 11, Alanine Aminotransferase (ALT/SGPT) 15, Alkaline Phosphatase 45, Total Protein 5.7, Albumin 3.0 03/23/21 05:50: White Blood Count 10.9, Red Blood Count 2.61, Hemoglobin 8.0, Hematocrit 25, Mean Corpuscular Volume 96, Mean Corpuscular Hemoglobin 31, Mean Corpuscular Hemoglobin Concent 32, Red Cell Distribution Width 14.5, Platelet Count 307, Mean Platelet Volume 9.2, Iron Level 25 03/23/21 16:35: Glucometer 100 03/24/21 05:17: White Blood Count 12.2, Red Blood Count 2.58, Hemoglobin 7.9, Hematocrit 25, Mean Corpuscular Volume 97, Mean Corpuscular Hemoglobin 31, Mean Corpuscular Hemoglobin Concent 32, Red Cell Distribution Width 14.7, Platelet Count 317, Mean Platelet Volume 9.3, Immature Granulocyte % (Auto) 5, Neutrophils (%) (Auto) 64, Lymphocytes (%) (Auto) 12, Monocytes (%) (Auto) 11, Eosinophils (%) (Auto) 8, Basophils (%) (Auto) 1, Neutrophils # (Auto) 7.8, Lymphocytes # (Auto) 1.5, Monocytes # (Auto) 1.4, Eosinophils # (Auto) 0.9, Basophils # (Auto) 0.1, Immature Granulocyte # (Auto) 0.6, Sodium Level 139, Potassium Level 4.3, Chloride Level 103, Carbon Dioxide Level 26, Anion Gap 10, Blood Urea Nitrogen 20, Creatinine 1.26, Estimat Glomerular Filtration Rate 56, BUN/Creatinine Ratio 16, Glucose Level 111, Calcium Level 8.6, Corrected Calcium 9.4, Total Bilirubin 0.4, Aspartate Amino Transf (AST/SGOT) 14, Alanine Aminotransferase (ALT/SGPT) 13, Alkaline Phosphatase 46, Total Protein 5.8, Albumin 3.0, B-Type Natriuretic Peptide 947.0 03/26/21 05:36: White Blood Count 13.1, Red Blood Count 2.81, Hemoglobin 8.5, Hematocrit 27, Mean Corpuscular Volume 96, Mean Corpuscular Hemoglobin 30, Mean Corpuscular Hemoglobin Concent 32, Red Cell Distribution Width 14.7, Platelet Count 361, Mean Platelet Volume 9.1, Immature Granulocyte % (Auto) 4, Neutrophils (%) (Auto) 64, Lymphocytes (%) (Auto) 16, Monocytes (%) (Auto) 10, Eosinophils (%) (Auto) 6, Basophils (%) (Auto) 1, Neutrophils # (Auto) 8.4, Lymphocytes # (Auto) 2.1, Monocytes # (Auto) 1.2, Eosinophils # (Auto) 0.8, Basophils # (Auto) 0.1, Immature Granulocyte # (Auto) 0.6, Sodium Level 138, Potassium Level 4.1, Chloride Level 99, Carbon Dioxide Level 29, Anion Gap 10, Blood Urea Nitrogen 18, Creatinine 1.33, Estimat Glomerular Filtration Rate 53, BUN/Creatinine Ratio 14, Glucose Level 96, Calcium Level 8.4, Corrected Calcium 9.2, Total Bilirubin 0.4, Aspartate Amino Transf (AST/SGOT) 18, Alanine Aminotransferase (ALT/SGPT) 12, Alkaline Phosphatase 47, Total Protein 6.0, Albumin 3.0 03/29/21 05:30: Urine Color YELLOW, Urine Clarity CLEAR, Urine pH 8.0, Urine Specific Export 1.010, Urine Protein NEGATIVE, Urine Glucose (UA) NEGATIVE, Urine Ketones NEGATIVE, Urine Nitrite NEGATIVE, Urine Bilirubin 2+, Urine Urobilinogen 1.0, Urine Leukocyte Esterase NEGATIVE, Urine RBC (Auto) NEGATIVE, Urine RBC NONE, Urine WBC 0-2, Urine Squamous Epithelial Cells 0-2, Urine Renal Epithelial Cells NONE, Urine Crystals NONE, Urine Bacteria NEGATIVE, Urine Casts NONE, Urine Mucus NEGATIVE, Urine Culture Indicated NO 03/29/21 08:56: White Blood Count 13.9, Red Blood Count 3.26, Hemoglobin 9.8, Hematocrit 32, Mean Corpuscular Volume 98, Mean Corpuscular Hemoglobin 30, Mean Corpuscular Hemoglobin Concent 31, Red Cell Distribution Width 14.9, Platelet Count 400, Mean Platelet Volume 8.9, Immature Granulocyte % (Auto) 2, Neutrophils (%) (Auto) 75, Lymphocytes (%) (Auto) 10, Monocytes (%) (Auto) 10, Eosinophils (%) (Auto) 3, Basophils (%) (Auto) 1, Neutrophils # (Auto) 10.4, Lymphocytes # (Auto) 1.3, Monocytes # (Auto) 1.4, Eosinophils # (Auto) 0.4, Basophils # (Auto) 0.1, Immature Granulocyte # (Auto) 0.3, Sodium Level 139, Potassium Level 3.9, Chloride Level 99, Carbon Dioxide Level 28, Anion Gap 12, Blood Urea Nitrogen 18, Creatinine 1.45, Estimat Glomerular Filtration Rate 48, BUN/Creatinine Ratio 12, Glucose Level 106, Calcium Level 9.3, Corrected Calcium 9.7, Total Bilirubin 0.4, Aspartate Amino Transf (AST/SGOT) 18, Alanine Aminotransferase (ALT/SGPT) 13, Alkaline Phosphatase 70, Total Protein 7.2, Albumin 3.5 04/02/21 05:57: White Blood Count 9.3, Red Blood Count 3.09, Hemoglobin 9.3, Hematocrit 30, Mean Corpuscular Volume 97, Mean Corpuscular Hemoglobin 30, Mean Corpuscular Hemoglobin Concent 31, Red Cell Distribution Width 14.8, Platelet Count 289, Mean Platelet Volume 9.4, Immature Granulocyte % (Auto) 4, Neutrophils (%) (Auto) 55, Lymphocytes (%) (Auto) 20, Monocytes (%) (Auto) 14, Eosinophils (%) (Auto) 6, Basophils (%) (Auto) 1, Neutrophils # (Auto) 5.1, Lymphocytes # (Auto) 1.8, Monocytes # (Auto) 1.3, Eosinophils # (Auto) 0.6, Basophils # (Auto) 0.1, Immature Granulocyte # (Auto) 0.4, Sodium Level 136, Potassium Level 4.5, Chloride Level 100, Carbon Dioxide Level 29, Anion Gap 7, Blood Urea Nitrogen 17, Creatinine 1.29, Estimat Glomerular Filtration Rate 54, BUN/Creatinine Ratio 13, Glucose Level 97, Calcium Level 8.7, Corrected Calcium 9.5, Total Bilirubin 0.3, Aspartate Amino Transf (AST/SGOT) 16, Alanine Aminotransferase (ALT/SGPT) 13, Alkaline Phosphatase 66, Total Protein 6.3, Albumin 3.0 Discharge Home Medications: Active Scripts Active Pantoprazole Sodium 40 Mg Tablet.dr 40 Mg PO BID Furosemide 20 Mg Tablet 20 Mg PO DAILY Aspirin EC (Aspirin) 81 Mg Tablet.dr 81 Mg PO DAILY Carvedilol 6.25 Mg Tablet 6.25 Mg PO BID WITH MEALS Hydrocodone-Acetamin 5-325 mg (Hydrocodone/Acetaminophen) 1 Each Tablet 1 Tab PO Q4H PRN Xarelto Tablet (Rivaroxaban) 20 Mg Tablet 20 Mg PO DAILY@1700 90 Days PLEASE USE THE 340B [employer] PLAN Reported Divalproex Sodium 250 Mg Tablet.dr 500 Mg PO BID TAKES 2 (250MG) TABS Ocuvite Adult 50 Plus Softgel (C,E,Zinc,Copper 24/Om3/Lut/Jordan) 1 Each Capsule 1 Each PO DAILY Tolterodine Tartrate ER (Tolterodine Tartrate) 4 Mg Cap.er.24h 4 Mg PO HS Multivitamins with Minerals (Multivitamin with Minerals) 1 Each Tablet 1 Each PO HS Simvastatin 20 Mg Tablet 20 Mg PO HS Instructions to patient/family Please see electronic discharge instructions given to patient. Diagnosis/Problems Diagnosis/Problems (1) Critical illness myopathy (2) Essential (primary) hypertension Assessment & Plan: His blood pressures are intermittently elevated. If this persists, we may need to increase his carvedilol. (3) HLD (hyperlipidemia) (4) Coronary artery disease without angina pectoris Assessment & Plan: He is now status post coronary artery bypass surgery x4. He is gradually improving. He is on appropriate guideline directed medical therapy with aspirin, beta-cornelio, and statin medication. He has also been taking clopidogrel due to his history of peripheral vascular disease. I recommend continuing the present guideline directed medical therapy. I will request a copy of his cardiac catheterization and echocardiogram reports from [facility]. (5) Mixed hyperlipidemia Assessment & Plan: Continue simvastatin. (6) Atherosclerosis of both carotid arteries Assessment & Plan: He had a previous carotid endarterectomy. If his visual changes persist, he may need a head CT and/or MRI of the brain. In the interim, I recommend he continue the aspirin, clopidogrel, and statin medication. (7) Peripheral arterial disease Assessment & Plan: He has not been having any claudication. He had previous interventions on the left leg. I recommend he continue on aspirin, clopidogrel, and statin medication. Physical therapy should also help with this condition. (8) Pleural effusion Assessment & Plan: He has decreased breath sounds at both bases. From his description, it sounds as though he was having a fair amount of fluid that may needed draining but at the last moment, ultrasound did not show any significant fluid. I will obtain a chest x-ray for further evaluation. I suspect this is just a normal postoperative pleural effusion. (9) Cerebrovascular accident (CVA) (10) Acute postoperative anemia due to expected blood loss (11) S/P CABG x 4 DAHLIA GAMING DO Apr 04, 2021 06:16
[2021-04-04 07:48] VITALS: BP 155/81
[2021-04-04] MEDS: RT-ALBUTEROL/IPRATROPIUM 3 ML (DUONEB) VIAL INH SCH (07:50)
[2021-04-04] MEDS: FUROSEMIDE 20 MG (LASIX) TAB PO SCH (08:02)
[2021-04-04] MEDS: ASPIRIN 81 MG CHEW (CHILDREN'S ASA) PO SCH (08:02)
[2021-04-04] MEDS: ETODOLAC 200 MG (LODINE) CAP PO SCH (08:02)
[2021-04-04] MEDS: PANTOPRAZOLE 40 MG (PROTONIX) TAB PO SCH (08:02)
[2021-04-04] MEDS: DIVALPROEX 500 MG DELAYED RELEASE (DEPAKOTE) TAB PO SCH (08:02)
--- NOTE | 2021-04-04 08:17 | Therapy Team Discharge Summary ---
Therapy Discharge Summary Discharge Recommendations Date of Discharge 04/04/2021 Physical Therapy This patient admitted to this unit post acute hospital stay due to CABG x 4. Prior to this hospitalization, he was mod indep with all mobility and occas used a cane. Upon admission to this unit, he as SBA with bed mobility and min to CGA with transfers and gait. Treatment has consisted of functional strength, balance, activity tolerance, safety and mobility to optimize indep upon return home. At last PT assessment, pt was found to be mod indep with bed mobility but SB-CGA with transfers and gait as well as steps. He requires cues for safety and to stay on task. He has made functional gains and mobility has improved; however goals have not been fully met, recommend [facility] PT to follow for continued care. DC from [facility] this date. Occupational Therapy Decreased Activ Tolerance PT Mcc Goals Industrial Controls Technician Goals PT Industrial Controls Technician Goals Time Frame: Apr 06, 2021 Roll Left to Right (QC): 6 Sit to Lying (QC): 6 Lying-Sitting on Side/Bed(QC): 6 Sit to Stand (QC): 6 Chair/[id number] Xfer(QC): 6 Car Transfer (QC): 6 Does the Patient Walk: Yes Walk 10 feet (QC): 6 Walk 10ft-Uneven Surface(QC): 6 Walk 50ft with 2 Turns (QC): 6 Walk 150 ft (QC): 6 Does the Pt use WC or Scooter?: No Wheel 50 feet with 2 turns (QC: 9 1 Step (curb) (QC): 6 4 Steps (QC): 6 12 Steps (QC): 4 Picking up an Object (QC): 5 Pt is SB-CGA with all transfers and gait; goals not fully achieved. OT Industrial Controls Technician Goals Mcc Goals Time Frame: Apr 04, 2021 Eating (QC): 6 Oral Hygiene (QC): 6 Shower/Bathe Self (QC): 6 Upper Body Dressing (QC): 6 Lower Body Dressing (QC): 6 On/Off Footwear (QC): 6 Toileting Hygiene (QC): 6 Toilet/Commode Transfer (QC): 6 Additional Goals: 1-Demonstrate ADL Tasks, 2-Verbalize Understanding, 3-Improve Strength/Myah 1=Demonstrate adherence to instructed precautions during ADL tasks. 2=Patient will verbalize/demonstrate understanding of assistive devices/modifications for ADL. 3=Patient will improve strength/tolerance for activity to enable patient to pe rform ADL's. Speech Mcc Goals Mcc Goals 1) Patient will maintain adequate nutrition/hydration via safe effective swallow function. 2) Patient will improve cognitive-communication so that he will require less as sist to complete daily tasks. ANDRAE SWARTZ PT Apr 04, 2021 08:16
--- NOTE | 2021-04-04 08:27 | Therapy Team Discharge Summary ---
Therapy Discharge Summary Discharge Recommendations Date of Discharge 04-04-21 Therapy D/C Recommendations: Home w/ Family Support, Occupational Therapy Home Care Occupational Therapy Pt. seen for Occupational therapy services to increase overall strength and independence with daily tasks. Pt. required set up with most tasks, such as dressing/bathing at discharge, and CGA with toileting and ambulation. Pt. requires cues for attention and sequencing during activities, and increased time to complete tasks due to decreased endurance. Pt. discharging home with son support. No adaptive equipment needed. Recommend home health OT to continue working on independence with daily skills, strength with IADL skills, and endurance for maneuvering in home environment. Decreased Activ Tolerance, Impaired I ADL's PT Crime Lab Technician Goals Crime Lab Technician Goals PT Fpc Goals Time Frame: Apr 06, 2021 Roll Left to Right (QC): 6 Sit to Lying (QC): 6 Lying-Sitting on Side/Bed(QC): 6 Sit to Stand (QC): 6 Chair/Yge-vn-Fsshq Xfer(QC): 6 Car Transfer (QC): 6 Does the Patient Walk: Yes Walk 10 feet (QC): 6 Walk 10ft-Uneven Surface(QC): 6 Walk 50ft with 2 Turns (QC): 6 Walk 150 ft (QC): 6 Does the Pt use WC or Scooter?: No Wheel 50 feet with 2 turns (QC: 9 1 Step (curb) (QC): 6 4 Steps (QC): 6 12 Steps (QC): 4 Picking up an Object (QC): 5 OT Crime Lab Technician Goals Crime Lab Technician Goals Time Frame: Apr 04, 2021 Eating (QC): 6 (met) Oral Hygiene (QC): 6 (met) Shower/Bathe Self (QC): 6 (not met) Upper Body Dressing (QC): 6 (not met) Lower Body Dressing (QC): 6 (not met) On/Off Footwear (QC): 6 (not met) Toileting Hygiene (QC): 6 (not met) Toilet/Commode Transfer (QC): 6 (not met) Additional Goals: 1-Demonstrate ADL Tasks, 2-Verbalize Understanding, 3- ImproveStrength/Myah 1=Demonstrate adherence to instructed precautions during ADL tasks. 2=Patient will verbalize/demonstrate understanding of assistive devices/modifications for ADL. 3=Patient will improve strength/tolerance for activity to enable patient to perform ADL's. Speech Crime Lab Technician Goals Fpc Goals 1) Patient will maintain adequate nutrition/hydration via safe effective swallow function. 2) Patient will improve cognitive-communication so that he will require less assist to complete daily tasks. MAGGY DAVILA OT Apr 04, 2021 08:27
[2021-04-04 12:14] VITALS: BP 155/81
== END 2021-04-04 12:27 | disposition home health service (06) | DRG 91 ==
PROVIDERS: ADMIT Internal Medicine; ATTEND Internal Medicine
DX: G72.81 Critical illness myopathy (principal); I63.40 Cerebral infarction due to embolism of unspecified cerebral artery; J90 Pleural effusion, not elsewhere classified; D62 Acute posthemorrhagic anemia; I51.89 Other ill-defined heart diseases; Z95.1 Presence of aortocoronary bypass graft; I25.10 Atherosclerotic heart disease of native coronary artery without angina pectoris; I48.0 Paroxysmal atrial fibrillation; I12.9 Hypertensive chronic kidney disease with stage 1 through stage 4 chronic kidney disease, or unspecified chronic kidney disease; N18.2 Chronic kidney disease, stage 2 (mild); I73.9 Peripheral vascular disease, unspecified; I65.23 Occlusion and stenosis of bilateral carotid arteries; E78.2 Mixed hyperlipidemia; H53.8 Other visual disturbances; N32.81 Overactive bladder; H04.129 Dry eye syndrome of unspecified lacrimal gland; Z87.891 Personal history of nicotine dependence; Z79.82 Long term (current) use of aspirin
CPT/HCPCS: 36415; 70450; 70551; 71045; 71046; 80053; 81000; 82947; 83540; 83880; 85025; 85027; 93005; 93306; 93880; 94010; 94640; 94664; 94760

== ENCOUNTER → 2021-03-26 | Day surgery (SDC) | payer MEDICARE, OTHER ==
[2021-03-26] VITALS (10 sets, daily range): BP systolic 108–177; BP diastolic 57–75
[~2021-03-26] MED LIST changes: +ACHD5005 PO; +ASPI-1238 PO; +ASPI-999 PO; +C,E,1CAP2 PO; +CARV3.122 PO; +CARV6.252 PO; +CEPH250C PO; +CLOP75TA28 PO; +DIVA-74 PO; +DIVA500T PO; +FERR325T24 PO; +FURO20TA4 PO; +ISOS30TA82 PO; +LIDOCAINE 2% VISCOUS 15 ML UDC ONE; +LIDOCAINE 2% VISCOUS 15 ML UDC PO ONE; +LISI20TA26 PO; +MIDAZOLAM 5 MG/5 ML (VERSED) VIAL IV ONE; +MIDAZOLAM 5 MG/5 ML (VERSED) VIAL ONE; +MULT-166 PO; +NS IV 1000 ML 1,000 ML IV ONE; +NS IV 1000 ML 1,000 ML ONE; +PANT40TA52 PO; +RIVA20TA2 PO; +TMSL.4C PO; +TOLT4CAP26 PO; +fentaNYL INJ 100 MCG/2 ML AMP IV ONE; +fentaNYL INJ 100 MCG/2 ML AMP ONE; +lidocaine IM; +rocephin IM
== END ==
LOC: CATH 08:42
PROVIDERS: ATTEND Internal Medicine Cardiovascular Disease
DX: I25.10 Atherosclerotic heart disease of native coronary artery without angina pectoris (principal); J90 Pleural effusion, not elsewhere classified; I11.9 Hypertensive heart disease without heart failure; I70.0 Atherosclerosis of aorta; E78.2 Mixed hyperlipidemia; I65.23 Occlusion and stenosis of bilateral carotid arteries; I73.9 Peripheral vascular disease, unspecified; Z95.1 Presence of aortocoronary bypass graft; Z87.891 Personal history of nicotine dependence; Z79.82 Long term (current) use of aspirin; Z79.899 Other long term (current) drug therapy; Z79.02 Long term (current) use of antithrombotics/antiplatelets; Z79.891 Long term (current) use of opiate analgesic
CPT/HCPCS: 93312

== ENCOUNTER 2021-04-05 14:02 | Inpatient (IN) | payer MEDICARE, OTHER ==
[~2021-04-05] VITALS: Ht 180 cm; Wt 76.5 kg
[~2021-04-05 14:02] MED LIST changes: -CEPH250C PO; -FERR325T24 PO; -LIDOCAINE 2% VISCOUS 15 ML UDC ONE; -LIDOCAINE 2% VISCOUS 15 ML UDC PO ONE; -MIDAZOLAM 5 MG/5 ML (VERSED) VIAL IV ONE; -MIDAZOLAM 5 MG/5 ML (VERSED) VIAL ONE; -NS IV 1000 ML 1,000 ML IV ONE; -NS IV 1000 ML 1,000 ML ONE; -TMSL.4C PO; -fentaNYL INJ 100 MCG/2 ML AMP IV ONE; -fentaNYL INJ 100 MCG/2 ML AMP ONE; -lidocaine IM; -rocephin IM
[2021-04-05] MEDS ORDERED: CEFEPIME INJECTION 1,000 MG in WATER (STERILE) FOR INJECTION 10 ML IV ONE (14:15)
[2021-04-05] MEDS ORDERED: VANCOMYCIN INJECTION 1,500 MG in NS IV 500 ML 500 ML IV ONE (14:15)
[2021-04-05] MEDS ORDERED: ACETAMINOPHEN 500 MG TAB (TYLENOL) PO PRN (14:15)
[2021-04-05 14:16] VITALS: BP 127/70
--- NOTE | 2021-04-05 14:21 | ED General ---
General Stated Complaint: ALTERED LOC,FEVER Source of Information: Patient Exam Limitations: No Limitations History of Present Illness Date Seen by Provider: Apr 05, 2021 Time Seen by Provider: 13:55 Initial Comments Patient to the ER by EMS from inpatient rehab with chief complaint of altered mental status x1 day. He has been having some pain tween his shoulder blades today as well as a productive cough that started this morning. Patient was there after having a CABG in [place]. He is not having any chest pain nor is he having nausea sweats. He does have some chills and had a fever of 102 per nursing staff 101 per EMS. He complains of dysuria as well as some increased shortness of breath. He does not use oxygen at baseline. No diarrhea or constipation. He does not smoke. He has recently been vaccinated with Moderna COVID-19 x2 vaccinations. Allergies and Home Medications Allergies Coded Allergies: No Known Drug Allergies (Unverified , 04/15/16) Home Medications Aspirin 81 Mg Tablet., 81 MG PO DAILY Prescribed by: DAHLIA GAMING on 04/04/21613 C,E,Zinc,Copper 24/Om3/Lut/Jordan 1 Each Capsule, 1 EACH PO DAILY, (Reported) Carvedilol 6.25 Mg Tablet, 6.25 MG PO BID WITH MEALS Prescribed by: DAHLIA GAMING on 04/04/21613 Divalproex Sodium 250 Mg Tablet.dr, 500 MG PO BID, (Reported) TAKES 2 (250MG) TABS Furosemide 20 Mg Tablet, 20 MG PO DAILY Prescribed by: DAHLIA GAMING on 04/04/21613 Hydrocodone/Acetaminophen 1 Each Tablet, 1 TAB PO Q4H PRN for PAIN-MODERATE (5- 7) Prescribed by: DAHLIA GAMING on 04/04/21613 Multivitamin with Minerals 1 Each Tablet, 1 EACH PO HS, (Reported) Pantoprazole Sodium 40 Mg Tablet., 40 MG PO BID Prescribed by: DAHLIA GAMING on 04/04/21613 Rivaroxaban 20 Mg Tablet, 20 MG PO DAILY@1700 PLEASE USE THE 340B SAVINGS PLAN Prescribed by: GRADY JACQUES JR, MD on 03/27/21 0941 Simvastatin 20 Mg Tablet, 20 MG PO HS, (Reported) Tolterodine Tartrate 4 Mg Cap.er.24h, 4 MG PO HS, (Reported) Patient Home Medication List Home Medication List Reviewed: Yes Review of Systems Review of Systems Constitutional: No chills, No diaphoresis EENTM: No ear discharge, No ear pain Respiratory: cough, phlegm, short of breath Cardiovascular: No chest pain, No edema; Hx of Intervention Gastrointestinal: No abdominal pain, No constipation, No diarrhea Genitourinary: No discharge; dysuria Musculoskeletal: see HPI, back pain; No joint pain Skin: No change in color, No lesions, No lumps Psychiatric/Neurological: Denies Anxiety, Denies Depressed, Denies Headache All Other Systems Reviewed Negative Unless Noted: Yes Past Ojyjmsb-Vdkzju-Xhsbkj Hx Patient Social History Tobacco Use?: No Use of E-Cig and/or Vaping dev: No Substance use?: No Alcohol Use?: No Past Medical History CABG Coronary Artery Disease, Hypertension, Peripheral Vascular Family Medical History No Pertinent Family Hx Physical Exam-Suspected Sepsis Physical Exam Vital Signs Vital Signs - First Documented 04/05/21 14:02 Temp 38.8 Pulse 106 Resp 22 B/P (MAP) 153/73 (99) Pulse Ox 96 O2 Delivery Room Air Capillary Refill : Height, Weight, BMI Height: 5'11.00" Weight: 185lbs. 0.0oz. 83.290568tz; 24.72 BMI Method: General Appearance: WD/WN, Mild Distress Eyes: Bilateral Eye Normal Inspection, Bilateral Eye PERRL, Bilateral Eye EOMI HEENT: PERRL/EOMI; No Moist Mucous Membranes Neck: Full Range of Motion, Normal Inspection Respiratory: Lungs Clear, Normal Breath Sounds, No Accessory Muscle Use, No Respiratory Distress Cardiovascular: Regular Rate, Rhythm, No Edema, Normal Peripheral Pulses Gastrointestinal: Normal Bowel Sounds, Non Tender, Soft Extremity: Normal Capillary Refill, Normal Inspection, No Pedal Edema Neurologic/Psychiatric: Alert, Oriented x3, No Motor/Sensory Deficits Skin: normal color, warm/dry Focused Exam Sepsis Stage: Sepsis Possible Source: Genitouriary Lactate Level 04/05/21 14:20: Lactic Acid Level 1.40 Time of Focused Exam: 16:17 Respiratory: Lungs Clear, Normal Breath Sounds, No Accessory Muscle Use, No Respiratory Distress Cardiovascular: Regular Rate, Rhythm, No Edema, Normal Peripheral Pulses Capillary Refill: Less Than 3 Seconds Peripheral Pulses: 2+ Radial Pulses (R), 2+ Radial Pulses (L) Skin: normal color, warm/dry Lactic Acid Level Laboratory Tests Test 04/05/21 14:20 Lactic Acid Level 1.40 MMOL/L (0.50-2.00) Within 3hrs of presentation: Admin fluids, Admin ABX, Blood cultures prior to ABX's, Focus exam, Lactate level Progress/Results/Core Measures Suspected Sepsis SIRS Temperature: Pulse: Respiratory Rate: Laboratory Tests 04/05/21 14:20: White Blood Count 27.0H Blood Pressure / Mean: 04/05/21 14:20: Lactic Acid Level 1.40 Laboratory Tests 04/05/21 14:20: Creatinine 1.32H, INR Comment 1.2, Platelet Count 265, Total Bilirubin 0.6 Results/Orders Lab Results Laboratory Tests Test 04/05/21 14:20 04/05/21 14:29 Range/Units White Blood Count 27.0 H 4.3-11.0 10^3/uL Red Blood Count 3.51 L 4.30-5.52 10^6/uL Hemoglobin 10.6 L 13.3-17.7 g/dL Hematocrit 34 L 40-54 % Mean Corpuscular Volume 97 80-99 fL Mean Corpuscular Hemoglobin 30 25-34 pg Mean Corpuscular Hemoglobin Concent 31 L 32-36 g/dL Red Cell Distribution Width 15.2 H 10.0-14.5 % Platelet Count 265 130-400 10^3/uL Mean Platelet Volume 9.2 9.0-12.2 fL Immature Granulocyte % (Auto) 2 % Neutrophils (%) (Auto) 80 H 42-75 % Lymphocytes (%) (Auto) 4 L 12-44 % Monocytes (%) (Auto) 14 H 0-12 % Eosinophils (%) (Auto) 0 0-10 % Basophils (%) (Auto) 0 0-10 % Neutrophils # (Auto) 21.5 H 1.8-7.8 10^3/uL Lymphocytes # (Auto) 1.2 1.0-4.0 10^3/uL Monocytes # (Auto) 3.8 H 0.0-1.0 10^3/uL Eosinophils # (Auto) 0.0 0.0-0.3 10^3/uL Basophils # (Auto) 0.1 0.0-0.1 10^3/uL Immature Granulocyte # (Auto) 0.4 H 0.0-0.1 10^3/uL Neutrophils % (Manual) 76 % Lymphocytes % (Manual) 7 % Monocytes % (Manual) 12 % Band Neutrophils 5 % Blood Morphology Comment NORMAL Prothrombin Time 16.0 H 12.2-14.7 SEC INR Comment 1.2 0.8-1.4 Activated Partial Thromboplast Time 45 H 24-35 SEC Sodium Level 136 135-145 MMOL/L Potassium Level 4.6 3.6-5.0 MMOL/L Chloride Level 98 98-107 MMOL/L Carbon Dioxide Level 25 21-32 MMOL/L Anion Gap 13 5-14 MMOL/L Blood Urea Nitrogen 22 H 7-18 MG/DL Creatinine 1.32 H 0.60-1.30 MG/DL Estimat Glomerular Filtration Rate 53 BUN/Creatinine Ratio 17 Glucose Level 111 H 70-105 MG/DL Lactic Acid Level 1.40 0.50-2.00 MMOL/L Calcium Level 9.0 8.5-10.1 MG/DL Corrected Calcium 9.4 8.5-10.1 MG/DL Total Bilirubin 0.6 0.1-1.0 MG/DL Aspartate Amino Transf (AST/SGOT) 25 5-34 U/L Alanine Aminotransferase (ALT/SGPT) 16 0-55 U/L Alkaline Phosphatase 71 40-136 U/L Troponin I 0.053 H <0.028 NG/ML Total Protein 7.9 6.4-8.2 GM/DL Albumin 3.5 3.2-4.5 GM/DL Influenza Type A (RT-PCR) Not Detected Not Detecte Influenza Type B (RT-PCR) Not Detected Not Detecte SARS-CoV-2 RNA (RT-PCR) Not Detected Not Detecte Urine Color YELLOW Urine Clarity CLOUDY Urine pH 6.5 5-9 Urine Specific [place] 1.020 1.016-1.022 Urine Protein 2+ H NEGATIVE Urine Glucose (UA) NEGATIVE NEGATIVE Urine Ketones NEGATIVE NEGATIVE Urine Nitrite POSITIVE H NEGATIVE Urine Bilirubin 1+ H NEGATIVE Urine Urobilinogen 2.0 < = 1.0 MG/DL Urine Leukocyte Esterase 2+ H NEGATIVE Urine RBC (Auto) 3+ H NEGATIVE Urine RBC 2-5 H /HPF Urine WBC >100 H /HPF Urine Squamous Epithelial Cells NONE /HPF Urine Crystals NONE /LPF Urine Bacteria LARGE H /HPF Urine Casts NONE /LPF Urine Mucus NEGATIVE /LPF Urine Culture Indicated CULTURE PENDING My Orders Orders - EVANGELINA DU Cbc With Automated Diff (04/05/21 14:12) Comprehensive Metabolic Panel (04/05/21 14:12) Blood Culture (04/05/21 14:12) Sputum Culture (04/05/21 14:12) Urinalysis (04/05/21 14:12) Urine Culture (04/05/21 14:12) Protime With Inr (04/05/21 14:12) Partial Thromboplastin Time (04/05/21 14:12) Chest 1 View, Ap/Pa Only (04/05/21 14:12) Acetaminophen Tablet (Tylenol Tablet) (04/05/21 14:15) Ed Iv/Invasive Line Start (04/05/21 14:12) Ed Iv/Invasive Line Start (04/05/21 14:12) Ekg Tracing (04/05/21 14:12) Troponin I (04/05/21 14:12) Vital Signs Adult Sepsis Patie Q15M (04/05/21 14:12) O2 (04/05/21 14:12) Remove Rings In Anticipation O (04/05/21 14:12) Lactic Acid Analyzer (04/05/21 14:12) Cefepime Injection (Maxipime Injection) (04/05/21 14:15) Vancomycin Injection (Vancomycin Injecti (04/05/21 14:15) Covid 19 Inhouse Test (04/05/21 14:12) Influenza A And B By Pcr (04/05/21 14:12) Manual Differential (04/05/21 14:20) Medications Given in ED Current Medications Medications Dose Ordered Sig/Chad Route Start Time Stop Time Status Last Admin Dose Admin Acetaminophen 1,000 mg ONCE PRN PO 04/05/21 14:15 04/05/21 14:38 DC 04/05/21 14:32 1,000 MG Cefepime HCl 1000 mg/Sterile Water 10 ml @ 200 mls/hr ONCE ONCE IV 04/05/21 14:15 04/05/21 14:17 DC 04/05/21 14:37 200 MLS/HR Vancomycin HCl 1500 mg/Sodium Chloride 500 ml @ 257 mls/hr ONCE ONCE IV 04/05/21 14:15 04/05/21 16:11 04/05/21 14:38 257 MLS/HR Vital Signs/I&O 04/05/21 14:02 Temp 38.8 Pulse 106 Resp 22 B/P (MAP) 153/73 (99) Pulse Ox 96 O2 Delivery Room Air Capillary Refill : Progress Note : Time: 14:20 Progress Note Fever tachycardia productive cough, suspect pneumonia and sepsis. Septic work- up with cefepime and vancomycin. With his history of dysuria we will look for UTI as well. COVID-19 swab. He is not having any chest pain we will get a baseline EKG and troponin in case he develops some of that while he is here. Were going to try and err on the side of being light with his IV fluids because of the possibility of Covid as well as his recent CABG and the heart surgeons like to keep their patients relatively dry for heart health. 1500 cc would be just under 20 mL/kg. He states a weight of 177 pounds. ECG Initial ECG Impression Date: Apr 05, 2021 Initial ECG Impression Time: 14:56 Initial ECG Rate: 103 Initial ECG Rhythm: Normal Sinus Initial ECG Intervals: QT (490) Initial ECG Impression: Normal, Nonspecific Changes Initial ECG Comparisson: No Previous ECG Available Comment Sinus tachycardia. No clinically relevant ST elevation or depression. Borderline prolonged QTC Diagnostic Imaging Diagonstic Imaging: Xray Plain Films/CT/US/NM/MRI: chest Comments [facility]. [place], [place] NAME: JANELL BOTELLO [facility] REC#: [id number] PT STATUS: REG ER : 1945 PHYSICIAN: EVANGELINA DU MD ADMIT DATE: 04/05/21/ER Signed Date of Exam:04/05/21 CHEST 1 VIEW, AP/PA ONLY Indication: Cough, fever and confusion Portable chest 2:59 PM There are postoperative changes from CABG surgery. Heart size and pulmonary vascularity are normal. Lungs are clear. There are no effusions or pneumothoraces. IMPRESSION: No acute abnormalities in the chest Dictated by: Dictated on workstation # [id number] Dict: 04/05/21 1526 Trans: 04/05/21 1527 TCB [id number] Interpreted by: LUZ CASTILLO MD Electronically signed by: LUZ CASTILLO MD 04/05/21 1527 Reviewed: Reviewed by Me Departure Communication (Admissions) Time/Spoke to Admitting Phy: 16:20 Discussed the case with Dr. Cassidy and he agrees with antibiotics and floor placement. Impression Primary Impression: UTI (urinary tract infection) Qualified Codes: N30.01 - Acute cystitis with hematuria Additional Impression: Sepsis Qualified Codes: A41.9 - Sepsis, unspecified organism; R65.20 - Severe sepsis without septic shock; G93.40 - Encephalopathy, unspecified Disposition: ADMITTED INPATIENT Condition: Stable Admissions Decision to Admit Reason: Admit from ER (General) Decision to Admit/Date: Apr 05, 2021 Time/Decision to Admit Time: 15:50 Departure-Patient Inst. Referrals: LILLY TUCKER MD (PCP/Family) Primary Care Physician EVANGELINA DU Apr 05, 2021 14:21
[2021-04-05 14:34] LABS: BASOPHILS # (AUTO) 0.1 10^3/uL (0.0-0.1); BASOPHILS % (AUTO) 0 % (0-10); EOSINOPHILS % (AUTO) 0 % (0-10); HEMATOCRIT 34 % (40-54); HEMOGLOBIN 10.6 g/dL (13.3-17.7); LYMPHOCYTES # (AUTO) 1.2 10^3/uL (1.0-4.0); LYMPHOCYTES % (AUTO) 4 % (12-44); MEAN CORPUSCULAR HEMOGLOBIN 30 pg (25-34); MEAN CORPUSCULAR HGB CONC 31 g/dL (32-36); MEAN CORPUSCULAR VOLUME 97 fL (80-99); MEAN PLATELET VOLUME 9.2 fL (9.0-12.2); MONOCYTES # (AUTO) 3.8 10^3/uL (0.0-1.0); MONOCYTES % (AUTO) 14 % (0-12); NEUTROPHILS # (AUTO) 21.5 10^3/uL (1.8-7.8); NEUTROPHILS % (AUTO) 80 % (42-75); PLATELET COUNT 265 10^3/uL (130-400)
[2021-04-05 14:36] LABS: CLARITY,URINE CLOUDY; COLOR,URINE YELLOW; GLUCOSE, URINE (UA) NEGATIVE (NEGATIVE); KETONES,URINE NEGATIVE (NEGATIVE); LEUKOCYTE ESTERASE ,URINE 2+ (NEGATIVE); NITRITE,URINE POSITIVE (NEGATIVE); PH,URINE 6.5 (5-9); PROTEIN,URINE 2+ (NEGATIVE)
[2021-04-05 14:45] LABS: BACTERIA,URINE LARGE /HPF
[2021-04-05 14:45] LABS: ALBUMIN 3.5 GM/DL (3.2-4.5); POTASSIUM 4.6 MMOL/L (3.6-5.0)
[2021-04-05 14:47] LABS: BILIRUBIN,URINE 1+ (NEGATIVE); WBC,URINE >100 /HPF
[2021-04-05 14:47] LABS: INR 1.2 (0.8-1.4)
[2021-04-05 14:48] LABS: TOTAL PROTEIN 7.9 GM/DL (6.4-8.2)
[2021-04-05 14:50] LABS: BILIRUBIN,TOTAL 0.6 MG/DL (0.1-1.0)
[2021-04-05 14:51] LABS: BAND NEUTROPHILS 5 %; CREATININE SERUM 1.32 MG/DL (0.60-1.30); LYMPHOCYTES % (MANUAL) 7 %; MONOCYTES % (MANUAL) 12 %; NEUTROPHILS % (MANUAL) 76 %
[2021-04-05 14:52] LABS: RBC MORPH NORMAL
--- NOTE | 2021-04-05 15:28 | Diagnostic Imaging Report ---
Indication: Cough, fever and confusion Portable chest 2:59 PM There are postoperative changes from CABG surgery. Heart size and pulmonary vascularity are normal. Lungs are clear. There are no effusions or pneumothoraces. IMPRESSION: No acute abnormalities in the chest Dictated by: Dictated on workstation # [id number]
[2021-04-05 17:05] VITALS: BP 127/70
[2021-04-05] MEDS ORDERED: LOPERAMIDE 2 MG (IMODIUM) TABLET PO PRN (17:15)
[2021-04-05] MEDS ORDERED: ALPRAZolam 0.25 MG (XANAX) TAB PO PRN (17:15)
[2021-04-05] MEDS ORDERED: ONDANSETRON 4 MG (ZOFRAN) ORAL DISSOLVE TAB PO PRN (17:15)
[2021-04-05] MEDS ORDERED: MELATONIN 3 MG TABLET PO PRN (17:15)
[2021-04-05] MEDS ORDERED: DOCUSATE SODIUM 100 MG (COLACE) CAP PO PRN (17:15)
[2021-04-05] MEDS ORDERED: polyethylene glycoL POWDER 17 GM (MIRALAX) PACK PO PRN (17:15)
[2021-04-05] MEDS ORDERED: FLEET ENEMA ADULT 1 EA BTL PR PRN (17:15)
[2021-04-05] MEDS ORDERED: guaiFENesin/CODEINE (ROBITUSSIN AC) 10ML UDC PO PRN (17:15)
[2021-04-05] MEDS ORDERED: CALCIUM CARBONATE 500 MG (TUMS) TAB.CHEW PO PRN (17:15)
[2021-04-05] MEDS ORDERED: SENNA W/DOCUSATE (SENOKOT S) TABLET PO PRN (17:15)
[2021-04-05] MEDS ORDERED: LACTULOSE SYRUP 10GM/15ML (ENULOSE) 30ML UDC PO PRN (17:15)
[2021-04-05] MEDS ORDERED: diphenhydrAMINE 25 MG TAB (BENADRYL) PO PRN (17:15)
[2021-04-05] MEDS ORDERED: BISACODYL 10 MG SUPP (DULCOLAX) PR PRN (17:15)
[2021-04-05] MEDS ORDERED: ONDANSETRON 4 MG/2 ML (SDV) Z0FRAN IV PRN (17:30)
[2021-04-05] MEDS ORDERED: ACETAMINOPHEN 650 MG SUPP (TYLENOL) PR PRN (17:30)
[2021-04-05] MEDS ORDERED: ANTACID SUSP 30 ML UDC (MYLANTA) PO PRN (17:30)
[2021-04-05] MEDS ORDERED: CATHETER FLUSH 10 ML SYR IV PRN (17:30)
[2021-04-05] MEDS: LACTATED RINGERS 1,000 ML IV SCH (18:07)
[2021-04-05] MEDS: cefTRIAXone 1,000 MG in WATER (STERILE) FOR INJECTION 10 ML IV SCH (18:10)
[2021-04-05] MEDS: ETODOLAC 200 MG (LODINE) CAP PO SCH (18:10)
[2021-04-05] MEDS: DIVALPROEX 500 MG DELAYED RELEASE (DEPAKOTE) TAB PO SCH (19:52)
[2021-04-05] MEDS: TOLTERODINE LA 4 MG (DETROL) CAP PO SCH (19:52)
[2021-04-05 19:53] VITALS: BP 114/65
[2021-04-05] MEDS: SIMvastatin 20 MG (ZOCOR) TAB PO SCH (19:53)
[2021-04-05] MEDS: PANTOPRAZOLE 40 MG (PROTONIX) TAB PO SCH (19:53)
[2021-04-05 20:38] VITALS: BP 114/65
[2021-04-05] MEDS: HYDROcodone/APAP 5 MG/325 MG (LORTAB) TAB PO PRN (20:57)
[2021-04-05] MEDS: RT-ALBUTEROL/IPRATROPIUM 3 ML (DUONEB) VIAL INH SCH (21:12)
--- NOTE | 2021-04-05 21:26 | History & Physical-Hospitalist ---
History of Present Illness HPI/Chief Complaint Ovidio Shaw is a 75 year old male with PMH HTN, HLD, CAD s/p CABG, PVD, who presented with altered mental status. He underwent a CABG three weeks ago and then spent two weeks in our inpatient rehabilitation unit. He was discharged home yesterday. His family found him to be confused. He has been having fevers. He reports dysuria and urinary frequency. He also has urinary urgency and has had some incontinence. He denies shortness of breath. He has had a cough for two weeks. He denies abdominal pain, nausea, vomiting, and diarrhea. Source: patient Exam Limitations: no limitations Date Seen 04/05/21 Time Seen by a Provider: 16:30 Attending Physician Linda Clement MD PCP Birgit Bardales MD Referring Physician Date of Admission Apr 05, 2021 at 16:15 Home Medications & Allergies Home Medications Reviewed patient Home Medication Reconciliation performed by pharmacy medication reconciliations firestopper technician and/or nursing. Patients Allergies have been reviewed. Allergies Allergies Coded Allergies No Known Drug Allergies (Unverified04/05/21) Past Idcvlmk-Cvwncz-Iejyay Hx Patient Social History Tobacco Use?: No Smoking Status: Former Smoker Smokeless Tobacco Frequency: Never a User Use of E-Cig and/or Vaping dev: No Use of E-Cig and/or Vaping Oral: Never a User Substance use?: No Alcohol Use?: No Pt feels they are or have been: No Immunizations Up To Date First/Initial COVID19 Vaccinat: december 03 Second COVID19 Vaccination Timothy: January 03 Tetanus Booster (TDap): Unknown Hepatitis A: No Hepatitis B: No Date of Pneumonia Vaccine: Mar 20, 2016 Current Status Advance Directives: No Communicates: Verbally Primary Language: Albanian Preferred Spoken Language: Albanian Is interpretation needed?: No Implanted or Applied Medical D: None Past Medical History Surgeries: CABG Coronary Artery Disease, Hypertension, Peripheral Vascular Family Medical History No Pertinent Family Hx Review of Systems Constitutional: fever EENTM: no symptoms reported Respiratory: cough Cardiovascular: no symptoms reported Gastrointestinal: no symptoms reported Genitourinary: dysuria, frequency, incontinence Musculoskeletal: no symptoms reported Skin: no symptoms reported Psychiatric/Neurological: No Symptoms Reported Physical Exam Physical Exam Vital Signs Vital Signs - First Documented 04/05/21 04/05/21 14:02 20:38 Temp 38.8 Pulse 106 Resp 22 B/P (MAP) 153/73 (99) Pulse Ox 96 O2 Delivery Room Air FiO2 21 Capillary Refill : Less Than 3 Seconds Height, Weight, BMI Height: 5'11.00" Weight: 185lbs. 0.0oz. 83.625776iq; 23.61 BMI Method: General Appearance: No Apparent Distress, WD/WN HEENT: PERRL/EOMI, Pharynx Normal Neck: Normal Inspection, Supple Respiratory: Lungs Clear, Normal Breath Sounds, No Respiratory Distress Cardiovascular: Regular Rate, Rhythm, No Edema, No Murmur, Other (midline sternal incision clean/dry/intact) Gastrointestinal: Normal Bowel Sounds, Non Tender, Soft Extremity: Normal Inspection, Non Tender, No Pedal Edema Skin: Normal Color, Warm/Dry Lymphatic: No Adenopathy Results Results/Procedures Labs Laboratory Tests 04/05/21 14:20 Patient resulted labs reviewed. Imaging: Reviewed Imaging Report Assessment/Plan Admission Diagnosis Sepsis due to UTI Admission Status: Inpatient Order (span 2 midnights) Reason for Inpatient Admission: IV antibiotics Assessment and Plan Sepsis due to UTI SIRS+ with fever, tachycardia, and leukocytosis UA consistent with UTI CXR negative COVID/flu negative Blood cultures pending Started on Rocephin Await urine cultures IV fluids Repeat chest xray tomorrow morning CAD s/p CABG CKD 3a HLD HTN AFib GERD Continue home meds DVT prophylaxis: already receiving therapeutic anticoagulation Diagnosis/Problems Diagnosis/Problems (1) Sepsis due to urinary tract infection Status: Acute (2) Essential (primary) hypertension Status: Chronic (3) HLD (hyperlipidemia) Status: Chronic (4) Coronary artery disease without angina pectoris Status: Chronic (5) Peripheral vascular disease Status: Chronic (6) Stage III chronic kidney disease Status: Chronic Qualifiers: Chronic kidney disease stage 3 subtype: stage 3a (GFR 45-59) Qualified Codes: N18.31 - Chronic kidney disease, stage 3a (7) S/P CABG x 4 Status: Chronic LINDA CLMEENT MD Apr 05, 2021 21:26
[2021-04-05 23:52] VITALS: BP 99/62
[2021-04-06] MEDS: LACTATED RINGERS 1,000 ML IV SCH ×3 (01:31→11:54)
[2021-04-06 03:58] VITALS: BP 115/67
[2021-04-06] MEDS: HYDROcodone/APAP 5 MG/325 MG (LORTAB) TAB PO PRN ×2 (05:02→23:11)
[2021-04-06 05:16] LABS: BASOPHILS # (AUTO) 0.1 10^3/uL (0.0-0.1); BASOPHILS % (AUTO) 0 % (0-10); EOSINOPHILS % (AUTO) 0 % (0-10); HEMATOCRIT 29 % (40-54); HEMOGLOBIN 8.8 g/dL (13.3-17.7); LYMPHOCYTES # (AUTO) 1.5 10^3/uL (1.0-4.0); LYMPHOCYTES % (AUTO) 6 % (12-44); MEAN CORPUSCULAR HEMOGLOBIN 30 pg (25-34); MEAN CORPUSCULAR HGB CONC 30 g/dL (32-36); MEAN CORPUSCULAR VOLUME 100 fL (80-99); MEAN PLATELET VOLUME 9.4 fL (9.0-12.2); MONOCYTES # (AUTO) 3.2 10^3/uL (0.0-1.0); MONOCYTES % (AUTO) 12 % (0-12); NEUTROPHILS # (AUTO) 21.3 10^3/uL (1.8-7.8); NEUTROPHILS % (AUTO) 80 % (42-75); PLATELET COUNT 219 10^3/uL (130-400); WHITE BLOOD COUNT 26.7 10^3/uL (4.3-11.0)
[2021-04-06 05:31] LABS: CALCIUM 8.2 MG/DL (8.5-10.1)
[2021-04-06 05:35] LABS: CREATININE SERUM 1.31 MG/DL (0.60-1.30)
[2021-04-06] MEDS: RT-ALBUTEROL/IPRATROPIUM 3 ML (DUONEB) VIAL INH SCH ×2 (07:23→19:46)
--- NOTE | 2021-04-06 07:23 | Diagnostic Imaging Report ---
Indication: Sepsis Portable chest 2:40 AM There are postoperative changes from CABG surgery. Heart size and pulmonary vascularity are normal. Lungs are clear. There are no effusions or pneumothoraces. IMPRESSION: No acute abnormalities in the chest. Dictated by: Dictated on workstation # [id number]
[2021-04-06 08:00] VITALS: BP 102/62
[2021-04-06] MEDS: ETODOLAC 200 MG (LODINE) CAP PO SCH ×2 (08:32→16:58)
[2021-04-06] MEDS: PANTOPRAZOLE 40 MG (PROTONIX) TAB PO SCH ×2 (08:32→21:56)
[2021-04-06] MEDS: ASPIRIN 81 MG CHEW (CHILDREN'S ASA) PO SCH (08:32)
[2021-04-06] MEDS: DIVALPROEX 500 MG DELAYED RELEASE (DEPAKOTE) TAB PO SCH ×2 (08:32→21:56)
[2021-04-06] MEDS: ACETAMINOPHEN 325 MG TABLET PO PRN (08:33)
[2021-04-06] MEDS: FERROUS SULF 325 MG (IRON) TAB PO SCH (08:37)
[2021-04-06] MEDS ORDERED: ASPI-1238 PO (09:27)
[2021-04-06] MEDS ORDERED: FURO20TA4 PO (09:27)
[2021-04-06] MEDS ORDERED: RIVA20TA2 PO (09:27)
[2021-04-06] MEDS ORDERED: ACHD5005 PO (09:27)
[2021-04-06] MEDS ORDERED: CARV6.252 PO (09:27)
[2021-04-06] MEDS ORDERED: PANT40TA52 PO (09:27)
--- NOTE | 2021-04-06 09:55 | Physical Therapy Evaluation ---
PT Evaluation-General Medical Diagnosis Admission Date Apr 05, 2021 at 16:15 Medical Diagnosis: UTI Onset Date: Apr 05, 2021 Therapy Diagnosis Therapy Diagnosis: impaired mobility, strength, endurance Height/Weight Height (Feet): 5 Height (Inches): 11.00 Weight (Pounds): 185 Weight (Ounces): 0.0 Precautions Precautions/Isolations: Fall Prevention, Standard Precautions Referral Physician: Khanh Reason for Referral: Evaluation/Treatment Medical History Pertinent Medical History: Arthritis, CAD, GERD, HTN Additional Medical History Past Medical History Surgeries: CABG Coronary Artery Disease, Hypertension, Peripheral Vascular Reviewed History: Yes Social History Home: Single Level Current Living Status: Spouse Entry Into Home: Ramp Prior Prior Level of Function SCALE: Activities may be completed with or without assistive devices. 7-Uuoxyfndbs-csostik completes the activity by him/herself with no assistance from a helper. 5-Set-up or Clean-up Assistance-helper sets up or cleans up; patient completes activity. [place] assists only prior to or following the activity. 4-Supervision or Touching Assistance-helper provides verbal cues and/or touching/steadying and/or contact guard assistance as patient completes activity. Assistance may be provided throughout the activity or intermittently. 3-Partial/Moderate Assistance-helper does LESS THAN HALF the effort. [place] lifts, holds or supports trunk or limbs, but provides less than half the effort. 2-Substantial/Maximal Assistance-helper does MORE THAN HALF the effort. [place] lifts or holds trunk or limbs and provides more than half the effort. 8-Mcuicewja-qrvwiw does ALL the effort. Patient does none of the effort to complete the activity. Or, the assistance of 2 or more helpers is required for the patient to complete the activity. If activity was not attempted, code reason: 7-Patient Refused. 9-Not Applicable-not attempted and the patient did not perform the activity before the current illness, exacerbation or injury. 10-Not Attempted due to Environmental Limitations-(lack of equipment, weather restraints, etc.). 88-Not Attempted due to Medical Conditions or Safety Concerns. Bed Mobility: 6 Transfers (B,C,W/C): 6 Gait: 6 Indoor Mobility (Ambulation): Independent Prior Devices Use: Walker PT Evaluation-Current Subjective Patient in bed pre tx, agrees to PT, has no complaints of pain at rest. Pt/Family Goals to be independent at home Objective Patient Orientation: Person, Confused, Place Attachments: Oxygen, IV ROM/Strength ROM Lower Extremities WNL Strength Lower Extremities LLE (hip flexion 3+/5, knee flexion 4-/5, knee extension 4/5, dorsiflexion 5/5), RLE (hip flexion 3+/5, knee flexion 4+/5, knee extension 4+/5, dorsiflexion 5/5) Sensory Vision: Wears Glasses Hearing: Functional Sensation Right Lower Extremit: Intact Sensation Left Lower Extremity: Intact Transfers Roll Left to Right (QC): 6 Sit to Lying (QC): 3 Lying to Sitting/Side of Bed(Q: 3 Sit to Stand (QC): 4 Chair/Ffz-lp-Yshpz Xfer(QC): 4 Patient has trouble sitting on the side of the bed without falling backward Gait Does the Patient Walk?: Yes Mode of Locomotion: Walk Anticipated Mode of Locomotion: Walk Walk 10 feet (QC): 4 Distance: 30' Gait Assistive Device: FWW Comments/Gait Description Patient CGA with ambulation, needs cues for direction, has trouble staying on task. Balance Sitting Static: Poor Sitting Dynamic: Poor Standing Static: Fair Standing Dynamic: Fair Treatment BLE supine exercises x20 (AP, HS, QS) Assessment/Needs Patient in bed post tx with nurse call, phone, tray, bed alarm on. Patient has impaired mobility, strength, endurance, balance. Patient needs min assist for supine <-> sit and to sit on the side of the bed. 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 Newspaper Press Operator Apprentice Goals PT [facility] Goals Time Frame: Apr 13, 2021 Roll Left & Right (QC): 6 Sit to Lying (QC): 6 Lying-Sitting on Side/Bed(QC): 6 Sit to Stand (QC): 5 Chair/Fqn-zb-[place] Xfer(QC): 5 Walk 10 feet (QC): 5 Walk 50ft with 2 Turns (QC): 5 PT Plan Problem List Problem List: Activity Tolerance, Functional Strength, Safety, Balance, Gait, Transfer, Bed Mobility, ROM Treatment/Plan Treatment Plan: Continue Plan of Care Treatment Plan: Bed Mobility, Education, Functional Activity Myah, Functional Strength, Gait, Safety, Therapeutic Exercise, Transfers Treatment Duration: Apr 13, 2021 Frequency: 6 times per week Estimated Hrs Per Day: .25 hour per day Patient and/or Family Agrees t: Yes Safety Risks/Education Patient Education: Gait Training, Transfer Techniques, Correct Positioning, Safety Issues Teaching Recipient: Patient Teaching Methods: Demonstration, Discussion Response to Teaching: Reinforcement Needed Discharge Recommendations Plan Patient will perform bed mobility and transfer training, balance and endurance training, functional strengthening, gait training, and education, to improve functional mobility and independence at home. Therapy Discharge Recommendati: Scheduled Assistance, Home & Family, Post Acute PT Time/GCodes Time In: 922 Time Out: 935 Total Billed Treatment Time: 13 Total Billed Treatment 1 visit BUD Maloney' MUSA MADRIGAL PT Apr 06, 2021 09:55
[2021-04-06 12:00] VITALS: BP 103/58
--- NOTE | 2021-04-06 12:05 | Occupational Therapy Eval ---
OT Evaluation-General/PLF Medical Diagnosis Admission Date Apr 05, 2021 at 16:15 Medical Diagnosis: UTI Onset Date: Apr 05, 2021 Therapy Diagnosis Therapy Diagnosis: decreased ADL status, weakness Height/Weight Height (Feet): 5 Height (Inches): 11.00 Weight (Pounds): 185 Weight (Ounces): 0.0 Precautions Precautions/Isolations: Fall Prevention, Standard Precautions Referral Physician: Khanh Referral Reason: Evaluation/Treatment Medical History Pertinent Medical History: Arthritis, CAD, GERD, HTN, PVD Additional Medical History HLD Current History Present with [facility] 04/05. Recently discharged from [facility] 04/04 s/p CABG three weeks prior Social History Home: Single Level Current Living Status: Spouse Entry Into Home: Ramp ADL-Prior Level of Function SCALE: Activities may be completed with or without assistive devices. 7-Njxgxkwune-qpkpxnr completes the activity by him/herself with no assistance from a helper. 5-Set-up or Clean-up Assistance-helper sets up or cleans up; patient completes activity. [place] assists only prior to or following the activity. 4-Supervision or Touching Assistance-helper provides verbal cues and/or touching/steadying and/or contact guard assistance as patient completes activity. Assistance may be provided throughout the activity or intermittently. 3-Partial/Moderate Assistance-helper does LESS THAN HALF the effort. [place] lifts, holds or supports trunk or limbs, but provides less than half the effort. 2-Substantial/Maximal Assistance-helper does MORE THAN HALF the effort. [place] lifts or holds trunk or limbs and provides more than half the effort. 1-Oieg[place]ro-oipbnv does ALL the effort. Patient does none of the effort to complete the activity. Or, the assistance of 2 or more helpers is required for the patient to complete the activity. If activity was not attempted, code reason: 7-Patient Refused. 9-Not Applicable-not attempted and the patient did not perform the activity before the current illness, exacerbation or injury. 10-Not Attempted due to Environmental Limitations-(lack of equipment, weather restraints, etc.). 88-Not Attempted due to Medical Conditions or Safety Concerns. ADL PLOF Comments Upon leaving [facility] 04/05, pt was independent wtih footwear and eating, required set up assist showering, dressing, and oral care, SBA toileting. Self Care: Needed Some Help DME/Equipment: Bath Chair, Tub/Shower DME/Equipment Comments walk in tub with use of sc (built in) and hand held shower OT Current Status Subjective Pt laying in bed, agreeable to OT tx. Mental Status/Objective Patient Orientation: Person, Place, Situation Attachments: Oxygen Current Glasses/Contacts: Yes Hearing Aids: No Dentures/Partials: Yes Hand Dominance: Right Upper Extremity ROM WFL Upper Extremity Coordination WFL Upper Extremity Sensation WFL Upper Extremity Strength grossly 3+/5, not formally tested due to sternal precautions from CABG three weeks ago ADL-Treatment Eating (QC): 6 (Per pt report) Oral Hygiene (QC): 5 (set up with oral swab) Other Treatments Pt laying in bed, agreeable to OT evaluation and tx. Pt washed face with set up assistance, and brushed his gums using oral swab with set up assist. Pt required cues with treatment to stay on task, as pt was easily distracted and would stop task in order to tell stories. Pt declined showering at this time. OT educated pt on OT POC while he is admitted, he verbalized understanding. Per PT evaluatio n, pt able to perform functional mobility x30' using FWW, cues to stay on task. Min A supine <-> sit. Post tx, pt laying in bed, call light in reach and all needs met, bed alarm on. Education OT Patient Education: Correct positioning, Energy conservation, Progress toward Goal/Update tx plan, Purpose of tx/functional activities, Rehab process Teaching Recipient: Patient Teaching Methods: Discussion Response to Teaching: Verbalize Understanding OT Artificial Fly Tier Goals [facility] Goals Time Frame: Apr 13, 2021 Eating (QC): 6 Oral Hygiene (QC): 6 Toileting Hygiene (QC): 4 Shower/Bathe Self (QC): 5 Upper Body Dressing (QC): 5 Lower Body Dressing (QC): 5 On/Off Footwear (QC): 5 Additional Goals: 1-Demonstrate ADL Tasks, 2-Verbalize Understanding, 3- ImproveStrength/Myah 1=Demonstrate adherence to instructed precautions during ADL tasks. 2=Patient will verbalize/demonstrate understanding of assistive devices/modifications for ADL. 3=Patient will improve strength/tolerance for activity to enable patient to perform ADL's. OT Education/Plan Problem List/Assessment Assessment: Decreased Activ Tolerance, Decreased Safety Aware, Decreased UE Strength, Impaired Bed Mobility, Impaired Funct Balance, Impaired I ADL's, Impaired Self-Care Skills Discharge Recommendations Plan/Recommendations: Continue POC Treatment Plan/Plan of Care Patient would benefit from OT for education, treatment and training to promote independence in ADL's, mobility, safety and/or upper extremity function for ADL's. Plan of Care: ADL Retraining, Functional Mobility, UE Funct Exercise/Act Treatment Duration: Apr 13, 2021 Frequency: 5 times per week Estimated Hrs Per Day: .25 hour per day Rehab Potential: Fair Time/GCodes Start Time: 10:47 Stop Time: 11:00 Total Time Billed (hr/min): 13 Billed Treatment Time 1, FANNY CORRAL OT Apr 06, 2021 12:05
--- NOTE | 2021-04-06 12:20 | Progress Note - Hospitalist ---
Subjective HPI/CC On Admission Date Seen by Provider: Apr 06, 2021 Time Seen by Provider: 09:50 Ovidio Shaw is a 75 year old male with PMH HTN, HLD, CAD s/p CABG, PVD, who presented with altered mental status. He underwent a CABG three weeks ago and then spent two weeks in our inpatient rehabilitation unit. He was discharged home yesterday. His family found him to be confused. He has been having fevers. He reports dysuria and urinary frequency. He also has urinary urgency and has had some incontinence. He denies shortness of breath. He has had a cough for two weeks. He denies abdominal pain, nausea, vomiting, and diarrhea. Subjective/Events-last exam He is doing better. He is not having fevers. He has been drinking fluids. He does not have his dentures so is having trouble eating. Focused Exam Lactate Level 04/05/21 14:20: Lactic Acid Level 1.40 Time of Focused Exam: 16:17 Objective Exam Vital Signs Vital Signs Date Time Temp Pulse Resp B/P (MAP) Pulse Ox O2 Delivery O2 Flow Rate FiO2 04/06/21 08:00 37.0 86 20 102/62 (75) 94 Nasal Cannula 2.00 04/05/21 20:38 21 Capillary Refill : Less Than 3 Seconds General Appearance: No Apparent Distress, WD/WN Respiratory: Lungs Clear, Normal Breath Sounds, No Respiratory Distress Cardiovascular: Regular Rate, Rhythm, No Edema, No Murmur Gastrointestinal: Normal Bowel Sounds, Non Tender, Soft Extremity: Normal Inspection, Non Tender, No Pedal Edema Neurologic/Psychiatric: Alert, Oriented x3, Normal Mood/Affect Skin: Normal Color, Warm/Dry Results/Procedures Lab Laboratory Tests 04/05/21 14:20 04/06/21 04:55 04/06/21 04:58 Patient resulted labs reviewed. Imaging: Reviewed Imaging Report Assessment/Plan Assessment and Plan Assess & Plan/Chief Complaint Sepsis due to UTI SIRS+ with fever, tachycardia, and leukocytosis UA consistent with UTI CXR negative, repeat negative COVID/flu negative Blood cultures pending Continue Rocephin Await urine cultures Stop IV fluids CAD s/p CABG CKD 3a HLD HTN AFib GERD Continue home meds DVT prophylaxis: already receiving therapeutic anticoagulation Diagnosis/Problems Diagnosis/Problems (1) Sepsis due to urinary tract infection Status: Acute (2) Essential (primary) hypertension Status: Chronic (3) HLD (hyperlipidemia) Status: Chronic (4) Coronary artery disease without angina pectoris Status: Chronic (5) Peripheral vascular disease Status: Chronic (6) Stage III chronic kidney disease Status: Chronic Qualifiers: Chronic kidney disease stage 3 subtype: stage 3a (GFR 45-59) Qualified Codes: N18.31 - Chronic kidney disease, stage 3a (7) S/P CABG x 4 Status: Chronic HESHAM CLEMENT MD Apr 06, 2021 12:20
[2021-04-06] MEDS ORDERED: cefTRIAXone 1,000 MG in WATER (STERILE) FOR INJECTION 10 ML IV SCH (14:00)
[2021-04-06 15:20] VITALS: BP 106/63
[2021-04-06] MEDS: RIVAROXABAN 20 MG TABLET (XARELTO) PO SCH (16:58)
[2021-04-06] MEDS: cefTRIAXone 1,000 MG in WATER (STERILE) FOR INJECTION 10 ML IV SCH (16:58)
[2021-04-06] MEDS: MULTIVIT W/MINERALS TAB (THERAGRAN M) PO SCH (16:58)
[2021-04-06 19:53] VITALS: BP 96/59
[2021-04-06] MEDS: TOLTERODINE LA 4 MG (DETROL) CAP PO SCH (21:56)
[2021-04-06] MEDS: SIMvastatin 20 MG (ZOCOR) TAB PO SCH (21:56)
[2021-04-07] VITALS (7 sets, daily range): BP systolic 102–147; BP diastolic 63–79
[2021-04-07] MEDS: LACTATED RINGERS 1,000 ML IV SCH ×2 (00:49→05:12)
[2021-04-07] MEDS: HYDROcodone/APAP 5 MG/325 MG (LORTAB) TAB PO PRN (04:04)
[2021-04-07 06:45] LABS: BASOPHILS # (AUTO) 0.1 10^3/uL (0.0-0.1); BASOPHILS % (AUTO) 1 % (0-10); EOSINOPHILS # (AUTO) 0.3 10^3/uL (0.0-0.3); EOSINOPHILS % (AUTO) 2 % (0-10); HEMATOCRIT 26 % (40-54); HEMOGLOBIN 8.2 g/dL (13.3-17.7); LYMPHOCYTES # (AUTO) 0.8 10^3/uL (1.0-4.0); LYMPHOCYTES % (AUTO) 6 % (12-44); MEAN CORPUSCULAR HEMOGLOBIN 31 pg (25-34); MEAN CORPUSCULAR HGB CONC 31 g/dL (32-36); MEAN CORPUSCULAR VOLUME 98 fL (80-99); MEAN PLATELET VOLUME 9.2 fL (9.0-12.2); MONOCYTES # (AUTO) 1.4 10^3/uL (0.0-1.0); MONOCYTES % (AUTO) 10 % (0-12); NEUTROPHILS # (AUTO) 11.8 10^3/uL (1.8-7.8); NEUTROPHILS % (AUTO) 81 % (42-75); PLATELET COUNT 216 10^3/uL (130-400); WHITE BLOOD COUNT 14.6 10^3/uL (4.3-11.0)
[2021-04-07 06:53] LABS: POTASSIUM 3.9 MMOL/L (3.6-5.0)
[2021-04-07 06:54] LABS: CALCIUM 8.2 MG/DL (8.5-10.1)
[2021-04-07 06:58] LABS: CREATININE SERUM 1.19 MG/DL (0.60-1.30)
[2021-04-07] MEDS: RT-ALBUTEROL/IPRATROPIUM 3 ML (DUONEB) VIAL INH SCH ×2 (07:01→21:28)
--- NOTE | 2021-04-07 08:47 | Progress Note - Hospitalist ---
Subjective HPI/CC On Admission Date Seen by Provider: Apr 07, 2021 Time Seen by Provider: 07:15 Ovidio Shaw is a 75 year old male with PMH HTN, HLD, CAD s/p CABG, PVD, who presented with altered mental status. He underwent a CABG three weeks ago and then spent two weeks in our inpatient rehabilitation unit. He was discharged home yesterday. His family found him to be confused. He has been having fevers. He reports dysuria and urinary frequency. He also has urinary urgency and has had some incontinence. He denies shortness of breath. He has had a cough for two weeks. He denies abdominal pain, nausea, vomiting, and diarrhea. Subjective/Events-last exam He is feeling better every day. He is not having any fevers. He denies any pain. He denies nausea and vomiting. He has had a bit of dysuria. Focused Exam Lactate Level 04/05/21 14:20: Lactic Acid Level 1.40 Time of Focused Exam: 16:17 Objective Exam Vital Signs Vital Signs Date Time Temp Pulse Resp B/P (MAP) Pulse Ox O2 Delivery O2 Flow Rate FiO2 04/07/21 08:26 37.0 81 22 131/70 (90) 96 Nasal Cannula 2.00 04/05/21 20:38 21 Capillary Refill : Less Than 3 Seconds General Appearance: No Apparent Distress, WD/WN Respiratory: Lungs Clear, Normal Breath Sounds, No Respiratory Distress Cardiovascular: Regular Rate, Rhythm, No Edema, No Murmur Gastrointestinal: Normal Bowel Sounds, Non Tender, Soft Extremity: Normal Inspection, Non Tender, No Pedal Edema Neurologic/Psychiatric: Alert, Oriented x3, Normal Mood/Affect, Motor Weakness Skin: Normal Color, Warm/Dry Results/Procedures Lab Laboratory Tests 04/07/21 06:35 Patient resulted labs reviewed. Imaging: Reviewed Imaging Report Assessment/Plan Assessment and Plan Assess & Plan/Chief Complaint E coli UTI UA consistent with UTI Continue Rocephin Await final urine culture results Debility Recent hospitalization PT/OT May need skilled placement CAD s/p CABG CKD 3a HLD HTN AFib GERD Continue home meds DVT prophylaxis: already receiving therapeutic anticoagulation Diagnosis/Problems Diagnosis/Problems (1) Sepsis due to urinary tract infection Status: Acute (2) Essential (primary) hypertension Status: Chronic (3) HLD (hyperlipidemia) Status: Chronic (4) Coronary artery disease without angina pectoris Status: Chronic (5) Peripheral vascular disease Status: Chronic (6) Stage III chronic kidney disease Status: Chronic Qualifiers: Chronic kidney disease stage 3 subtype: stage 3a (GFR 45-59) Qualified Codes: N18.31 - Chronic kidney disease, stage 3a (7) S/P CABG x 4 Status: Chronic (8) Debility Status: Acute HESHAM CLEMENT MD Apr 07, 2021 08:47
[2021-04-07] MEDS: ASPIRIN 81 MG CHEW (CHILDREN'S ASA) PO SCH (09:15)
[2021-04-07] MEDS: FUROSEMIDE 20 MG (LASIX) TAB PO SCH (09:15)
[2021-04-07] MEDS: ETODOLAC 200 MG (LODINE) CAP PO SCH ×2 (09:15→17:06)
[2021-04-07] MEDS: DIVALPROEX 500 MG DELAYED RELEASE (DEPAKOTE) TAB PO SCH ×2 (09:15→20:21)
[2021-04-07] MEDS: PANTOPRAZOLE 40 MG (PROTONIX) TAB PO SCH ×2 (09:15→20:21)
[2021-04-07] MEDS: ACETAMINOPHEN 325 MG TABLET PO PRN (11:53)
--- NOTE | 2021-04-07 15:46 | Physical Therapy Daily Note ---
PT Daily Note-Current Subjective Patient sitting in chair upon PT arrival, agreeable to treatment. Reports 0/10 pain currently. Transfers SCALE: Activities may be completed with or without assistive devices. 0-Eyhufyezqm-ypxvejd completes the activity by him/herself with no assistance from a helper. 5-Set-up or Clean-up Assistance-helper sets up or cleans up; patient completes activity. [place] assists only prior to or following the activity. 4-Supervision or Touching Assistance-helper provides verbal cues and/or touching/steadying and/or contact guard assistance as patient completes activity. Assistance may be provided throughout the activity or intermittently. 3-Partial/Moderate Assistance-helper does LESS THAN HALF the effort. [place] lifts, holds or supports trunk or limbs, but provides less than half the effort. 2-Substantial/Maximal Assistance-helper does MORE THAN HALF the effort. [place] lifts or holds trunk or limbs and provides more than half the effort. 3-Gwtpsuhas-dudwlm does ALL the effort. Patient does none of the effort to complete the activity. Or, the assistance of 2 or more helpers is required for the patient to complete the activity. If activity was not attempted, code reason: 7-Patient Refused. 9-Not Applicable-not attempted and the patient did not perform the activity before the current illness, exacerbation or injury. 10-Not Attempted due to Environmental Limitations-(lack of equipment, weather restraints, etc.). 88-Not Attempted due to Medical Conditions or Safety Concerns. Sit to Stand (QC): 5 Chair/Biv-zu-Adykl Xfer(QC): 5 Gait Training Does the Patient Walk?: Yes Distance: 160 feet Walk 10 feet (QC): 5 Walk 50 ft with 2 Turns(QC): 5 Walk 150 ft (QC): 5 Wheelchair Training Does the Pt Use a Wheelchair?: No Treatments gait Assessment Current Status: Fair Progress Patient tolerated treatment well. Demonstrates good improvement in gait and tolerance to activity. Patient in bed post treatment with all needs met, nursing notified, call light in reach. PT Special Education Resource Teacher Goals [place] Goals PT Special Education Resource Teacher Goals Time Frame: Apr 13, 2021 Roll Left & Right (QC): 6 Sit to Lying (QC): 6 Lying-Sitting on Side/Bed(QC): 6 Sit to Stand (QC): 5 Chair/Dlc-dq-Pomyk Xfer(QC): 5 Walk 10 feet (QC): 5 Walk 50ft with 2 Turns (QC): 5 PT Plan Treatment/Plan Treatment Plan: Continue Plan of Care Treatment Plan: Bed Mobility, Education, Functional Activity Myah, Functional Strength, Gait, Safety, Therapeutic Exercise, Transfers Treatment Duration: Apr 13, 2021 Frequency: 6 times per week Estimated Hrs Per Day: .25 hour per day Patient and/or Family Agrees t: Yes Safety Risks/Education Patient Education: Gait Training, Transfer Techniques Teaching Recipient: Patient Teaching Methods: Demonstration, Discussion Response to Teaching: Verbalize Understanding Time/GCodes Time In: 1425 Time Out: 1440 Total Billed Treatment Time: 15 Total Billed Treatment Visit, MIGUEL Morel PT Apr 07, 2021 15:45
[2021-04-07] MEDS: RIVAROXABAN 20 MG TABLET (XARELTO) PO SCH (17:05)
[2021-04-07] MEDS: cefTRIAXone 1,000 MG in WATER (STERILE) FOR INJECTION 10 ML IV SCH (17:05)
[2021-04-07] MEDS: MULTIVIT W/MINERALS TAB (THERAGRAN M) PO SCH (17:06)
[2021-04-07] MEDS: TOLTERODINE LA 4 MG (DETROL) CAP PO SCH (20:21)
[2021-04-07] MEDS: SIMvastatin 20 MG (ZOCOR) TAB PO SCH (20:21)
[2021-04-08] MEDS: HYDROcodone/APAP 5 MG/325 MG (LORTAB) TAB PO PRN ×2 (01:40→15:35)
[2021-04-08 03:16] VITALS: BP 131/62
[2021-04-08] MEDS: RT-ALBUTEROL/IPRATROPIUM 3 ML (DUONEB) VIAL INH SCH ×2 (06:42→20:47)
[2021-04-08] MEDS: ASPIRIN 81 MG CHEW (CHILDREN'S ASA) PO SCH (08:27)
[2021-04-08] MEDS: FUROSEMIDE 20 MG (LASIX) TAB PO SCH (08:27)
[2021-04-08] MEDS: DIVALPROEX 500 MG DELAYED RELEASE (DEPAKOTE) TAB PO SCH ×2 (08:27→21:21)
[2021-04-08] MEDS: PANTOPRAZOLE 40 MG (PROTONIX) TAB PO SCH ×2 (08:27→21:21)
[2021-04-08] MEDS: CEPHALEXIN 250 MG (KEFLEX) CAP PO SCH ×4 (08:27→21:21)
[2021-04-08] MEDS: ETODOLAC 200 MG (LODINE) CAP PO SCH ×2 (08:27→17:12)
[2021-04-08 08:42] VITALS: BP 136/63
[2021-04-08] MEDS: FERROUS SULF 325 MG (IRON) TAB PO SCH (10:15)
--- NOTE | 2021-04-08 11:01 | Progress Note - Hospitalist ---
Subjective HPI/CC On Admission Date Seen by Provider: Apr 08, 2021 Time Seen by Provider: 09:30 Ovidio Shaw is a 75 year old male with PMH HTN, HLD, CAD s/p CABG, PVD, who presented with altered mental status. He underwent a CABG three weeks ago and then spent two weeks in our inpatient rehabilitation unit. He was discharged home yesterday. His family found him to be confused. He has been having fevers. He reports dysuria and urinary frequency. He also has urinary urgency and has had some incontinence. He denies shortness of breath. He has had a cough for two weeks. He denies abdominal pain, nausea, vomiting, and diarrhea. Subjective/Events-last exam He is feeling better. He is up in his bedside chair. He has no complaints or concerns. Focused Exam Lactate Level 04/05/21 14:20: Lactic Acid Level 1.40 Time of Focused Exam: 16:17 Objective Exam Vital Signs Vital Signs Date Time Temp Pulse Resp B/P (MAP) Pulse Ox O2 Delivery O2 Flow Rate FiO2 04/08/21 08:42 36.7 87 18 136/63 (87) 99 Nasal Cannula 2.00 04/05/21 20:38 21 Capillary Refill : Less Than 3 Seconds General Appearance: No Apparent Distress, WD/WN Respiratory: Lungs Clear, Normal Breath Sounds, No Respiratory Distress Cardiovascular: Regular Rate, Rhythm, No Edema, No Murmur Gastrointestinal: Normal Bowel Sounds, Non Tender, Soft Extremity: Normal Inspection, Non Tender, No Pedal Edema Neurologic/Psychiatric: Alert, Oriented x3, Normal Mood/Affect, Motor Weakness Skin: Normal Color, Warm/Dry Results/Procedures Lab Patient resulted labs reviewed. Imaging: Reviewed Imaging Report Assessment/Plan Assessment and Plan Assess & Plan/Chief Complaint E coli UTI UA consistent with UTI Urine culture with E coli Transition to Keflex Debility Recent hospitalization PT/OT Will likely need IRU vs skilled placement IRU evaluation ordered CAD s/p CABG CKD 3a HLD HTN AFib GERD Continue home meds DVT prophylaxis: already receiving therapeutic anticoagulation Diagnosis/Problems Diagnosis/Problems (1) Sepsis due to urinary tract infection Status: Acute (2) Essential (primary) hypertension Status: Chronic (3) HLD (hyperlipidemia) Status: Chronic (4) Coronary artery disease without angina pectoris Status: Chronic (5) Peripheral vascular disease Status: Chronic (6) Stage III chronic kidney disease Status: Chronic Qualifiers: Chronic kidney disease stage 3 subtype: stage 3a (GFR 45-59) Qualified Codes: N18.31 - Chronic kidney disease, stage 3a (7) S/P CABG x 4 Status: Chronic (8) Debility Status: Acute HESHAM CLEMENT MD Apr 08, 2021 11:01
[2021-04-08 11:35] VITALS: BP 122/57
[2021-04-08 16:00] VITALS: BP 135/63
[2021-04-08] MEDS: RIVAROXABAN 20 MG TABLET (XARELTO) PO SCH (16:54)
[2021-04-08] MEDS: MULTIVIT W/MINERALS TAB (THERAGRAN M) PO SCH (16:54)
[2021-04-08] MEDS: ACETAMINOPHEN 325 MG TABLET PO PRN (16:56)
[2021-04-08 19:47] VITALS: BP 127/62
[2021-04-08] MEDS: TOLTERODINE LA 4 MG (DETROL) CAP PO SCH (21:21)
[2021-04-08] MEDS: SIMvastatin 20 MG (ZOCOR) TAB PO SCH (21:21)
[2021-04-08 23:30] VITALS: BP 149/90
[2021-04-09 04:00] VITALS: BP 146/68
[2021-04-09 07:48] VITALS: BP 145/70
[2021-04-09] MEDS: PANTOPRAZOLE 40 MG (PROTONIX) TAB PO SCH ×2 (08:58→19:50)
[2021-04-09] MEDS: ETODOLAC 200 MG (LODINE) CAP PO SCH ×2 (08:58→18:01)
[2021-04-09] MEDS: ASPIRIN 81 MG CHEW (CHILDREN'S ASA) PO SCH (08:58)
[2021-04-09] MEDS: FUROSEMIDE 20 MG (LASIX) TAB PO SCH (08:58)
[2021-04-09] MEDS: DIVALPROEX 500 MG DELAYED RELEASE (DEPAKOTE) TAB PO SCH ×2 (08:58→19:50)
[2021-04-09] MEDS: CEPHALEXIN 250 MG (KEFLEX) CAP PO SCH ×4 (08:59→19:51)
[2021-04-09] MEDS: RT-ALBUTEROL/IPRATROPIUM 3 ML (DUONEB) VIAL INH SCH ×2 (09:41→21:22)
--- NOTE | 2021-04-09 10:31 | Occupational Ther Daily Note ---
OT Current Status-Daily Note Subjective Pt AxO, denies pain though states continued burning sensation during urination. Pt agrees to tx, OT takes over pt care from nurse digital sales assistant during showering transition. Mental Status/Objective Patient Orientation: Person, Place, Situation ADL-Treatment Therapy Code Descriptions/Definitions Functional [place] Measure: 0=Not Assessed/NA 4=Minimal Assistance 1=Total Assistance 5=Supervision or Setup 2=Maximal Assistance 6=Modified [place] 3=Moderate Assistance 7=Complete IndependenceSCALE: Activities may be completed with or without assistive devices. 6-Dxwfqmdegr-hflqhtl completes the activity by him/herself with no assistance from a helper. 5-Set-up or Clean-up Assistance-helper sets up or cleans up; patient completes activity. [employer] assists only prior to or following the activity. 4-Supervision or Touching Assistance-helper provides verbal cues and/or touching/steadying and/or contact guard assistance as patient completes activity. Assistance may be provided throughout the activity or intermittently. 3-Partial/Moderate Assistance-helper does LESS THAN HALF the effort. [employer] lifts, holds or supports trunk or limbs, but provides less than half the effort. 2-Substantial/Maximal Assistance-helper does MORE THAN HALF the effort. [employer] lifts or holds trunk or limbs and provides more than half the effort. 1-Mcmeewblb-yfceht does ALL the effort. Patient does none of the effort to complete the activity. Or, the assistance of 2 or more helpers is required for the patient to complete the activity. If activity was not attempted, code reason: 7-Patient Refused. 9-Not Applicable-not attempted and the patient did not perform the activity before the current illness, exacerbation or injury. 10-Not Attempted due to Environmental Limitations-(lack of equipment, weather restraints, etc.). 88-Not Attempted due to Medical Conditions or Safety Concerns. Bathing Location: L Arm, R Arm, L Upper Leg, R Upper Leg, L Lower Leg (including foot), R Lower Leg (including foot), Chest, Abdomen, Buttocks, Perineal Area Shower/Bathe Self (QC): 4 (SBA, cues for continuation of task/ redirection.) Upper Body Dressing (QC): 5 (s/u) Lower Body Dressing (QC): 4 (SBA doffing ) On/Off Footwear: 4 (SBA doffing socks in sit.) Other Treatment Pt requires min cues for body positioning within sc. Pt doffs briefs in stance, doffs socks/ gown in sit. Pt completes showering with SBA, cues for continuation of task. 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 Pt is asked to dry self off at this time, able to complete with increased time, no difficulty/ safety concerns in shower. TRANSITIONAL NURSE comes to take over pt care at this time. Pt left on sc with nursing unit manager present. Education OT Patient Education: Correct positioning, Progress toward Goal/Update tx plan, Purpose of tx/functional activities, Transfer techniques Teaching Recipient: Patient Teaching Methods: Demonstration, Discussion Response to Teaching: Verbalize Understanding, Return Demonstration, Reinforcement Needed OT Senior Living Goals Senior Living Goals Time Frame: Apr 13, 2021 Eating (QC): 6 Oral Hygiene (QC): 6 Toileting Hygiene (QC): 4 Shower/Bathe Self (QC): 5 Upper Body Dressing (QC): 5 Lower Body Dressing (QC): 5 On/Off Footwear (QC): 5 Additional Goals: 1-Demonstrate ADL Tasks, 2-Verbalize Understanding, 3-ImproveStrength/Myah 1=Demonstrate adherence to instructed precautions during ADL tasks. 2=Patient will verbalize/demonstrate understanding of assistive devices/modifications for ADL. 3=Patient will improve strength/tolerance for activity to enable patient to perform ADL's. OT Education/Plan Problem List/Assessment Assessment: Decreased Activ Tolerance, Decreased Safety Aware, Dependent Transfers, Impaired I ADL's, Impaired Self-Care Skills Discharge Recommendations Plan/Recommendations: Continue POC Therapy Discharge Recommendati: Intermittent Supervision, Home & Family, Post Acute OT Treatment Plan/Plan of Care Treatment,Training & Education: Yes Patient would benefit from OT for education, treatment and training to promote independence in ADL's, mobility, safety and/or upper extremity function for ADL's. Plan of Care: ADL Retraining, Functional Mobility, UE Funct Exercise/Act Treatment Duration: Apr 13, 2021 Frequency: 5 times per week Estimated Hrs Per Day: .25 hour per day Rehab Potential: Fair Time/GCodes Start Time: 10:02 Stop Time: 10:20 Total Time Billed (hr/min): 18 Billed Treatment Time 1, ADL (18) FELIPA LEBRON OTR Apr 09, 2021 10:31
[2021-04-09 11:36] VITALS: BP 125/59
--- NOTE | 2021-04-09 13:18 | Progress Note - Hospitalist ---
Subjective HPI/CC On Admission Date Seen by Provider: Apr 09, 2021 Time Seen by Provider: 13:16 Ovidio Shaw is a 75 year old male with PMH HTN, HLD, CAD s/p CABG, PVD, who presented with altered mental status. He underwent a CABG three weeks ago and then spent two weeks in our inpatient rehabilitation unit. He was discharged home yesterday. His family found him to be confused. He has been having fevers. He reports dysuria and urinary frequency. He also has urinary urgency and has had some incontinence. He denies shortness of breath. He has had a cough for two weeks. He denies abdominal pain, nausea, vomiting, and diarrhea. Subjective/Events-last exam Pt reports doing well today. About to eat lunch. No complaints. Discussed post discharge plan and he states he has not decided just yet where he wants to go. Focused Exam Time of Focused Exam: 16:17 Objective Exam Vital Signs Vital Signs Date Time Temp Pulse Resp B/P (MAP) Pulse Ox O2 Delivery O2 Flow Rate FiO2 04/09/21 11:36 36.0 77 18 125/59 (81) 98 Nasal Cannula 2.00 04/05/21 20:38 21 Capillary Refill : Less Than 3 Seconds General Appearance: No Apparent Distress, WD/WN Respiratory: Lungs Clear, No Respiratory Distress Cardiovascular: Regular Rate, Rhythm, No Murmur Neurologic/Psychiatric: Alert, Oriented x3 Results/Procedures Lab Patient resulted labs reviewed. Imaging: Reviewed Imaging Report Assessment/Plan Assessment and Plan Assess & Plan/Chief Complaint E coli UTI UA consistent with UTI Urine culture with E coli Continue Keflex Debility Recent hospitalization PT/OT IRU evaluation ordered and he was declined Consider SNF placement CAD s/p CABG CKD 3a HLD HTN AFib GERD Continue home meds DVT prophylaxis: already receiving therapeutic anticoagulation GUSTAVO SORENSEN MD Apr 09, 2021 13:18
--- NOTE | 2021-04-09 14:28 | Physical Therapy Daily Note ---
PT Daily Note-Current Subjective Patient sitting in chair upon PT arrival, agreeable to treatment. Patient rates pain at 0/10 currently. Transfers SCALE: Activities may be completed with or without assistive devices. 5-Wudzbjtuec-adcdgbw completes the activity by him/herself with no assistance from a helper. 5-Set-up or Clean-up Assistance-helper sets up or cleans up; patient completes activity. [place] assists only prior to or following the activity. 4-Supervision or Touching Assistance-helper provides verbal cues and/or touching/steadying and/or contact guard assistance as patient completes activity. Assistance may be provided throughout the activity or intermittently. 3-Partial/Moderate Assistance-helper does LESS THAN HALF the effort. [place] lifts, holds or supports trunk or limbs, but provides less than half the effort. 2-Substantial/Maximal Assistance-helper does MORE THAN HALF the effort. [place] lifts or holds trunk or limbs and provides more than half the effort. 8-Xwlvgqbog-iztxcl does ALL the effort. Patient does none of the effort to complete the activity. Or, the assistance of 2 or more helpers is required for the patient to complete the activity. If activity was not attempted, code reason: 7-Patient Refused. 9-Not Applicable-not attempted and the patient did not perform the activity before the current illness, exacerbation or injury. 10-Not Attempted due to Environmental Limitations-(lack of equipment, weather restraints, etc.). 88-Not Attempted due to Medical Conditions or Safety Concerns. Sit to Stand (QC): 5 Chair/Nqr-bs-Jlnrm Xfer(QC): 5 Toilet Transfer (QC): 5 Gait Training Does the Patient Walk?: Yes Distance: 200 feet Walk 10 feet (QC): 5 Walk 50 ft with 2 Turns(QC): 5 Walk 150 ft (QC): 5 Gait Persons Needed: 1 Gait Assistive Device: FWW Patient ambulates with mild rounding of shoulders, slight forward head posture, however requires SBA due to difficulty with FWW during turning. He tends to turn the FWW while standing still. He continues to move the FWW however and this puts him too far from the FWW. Although he has not lost his balance, this positions places him at risk of falling. Exercises Seated Therapy Exercises: Ankle pumps, Long arc quads, Hip flexion, Hamstring Curls, Hip abd/add Seated Reps: 20 Assessment Current Status: Good Progress Patient sitting in chair upon PT arrival, agreeable to treatment. Patient performs seated therapeutic exercise as listed above. Patient performs all observed transfers with SBA. Patient demonstrates minimal improvement in gait pattern and distance, however requires verbal cues during turning due to difficulty with the FWW as listed above. Patient in chair post treatment with all needs met, nursing notified, and call light in reach. PT Wine Maker Goals Wine Maker Goals PT Wine Maker Goals Time Frame: Apr 13, 2021 Roll Left & Right (QC): 6 Sit to Lying (QC): 6 Lying-Sitting on Side/Bed(QC): 6 Sit to Stand (QC): 5 Chair/Uix-nl-Vaehy Xfer(QC): 5 Walk 10 feet (QC): 6 (Goal of "5" met and revised.) Walk 50ft with 2 Turns (QC): 6 (Goal of "5" met and revised.) PT Plan Treatment/Plan Treatment Plan: Continue Plan of Care Treatment Plan: Bed Mobility, Education, Functional Activity Myah, Functional Strength, Gait, Safety, Therapeutic Exercise, Transfers Treatment Duration: Apr 13, 2021 Frequency: 6 times per week Estimated Hrs Per Day: .25 hour per day Patient and/or Family Agrees t: Yes Time/GCodes Time In: 1350 Time Out: 1425 Total Billed Treatment Time: 25 (PT left the room for 10 minutes to assist with another patient.) Total Billed Treatment Visit, Gait, Exercise MIGUEL MARRERO PT Apr 09, 2021 14:28
--- NOTE | 2021-04-09 15:08 | Physician Query Clarification ---
Physician Query-General Query to Physician: Clinical Validation Clarification : Elizabeth Mckenzie Sebastián has been documented in the medical record. After study, do you consider Sepsis, a clinically valid diagnosis? If not clinically valid, please document "Sepsis, ruled out" on the progress notes and/or discharge summary. 1. Not agreed, sepsis not clinically valid/ruled out 2. Agreed, Sepsis clinically valid resolved diagnosis, that was present on admission 3. Other, with explanation of the clinical findings 4. Clinically undetermined, no explanation for the clinical findings Additional information: The medical record reflects the following clinical scenario: The patient, in the setting of History/Risk factors, Recent hospitalization, UTI clinical Findings admission VS/labs HR 106, RR 22, BP 153/73, SpO2 96% sat on room air T 38.8 WBC 27, slightly elevated troponin, lactic acid 1.4 Treatment Tylenol 1 g, cefepime 1 g IV, vancomycin 1.5 g IV, 1 L lactated Ringer's In responding to this query, please exercise your independent professional judgment. The purpose of this communication is to more accurately reflect the complexity of your patients condition. The fact that a question is asked does not imply that any particular answer is desired or expected. Please remember a lack of response to the above will prompt a phone page by CDI/coding staff. Thank you for timely response to this clarification. Oksana Hitchcock MSN, RN Clinical Willow Worker PH [email or web address] PHYSICIAN RESPONSE: Based on the clinical findings in the record, please respond to the query above on this document as an addendum. Physician Response: Physician Response 2 If you have questions please contact: Ice Skating Teacher: Ext: Thank you for your time and cooperation. Clinical Willow Worker/Ice Skating Teacher This is a permanent part of the medical record* OKSANA HITCHCOCK Apr 09, 2021 15:08 GUSTAVO MCKENZIE MD Apr 10, 2021 05:26
[2021-04-09 16:00] VITALS: BP 142/68
[2021-04-09] MEDS: MULTIVIT W/MINERALS TAB (THERAGRAN M) PO SCH (18:01)
[2021-04-09] MEDS: RIVAROXABAN 20 MG TABLET (XARELTO) PO SCH (18:02)
[2021-04-09 19:43] VITALS: BP 135/63
[2021-04-09] MEDS: SIMvastatin 20 MG (ZOCOR) TAB PO SCH (19:50)
[2021-04-09] MEDS: TOLTERODINE LA 4 MG (DETROL) CAP PO SCH (19:50)
[2021-04-09 23:17] VITALS: BP 131/61
[2021-04-10 03:31] VITALS: BP 145/70
[2021-04-10] MEDS: RT-ALBUTEROL/IPRATROPIUM 3 ML (DUONEB) VIAL INH SCH (07:23)
[2021-04-10 07:57] VITALS: BP 144/67
--- NOTE | 2021-04-10 08:50 | Occupational Ther Daily Note ---
OT Current Status-Daily Note Subjective Pt AxO, upright in chair. Pt agrees to tx, denies pain though states continued burning during urination. Pt expresses needs for urination. Mental Status/Objective Patient Orientation: Person, Place, Situation Attachments: Oxygen (1.5 L) ADL-Treatment Therapy Code Descriptions/Definitions Functional [place] Measure: 0=Not Assessed/NA 4=Minimal Assistance 1=Total Assistance 5=Supervision or Setup 2=Maximal Assistance 6=Modified [place] 3=Moderate Assistance 7=Complete IndependenceSCALE: Activities may be completed with or without assistive devices. 7-[place]-bxagowx completes the activity by him/herself with no assistance from a helper. 5-Set-up or Clean-up Assistance-helper sets up or cleans up; patient completes activity. [place] assists only prior to or following the activity. 4-Supervision or Touching Assistance-helper provides verbal cues and/or touching/steadying and/or contact guard assistance as patient completes activity. Assistance may be provided throughout the activity or intermittently. 3-Partial/Moderate Assistance-helper does LESS THAN HALF the effort. [place] lifts, holds or supports trunk or limbs, but provides less than half the effort. 2-Substantial/Maximal Assistance-helper does MORE THAN HALF the effort. [place] lifts or holds trunk or limbs and provides more than half the effort. 4-Txriistdb-pmgzyg does ALL the effort. Patient does none of the effort to comp lete the activity. Or, the assistance of 2 or more helpers is required for the patient to complete the activity. If activity was not attempted, code reason: 7-Patient Refused. 9-Not Applicable-not attempted and the patient did not perform the activity before the current illness, exacerbation or injury. 10-Not Attempted due to Environmental Limitations-(lack of equipment, weather restraints, etc.). 88-Not Attempted due to Medical Conditions or Safety Concerns. Eating (QC): 6 Toileting Hygiene (QC): 6 Toilet Transfer (QC): 4 Other Treatment Pt sit to stand with SBA, ambulates SBA with walker to bathroom. Completes urination in stance with increased time. Pt stands at sink to wash hands, completes with SBA. Returns to chair with all needs met, call light in reach. Education OT Patient Education: Correct positioning, Progress toward Goal/Update tx plan, Purpose of tx/functional activities, Safety issues Teaching Recipient: Patient Teaching Methods: Demonstration, Discussion Response to Teaching: Verbalize Understanding, Return Demonstration OT Assistant Professor Of Radiology Goals Detention Goals Time Frame: Apr 13, 2021 Eating (QC): 6 Oral Hygiene (QC): 6 Toileting Hygiene (QC): 4 Shower/Bathe Self (QC): 5 Upper Body Dressing (QC): 5 Lower Body Dressing (QC): 5 On/Off Footwear (QC): 5 Additional Goals: 1-Demonstrate ADL Tasks, 2-Verbalize Understanding, 3- ImproveStrength/Myah 1=Demonstrate adherence to instructed precautions during ADL tasks. 2=Patient will verbalize/demonstrate understanding of assistive devices/modifications for ADL. 3=Patient will improve strength/tolerance for activity to enable patient to perform ADL's. OT Education/Plan Problem List/Assessment Assessment: Decreased Activ Tolerance, Decreased Safety Aware, Decreased UE Strength, Impaired I ADL's, Impaired Self-Care Skills Discharge Recommendations Plan/Recommendations: Continue POC Therapy Discharge Recommendati: Intermittent Supervision, Home & Family, Post Acute OT Treatment Plan/Plan of Care Treatment,Training & Education: Yes Patient would benefit from OT for education, treatment and training to promote independence in ADL's, mobility, safety and/or upper extremity function for ADL's. Plan of Care: ADL Retraining, Functional Mobility, UE Funct Exercise/Act Treatment Duration: Apr 13, 2021 Frequency: 5 times per week Estimated Hrs Per Day: .25 hour per day Rehab Potential: Fair Time/GCodes Start Time: 08:08 Stop Time: 08:21 Total Time Billed (hr/min): 13 Billed Treatment Time 1, ADL (13) FELIPA LEBRON OTR Apr 10, 2021 08:50
--- NOTE | 2021-04-10 09:02 | Discharge Inst-Skilled Nursing ---
Discharge Inst-Skilled NF Chief Complaint Ovidio Shaw is a 75 year old male with PMH HTN, HLD, CAD s/p CABG, PVD, who presented with altered mental status. He underwent a CABG three weeks ago and then spent two weeks in our inpatient rehabilitation unit. He was discharged home yesterday. His family found him to be confused. He has been having fevers. He reports dysuria and urinary frequency. He also has urinary urgency and has had some incontinence. He denies shortness of breath. He has had a cough for two weeks. He denies abdominal pain, nausea, vomiting, and diarrhea. Consult/Follow Up/Orders Follow Up Appt.: With Dr Bardales in the next week. Skilled NF Admit to: [facility] Certification (SNF) I certify that SNF services are required to be given on an inpatient basis because of the above named patient's need for long term care on a continuing basis for the conditions(s) for which he/she was receiving inpatient hospital services prior to his/her transfer to the SNF. Fdc Facility Order: Nursing Services, Ssrs Report Developer-Evaluate & Treat, Physical Therapy-Evaluate & Treat Oxygen Delivery Method: Nasal Cannula Discharge Diet: Cardiac Diet Daily Activity as Tolerated: Yes Resuscitation Status: Full Code New & Resume Previous Orders Gustavo Sorensen Apr 10, 2021 08:58 GUSTAVO SORENSEN MD Apr 10, 2021 09:02
[2021-04-10] MEDS ORDERED: ACHD5005 PO (09:04)
[2021-04-10] MEDS ORDERED: CEPH250C PO (09:04)
[2021-04-10] MEDS ORDERED: FERR325T24 PO (09:04)
--- NOTE | 2021-04-10 09:10 | Discharge Summary ---
Diagnosis/Chief Complaint Date of Admission Apr 05, 2021 at 16:15 Date of Discharge Discharge Date: Apr 10, 2021 Admission Diagnosis Sepsis due to UTI Primary Care Birgit Bardales MD Discharge Diagnosis (1) Sepsis due to urinary tract infection Status: Acute (2) Essential (primary) hypertension Status: Chronic (3) HLD (hyperlipidemia) Status: Chronic (4) Coronary artery disease without angina pectoris Status: Chronic (5) Peripheral vascular disease Status: Chronic (6) Stage III chronic kidney disease Status: Chronic (7) S/P CABG x 4 Status: Chronic (8) Debility Status: Acute Discharge Summary Discharge Physical Exam Allergies: Coded Allergies: No Known Drug Allergies (Unverified , 04/05/21) Vitals & I&Os Vital Signs Date Time Temp Pulse Resp B/P (MAP) Pulse Ox O2 Delivery O2 Flow Rate FiO2 04/10/21 07:57 37.0 82 20 144/67 (92) 93 Nasal Cannula 2.00 04/05/21 20:38 21 Hospital Course Labs (last 24 hrs) Microbiology 04/05/21 Blood Culture - Preliminary, Resulted No growth 04/05/21 Urine Culture - Final, Complete Escherichia coli Patient resulted labs reviewed. Imaging: Reviewed Imaging Report Discharge Home Medications: Active Scripts Active Ferosul (Ferrous Sulfate) 325 Mg Tablet 325 Mg PO Q48H Cephalexin 250 Mg Capsule 250 Mg PO QID Hydrocodone-Acetamin 5-325 mg (Hydrocodone/Acetaminophen) 1 Each Tablet 1 Tab PO Q4H PRN Reported Xarelto Tablet (Rivaroxaban) 20 Mg Tablet 20 Mg PO 1700 Pantoprazole Sodium 40 Mg Tablet.dr 40 Mg PO BID Furosemide 20 Mg Tablet 20 Mg PO DAILY Carvedilol 6.25 Mg Tablet 6.25 Mg PO BID Aspirin EC (Aspirin) 81 Mg Tablet.dr 81 Mg PO DAILY Divalproex Sodium 250 Mg Tablet.dr 500 Mg PO BID TAKES 2 (250MG) TABS Ocuvite Adult 50 Plus Softgel (C,E,Zinc,Copper 24/Om3/Lut/Jordan) 1 Each Capsule 1 Each PO DAILY Tolterodine Tartrate ER (Tolterodine Tartrate) 4 Mg Cap.er.24h 4 Mg PO HS Multivitamins with Minerals (Multivitamin with Minerals) 1 Each Tablet 1 Each PO HS Simvastatin 20 Mg Tablet 20 Mg PO HS Instructions to patient/family Please see electronic discharge instructions given to patient. Problem Qualifiers (1) Stage III chronic kidney disease: Chronic kidney disease stage 3 subtype: stage 3a (GFR 45-59) Qualified Codes: N18.31 - Chronic kidney disease, stage 3a GUSTAVO SORENSEN MD Apr 10, 2021 09:10
[2021-04-10] MEDS ORDERED: TMSL.4C PO (09:21)
[2021-04-10] MEDS ORDERED: cefTRIAXone 1,000 MG in WATER (STERILE) FOR INJECTION 10 ML IV ONE (09:30)
[2021-04-10] MEDS: ETODOLAC 200 MG (LODINE) CAP PO SCH (10:39)
[2021-04-10] MEDS: PANTOPRAZOLE 40 MG (PROTONIX) TAB PO SCH (10:39)
[2021-04-10] MEDS: ASPIRIN 81 MG CHEW (CHILDREN'S ASA) PO SCH (10:39)
[2021-04-10] MEDS: CEPHALEXIN 250 MG (KEFLEX) CAP PO SCH (10:40)
[2021-04-10] MEDS: FUROSEMIDE 20 MG (LASIX) TAB PO SCH (10:40)
[2021-04-10] MEDS ORDERED: cefTRIAXone 1,000 MG VIAL ONE (10:49)
[2021-04-10] MEDS ORDERED: WATER (STERILE) FOR INJECTION 10 ML ONE (10:50)
[2021-04-10] MEDS: DIVALPROEX 500 MG DELAYED RELEASE (DEPAKOTE) TAB PO SCH (10:54)
[2021-04-10] MEDS: FERROUS SULF 325 MG (IRON) TAB PO SCH (10:54)
[2021-04-10 11:00] VITALS: BP 144/67
== END 2021-04-10 11:10 | DRG 872 ==
LOC: ER 14:03 → 4TH 16:15
PROVIDERS: ADMIT Internal Medicine; ATTEND Internal Medicine
DX: A41.9 Sepsis, unspecified organism (principal); N39.0 Urinary tract infection, site not specified; R65.20 Severe sepsis without septic shock; I25.10 Atherosclerotic heart disease of native coronary artery without angina pectoris; I73.9 Peripheral vascular disease, unspecified; E78.5 Hyperlipidemia, unspecified; N18.31 Chronic kidney disease, stage 3a; I12.9 Hypertensive chronic kidney disease with stage 1 through stage 4 chronic kidney disease, or unspecified chronic kidney disease; I48.91 Unspecified atrial fibrillation; K21.9 Gastro-esophageal reflux disease without esophagitis; R53.81 Other malaise; Z20.822 Contact with and (suspected) exposure to COVID-19; Z95.1 Presence of aortocoronary bypass graft; Z79.82 Long term (current) use of aspirin; Z79.899 Other long term (current) drug therapy; Z87.891 Personal history of nicotine dependence
CPT/HCPCS: 36415; 71045; 80048; 80053; 81000; 83605; 84145; 84484; 85007; 85025; 85027; 85610; 85730; 87040; 87077; 87088; 87186; 87636; 93005; 94640; 94760; 96365; 96366; 96375

== ENCOUNTER 2021-05-01 08:14 | Emergency (ER) | payer MEDICARE, OTHER ==
[~2021-05-01] VITALS: Ht 180 cm; Wt 76.5 kg
[~2021-05-01 08:14] MED LIST changes: +CEPH250C PO; +FERR325T24 PO; +TMSL.4C PO
[2021-05-01] MEDS ORDERED: fentaNYL INJ 100 MCG/2 ML AMP IVP ONE (08:30)
[2021-05-01] MEDS ORDERED: NS IV 500 ML 500 ML IV ONE (08:30)
--- NOTE | 2021-05-01 08:35 | ED Fall/Injury ---
General Chief Complaint: Trauma-Non Activation Stated Complaint: FALL Nursing Triage Note: [facility] WITH COMPLAINT OF FALL. PT STATES HE FELL LAST NIGHT AROUND 10PM. STATES HE HIT HEAD AND IS COMPLAINING OF LEFT SHOULDER PAIN. PER NH, PT WAS NOT MENTATING WELL. PT IS ALERT AND ORIENTED. Source: patient Exam Limitations: no limitations History of Present Illness Date Seen by Provider: May 01, 2021 Time Seen by Provider: 08:13 Initial Comments Patient to the ER by EMS from [facility] with chief complaint that he had a fall early in the morning between midnight and 2 while trying to get up and go to the bathroom. He had 2 full urinals with him and was trying to carry them and lost his balance. He says he struck the back of his head and has little bit of pain there. Staff thought he had altered mentation with a little bit of mild confusion. Patient thought he was at [facility] and thought he was told us where he was coming by EMS. Primary care was with Dr. Bardales in [place] and so the patient thought that is where he would be going. 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 He is having some pain in both of his hips but he says that is chronic although he thinks it may be a little more painful today. He said he was unable to stand back up because of pain and weakness. He also has been using Lasix and tolterodine. No fevers chills shortness of air or chest pain. He says he has a chronic dry cough and is tested frequently for COVID-19 with his most recent negative test within the last week. He is up-to-date on COVID-19 vaccinations. Staff says they found the patient on the floor sitting up trying to reach for his call light. Allergies and Home Medications Allergies Coded Allergies: No Known Drug Allergies (Unverified , 04/05/21) Home Medications Aspirin 81 Mg Tablet.dr, 81 MG PO DAILY, (Reported) C,E,Zinc,Copper 24/Om3/Lut/Jordan 1 Each Capsule, 1 EACH PO DAILY, (Reported) Carvedilol 6.25 Mg Tablet, 6.25 MG PO BID, (Reported) Cephalexin 250 Mg Capsule, 250 MG PO QID Prescribed by: GUSTAVO SORENSEN on 04/10/21 09 Divalproex Sodium 250 Mg Tablet.dr, 500 MG PO BID, (Reported) TAKES 2 (250MG) TABS Ferrous Sulfate 325 Mg Tablet, 325 MG PO Q48H Prescribed by: GUSTAVO SORENSEN on 04/10/21903 Furosemide 20 Mg Tablet, 20 MG PO DAILY, (Reported) Hydrocodone/Acetaminophen 1 Each Tablet, 1 TAB PO Q4H PRN for PAIN-MODERATE (5- 7) Prescribed by: GUSTAVO SORENSEN on 04/10/21 09 Multivitamin with Minerals 1 Each Tablet, 1 EACH PO HS, (Reported) Pantoprazole Sodium 40 Mg Tablet.dr, 40 MG PO BID, (Reported) Rivaroxaban 20 Mg Tablet, 20 MG PO 1700, (Reported) Simvastatin 20 Mg Tablet, 20 MG PO HS, (Reported) Tamsulosin HCl 0.4 Mg Cap, 0.4 MG PO HS Prescribed by: GUSTAVO SORENSEN on 04/10/21920 Tolterodine Tartrate 4 Mg Cap.er.24h, 4 MG PO HS, (Reported) Patient Home Medication List Home Medication List Reviewed: Yes Review of Systems Review of Systems Constitutional: No chills, No fever, No malaise; weakness Eyes: Denies Blindness, Denies Drainage Ears, Nose, Mouth, Throat: denies ear pain, denies nose pain, denies epistaxis Respiratory: No cough, No phlegm Cardiovascular: No chest pain, No palpitations Gastrointestinal: No abdominal pain, No nausea Genitourinary: No discharge, No dysuria Musculoskeletal: No back pain, No joint pain Skin: No pruritus, No rash All Other Systems Reviewed Negative Unless Noted: Yes Past Ydsjpvv-Okwfyy-Smcrqy Hx Patient Social History Tobacco Use?: No Use of E-Cig and/or Vaping dev: No Substance use?: No Past Medical History Surgery/Hospitalization HX: CABG March 14, 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 0.0oz. 83.998589ph; 23.00 BMI Method: General Appearance: WD/WN, mild distress HEENT: PERRL/EOMI, normal ENT inspection (Dry oral mucosa), TMs normal (Negative for laureano sign or raccoon eyes. 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, no motor/sensory deficits, alert, normal mood/affect, oriented x 3 Skin: normal color, warm/dry [place] Coma Score Best Eye Response: (4) Open Spontaneously Best Verbal Response: (5) Oriented Best Motor Response: (6) Obeys Commands [place] Total: 15 Progress/Results/Core Measures Results/Orders Lab Results Laboratory Tests Test 05/01/21 09:42 05/01/21 10:01 Range/Units White Blood Count 13.1 H 4.3-11.0 10^3/uL Red Blood Count 3.39 L 4.30-5.52 10^6/uL Hemoglobin 10.2 L 13.3-17.7 g/dL Hematocrit 33 L 40-54 % Mean Corpuscular Volume 97 80-99 fL Mean Corpuscular Hemoglobin 30 25-34 pg Mean Corpuscular Hemoglobin Concent 31 L 32-36 g/dL Red Cell Distribution Width 14.5 10.0-14.5 % Platelet Count 193 130-400 10^3/uL Mean Platelet Volume 9.3 9.0-12.2 fL Immature Granulocyte % (Auto) 1 % Neutrophils (%) (Auto) 74 42-75 % Lymphocytes (%) (Auto) 9 L 12-44 % Monocytes (%) (Auto) 16 H 0-12 % Eosinophils (%) (Auto) 0 0-10 % Basophils (%) (Auto) 0 0-10 % Neutrophils # (Auto) 9.6 H 1.8-7.8 10^3/uL Lymphocytes # (Auto) 1.2 1.0-4.0 10^3/uL Monocytes # (Auto) 2.1 H 0.0-1.0 10^3/uL Eosinophils # (Auto) 0.0 0.0-0.3 10^3/uL Basophils # (Auto) 0.1 0.0-0.1 10^3/uL Immature Granulocyte # (Auto) 0.1 0.0-0.1 10^3/uL Sodium Level 140 135-145 MMOL/L Potassium Level 3.5 L 3.6-5.0 MMOL/L Chloride Level 105 98-107 MMOL/L Carbon Dioxide Level 25 21-32 MMOL/L Anion Gap 10 5-14 MMOL/L Blood Urea Nitrogen 31 H 7-18 MG/DL Creatinine 1.57 H 0.60-1.30 MG/DL Estimat Glomerular Filtration Rate 43 BUN/Creatinine Ratio 20 Glucose Level 113 H 70-105 MG/DL Calcium Level 8.9 8.5-10.1 MG/DL Corrected Calcium 9.6 8.5-10.1 MG/DL Total Bilirubin 0.3 0.1-1.0 MG/DL Aspartate Amino Transf (AST/SGOT) 19 5-34 U/L Alanine Aminotransferase (ALT/SGPT) 17 0-55 U/L Alkaline Phosphatase 55 40-136 U/L Total Creatine Kinase 30 30-200 U/L C-Reactive Protein High Sensitivity 27.39 H 0.00-0.50 MG/DL Total Protein 7.0 6.4-8.2 GM/DL Albumin 3.1 L 3.2-4.5 GM/DL Serum Alcohol < 10 <10 MG/DL Urine Color YELLOW Urine Clarity CLEAR Urine pH 6.0 5-9 Urine Specific Willis 1.020 1.016-1.022 Urine Protein 1+ H NEGATIVE Urine Glucose (UA) NEGATIVE NEGATIVE Urine Ketones NEGATIVE NEGATIVE Urine Nitrite NEGATIVE NEGATIVE Urine Bilirubin NEGATIVE NEGATIVE Urine Urobilinogen 1.0 < = 1.0 MG/DL Urine Leukocyte Esterase 1+ H NEGATIVE Urine RBC (Auto) 1+ H NEGATIVE Urine RBC 0-2 /HPF Urine WBC 50-100 H /HPF Urine Squamous Epithelial Cells NONE /HPF Urine Crystals NONE /LPF Urine Bacteria LARGE H /HPF Urine Casts NONE /LPF Urine Mucus NEGATIVE /LPF Urine Culture Indicated YES My Orders Orders - EVANGELINA DU Ed Iv/Invasive Line Start (05/01/21 08:23) Ns Iv 500 Ml (Sodium Chloride 0.9%) (05/01/21 08:30) Ua Culture If Indicated (05/01/21 08:23) Fentanyl Inj (Sublimaze Injection) (05/01/21 08:30) Cbc With Automated Diff (05/01/21 08:23) Comprehensive Metabolic Panel (05/01/21 08:23) Hs C Reactive Protein (05/01/21 08:23) Alcohol (05/01/21 08:23) Ct Head/Cervical Spine Wo (05/01/21 08:23) Chest 1 View, Ap/Pa Only (05/01/21 08:23) Pelvis/Janae Hips 5> Views (05/01/21 08:23) Creatine Kinase (05/01/21 08:23) Urine Culture (05/01/21 10:01) Ceftriaxone (Rocephin) (05/01/21 13:00) Medications Given in ED Current Medications Medications Dose Ordered Sig/Chad Route Start Time Stop Time Status Last Admin Dose Admin Fentanyl Citrate 25 mcg ONCE ONCE IVP 05/01/21 08:30 05/01/21 08:31 DC 05/01/21 08:53 25 MCG Sodium Chloride 500 ml @ 0 mls/hr Q0M ONCE IV 05/01/21 08:30 05/01/21 08:31 DC 05/01/21 08:53 0 MLS/HR Vital Signs/I&O 05/01/21 08:22 Temp 35.7 Pulse 95 Resp 16 B/P (MAP) 135/79 (97) Pulse Ox 97 O2 Delivery Room Air Blood Pressure Mean: 97 Progress Progress Note #1: Time: 08:[address] of the head and C-spine, chest x-ray and bilateral hip x-ray looking for evidence of significant trauma. Patient has a strong odor of urine which may be because he spilled the urine on himself. Plan to check urinalysis labs and a CPK. We will give him a half of a liter of fluids respecting that he should remain overall dry but he may be a little too dry if he is not able to stand. He cannot complete a set of orthostatics at this time. Progress Note #2: Time: 13:03 Progress Note No evidence of injury on CT that is acute. Patient is having just mild soreness in his left shoulder and neck are he says he was reaching for the call light last night. He is coherent and we did give him the option to treat this with IM antibiotics at the home and follow-up with the urologist and he agrees this is a good plan for now. He is not septic. Rocephin, ondansetron, give him some Sprite. Diagnostic Imaging Diagonstic Imaging: Xray Plain Films/CT/US/NM/MRI: chest Comments [facility] [place], [place] NAME: JANELL BOTELLO [facility] REC#: [id number] PT STATUS: REG ER : 1945 PHYSICIAN: EVANGELINA DU MD ADMIT DATE: 05/01/21/ER Draft Date of Exam:05/01/21 CHEST 1 VIEW, AP/PA ONLY INDICATION: Fall. COMPARISON: 04/06/2021. FINDINGS: A single frontal view of the chest demonstrates normal heart size and pulmonary vascularity. The lungs are well aerated and clear. No large pleural effusion or pneumothorax is seen. The visualized osseous structures show no acute abnormalities. IMPRESSION: No acute cardiopulmonary process. Dictated on workstation # [id number] Dict: 05/01/21 0947 Trans: 05/01/21 0949 [id number] Interpreted by: CLIF REYES MD Electronically signed by: Reviewed: Reviewed by Me Diagonstic Imaging: Xray Plain Films/CT/US/NM/MRI: pelvis, hip (Bilateral) Comments [facility]. [place], [place] NAME: ROBLES BOTELLORUTHIE [facility] REC#: [id number] PT STATUS: REG ER : 1945 PHYSICIAN: EVANGELINA DU MD ADMIT DATE: 05/01/21/ER Draft Date of Exam:05/01/21 PELVIS/JANAE HIPS 5> VIEWS INDICATION: Fall. Hip pain. COMPARISON: None. FINDINGS: AP view of the pelvis and multiple dedicated radiographic views of the bilateral hips were obtained. There is no fracture, dislocation, bone destruction, or radiopaque foreign body. The visualized pelvic osseous structures and the SI joints demonstrate no acute fracture or dislocation. There is no bone destruction or radiopaque foreign body. The surrounding soft tissue structures are unremarkable. IMPRESSION: 1. Unremarkable radiographic exam of the pelvis and bilateral hips. Dictated on workstation # [id number] Dict: 05/01/21 0947 Trans: 05/01/21 0953 [id number] Interpreted by: CLIF REYES MD Electronically signed by: Reviewed: Reviewed by Dc Diagonstic Imaging: CT Plain Films/CT/US/NM/MRI: c-spine, head Comments [facility] [place] [place] NAME: JANELL BOTELLO [facility] REC#: [id number] PT STATUS: REG ER : 1945 PHYSICIAN: EVANGELINA DU MD ADMIT DATE: 05/01/21/ER Draft Date of Exam:05/01/21 CT HEAD/CERVICAL SPINE WO PROCEDURE: CT head and CT cervical spine without contrast. TECHNIQUE: Multiple contiguous axial images were obtained through the brain and cervical spine without the use of intravenous contrast. Sagittal and coronal reformations through the cervical spine were then performed. Auto Exposure Controls were utilized during the CT exam to meet ALARA standards for radiation dose reduction. INDICATION: Altered mental status status post fall with trauma to the head. Head pain. COMPARISON: 03/22/2021. FINDINGS: CT head: The ventricles and cortical sulci are diffusely prominent, compatible with age-related volume loss. There are confluent areas of abnormal, low attenuation in the periventricular white matter. This is consistent with chronic small vessel ischemic changes. There is no midline shift or mass-effect. No acute intra-axial hemorrhage is seen. There are no abnormal areas of increased or decreased density to suggest acute hemorrhage or edema. No extra-axial masses or collections are present. The bony calvarium is intact. The visualized paranasal sinuses are unremarkable. The mastoid air cells are clear. CT cervical spine: of Evaluation static alignment of the cervical spine demonstrates reversal of normal lordotic curvature. Findings may relate to patient positioning, spasm, as well as underlying degenerative changes. There is however no significant anteroretrolisthesis. There is no evidence of jumped facets. Vertebral body heights are maintained. No bony fragments are seen within the spinal canal. There is no evidence acute fracture. There are moderate multilevel degenerative changes consistent intervertebral disc height loss with prominent anterior posterior disc osteophyte complex formations. These changes are greatest at the C5-C6 and C6-C7 levels. Pre and paravertebral soft tissue structures are unremarkable. Note is made of calcified carotid atherosclerosis. Included portions lung apices are clear. IMPRESSION: 1. No acute intracranial abnormality. No CT evidence of mass, acute infarct or intracranial hemorrhage. 2. Chronic small vessel ischemic changes in deep white matter. 3. No acute fracture or dislocation cervical spine. 4. Moderate multilevel degenerative changes, greatest at C5-C6 and C6-C7. Dictated on workstation # [id number] Dict: 05/01/21921 Trans: 05/01/21927 [facility] [place] [id number] Interpreted by: CLIF REYES MD Electronically signed by: Reviewed: Reviewed by Me Departure Impression Primary Impression: UTI (urinary tract infection) Qualified Codes: N30.00 - Acute cystitis without hematuria Disposition: HOME, SELF-CARE Condition: Stable Departure-Patient Inst. Decision time for Depature: 13:04 Referrals: LILLY BARDALES MD (PCP/Family) Primary Care Physician RUPINDER MCDANIEL MD Patient Instructions: Urinary Tract Infection, Adult (DC) Add. Discharge Instructions: You have another bladder infection. Rocephin 1 g IM daily with 2.1 mL of lidocaine for the next 3 days. Follow-up with Dr. Mcdaniel within the next 1 to 2 weeks to work-up your recurrent urinary tract infections. Promptly return to the nearest ER if you are having worsening symptoms. All discharge instructions reviewed with patient and/or family. Voiced understanding. Scripts [lidocaine] 1% No Conflict Check 2.1 ML IM DAILY for 3 Days, #20 ML 0 Refills Prov: EVANGELINA DU 05/01/21 [rocephin] No Conflict Check 1 GM IM DAILY for 3 Days, #3 GM 0 Refills Prov: EVANGELINA DU 05/01/21 Copy Copies To 1: LILLY BARDALES MD; RUPINDER MCDANIEL MD, TITUS J May 01, 2021 08:35
--- NOTE | 2021-05-01 09:28 | Diagnostic Imaging Report ---
PROCEDURE: CT head and CT cervical spine without contrast. TECHNIQUE: Multiple contiguous axial images were obtained through the brain and cervical spine without the use of intravenous contrast. Sagittal and coronal reformations through the cervical spine were then performed. Auto Exposure Controls were utilized during the CT exam to meet ALARA standards for radiation dose reduction. INDICATION: Altered mental status status post fall with trauma to the head. Head pain. COMPARISON: 03/22/2021. FINDINGS: CT head: The ventricles and cortical sulci are diffusely prominent, compatible with age-related volume loss. There are confluent areas of abnormal, low attenuation in the periventricular white matter. This is consistent with chronic small vessel ischemic changes. There is no midline shift or mass-effect. No acute intra-axial hemorrhage is seen. There are no abnormal areas of increased or decreased density to suggest acute hemorrhage or edema. No extra-axial masses or collections are present. The bony calvarium is intact. The visualized paranasal sinuses are unremarkable. The mastoid air cells are clear. CT cervical spine: of Evaluation static alignment of the cervical spine demonstrates reversal of normal lordotic curvature. Findings may relate to patient positioning, spasm, as well as underlying degenerative changes. There is however no significant anteroretrolisthesis. There is no evidence of jumped facets. Vertebral body heights are maintained. No bony fragments are seen within the spinal canal. There is no evidence acute fracture. There are moderate multilevel degenerative changes consistent intervertebral disc height loss with prominent anterior posterior disc osteophyte complex formations. These changes are greatest at the C5-C6 and C6-C7 levels. Pre and paravertebral soft tissue structures are unremarkable. Note is made of calcified carotid atherosclerosis. Included portions lung apices are clear. IMPRESSION: 1. No acute intracranial abnormality. No CT evidence of mass, acute infarct or intracranial hemorrhage. 2. Chronic small vessel ischemic changes in deep white matter. 3. No acute fracture or dislocation cervical spine. 4. Moderate multilevel degenerative changes, greatest at C5-C6 and C6-C7. Dictated by: Dictated on workstation # [id number]
--- NOTE | 2021-05-01 09:49 | Diagnostic Imaging Report ---
INDICATION: Fall. COMPARISON: 04/06/2021. FINDINGS: A single frontal view of the chest demonstrates normal heart size and pulmonary vascularity. The lungs are well aerated and clear. No large pleural effusion or pneumothorax is seen. The visualized osseous structures show no acute abnormalities. IMPRESSION: No acute cardiopulmonary process. Dictated by: Dictated on workstation # [id number]
[2021-05-01 09:52] LABS: BASOPHILS # (AUTO) 0.1 10^3/uL (0.0-0.1); BASOPHILS % (AUTO) 0 % (0-10); EOSINOPHILS % (AUTO) 0 % (0-10); HEMATOCRIT 33 % (40-54); HEMOGLOBIN 10.2 g/dL (13.3-17.7); LYMPHOCYTES # (AUTO) 1.2 10^3/uL (1.0-4.0); LYMPHOCYTES % (AUTO) 9 % (12-44); MEAN CORPUSCULAR HEMOGLOBIN 30 pg (25-34); MEAN CORPUSCULAR HGB CONC 31 g/dL (32-36); MEAN CORPUSCULAR VOLUME 97 fL (80-99); MEAN PLATELET VOLUME 9.3 fL (9.0-12.2); MONOCYTES # (AUTO) 2.1 10^3/uL (0.0-1.0); MONOCYTES % (AUTO) 16 % (0-12); NEUTROPHILS # (AUTO) 9.6 10^3/uL (1.8-7.8); NEUTROPHILS % (AUTO) 74 % (42-75); PLATELET COUNT 193 10^3/uL (130-400); WHITE BLOOD COUNT 13.1 10^3/uL (4.3-11.0)
--- NOTE | 2021-05-01 09:53 | Diagnostic Imaging Report ---
INDICATION: Fall. Hip pain. COMPARISON: None. FINDINGS: AP view of the pelvis and multiple dedicated radiographic views of the bilateral hips were obtained. There is no fracture, dislocation, bone destruction, or radiopaque foreign body. The visualized pelvic osseous structures and the SI joints demonstrate no acute fracture or dislocation. There is no bone destruction or radiopaque foreign body. The surrounding soft tissue structures are unremarkable. IMPRESSION: 1. Unremarkable radiographic exam of the pelvis and bilateral hips. Dictated by: Dictated on workstation # [id number]
[2021-05-01 10:04] LABS: ALBUMIN 3.1 GM/DL (3.2-4.5); CHLORIDE 105 MMOL/L (98-107); POTASSIUM 3.5 MMOL/L (3.6-5.0); SODIUM 140 MMOL/L (135-145)
[2021-05-01 10:05] LABS: CALCIUM 8.9 MG/DL (8.5-10.1)
[2021-05-01 10:06] LABS: GLUCOSE 113 MG/DL (70-105)
[2021-05-01 10:07] LABS: BILIRUBIN,URINE NEGATIVE (NEGATIVE); CLARITY,URINE CLEAR; COLOR,URINE YELLOW; GLUCOSE, URINE (UA) NEGATIVE (NEGATIVE); KETONES,URINE NEGATIVE (NEGATIVE); LEUKOCYTE ESTERASE ,URINE 1+ (NEGATIVE); NITRITE,URINE NEGATIVE (NEGATIVE); PROTEIN,URINE 1+ (NEGATIVE)
[2021-05-01 10:07] LABS: CARBON DIOXIDE 25 MMOL/L (21-32)
[2021-05-01 10:08] LABS: BILIRUBIN,TOTAL 0.3 MG/DL (0.1-1.0)
[2021-05-01 10:10] LABS: ALKALINE PHOSPHATASE 55 U/L (40-136); CREATININE SERUM 1.57 MG/DL (0.60-1.30); GFR ESTIMATED 43
[2021-05-01 10:11] LABS: BUN/CREATININE RATIO 20
[2021-05-01 10:13] LABS: ALANINE AMINOTRANSFERASE 17 U/L (0-55); CREATINE KINASE 30 U/L (30-200)
[2021-05-01 10:24] LABS: BACTERIA,URINE LARGE /HPF; RBC,URINE 0-2 /HPF; WBC,URINE 50-100 /HPF
[2021-05-01] MEDS ORDERED: cefTRIAXone 1,000 MG in WATER (STERILE) FOR INJECTION 10 ML IV ONE (13:00)
[2021-05-01] MEDS ORDERED: rocephin IM (13:10)
[2021-05-01] MEDS ORDERED: lidocaine IM (13:10)
[2021-05-01] MEDS ORDERED: ONDANSETRON 4 MG/2 ML (SDV) Z0FRAN IVP ONE (13:15)
[2021-05-01 15:21] VITALS: BP 154/81
== END 2021-05-01 15:21 | disposition home or self-care (01) ==
LOC: ER 08:15
DX: N39.0 Urinary tract infection, site not specified (principal); M25.512 Pain in left shoulder; M54.2 Cervicalgia; M25.551 Pain in right hip; M25.552 Pain in left hip; I10 Essential (primary) hypertension; I25.10 Atherosclerotic heart disease of native coronary artery without angina pectoris; Z95.1 Presence of aortocoronary bypass graft; Z79.82 Long term (current) use of aspirin; Z79.899 Other long term (current) drug therapy
CPT/HCPCS: 70450; 71045; 72125; 73523; 80053; 81000; 82550; 85025; 86141; 87088; 99284; G0480; 36415; 80320

== ENCOUNTER 2021-10-28 19:52 | Emergency (ER) | payer MEDICARE, OTHER ==
[~2021-10-28] VITALS: Ht 180 cm; Wt 74.0 kg
[~2021-10-28 19:52] MED LIST changes: +lidocaine IM; +rocephin IM
--- NOTE | 2021-10-28 20:14 | ED GU-Male ---
General Stated Complaint: CAN'T URINATE SINCE YESTERDAY Source: patient Exam Limitations: no limitations History of Present Illness Date Seen by Provider: Oct 28, 2021 Time Seen by Provider: 20:08 Initial Comments Patient is a 76-year-old male who presents to the emergency department with a chief complaint of inability to urinate since yesterday at around 6:00. Patient had a prostate biopsy by Dr. August about a week ago. He reports his biopsy was negative. He has been doing just fine until he had difficulty urinating last night. He describes "burning" in the lower abdomen. He has a little bit of a low back ache. He has had a little intermittent nausea. He has had a [place] catheter before. Tells me that he has an appointment with Dr. Mcdaniel tomorrow at 3 PM. No other complaints of fevers, chills, cough. No chest pain or shortness of breath. No problems with bowel movements. Bedside bladder scan shows urine in excess of 700ml All other review of systems reviewed and negative except as stated. Timing/Duration: yesterday Severity/Quality: burning, cramping Location: suprapubic Radiation: other (back) Activities at Onset: none Associated Symptoms: abdominal pain, lower back pain Allergies and Home Medications Allergies Coded Allergies: No Known Drug Allergies (Unverified , 04/05/21) Patient Home Medication List Home Medication List Reviewed: Yes Aspirin (Aspirin EC) 81 Mg Tablet.dr, 81 MG PO DAILY, (Reported) Entered as Reported by: DIANA HIRSCH on 04/06/21 09 C,E,Zinc,Copper 24/Om3/Lut/Jordan (Ocuvite Adult 50 Plus Softgel) 1 Each Capsule, 1 EACH PO DAILY, (Reported) Entered as Reported by: DIANA HIRSCH on 03/21/21 1236 Carvedilol (Carvedilol) 6.25 Mg Tablet, 6.25 MG PO BID, (Reported) Entered as Reported by: DIANA HIRSCH on 04/06/21 09 Cephalexin (Cephalexin) 250 Mg Capsule, 250 MG PO QID Prescribed by: GUSTAVO SORENSEN on 04/10/21 0904 Cephalexin (Cephalexin) 500 Mg Tablet, 500 MG PO TID Prescribed by: CARO HARKINS on 2/13/22 2100 Divalproex Sodium (Divalproex Sodium) 250 Mg Tablet.dr, 500 MG PO BID, (Reported) Entered as Reported by: DIANA HIRSCH on 03/26/21 152 Ferrous Sulfate (Ferosul) 325 Mg Tablet, 325 MG PO Q48H Prescribed by: GUSTAVO SORENSEN on 04/10/21 09 Furosemide (Furosemide) 20 Mg Tablet, 20 MG PO DAILY, (Reported) Entered as Reported by: DIANA HIRSCH on 04/06/21 09 Hydrocodone/Acetaminophen (Hydrocodone-Acetamin 5-325 mg) 1 Each Tablet, 1 TAB PO Q4H PRN for PAIN-MODERATE (5-7) Prescribed by: GUSTAVO SORENSEN on 04/10/21 09 Multivitamin with Minerals (Multivitamins with Minerals) 1 Each Tablet, 1 EACH PO HS, (Reported) Entered as Reported by: DIANA HIRSCH on 03/21/21 1236 Pantoprazole Sodium (Pantoprazole Sodium) 40 Mg Tablet.dr, 40 MG PO BID, (Reported) Entered as Reported by: DIANA HIRSCH on 04/06/21926 Rivaroxaban (Xarelto Tablet) 20 Mg Tablet, 20 MG PO 1700, (Reported) Entered as Reported by: DIANA HIRSCH on 04/06/21926 Simvastatin (Simvastatin) 20 Mg Tablet, 20 MG PO HS, (Reported) Entered as Reported by: DIANA HIRSCH on 03/21/21 123 Tamsulosin HCl (Flomax) 0.4 Mg Cap, 0.4 MG PO HS Prescribed by: GUSTAVO SORENSEN on 04/10/21 09 Tolterodine Tartrate (Tolterodine Tartrate ER) 4 Mg Cap.er.24h, 4 MG PO HS, (Reported) Entered as Reported by: DIANA HIRSCH on 03/21/21 1236 [lidocaine] 1% , 2.1 ML IM DAILY Prescribed by: EVANGELINA DU on 05/01/21 1310 [rocephin] , 1 GM IM DAILY Prescribed by: EVANGELINA DU on 05/01/21 1310 Review of Systems Review of Systems Constitutional: see HPI EENTM: no symptoms reported Respiratory: no symptoms reported Cardiovascular: no symptoms reported Gastrointestinal: abdominal pain Genitourinary: pain, urgency Musculoskeletal: no symptoms reported Skin: no symptoms reported Psychiatric/Neurological: No Symptoms Reported All Other Systemes Reviewed Negative Unless Noted: Yes Past Ahvixxi-Gtigyt-Udpooo Hx Past Medical History Surgery/Hospitalization HX: CABG March 14, 2021 CABG Coronary Artery Disease, Hypertension, Peripheral Vascular Family Medical History No Pertinent Family Hx Physical Exam Vital Signs Vital Signs - First Documented 10/28/21 20:02 Temp 36.0 Pulse 90 Resp 18 B/P (MAP) 178/112 (134) O2 Delivery Room Air Capillary Refill : Height, Weight, BMI Height: 5'11.00" Weight: 185lbs. 0.0oz. [id number]; 23.00 BMI Method: General Appearance: WD/WN, no apparent distress Cardiovascular: regular rate, rhythm Respiratory: lungs clear, normal breath sounds, no respiratory distress, no a ccessory muscle use Gastrointestinal: normal bowel sounds, soft, tenderness (suprapubic pain) Male: normal genitalia Extremities: normal range of motion, non-tender, normal inspection, no pedal edema Neurologic/Psychiatric: alert, normal mood/affect, oriented x 3 Skin: normal color, warm/dry Progress/Results/Core Measures Suspected Sepsis SIRS Temperature: Pulse: Respiratory Rate: Blood Pressure / Mean: Laboratory Tests 10/28/21 20:20: Creatinine 1.63H Results/Orders Lab Results Laboratory Tests Test 10/28/21 20:20 Range/Units Urine Color YELLOW Urine Clarity CLEAR Urine pH 7.0 5-9 Urine Specific [place] 1.015 L 1.016-1.022 Urine Protein NEGATIVE NEGATIVE Urine Glucose (UA) NEGATIVE NEGATIVE Urine Ketones NEGATIVE NEGATIVE Urine Nitrite POSITIVE H NEGATIVE Urine Bilirubin NEGATIVE NEGATIVE Urine Urobilinogen 0.2 < = 1.0 MG/DL Urine Leukocyte Esterase NEGATIVE NEGATIVE Urine RBC (Auto) 2+ H NEGATIVE Urine RBC 10-25 H /HPF Urine WBC 0-2 /HPF Urine Squamous Epithelial Cells RARE /HPF Urine Crystals NONE /LPF Urine Bacteria MODERATE H /HPF Urine Casts NONE /LPF Urine Mucus NEGATIVE /LPF Urine Culture Indicated YES Sodium Level 138 135-145 MMOL/L Potassium Level 4.6 3.6-5.0 MMOL/L Chloride Level 104 98-107 MMOL/L Carbon Dioxide Level 19 L 21-32 MMOL/L Anion Gap 15 H 5-14 MMOL/L Blood Urea Nitrogen 30 H 7-18 MG/DL Creatinine 1.63 H 0.60-1.30 MG/DL Estimat Glomerular Filtration Rate 44 BUN/Creatinine Ratio 18 Glucose Level 107 H 70-105 MG/DL Calcium Level 9.3 8.5-10.1 MG/DL My Orders Orders - CARO HARKINS MD Basic Metabolic Panel (10/28/21 20:15) Ua Culture If Indicated (10/28/21 20:15) Urine Culture (10/28/21 20:20) Nitrofurantoin Capsule,Macro (Macrobid C (10/28/21 21:00) Cephalexin Capsule (Keflex Capsule) (10/28/21 21:00) Vital Signs/I&O 10/28/21 20:02 Temp 36.0 Pulse 90 Resp 18 B/P (MAP) 178/112 (134) O2 Delivery Room Air Capillary Refill : Progress Note : Time: 20:54 Progress Note Nitrite positive urine in the setting of acute urinary retention post prostate biopsy. We will place him back on antibiotics, Macrobid for the next 10 days. He has an appointment to see his urologist tomorrow. Return precautions given. Patient verbalized understanding and all questions are sought and answered. Fully catheter will remain in place until he sees Dr. August tomorrow Departure Impression Primary Impression: Acute urinary retention Additional Impression: Urinary tract infection Qualified Codes: N30.01 - Acute cystitis with hematuria Disposition: HOME, SELF-CARE Condition: Stable Departure-Patient Inst. Decision time for Depature: 20:55 Referrals: LILLY TUCKER MD (PCP/Family) Primary Care Physician RUPINDER MCDANIEL MD Patient Instructions: Urinary Retention, Urinary Tract Infection, Adult (DC) Add. Discharge Instructions: Drink plenty of fluids to stay well-hydrated. We have put you back on antibiotics, Kelfex 500mg 3 times a day for 10 days. Please keep your appointment with your urologist tomorrow. Come back to the emergency room for any fever, worsening pain or other emergent concerns. Scripts Cephalexin (Cephalexin) 500 Mg Tablet 500 MG PO TID for 10 Days, #29 TAB Prov: CARO HARKINS MD 10/28/21 Copy Copies To 1: RUPINDER MCDANIEL MD, KATHRYN M MD Oct 28, 2021 20:13
[2021-10-28 20:31] LABS: BILIRUBIN,URINE NEGATIVE (NEGATIVE); CLARITY,URINE CLEAR; COLOR,URINE YELLOW; GLUCOSE, URINE (UA) NEGATIVE (NEGATIVE); KETONES,URINE NEGATIVE (NEGATIVE); LEUKOCYTE ESTERASE ,URINE NEGATIVE (NEGATIVE); NITRITE,URINE POSITIVE (NEGATIVE); PROTEIN,URINE NEGATIVE (NEGATIVE)
[2021-10-28 20:49] LABS: CALCIUM 9.3 MG/DL (8.5-10.1); CREATININE SERUM 1.63 MG/DL (0.60-1.30); POTASSIUM 4.6 MMOL/L (3.6-5.0)
[2021-10-28 20:51] LABS: BACTERIA,URINE MODERATE /HPF; SQUAMOUS EPITHELIAL CELL,UR RARE /HPF; WBC,URINE 0-2 /HPF
[2021-10-28] MEDS ORDERED: NITR-65 PO (20:55)
[2021-10-28] MEDS ORDERED: NITROFURANTOIN 100 MG (MACROBID) CAPSULE PO ONE (21:00)
[2021-10-28] MEDS ORDERED: CEPH500T PO (21:00)
[2021-10-28] MEDS ORDERED: CEPHALEXIN 250 MG (KEFLEX) CAP PO STA (21:00)
[2021-10-28 21:28] VITALS: BP 168/78
== END 2021-10-28 21:28 | disposition home or self-care (01) ==
LOC: EDUNIT# 19:52 → ER 19:57
DX: R33.9 Retention of urine, unspecified (principal); N39.0 Urinary tract infection, site not specified; I10 Essential (primary) hypertension; I25.10 Atherosclerotic heart disease of native coronary artery without angina pectoris; Z79.01 Long term (current) use of anticoagulants; Z79.82 Long term (current) use of aspirin; Z79.899 Other long term (current) drug therapy
CPT/HCPCS: 36415; 51702; 80048; 81000; 87088

== ENCOUNTER 2022-03-30 22:14 | Emergency (ER) | payer MEDICARE, OTHER ==
[~2022-03-30 22:14] MED LIST changes: +CEPH500T PO; +NITR-65 PO
--- NOTE | 2022-03-30 22:42 | ED GU-Male ---
General Stated Complaint: CANNOT URINATE SINCE YESTERDAY Source: patient (HARD OF HEARING) History of Present Illness Date Seen by Provider: Mar 30, 2022 Time Seen by Provider: 22:38 Initial Comments PT ARRIVES VIA POV FROM HOME STATE HE HAS NOT BEEN ABLE TO URINATE SINCE YESTERDAY MORNING AT 0800 HAS HISTORY OF URINARY RETENTION AND THIS IS THE SAME, AND HAS HAD TO HAVE A CA THETER PLACED FOR THIS PROBLEM IN THE PAST C/O MUCH BLADDER PAIN AND FULLNESS, AND NOW HE IS STARTING TO HURT ALL ACROSS HIS LOWER BACK ALSO HAS ALOT OF BURNING IN HIS BLADDER AREA NO NAUSEA/VOMITING NO FEVER NO BLOOD IN URINE--PT IS ON ASPIRIN OR XARELTO PT STATES HE HAS CONTINUED TO DRINK LOTS OF WATER YESTERDAY AND TODAY PT DID TAKE A PYRIDIUM ABOUT AN HOUR PRIOR TO ARRIVAL. OTHERWISE HAS NOT TAKEN ANYTHING FOR SYMPTOMS PCP: DR. OSUNA UROLOGIST: DR. MCDANIEL Allergies and Home Medications Allergies Coded Allergies: No Known Drug Allergies (Unverified , 04/05/21) Patient Home Medication List Home Medication List Reviewed: Yes Aspirin (Aspirin EC) 81 Mg Tablet., 81 MG PO DAILY, (Reported) Entered as Reported by: DIANA HIRSCH on 04/06/21 0927 C,E,Zinc,Copper 24/Om3/Lut/Jordan (Ocuvite Adult 50 Plus Softgel) 1 Each Capsule, 1 EACH PO DAILY, (Reported) Entered as Reported by: DIANA HIRSCH on 03/21/21 1236 Carvedilol (Carvedilol) 6.25 Mg Tablet, 6.25 MG PO BID, (Reported) Entered as Reported by: DIANA HIRSCH on 04/06/21 0927 Cephalexin (Cephalexin) 250 Mg Capsule, 250 MG PO QID Prescribed by: GUSTAVO SORENSEN on 04/10/21 0904 Cephalexin (Cephalexin) 500 Mg Tablet, 500 MG PO TID Prescribed by: CARO HARKINS on 10/28/21 2100 Cephalexin (Cephalexin) 500 Mg Tablet, 500 MG PO QID Prescribed by: JAMAR BRASHER on 03/30/22 2244 Divalproex Sodium (Divalproex Sodium) 250 Mg Tablet., 500 MG PO BID, (Reported) Entered as Reported by: DIANA HIRSCH on 03/26/21 1529 Ferrous Sulfate (Ferosul) 325 Mg Tablet, 325 MG PO Q48H Prescribed by: GUSTAVO SORENSEN on 04/10/21 09 Furosemide (Furosemide) 20 Mg Tablet, 20 MG PO DAILY, (Reported) Entered as Reported by: DIANA HIRSCH on 04/06/21926 Hydrocodone/Acetaminophen (Hydrocodone-Acetamin 5-325 mg) 1 Each Tablet, 1 TAB PO Q4H PRN for PAIN-MODERATE (5-7) Prescribed by: GUSTAVO SORENSEN on 04/10/21 09 Multivitamin with Minerals (Multivitamins with Minerals) 1 Each Tablet, 1 EACH PO HS, (Reported) Entered as Reported by: DIANA HIRSCH on 03/21/21 123 Pantoprazole Sodium (Pantoprazole Sodium) 40 Mg Tablet.dr, 40 MG PO BID, (Reported) Entered as Reported by: DIANA HIRSCH on 04/06/21926 Rivaroxaban (Xarelto Tablet) 20 Mg Tablet, 20 MG PO 1700, (Reported) Entered as Reported by: DIANA HIRSCH on 04/06/21926 Simvastatin (Simvastatin) 20 Mg Tablet, 20 MG PO HS, (Reported) Entered as Reported by: DIANA HIRSCH on 03/21/21 123 Tamsulosin HCl (Flomax) 0.4 Mg Cap, 0.4 MG PO HS Prescribed by: GUSTAVO SORENSEN on 04/10/21 09 Tamsulosin HCl (Flomax) 0.4 Mg Cap, 0.4 MG PO DAILY Prescribed by: JAMAR BRASHER on 03/30/22 2244 Tolterodine Tartrate (Tolterodine Tartrate ER) 4 Mg Cap.er.24h, 4 MG PO HS, (Re ported) Entered as Reported by: DIANA HIRSCH on 03/21/21 1236 [lidocaine] 1% , 2.1 ML IM DAILY Prescribed by: EVANGELINA DU on 05/01/21 1310 [rocephin] , 1 GM IM DAILY Prescribed by: EVANGELINA DU on 05/01/21 1310 Review of Systems Review of Systems Constitutional: no symptoms reported Genitourinary: see HPI Musculoskeletal: see HPI Past Udgduhr-Rebepr-Eccvfm Hx Immunizations Up To Date First/Initial COVID19 Vaccinat: 10/2020 Second COVID19 Vaccination Timothy: 05/2021 Past Medical History Surgery/Hospitalization HX: PMH;HYPERLIPIDEMIA. SURGERY;PROSTATE BIOPSY 10/22/21 AND HEART CATH. 05/31/2021. Surgeries: Yes Cardiac, CABG, Vascular Surgery Respiratory: No Cardiac: Yes Coronary Artery Disease, High Cholesterol, Hypertension, Peripheral Vascular Neurological: No Genitourinary: Yes (URINARY RETENTION) Prostate Problems Gastrointestinal: Yes Hemorrhoids Musculoskeletal: No Endocrine: No HEENT: No Cancer: No Psychosocial: No Integumentary: No Blood Disorders: No Family Medical History No Pertinent Family Hx SOCIAL HISTORY: -SMOKED 1 PPD, QUIT -ETOH-DENIES USE -DRUGS-DENIES USE PAST SURGICAL HISTORY: -CABG 03/14/2021 AT [facility] -CAROTID ENDARTERECTOMY -LEFT LEG VASCULAR INTERVENTIONS -PROSTATE BIOPSY -COLONOSCOPY 04/2016 Physical Exam Vital Signs Vital Signs - First Documented 03/30/22 22:33 Temp 36.4 Pulse 90 Resp 18 B/P (MAP) 203/126 (151) Pulse Ox 95 O2 Delivery Room Air Capillary Refill : Height, Weight, BMI Height: 5'11.00" Weight: 185lbs. 0.0oz. 83.366281hb; 22.00 BMI Method: General Appearance: WD/WN, other (LOOKS UNCOMFORTABLE) Cardiovascular: regular rate, rhythm Respiratory: normal breath sounds Gastrointestinal: tenderness (OVER BLADDER), other (BLADDER VERY DISTENDED--A FEW CM'S ABOVE THE UMBILICUS. ) Back: no CVA tenderness Extremities: normal inspection, no pedal edema Neurologic/Psychiatric: no motor/sensory deficits, alert, normal mood/affect, oriented x 3 Skin: normal color, warm/dry Progress/Results/Core Measures Suspected Sepsis SIRS Temperature: Pulse: Respiratory Rate: Blood Pressure / Mean: Results/Orders Lab Results Laboratory Tests Test 03/30/22 23:00 Range/Units Urine Color YELLOW Urine Clarity CLEAR Urine pH 6.0 5-9 Urine Specific [place] 1.015 L 1.016-1.022 Urine Protein 2+ H NEGATIVE Urine Glucose (UA) NEGATIVE NEGATIVE Urine Ketones NEGATIVE NEGATIVE Urine Nitrite NEGATIVE NEGATIVE Urine Bilirubin NEGATIVE NEGATIVE Urine Urobilinogen 0.2 < = 1.0 MG/DL Urine Leukocyte Esterase NEGATIVE NEGATIVE Urine RBC (Auto) NEGATIVE NEGATIVE Urine RBC NONE /HPF Urine WBC RARE /HPF Urine Crystals NONE /LPF Urine Bacteria TRACE /HPF Urine Casts PRESENT /LPF Urine Hyaline Casts RARE /LPF Urine Mucus NEGATIVE /LPF Urine Culture Indicated NO My Orders Orders - JAMAR BRASHER DO Catheter(Urinary) Insert & Ass 03,15 (03/30/22 22:38) Tamsulosin Capsule (Flomax Capsule) (03/30/22 22:45) Cephalexin Capsule (Keflex Capsule) (03/30/22 22:45) Lidocaine 2% (Urojet) (Xylocaine Urojet) (03/30/22 22:45) Ua Culture If Indicated (03/30/22 22:44) Medications Given in ED Current Medications Medications Dose Ordered Sig/Chad Route Start Time Stop Time Status Last Admin Dose Admin Lidocaine HCl 10 ml ONCE ONCE TOP 03/30/22 22:45 03/30/22 22:46 DC 03/30/22 22:46 10 ML Vital Signs/I&O 03/30/22 03/30/22 22:33 23:28 Temp 36.4 36.4 Pulse 90 88 Resp 18 18 B/P (MAP) 203/126 (151) 187/112 Pulse Ox 95 96 O2 Delivery Room Air Room Air 03/31/22 00:00 Output Total 1120 ml Balance -1120 ml Capillary Refill : Progress Note : Progress Note CASTILLO PLACED WITH IMMEDIATE RELIEF OF SYMPTOMS PT HAD OUTPUT OF AT LEAST 1120 ML CLEAR URINE PRIOR TO DISMISSAL PT STATES HE HAS PYRIDIUM AT HOME, TO TAKE NEEDED Departure Impression Primary Impression: Acute urinary retention Disposition: HOME, SELF-CARE Condition: Stable Departure-Patient Inst. Referrals: NANCY OSUNA MD (PCP) Primary Care Physician RUPINDER MCDANIEL MD (Family) Primary Care Physician Patient Instructions: How to Care for Your Castillo Catheter, Male, Urinary Retention (DC) Add. Discharge Instructions: FOLLOW UP WITH DR. MCDANIEL THIS WEEK FOR FURTHER CARE--[facility] Scripts Cephalexin (Cephalexin) 500 Mg Tablet 500 MG PO QID, #20 TAB 0 Refills Prov: JAMAR BRASHER DO 03/30/22 Tamsulosin HCl (Flomax) 0.4 Mg Cap 0.4 MG PO DAILY, #10 CAP Prov: JAMAR BRASHER DO 03/30/22 JAMAR BRASHER 16, 2022 22:41
[2022-03-30] MEDS ORDERED: TMSL.4C PO (22:44)
[2022-03-30] MEDS ORDERED: CEPH500T PO (22:44)
[2022-03-30] MEDS ORDERED: LIDOCAINE UROJET 2% GEL 10 ML PKG TOP ONE (22:45)
[2022-03-30] MEDS ORDERED: TAMSULOSIN 0.4 MG (FLOMAX) CAP PO SCH (22:45)
[2022-03-30] MEDS ORDERED: CEPHALEXIN 250 MG (KEFLEX) CAP PO SCH (22:45)
[2022-03-30 23:09] LABS: BILIRUBIN,URINE NEGATIVE (NEGATIVE); CLARITY,URINE CLEAR; COLOR,URINE YELLOW; GLUCOSE, URINE (UA) NEGATIVE (NEGATIVE); KETONES,URINE NEGATIVE (NEGATIVE); LEUKOCYTE ESTERASE ,URINE NEGATIVE (NEGATIVE); NITRITE,URINE NEGATIVE (NEGATIVE); PROTEIN,URINE 2+ (NEGATIVE)
[2022-03-30 23:17] LABS: BACTERIA,URINE TRACE /HPF; HYALINE CASTS, URINE RARE /LPF; WBC,URINE RARE /HPF
[2022-03-30 23:28] VITALS: BP 187/112
== END 2022-03-30 23:37 | disposition home or self-care (01) ==
LOC: EDUNIT# 22:14 → ER 22:17
DX: R33.9 Retention of urine, unspecified (principal); Z96.0 Presence of urogenital implants
CPT/HCPCS: 51702; 81000

== ENCOUNTER → 2022-08-13 | Outpatient (CLI) | payer MEDICARE, OTHER | LOC: CARD 14:02 | PROVIDERS: ATTEND Internal Medicine Cardiovascular Disease | DX: D15.1 Benign neoplasm of heart (principal); I51.7 Cardiomegaly | CPT/HCPCS: 93306 ==

== ENCOUNTER 2022-08-29 05:34 | Outpatient (CLI) | payer MEDICARE, OTHER ==
[~2022-08-29] VITALS: Ht 180.3 cm; Wt 65.5 kg
[2022-08-30] MEDS ORDERED: MULT-1067 PO (14:31)
[2022-08-30] MEDS ORDERED: RIVA20TA PO (14:31)
[2022-08-30] MEDS ORDERED: PHEN-640 PO (14:31)
[2022-08-30] MEDS ORDERED: OMEP20CA18 PO (14:31)
== END 2022-08-30 15:12 ==
LOC: PREOP 05:34
PROVIDERS: ATTEND Otolaryngology Otolaryngology/Facial Plastic Surgery
DX: Z01.818 Encounter for other preprocedural examination (principal)

== ENCOUNTER 2022-09-05 07:38 | Day surgery (SDC) | payer MEDICARE, OTHER ==
[~2022-09-05] VITALS: Ht 180.3 cm; Wt 65.5 kg
[2022-09-05] VITALS (11 sets, daily range): BP systolic 156–176; BP diastolic 83–92
[~2022-09-05 07:38] MED LIST changes: +MULT-1067 PO; +OMEP20CA18 PO; +PHEN-640 PO; +RIVA20TA PO
[2022-09-05] MEDS ORDERED: LACTATED RINGERS 1,000 ML IV PRN (08:00)
[2022-09-05 08:48] LABS: BASOPHILS # (AUTO) 0.1 10^3/uL (0.0-0.1); BASOPHILS % (AUTO) 1 % (0-10); EOSINOPHILS # (AUTO) 0.6 10^3/uL (0.0-0.3); EOSINOPHILS % (AUTO) 5 % (0-10); HEMATOCRIT 40 % (40-54); HEMOGLOBIN 12.8 g/dL (13.3-17.7); LYMPHOCYTES # (AUTO) 2.6 10^3/uL (1.0-4.0); LYMPHOCYTES % (AUTO) 23 % (12-44); MEAN CORPUSCULAR HEMOGLOBIN 30 pg (25-34); MEAN CORPUSCULAR HGB CONC 32 g/dL (32-36); MEAN CORPUSCULAR VOLUME 92 fL (80-99); MEAN PLATELET VOLUME 9.5 fL (9.0-12.2); MONOCYTES # (AUTO) 1.1 10^3/uL (0.0-1.0); MONOCYTES % (AUTO) 10 % (0-12); NEUTROPHILS # (AUTO) 6.7 10^3/uL (1.8-7.8); NEUTROPHILS % (AUTO) 60 % (42-75); PLATELET COUNT 209 10^3/uL (130-400); WHITE BLOOD COUNT 11.1 10^3/uL (4.3-11.0)
[2022-09-05] MEDS ORDERED: LIDOCAINE/EPI 1%-1:100,000 (XYLOCAINE) 30ML ONE (08:52)
[2022-09-05] MEDS ORDERED: LIDOCAINE PF 2% 5 ML (XYLOCAINE) VIAL ONE (08:56)
[2022-09-05] MEDS ORDERED: SEVOFLURANE (ULTANE) 15 ML INHAL SOLN ONE (08:56)
[2022-09-05] MEDS ORDERED: fentaNYL INJ 100 MCG/2 ML AMP ONE (08:56)
[2022-09-05] MEDS ORDERED: proPOfol 200 MG/20 ML (DIPRIVAN) VIAL IV ONE (08:56)
[2022-09-05 09:05] LABS: CALCIUM 9.5 MG/DL (8.5-10.1); CREATININE SERUM 2.15 MG/DL (0.60-1.30); POTASSIUM 4.7 MMOL/L (3.6-5.0)
[2022-09-05] MEDS ORDERED: LIDOCAINE/EPI 1%-1:100,000 (XYLOCAINE) 20ML INJ ONE (10:49)
--- NOTE | 2022-09-05 11:12 | Progress Note-Pre Operative ---
Pre-Operative Progress Note Date of Available H&P: Sep 05, 2022 Date H&P Reviewed: Sep 05, 2022 Time H&P Reviewed: 10:00 History & Physical: H&P Reviewed, Patient Examed, No changes noted Changes from last HP none Pre-Operative Diagnosis: Left Posterior Scalp Lesion LUL JACKMAN MD Sep 05, 2022 11:12
--- NOTE | 2022-09-05 11:13 | Progress Note-Post Operative ---
Post-Operative Progess Note Surgeon (s)/Ui Architect (s) Surgeon LUL JACKMAN MD Ui Architect n/a Pre-Operative Diagnosis Left Posterior Scalp Lesion Post-Operative Diagnosis same Post-Op Procedure Note Date of Procedure: Sep 05, 2022 Name of Procedure Performed: Excsion of Left Posterior Scalp Lesion, Reconstruction with FTSG, Donor site Left Pre-auricular region Description & Findings Description and Findings: n/a Anesthesia Type lma Estimated Blood Loss minimal Packing none. Specimen(s) collected/removed left posterior scalp lesion for frzoen section LUL JACKMAN MD Sep 05, 2022 11:13
[2022-09-05] MEDS ORDERED: HYDROcodone/APAP 5 MG/325 MG (LORTAB) TAB PO PRN (11:15)
[2022-09-05] MEDS ORDERED: ACETAMINOPHEN 325 MG TABLET PO PRN (11:15)
[2022-09-05] MEDS ORDERED: MUPIROCIN 2% OINT 22 GM (BACTROBAN) TUBE ONE (11:17)
[2022-09-05] MEDS ORDERED: CEPH500T PO (13:11)
[2022-09-05] MEDS ORDERED: ACHD5005 PO (13:11)
--- NOTE | 2022-09-05 14:17 | Anesthesia-General Post-Op ---
General Patient Condition Mental Status/LOC: Same as Preop Cardiovascular: Satisfactory Nausea/Vomiting: Absent Respiratory: Satisfactory Pain: Controlled Complications: Absent Post Op Complications Complications None Follow Up Care/Instructions Patient Instructions None needed. Anesthesia/Patient Condition Patient Condition Patient is doing well, no complaints, stable vital signs, no apparent adverse anesthesia problems. No complications reported per nursing. MANDO ANDREA CRNA Sep 05, 2022 14:17
== END 2022-09-05 13:55 | disposition home or self-care (01) ==
LOC: SDC 07:38
PROVIDERS: ATTEND Otolaryngology Otolaryngology/Facial Plastic Surgery
DX: C44.42 Squamous cell carcinoma of skin of scalp and neck (principal); Z87.891 Personal history of nicotine dependence
CPT/HCPCS: 36415; 80048; 85025; 87081; 93005

== ENCOUNTER 2023-04-29 11:00 | Day surgery (SDC) | payer MEDICARE, OTHER ==
[2023-04-29] VITALS (19 sets, daily range): BP systolic 124–158; BP diastolic 64–92
[~2023-04-29] VITALS: Ht 180.3 cm; Wt 76.9 kg
[2023-04-29 09:42] LABS: HEMATOCRIT 44 % (40-54); HEMOGLOBIN 14.3 g/dL (13.3-17.7); MEAN CORPUSCULAR HEMOGLOBIN 30 pg (25-34); MEAN CORPUSCULAR HGB CONC 33 g/dL (32-36); MEAN CORPUSCULAR VOLUME 93 fL (80-99); MEAN PLATELET VOLUME 9.7 fL (9.0-12.2); PLATELET COUNT 169 10^3/uL (130-400); WHITE BLOOD COUNT 10.2 10^3/uL (4.3-11.0)
[2023-04-29] MEDS: NS IV 1000 ML 1,000 ML IV SCH ×4 (09:57→23:01)
[2023-04-29 10:03] LABS: PROTHROMBIN TIME PATIENT 13.1 SEC (12.2-14.7)
[2023-04-29 10:06] LABS: ALBUMIN 4.1 GM/DL (3.2-4.5); BILIRUBIN,TOTAL 0.3 MG/DL (0.1-1.0); CALCIUM 9.3 MG/DL (8.5-10.1); CREATININE SERUM 2.08 MG/DL (0.60-1.30); POTASSIUM 4.2 MMOL/L (3.6-5.0); TOTAL PROTEIN 7.6 GM/DL (6.4-8.2)
[~2023-04-29 11:00] MED LIST changes: +ACET-2267 PO; +AMLO-251 PO; +CARV25TA PO; +HEParin (CATH LAB) 2,000 ML IV ONE; +LIDOCAINE 1% INJ 20 ML VIAL ONE; +MV-M1CAP24 PO; +NS IV 1000 ML 1,000 ML ONE; +ONDANSETRON INJECTION 4 MG/2 ML (SDV) IVP ONE; +ONDANSETRON INJECTION 4 MG/2 ML (SDV) ONE; +POLY1DRO OP
[2023-04-29] MEDS ORDERED: MIDAZOLAM INJ 5 MG/5 ML VIAL ONE (11:11)
[2023-04-29] MEDS ORDERED: fentaNYL INJECTION 100 MCG/2 ML VIAL ONE (11:11)
--- NOTE | 2023-04-29 12:46 | Cardiac Procedure Note-CS/ASA ---
Pre-Procedure Note Pre-Op Procedure Note Date of Available H&P: Apr 28, 2023 Date H&P Reviewed: Apr 29, 2023 Time H&P Reviewed: 11:00 History & Physical: H&P Reviewed, No changes noted Moderate Sedation PreProcedure ASA Score 3 Airway Lungs Heart ASA score ASA 1: a normal healthy patient ASA 2: a patient with a mild systemic disease (mid diabetes, controlled hypertension, obesity ASA 3: a patient with a severe systemic disease that limits activity (angina, COPD, prior Myocardial infarction) ASA 4: a patient with an incapacitating disease that is a constant threat to life (CHF, renal failure) ASA 5: a moribund patient not expected to survive 24 hrs. (ruptured aneurysm) ASA 6: a declared brain- patient whose organs are being harvested. For emergent operations, add the letter E after the classification Mallampati Classification Grade 2 Sedation Plan Analgesia, Amnesia, Plan communicated to team members The patient is an appropriate candidate to undergo the planned procedure, sedation, and anesthesia. The patient immediately re-assessed prior to indication. MAMIE DÍAZ MD FACP FAC CCDS Apr 29, 2023 12:46
--- NOTE | 2023-04-29 12:57 | Cardiac Cath Report ---
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 Right heart cath 2. Left heart cath without any left ventricular or any coronary angiography PROCEDURE DESCRIPTION: After informed consent and in the fasting state, right and left heart catheterizations were performed through the R femoral vein and R femoral artery, respectively, via percutaneous approaches. 7F [place] for right heart cath and 5F pigtail for left heart cath. 7F sheath for R femoral vein, 5F sheath for R femoral artery. Manual pressure for hemostasis after each sheath removal. No contrast use. HEMODYNAMICS: RA mean 9 PA 36/16/ Pulmonary wedge pressure: 26 LV: 156/17 No significant step up in oxygen concentration in the various right heart chambers No significant intracardiac shunt detected PVR: 1.47 Wood units Cardiac output by thermodilution:3.57 Cardiac index by thermodilution: 1.83 IMPRESSION: 1. No significant intracardiac shunt detected on this study 2. LVEDP and pulmonary wedge pressure 16-17 mmHg 3. PA pressure 36/16/22 MAMIE DÍAZ MD FACP FAC CCDS Apr 29, 2023 12:57
[2023-04-29] MEDS ORDERED: PATIENT MAY USE OWN MEDS, ALL PO SCH (13:00)
--- NOTE | 2023-04-29 13:01 | Discharge Inst-Cardiology ---
Discharge Inst-Cardiac Discharge Medications Continued Medications: Acetaminophen (Tylenol Extra Strength) 500 Mg Tablet 1000 MG PO Q6H PRN for PAIN-MILD (1-4), TAB Amlodipine Besylate (Amlodipine Besylate) 10 Mg Tablet 10 MG PO DAILY, TAB Carvedilol (Carvedilol) 25 Mg Tablet 25 MG PO BID, TAB Divalproex Sodium (Divalproex Sodium) 250 Mg Tablet.dr 250 MG PO BID, TAB Furosemide (Furosemide) 20 Mg Tablet 20 MG PO DAILY, TAB Hydrocodone/Acetaminophen (Hydrocodone-Acetamin 5-325 mg) 5 Mg-325 Mg Tablet 1 TAB PO Q4H PRN for PAIN-MODERATE (5-7), TAB Multivitamin/Iron/Folic Acid (Centrum Adults Tablet) 18 Mg Iron-400 Mcg Tablet 1 EACH PO DAILY, TAB Mv-Mn/Om3/Dha/Epa/Fish/Lut/Jordan (Ocuvite Adult 50 Plus Softgel) 250 Mg (90 Mg-160 Mg)-5 Mg-1 Mg Capsule 1 EACH PO DAILY, CAP Omeprazole (Omeprazole) 20 Mg Capsule.dr 20 MG PO DAILY, CAP Phenazopyridine HCl (Pyridium) 200 Mg Tablet 1 TAB PO TID PRN for URINARY PAIN, TAB Polyvinyl Alcohol/Povidone/Pf (Refresh Classic Eye Drops) 1.4 %-0.6 % Droperette 1 EACH OP PRN PRN for DRY EYES, DROP Rivaroxaban (Xarelto) 20 Mg Tablet 20 MG PO DAILY, TAB Simvastatin (Simvastatin) 20 Mg Tablet 20 MG PO HS, TAB Tamsulosin HCl (Flomax) 0.4 Mg Cap 0.4 MG PO DAILY, MAMIE EDOUARD MD [facility] CCDS Apr 29, 2023 13:01
--- NOTE | 2023-04-29 13:02 | Discharge Inst-Post CATH ---
Discharge Inst-CATH/EP Post Cardiac Cath/EP D/C Inst Follow Up/Plan F/u with Dr Ivan in 4-5 weeks ACTIVITY * Go Home directly and rest. * Limit activity of the leg (or wrist if it was used) for 7 days including aerobics, swimming, jogging, bicycling, etc. * Restrict stair-climbing for 7 days if possible, if not, climb up with your non-cath leg, then bring together on the same step. * Avoid lifting, pushing, pulling or excessive movement of the affected extremity for 7 days. * Customary sexual activity may be resumed after 2 days-use caution not to use a position that strains or causes pain to the affected extremity. * No driving for 24 hours. * NO SMOKING. * Avoid straining for bowel movements for 7 days. * Gentle walking on level ground is allowed. * Returning to work will depend on the type of procedure and the results. Your doctor will discuss this with you. CALL YOUR DOCTOR FOR ANY OF THE FOLLOWING: *If bleeding from the puncture site occurs- Apply gentle pressure to site with clean cloth and call your doctor or EMS. * If a knot or lump forms under the skin, increases in size, or causes pain. * If bruising appears to be worsening or moving further down your leg instead of disappearing. * Temperature above 101 F. CARE OF YOUR GROIN INCISION; * Bruising or purple discoloration of the skin near the puncture site is common. * You may shower only, no bathtub bathing for 5 days. Be careful to avoid slipping as your leg may feel stiff. * If a closure device was used on your femoral artery, please see the attached guide regarding care of the device and your leg. * Leave dressing on FOR 24 hours. CARE OF YOUR WRIST INCISION; * Bruising or purple discoloration of the skin near the puncture site is common. * You may shower. * DO NOT submerge wrist. * Leave dressing on FOR 24 hours. MAMIE IVAN MD [facility] CCDS Apr 29, 2023 13:02
[2023-04-29] MEDS ORDERED: LIDOCAINE UROJET 2% GEL 10 ML PKG ONE (17:36)
[2023-04-29] MEDS ORDERED: LIDOCAINE UROJET 2% GEL 10 ML PKG TOP ONE (18:15)
[2023-04-29] MEDS ORDERED: ARTIFICAL TEARS Ophth solution 0.4 ML UNIT DOSE OU PRN (18:30)
[2023-04-29] MEDS ORDERED: PHENAZOPYRIDINE 100 MG TABLET PO PRN (18:30)
[2023-04-29] MEDS ORDERED: ACETAMINOPHEN 500 MG TABLET PO PRN (18:30)
[2023-04-29] MEDS ORDERED: HYDROcodone/ACETAMINOPHEN 5 MG/325 MG TABLET ONE (18:48)
[2023-04-29] MEDS: HYDROcodone/ACETAMINOPHEN 5 MG/325 MG TABLET PO PRN (18:51)
--- NOTE | 2023-04-29 18:54 | Tele-ICU Progress Note ---
Progress Note Video assessment done , Hemodynamically stable Available charting reviewed, discussed with RN NO TELE-ICU CONSULT REQUESTED CONTINUE TO MONITOR PER USUAL TELE-ICU PROTOCOL No need for Tele-ICU interventions Plans as delineated by bedside physicians / consultants Focused Exam Height, Weight, BMI Height: 5'11.00" Weight: 185lbs. 0.0oz. 83.307073vn; 23.65 BMI Method: DEBBIE SAPP MD Apr 29, 2023 18:54
[2023-04-29] MEDS: carvediloL 12.5 MG TABLET PO SCH (20:47)
[2023-04-29] MEDS: DIVALPROEX 250 MG DELAYED RELEASE TABLET PO SCH (20:47)
[2023-04-29] MEDS ORDERED: CALCIUM CARBONATE 500 MG CHEW TABLET PO PRN (21:00)
[2023-04-30] VITALS (9 sets, daily range): BP systolic 148–164; BP diastolic 77–88
[2023-04-30] MEDS: HYDROcodone/ACETAMINOPHEN 5 MG/325 MG TABLET PO PRN ×2 (03:54→07:51)
[2023-04-30] MEDS: NS IV 1000 ML 1,000 ML IV SCH (05:20)
[2023-04-30] MEDS: DIVALPROEX 250 MG DELAYED RELEASE TABLET PO SCH (08:36)
[2023-04-30] MEDS: carvediloL 12.5 MG TABLET PO SCH (08:36)
[2023-04-30] MEDS ORDERED: TAMSULOSIN 0.4 MG (FLOMAX) CAP PO SCH ×2 (09:00→18:00)
[2023-04-30] MEDS ORDERED: amLODIPine 10 MG TABLET PO SCH (09:00)
--- NOTE | 2023-04-30 09:12 | Progress Note - Cardiology ---
Cardiology SOAP Progress Note Subjective: Sitting up in bed No c/o CP, SOB, palpitations or right groin discomfort this morning Wants to go home Objective: I&O/Vital Signs 04/29/23 04/29/23 04/30/23 04/30/23 22:00 23:04 00:00 00:14 Temp 36.0 Pulse 62 65 65 Resp 16 8 B/P (MAP) 149/74 (103) 158/92 (130) 155/79 (113) Pulse Ox 91 95 95 O2 Delivery Room Air Room Air Room Air 04/30/23 04/30/23 04/30/23 04/30/23 01:00 01:00 02:00 03:00 Pulse 69 69 68 64 Resp 25 36 21 B/P (MAP) 163/83 (104) 160/80 (113) 153/79 (103) Pulse Ox 96 95 94 O2 Delivery Room Air Room Air Room Air 04/30/23 04/30/23 04/30/23 04/30/23 04:00 05:00 06:00 07:00 Pulse 63 62 61 62 Resp 12 16 B/P (MAP) 164/88 (113) 157/77 (103) 151/78 (102) 160/82 (108) Pulse Ox 96 94 92 94 O2 Delivery Room Air Room Air Room Air Room Air 04/30/23 04/30/23 04/30/23 07:00 07:36 08:00 Temp 36.1 Pulse 62 63 Resp 45 B/P (MAP) 148/79 (102) Pulse Ox 94 O2 Delivery Room Air 04/30/23 00:00 Intake Total 400 ml Output Total 300 ml Balance 100 ml Weight (Pounds): 185 Weight (Ounces): 0.0 Weight (Calculated Kilograms): 83.592649 Side: right Groin site without hematoma: Yes Condition: DP/PT pulses palpable, extremity w/d/p Bruising: mild bruising Constitutional: AAO x 3, well-developed, well-nourished Respiratory: No accessory muscle use, No respiratory distress; chest expansion is symmetric, chest is bilaterally symmetric Cardiovascular: regular rate-rhythm; No JVD Gastrointestional: No tender; soft, round; No guarding Extremities: no lower extremity edema bilateral Neurologic/Psychiatric: other (moves all extremities) Skin: No rash on exposed areas, No ulcerations on exposed areas Results/Procedures: Labs Laboratory Tests 04/29/23 09:34: White Blood Count 10.2, Red Blood Count 4.70, Hemoglobin 14.3, Hematocrit 44, Mean Corpuscular Volume 93, Mean Corpuscular Hemoglobin 30, Mean Corpuscular Hemoglobin Concent 33, Red Cell Distribution Width 13.0, Platelet Count 169, Mean Platelet Volume 9.7, Prothrombin Time 13.1, INR Comment 1.0, Activated Partial Thromboplast Time 28, Sodium Level 138, Potassium Level 4.2, Chloride Level 109H, Carbon Dioxide Level 21, Anion Gap 8, Blood Urea Nitrogen 52H, Creatinine 2.08H, Estimat Glomerular Filtration Rate 32, BUN/Creatinine Ratio 25, Glucose Level 109H, Calcium Level 9.3, Corrected Calcium 9.2, Total Bilirubin 0.3, Aspartate Amino Transf (AST/SGOT) 17, Alanine Aminotransferase (ALT/SGPT) 17, Alkaline Phosphatase 82, Total Protein 7.6, Albumin 4.1, Triglycerides Level 128, Cholesterol Level 174, LDL Cholesterol Direct 133H, VLDL Cholesterol 26, HDL Cholesterol 36L Microbiology 04/29/23 MRSA Screen - Final, Complete MRSA not isolated Laboratory Tests 04/29/23 09:34 A/P: Assessment: [facility] 04-29-23: No significant intracardiac shunt detected on this study. LVEDP and pulmonary wedge pressure 16-17 mmHg. 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 Sessile, atrial septal mass in the right atrium, medium-sized, suggestive of right atrial myxoma. PASP 30- 35mmHg PAD, h/o bypass surgery on the L leg - details unknown (2020) Carotid dz - L CEA in or around 2013 - carotid u/s on 03/24/23: approx 80% R ICA, less than 40% L ICA CKD 4 Chronic tobacco use - states quit in early H/o stroke - 2020 - apparently thromboembolic - [facility] showed atrial mass vs thrombus (March 2021) and he has since been on Xarelto that was started by Dr Barnett in March 2021 Chronic hypertension - that has been difficult to control Plan: S/P [facility]C with post right groin bleed requiring blood pressure to be held - resolved - ambulate in the halls this morning Likely discharge home today with out pt f/u LAURI UPTON Apr 30, 2023 09:12
--- NOTE | 2023-04-30 17:38 | Progress Note - Cardiology ---
Cardiology SOAP Progress Note Subjective: No cp or palp or syncope or shortness of breath No n/v/d No focal weakness No groin or leg discomfort or discoloration Objective: I&O/Vital Signs 04/30/23 04/30/23 04/30/23 04/30/23 06:00 07:00 07:00 07:36 Temp 36.1 Pulse 61 62 62 B/P (MAP) 151/78 (102) 160/82 (108) Pulse Ox 92 94 O2 Delivery Room Air Room Air 04/30/23 04/30/23 08:00 08:00 Pulse 63 Resp 45 B/P (MAP) 148/79 (102) Pulse Ox 94 95 O2 Delivery Room Air Room Air 04/30/23 00:00 Intake Total 400 ml Output Total 300 ml Balance 100 ml Weight (Pounds): 185 Weight (Ounces): 0.0 Weight (Calculated Kilograms): 83.186581 Side: right Groin site without hematoma: Yes Condition: DP/PT pulses palpable, extremity w/d/p Bruising: mild bruising Constitutional: AAO x 3, well-developed, well-nourished Respiratory: No accessory muscle use, No respiratory distress; chest expansion is symmetric, chest is bilaterally symmetric Cardiovascular: regular rate-rhythm; No JVD Gastrointestional: No tender; soft, round; No guarding Extremities: no lower extremity edema bilateral Neurologic/Psychiatric: other (moves all extremities) Skin: No rash on exposed areas, No ulcerations on exposed areas Results/Procedures: Labs Microbiology 04/29/23 MRSA Screen - Final, Complete MRSA not isolated A/P: Assessment: [facility] 04-29-23 (no contrast used): No significant intracardiac shunt detected on this study. LVEDP and pulmonary wedge pressure 16-17 mmHg. 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 Sessile, atrial septal mass in the right atrium, medium-sized, suggestive of right atrial myxoma. PASP 30- 35mmHg PAD, h/o bypass surgery on the L leg - details unknown (2020) Carotid dz - L CEA in or around 2013 - carotid u/s on 03/24/23: approx 80% R ICA, less than 40% L ICA CKD 4 Chronic tobacco use - states quit in early H/o stroke - 2020 - apparently thromboembolic - [facility] showed atrial mass vs thrombus (March 2021) and he has since been on Xarelto that was started by Dr Barnett in March 2021 Chronic hypertension - that has been difficult to control Plan: S/P [facility] with post right groin bleed requiring blood pressure to be held - resolved - ambulate in the halls this morning I had a detailed discussion with him regarding his cath findings and groin care Questions answered in detail Advised continuing f/u with CT surg for atrial mass Advised outpt Cardiology f/u MAMIE DÍAZ MD FACP F[facility] Apr 30, 2023 17:38
== END 2023-04-30 10:14 | disposition home or self-care (01) ==
LOC: CATH 11:00 → SDC 13:21 → ICU 17:19 → CATH 04-30 10:14
PROVIDERS: ATTEND Internal Medicine Cardiovascular Disease
DX: I13.10 Hypertensive heart and chronic kidney disease without heart failure, with stage 1 through stage 4 chronic kidney disease, or unspecified chronic kidney disease (principal); D15.1 Benign neoplasm of heart; I25.10 Atherosclerotic heart disease of native coronary artery without angina pectoris; I73.9 Peripheral vascular disease, unspecified; N18.4 Chronic kidney disease, stage 4 (severe); I65.23 Occlusion and stenosis of bilateral carotid arteries; E78.2 Mixed hyperlipidemia; Z87.891 Personal history of nicotine dependence; Z79.01 Long term (current) use of anticoagulants; Z79.899 Other long term (current) drug therapy
CPT/HCPCS: 80053; 80061; 85027; 85610; 85730; 87081; 93005; 93453; C1769; C1894 ×2; 36415; 93460

== ENCOUNTER → 2023-06-24 | Outpatient (CLI) | payer MEDICARE, OTHER ==
[~2023-06-24] VITALS: Ht 180.3 cm; Wt 77.9 kg
[2023-06-24] VITALS (9 sets, daily range): BP systolic 125–160; BP diastolic 74–90
[~2023-06-24] MED LIST changes: -HEParin (CATH LAB) 2,000 ML IV ONE; -LIDOCAINE 1% INJ 20 ML VIAL ONE; +LIDOCAINE 2% VISCOUS 15 ML UDC ONE; +LIDOCAINE 2% VISCOUS 15 ML UDC PO ONE; +MIDAZOLAM INJ 5 MG/5 ML VIAL IV ONE; +MIDAZOLAM INJ 5 MG/5 ML VIAL ONE; +NS IV 1000 ML 1,000 ML IV ONE; +fentaNYL INJECTION 100 MCG/2 ML VIAL IV ONE; +fentaNYL INJECTION 100 MCG/2 ML VIAL ONE
[2023-06-24 10:55] LABS: HEMATOCRIT 46 % (40-54); HEMOGLOBIN 15.1 g/dL (13.3-17.7); MEAN CORPUSCULAR HEMOGLOBIN 31 pg (25-34); MEAN CORPUSCULAR HGB CONC 33 g/dL (32-36); MEAN CORPUSCULAR VOLUME 93 fL (80-99); MEAN PLATELET VOLUME 9.6 fL (9.0-12.2); PLATELET COUNT 212 10^3/uL (130-400)
[2023-06-24 11:09] LABS: INR 1.2 (0.8-1.4); PROTHROMBIN TIME PATIENT 15.6 SEC (12.2-14.7)
[2023-06-24 11:14] LABS: ALBUMIN 4.2 GM/DL (3.2-4.5); BILIRUBIN,TOTAL 0.3 MG/DL (0.1-1.0); CALCIUM 9.4 MG/DL (8.5-10.1); CREATININE SERUM 2.54 MG/DL (0.60-1.30); POTASSIUM 4.7 MMOL/L (3.6-5.0); TOTAL PROTEIN 8.4 GM/DL (6.4-8.2)
== END ==
LOC: CATH 10:09
PROVIDERS: ATTEND Internal Medicine Cardiovascular Disease
DX: I25.10 Atherosclerotic heart disease of native coronary artery without angina pectoris (principal); I73.9 Peripheral vascular disease, unspecified; I65.23 Occlusion and stenosis of bilateral carotid arteries; N18.4 Chronic kidney disease, stage 4 (severe); I12.9 Hypertensive chronic kidney disease with stage 1 through stage 4 chronic kidney disease, or unspecified chronic kidney disease; E78.2 Mixed hyperlipidemia; I74.9 Embolism and thrombosis of unspecified artery; D15.1 Benign neoplasm of heart; Z86.73 Personal history of transient ischemic attack (TIA), and cerebral infarction without residual deficits; Z87.891 Personal history of nicotine dependence
CPT/HCPCS: 36415; 80053; 80061; 85027; 85610; 85730; 87081; 93005; 93312